=== PATIENT | female | born 1940 | race Caucasian/White ===

== ENCOUNTER 2017-07-09 14:08 | Inpatient (IN) | payer MEDICARE, SELFPAY ==
[2017-07-09] VITALS (10 sets, daily range): BP systolic 81–153; BP diastolic 55–97; PULSE 82–98; RESP 14–20; TEMP 35.3–36.5; O2SAT 96–100; BMI 28.3; BMI 28.4
--- NOTE | 2017-07-09 14:45 | RAD_ITS ---
STUDY: X-RAY CHEST REASON FOR EXAM: Female, 76 years old. Dyspnea on exertion TECHNIQUE: PA and lateral views of the chest. COMPARISON: Prior study of 02/26/2017 FINDINGS: There is a left-sided Port-A-Cath with catheter tip overlying the region of the junction of the left brachiocephalic vein and SVC. There is a 4.2 x 2.7 cm right upper lobe mass, appearing similar to the previous study. There is a small left-sided effusion. Normal size heart. Normal mediastinum and rodolfo. Normal visualized pulmonary arteries. There are calcified plaques of the thoracic aorta. Normal visualized thoracic spine. There are degenerative changes of the right shoulder joint. There is no demonstrated abnormality of the visualized soft tissue structures of the upper abdomen. RAD/Chest PA and Lateral IMPRESSION: 4.2 x 2.7 cm right upper lobe mass, appearing similar to the previous study. Limited inspiration. Calcified plaques of the thoracic aorta. Degenerative changes of the right shoulder joint. Electronically Signed: Luis Felipe Gonzalez MD at 16:16 EDT , Service support ,
[2017-07-09 15:04] LABS: Absolute Lymphocyte Count 1.27 X10^3/ul (0.83-4.51); Absolute Neutrophil Count 9.4 X10^3/uL (2.0-7.7); Basophil# 0.03 X10^3/uL; Basophil% 0.3 % (0-1); Eosinophil# 0.24 X10^3/uL; Eosinophils% 2.1 % (0-5); Hematocrit 35.9 % (37-47); Hemoglobin 11.3 g/dl (12.0-15.0); Lymphocyte # 1.27 X10^3/ul (4.0); Lymphocyte % 10.9 % (19-41); Mean Corp Hgb Conc 31.5 g/gl (32-36); Mean Corpuscular Hgb 27.7 pg (27.0-32.0); Mean Platelet Vol. 10.1 fl (6.2-12.0); Monocyte# 0.69 X10^3/uL; Monocyte% 5.9 % (0-10); Neutrophil # 9.42 X10^3/uL (2.7-7.7); Neutrophil % 80.7 % (47-70); POSITIVE COUNT NO; POSITIVE DIFFERENTIAL NO; POSITIVE MORPHOLOGY NO; Platelet Count 230 K/mm3 (150-450); RBC Distribution Width CV 14.9 % (11.6-14.6); RBC Distribution Width SD 47.5 fl (35.1-43.9); Red Blood Count 4.08 M/mm3 (4.2-5.4); White Blood Count 11.7 K/mm3 (4.4-11.0)
--- NOTE | 2017-07-09 15:19 | ED.DCSUM_ITS ---
- ER Visit Summary Date of Service: 07/09/17 Chief Complaint: Brought to the emergency by family because of decreased p.o. intake and decreased urine output History of Present Illness: The patient is a 76 F has multiple medical problems was brought to the emergency room by family because of decreased p.o. intake and decreased urine output. She has multiple medical problems. She does complain of dry mouth and thirst. She does report orthostatic symptoms and based on her recall of normal blood pressure her pressure was low. She does have chronic diarrhea. It is not uncommon for her to have up to 15 loose stools a day. She is status post size. Colectomy for colon cancer. She denies any blood or mucus in her stool. She does complain of being cold. She denies history of thyroid disease. She denies headache. Denies any visual, ocular auditory symptoms. I trouble speech or swallowing. She denies cough or shortness of breath. Family member states she is short of breath with walking. She denies orthopnea PND. She denies swelling of her legs. She denies history of PE and DVT; however, reviewing records reveals she has history of both. Nurse informed me that her recently . Physical Examination: Blood pressure is 102/58 and temperature is 95.7. Both of these are abnormal. Head is atraumatic, cephalic. Pupils equal reactive. Extra muscle intact. Mucosa is dry. Trachea is midline. There is no stridor. Heart is regular. Lungs are clear to auscultation with diminished bilaterally. Abdomen soft nontender. Lower extreme exam reveals no swelling, discoloration, leg vein distention, palpable coarseness on the description deep venous system. Patient is alert and oriented ?3. Motor is 5 over 5. Sensory is intact. DTRs are symmetric with no clonus or Babinski sign. Cranial 2 through 12 are intact. Cerebellar testing is normal. Test Results: White count is slightly above 11.7 thousand with 81 segs no bands. H&H 7.3 and 35.9. Electro panels marked for potassium of 5.6, CO2 of 18 with an anion gap of 7. Glucose is 207. BUN and creatinine are 59 2.98 respectively. Lactate is normal at 1.2. TSH is 1.48. View chest x-ray reveals a 4+ cm mass on the right that was noted on prior x-rays. Also effusions are noted. Emergency Department Course and Treatment: IV was established and she received 1 L of normal saline. No longer BMP was obtained to assess BUN/creatinine and electrolytes. CBC was obtained to evaluate for anemia. Since she is hypothermic complains of being cold/cold intolerance a TSH was obtained. Treatment Plan: Patient was informed at 1630 that she would be admitted. Her blood pressure is 81 systolic after 1 L. She received a second liter. Because of the hyperkalemia and EKG was ordered and the results will be documented on the written note. Disposition: Admit PCU Impression: 1. Hypotension 2. Acute kidney injury 3. Hyperkalemia 4. Right lung mass, chronic 5. Hyperglycemia and nondiabetic 6. History of coronary disease 7. History of congestive heart failure This note was generated with [employer] dictation software. It may contain incorrect words, spelling, and punctuation that were not noted in review of the chart prior to signing ED Disposition - Plan for ED Patient: Chief Complaint: Complaint Referrals: Marilu Veloz MD [STAFF PHYSICIAN] -
[2017-07-09] MEDS: 0.9% Normal Saline 1,000 ML 1000 ML IV (15:21)
[2017-07-09 15:29] LABS: Anion Gap 7 (5-15); BUN 59 mg/dL (7-18); BUN/Creat Ratio 20.6 RATIO (10-20); Calcium,Total 9.7 mg/dL (8.5-10.1); Chloride 109 mmol/L (98-107); Creatinine, Serum 2.87 mg/dL (0.55-1.02); EST Glomerular Filtration Rate 17 mL/min (>60); Est Glom Filt Rate - Afr Amer 20 mL/min (>60); Estimated Creatinine Clearance 12.98 ml/min; Glucose 209 mg/dL (74-106); Lactic Acid 1.2 mmol/L (0.4-2.0); Potassium 5.6 mmol/L (3.5-5.1); Sodium Level 134 mmol/L (136-145); Thyroid Stim Hormone (TSH) 1.48 uIU/mL (0.358-3.74)
--- NOTE | 2017-07-09 16:18 | EKG12_ITS ---
Test Reason : COMPLAINT Blood Pressure : / mmHG Vent. Rate : 086 BPM Atrial Rate : 086 BPM P-R Int : 172 ms QRS Dur : 084 ms QT Int : 368 ms P-R-T Axes : 042 -23 053 degrees QTc Int : 440 ms Normal sinus rhythm Normal ECG Confirmed by MARIO BURROUGHS, JOSIANE ([id number]), editor index SANDY SALMERON ([id number]) on 07/11/2017 1:02:08 PM Referred By: LUPE Confirmed By:JOSIANE MARTIN MD
--- NOTE | 2017-07-09 17:22 | PCM.HP.STD ---
Problem List (1) Generalized weakness Status: Acute (2) Confusion Status: Acute History of Present Illness Date of Admission: 07/09/17 Chief Complaint: Generalized weakness, intermittent confusion The patient is a 76 year old F was seen in the emergency room at [facility] after being brought in by her family due to intermittent mild confusion and generalized weakness. Patient lost her ex- a few days ago and the patient's family believes that she is depressed, patient admits to this examiner that at times she has memory issues. Family confirms this also. Patient denies any focal weakness, slurred speech, difficulty swallowing, headaches, or syncope. Workup in the emergency room included labs which were remarkable for an elevated BUN at 59, creatinine was elevated at 2.89, potassium was elevated at 5.6, patient's white blood cell count was 11.7. Patient had a chest x-ray which showed a right lower lobe mass that appears to be chronic, patient's family and the patient state that she is being seen for this abnormal area, in the past she had had a metastatic colon cancer foci in this area and it had been irradiated. Her oncologist does not believe that this is a recurrent area of cancer at this time. I had a talk with the family members who were present today, patient is on quite a few medications-some of which are antidepressants, it was confirmed that the patient has had severe depression in the past, family members did not seem to know she was taken Zyprexa, I indicated to them that I felt it would be a good idea to try to lower some of her medications such as her Neurontin and Zyprexa as these are sedating. Family is okay with this approach. Patient will be admitted for acute kidney injury to PCU, I will decrease her Neurontin, Zyprexa, and Ativan, she will receive fluids, repeat labs, and be seen by PT and OT. Further note, patient does go to adult daycare-patient's granddaughter states it is more for companionship. Patient's medications are given to the patient in unit dose packaging. I also talked to the family whether they feel that the patient needs to have a CT of her head or MRI of her head to rule out any metastatic cancer spread-family does not want it done at this time, they state that she has had scans in the past for the same reason and they have been negative, I think is more likely the patient's medications are causing some intermittent confusion in her. 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) s/p colon resection remote, lung metastases diagnosed 2014, s/p adjuvant chemotherapy, s/p stereotactic XRT [facility], follows [facility] S/P ORIF (open reduction internal fixation) fracture (Chronic) left ankle, 09/14/14, Dr Harvey, [facility] Presence of IVC filter (Chronic) H/O deep venous thrombosis (Chronic) now has an IVC filter Hyperlipidemia (Chronic) Polyneuropathy (Chronic) Pulmonary embolism (Chronic) Hypertension (Chronic) Chronic renal failure, stage 3 (moderate) (Chronic) Anxiety and depression (Chronic) uncontrolled Gallstones (Chronic) GERD (gastroesophageal reflux disease) (Chronic) Allergies promethazine HCl [From Phenergan] Allergy (Verified 07/09/17 14:36) seizures romanian rice Adverse Reaction (Severe, Uncoded 07/09/17 14:36) Unknown Home Medications: Ambulatory Orders Medication Instructions Recorded Atorvastatin Calcium [Lipitor] 40 mg PO QHS 07/09/15 Multivitamin [Daily Multiple 1 tab PO DAILY 07/09/15 Vitamin] Alendronate Sodium 70 mg PO BURT 09/20/16 buPROPion XL [Wellbutrin Xl] 150 mg PO DAILY 09/20/16 Aspirin E.C. [Ecotrin] 81 mg PO DAILY@0800 02/26/17 Carvedilol [Coreg (Beta Gilles)] 12.5 mg PO BID 02/26/17 Clopidogrel Bisulfate [Plavix] 75 mg PO DAILY 02/26/17 Oxycodone HCl/Acetaminophen 1 tablet PO TID PRN PRN 02/27/17 [Percocet 7.5-325 mg Tablet] gabapentin 300 mg capsule 600 mg PO TID 04/10/17 Insulin Aspart [Novolog Flexpen 6 units SC TIDCM 07/09/17 ([facility])] Insulin Glargine,Hum.rec.anlog 35 units SQ QHS 07/09/17 [Elias Strauss] Lisinopril [Zestril] 10 mg PO DAILY 07/09/17 Lorazepam [Ativan] 1 mg PO Q12H PRN PRN 07/09/17 Olanzapine [Zyprexa Zydis] 5 mg PO QHS 07/09/17 Potassium Chloride 10 meq PO BID 07/09/17 Venlafaxine XR [Effexor Xr] 150 mg PO DAILY 07/09/17 Surgical History: colectomy, hysterectomy, - - Left ankle ORIF, multiple cardiac stent placement Psychiatric History: Anxiety, Depression HOG RAISER History: No pertinent HOG RAISER history Lives: Alone Smoking Status: Never smoker Alcohol: None Drugs: None - *Family History Maternal History Items: Cancer - rectal Paternal History Items: Cancer - lung Review of Systems Constitutional: Reports: Weakness, Fatigue. Denies: Anorexia, Chills, Fever, Night Sweats, Malaise, Weight Change Eyes: Denies: Blurred vision, Cataracts, Conjunctivae Inflammation, Double vision, Drainage HEENT: Denies: Difficulty Swallowing, Dysphasia, Ear Pain, Eye Pain, Head Aches, Hearing Changes, Nasal bleeding, Nasal Congestion, Post Nasal Drip Cardiovascular: Denies: Chest Pain, Claudication, Chest Pressure, Chest Tightness, Edema, Heaviness, Light Headedness, Orthopnea, Palpitations, Paroxysmal Noc. Dyspnea, Syncope Respiratory: Denies: Cough, Hemoptysis, Pleuritic Pain, Shortness of Breath, Shortness of breath at rest, Shortness of breath upon exertion, Sputum production, Wheezing Gastrointestinal: Denies: Abdominal Pain, Constipation, Diarrhea, Hematemesis, Hematochezia, Nausea, Melena, Vomiting Genitourinary: Denies: Dysuria, Frequency, Hematuria, Hesitancy, Incontinence, Nocturia, Retention, Urgency Gynecological: Denies: Breast symptoms Musculoskeletal: Reports: Back Pain. Denies: Foot Pain, Hand Pain, Joint Pain, Joint stiffness, Joint swelling, Joint Tenderness, Leg Pain, Shoulder Pain Skin: Denies: Dryness, Jaundice, Pruritis, Rash Neurological: Denies: Blurred vision, Double vision, Slurred speech, Difficulty swallowing, Focal weakness, Headaches, Incoordination, Numbness, Tingling, Tremor, Seizures Psychiatric: Denies: Anxiety, Depression, Homicidal Ideations, Suicidal Ideations Endocrine: Reports: Hx of Irradiation. Denies: Change in Body Habitus, Heat/ Cold Intolerance, Polydipsia, Polyuria Hematologic/ Lymphatic: Denies: Adenopathy, Anemia, Easy Bruising, Easy Bleeding, Petechiae, Purpura VTE Information - Inpt Only VTE Present on Admission: No VTE Mechan Device Prophylaxis: None VTE Pharm Prophylaxis ordered?: Yes Patient Problems: Active and Suspected Problems (Last Updated 05/01/17 @ 09:35 by Los Jenkins) Generalized weakness (Acute) Confusion (Acute) - Physical Exam General: Alert, Oriented x3, Cooperative, No apparent distress, Well developed, Well nourished HEENT: Atraumatic, PERRLA, EOMI, Normocephalic Oral: Moist Mucosa Neck: Supple, No JVD, Negative Carotid Bruits, No Nuchal Rigidity, Trachea Midline, Thyroid Normal Size and Texture Lungs: Clear to auscultation, Normal air movement, No rhonchi, No wheeze, No rales Cardiovascular: Regular rate, Regular Rhythm, Normal S1, Normal S2, No murmurs, No Ectopic Activity, PMI Normal, No rub noted, No Gallop Abdomen: Bowel Sounds Present, Soft, Non Tender, Non-Distended, No hernias noted Extremities: No clubbing, No cyanosis, No edema, Capillary Refill Less than 3 Seconds Skin: No rashes, No breakdown Musculoskeletal: No Tenderness to Palpation of Joints or Extremities Neurological: Cranial nerves II-XII grossly intact, Neuro grossly intact, Muscle tone normal, Sensory exam intact to light touch and pain, Coordination normal Psych/Mental Status: Normal Affect, Appropriate, Alert and oriented to time, place, person, mood and affect Vital Signs Temp Pulse Resp BP Pulse Ox 95.6 F L 83 20 H 122/61 H 99 07/09/17 14:09 07/09/17 17:14 07/09/17 17:14 07/09/17 17:14 07/09/17 17:14 Oxygen Delivery Method Room Air Weight: 70.4 kg Body Mass Index (BMI) 28.3 Finger Stick Blood Glucose 260 Laboratory Tests Past 24 Hrs 07/09/17 07/09/17 07/09/17 14:56 14:56 14:56 WBC 11.7 H RBC 4.08 L Hgb 11.3 L Hct 35.9 L MCV 88.0 MCH 27.7 MCHC 31.5 L RDW 14.9 H RDW Differential 47.5 H Plt Count 230 MPV 10.1 Immature Gran % (Auto) 0.100 Neut % (Auto) 80.7 H Lymph % (Auto) 10.9 L [place] % (Auto) 5.9 Eos % (Auto) 2.1 Baso % (Auto) 0.3 Absolute Neuts (auto) 9.4 H Absolute Lymphs (auto) 1.27 Total Counted Not Reportable Sodium 134 L Potassium 5.6 H Chloride 109 H Carbon Dioxide 18.0 L Anion Gap 7 BUN 59 H Creatinine 2.87 H Estim Creat Clear Calc 12.98 Est GFR (MDRD) Af Amer 20 L Est GFR (MDRD) Non-Af 17 L BUN/Creatinine Ratio 20.6 H Glucose 209 H Lactic Acid 1.2 Calcium 9.7 TSH 1.48 Assessment/Plan Active and Suspected Problems (Last Updated 05/01/17 @ 09:35 by Los Jenkins) Generalized weakness (Acute) Confusion (Acute) #1 acute kidney injury-etiology unclear, it may be from lack of fluid intake and/or elevated blood sugar, patient will be admitted to PCU, she will be given IV fluids, labs will be rechecked #2 Generalized weakness-probably secondary to #1, I have decided to reduce the patient's sedating medication (Neurontin, Ativan, Zyprexa) to see if this helps with the patient's alertness, PT and OT will see the patient #3 depression-patient follows up with her PCP regarding her antidepressants #4 coronary artery disease-stable #5 hyperkalemia-probably secondary to potassium use, patient's potassium will be held #6 type 2 diabetes-patient will remain on her home medications and sliding scale insulin will be administered as needed #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 She is due to have a repeat CT of her chest done in approximately a week in [place]. #9 past history of colon carcinoma #10 mild memory impairment-possibly secondary to medications Code Visit Inpatient E&M: 10765 Init Hosp L3
--- NOTE | 2017-07-09 17:34 | HP.PCM_ITS ---
Problem List (1) Generalized weakness Status: Acute (2) Confusion Status: Acute History of Present Illness Date of Admission: 07/09/17 Chief Complaint: Generalized weakness, intermittent confusion The patient is a 76 year old F was seen in the emergency room at [facility] after being brought in by her family due to intermittent mild confusion and generalized weakness. Patient lost her ex- a few days ago and the patient's family believes that she is depressed, patient admits to this examiner that at times she has memory issues. Family confirms this also. Patient denies any focal weakness, slurred speech, difficulty swallowing, headaches, or syncope. Workup in the emergency room included labs which were remarkable for an elevated BUN at 59, creatinine was elevated at 2.89 , potassium was elevated at 5.6, patient's white blood cell count was 11.7. Patient had a chest x-ray which showed a right lower lobe mass that appears to be chronic, patient's family and the patient state that she is being seen for this abnormal area, in the past she had had a metastatic colon cancer foci in this area and it had been irradiated. Her oncologist does not believe that this is a recurrent area of cancer at this time. I had a talk with the family members who were present today, patient is on quite a few medications-some of which are antidepressants, it was confirmed that the patient has had severe depression in the past, family members did not seem to know she was taken Zyprexa, I indicated to them that I felt it would be a good idea to try to lower some of her medications such as her Neurontin and Zyprexa as these are sedating. Family is okay with this approach. Patient will be admitted for acute kidney injury to PCU, I will decrease her Neurontin, Zyprexa, and Ativan, she will receive fluids, repeat labs, and be seen by PT and OT. Further note, patient does go to adult daycare-patient's granddaughter states it is more for companionship. Patient's medications are given to the patient in unit dose packaging. I also talked to the family whether they feel that the patient needs to have a CT of her head or MRI of her head to rule out any metastatic cancer spread-family does not want it done at this time, they state that she has had scans in the past for the same reason and they have been negative, I think is more likely the patient's medications are causing some intermittent confusion in her. Past Medical History Past Medical History (Chronic Problems): Chronic Problems (Last Updated 05/01/17 @ 09:35 by Los Jenkins) Atherosclerotic heart disease of [place] coronary artery without angina pectoris (Chronic) Hypotension (Chronic) Colon carcinoma (Chronic) S/P partial colon resection CAD (coronary artery disease) (Chronic) ptci and stents Diabetes (Chronic) 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) s/p colon resection remote, lung metastases diagnosed 2014, s/p adjuvant chemotherapy, s/p stereotactic XRT [facility], follows [facility] S/P ORIF (open reduction internal fixation) fracture (Chronic) left ankle, 09/14/14, Dr Harvey, [facility] Presence of IVC filter (Chronic) H/O deep venous thrombosis (Chronic) now has an IVC filter Hyperlipidemia (Chronic) Polyneuropathy (Chronic) Pulmonary embolism (Chronic) Hypertension (Chronic) Chronic renal failure, stage 3 (moderate) (Chronic) Anxiety and depression (Chronic) uncontrolled Gallstones (Chronic) GERD (gastroesophageal reflux disease) (Chronic) Allergies promethazine HCl [From Phenergan] Allergy (Verified 07/09/17 14:36) seizures [place] Adverse Reaction (Severe, Uncoded 07/09/17 14:36) Unknown Home Medications: Ambulatory Orders Medication Instructions Recorded Atorvastatin Calcium [Lipitor] 40 mg PO QHS 07/09/15 Multivitamin [Daily Multiple 1 tab PO DAILY 07/09/15 Vitamin] Alendronate Sodium 70 mg PO BURT 09/20/16 buPROPion XL [Wellbutrin Xl] 150 mg PO DAILY 09/20/16 Aspirin E.C. [Ecotrin] 81 mg PO DAILY@0800 02/26/17 Carvedilol [Coreg (Beta Gilles)] 12.5 mg PO BID 02/26/17 Clopidogrel Bisulfate [Plavix] 75 mg PO DAILY 02/26/17 Oxycodone HCl/Acetaminophen 1 tablet PO TID PRN PRN 02/27/17 [Percocet 7.5-325 mg Tablet] gabapentin 300 mg capsule 600 mg PO TID 04/10/17 Insulin Aspart [Novolog Flexpen 6 units SC TIDCM 07/09/17 ([facility])] Insulin Glargine,Hum.rec.anlog 35 units SQ QHS 07/09/17 [Elias Strauss] Lisinopril [Zestril] 10 mg PO DAILY 07/09/17 Lorazepam [Ativan] 1 mg PO Q12H PRN PRN 07/09/17 Olanzapine [Zyprexa Zydis] 5 mg PO QHS 07/09/17 Potassium Chloride 10 meq PO BID 07/09/17 Venlafaxine XR [Effexor Xr] 150 mg PO DAILY 07/09/17 Surgical History: colectomy, hysterectomy, - - Left ankle ORIF, multiple cardiac stent placement Psychiatric History: Anxiety, Depression PLAN CHECKER History: No pertinent PLAN CHECKER history Lives: Alone Smoking Status: Never smoker Alcohol: None Drugs: None - *Family History Maternal History Items: Cancer - rectal Paternal History Items: Cancer - lung Review of Systems Constitutional: Reports: Weakness, Fatigue. Denies: Anorexia, Chills, Fever, Night Sweats, Malaise, Weight Change Eyes: Denies: Blurred vision, Cataracts, Conjunctivae Inflammation, Double vision, Drainage HEENT: Denies: Difficulty Swallowing, Dysphasia, Ear Pain, Eye Pain, Head Aches , Hearing Changes, Nasal bleeding, Nasal Congestion, Post Nasal Drip Cardiovascular: Denies: Chest Pain, Claudication, Chest Pressure, Chest Tightness, Edema, Heaviness, Light Headedness, Orthopnea, Palpitations, Paroxysmal Noc. Dyspnea, Syncope Respiratory: Denies: Cough, Hemoptysis, Pleuritic Pain, Shortness of Breath, Shortness of breath at rest, Shortness of breath upon exertion, Sputum production, Wheezing Gastrointestinal: Denies: Abdominal Pain, Constipation, Diarrhea, Hematemesis, Hematochezia, Nausea, Melena, Vomiting Genitourinary: Denies: Dysuria, Frequency, Hematuria, Hesitancy, Incontinence, Nocturia, Retention, Urgency Gynecological: Denies: Breast symptoms Musculoskeletal: Reports: Back Pain. Denies: Foot Pain, Hand Pain, Joint Pain, Joint stiffness, Joint swelling, Joint Tenderness, Leg Pain, Shoulder Pain Skin: Denies: Dryness, Jaundice, Pruritis, Rash Neurological: Denies: Blurred vision, Double vision, Slurred speech, Difficulty swallowing, Focal weakness, Headaches, Incoordination, Numbness, Tingling, Tremor, Seizures Psychiatric: Denies: Anxiety, Depression, Homicidal Ideations, Suicidal Ideations Endocrine: Reports: Hx of Irradiation. Denies: Change in Body Habitus, Heat/ Cold Intolerance, Polydipsia, Polyuria Hematologic/ Lymphatic: Denies: Adenopathy, Anemia, Easy Bruising, Easy Bleeding , Petechiae, Purpura VTE Information - Inpt Only VTE Present on Admission: No VTE Mechan Device Prophylaxis: None VTE Pharm Prophylaxis ordered?: Yes Patient Problems: Active and Suspected Problems (Last Updated 05/01/17 @ 09:35 by Los Jenkins) Generalized weakness (Acute) Confusion (Acute) - Physical Exam General: Alert, Oriented x3, Cooperative, No apparent distress, Well developed, Well nourished HEENT: Atraumatic, PERRLA, EOMI, Normocephalic Oral: Moist Mucosa Neck: Supple, No JVD, Negative Carotid Bruits, No Nuchal Rigidity, Trachea Midline, Thyroid Normal Size and Texture Lungs: Clear to auscultation, Normal air movement, No rhonchi, No wheeze, No rales Cardiovascular: Regular rate, Regular Rhythm, Normal S1, Normal S2, No murmurs, No Ectopic Activity, PMI Normal, No rub noted, No Gallop Abdomen: Bowel Sounds Present, Soft, Non Tender, Non-Distended, No hernias noted Extremities: No clubbing, No cyanosis, No edema, Capillary Refill Less than 3 Seconds Skin: No rashes, No breakdown Musculoskeletal: No Tenderness to Palpation of Joints or Extremities Neurological: Cranial nerves II-XII grossly intact, Neuro grossly intact, Muscle tone normal, Sensory exam intact to light touch and pain, Coordination normal Psych/Mental Status: Normal Affect, Appropriate, Alert and oriented to time, place, person, mood and affect Vital Signs Temp Pulse Resp BP Pulse Ox 95.6 F L 83 20 H 122/61 H 99 07/09/17 14:09 07/09/17 17:14 07/09/17 17:14 07/09/17 17:14 07/09/17 17:14 Oxygen Delivery Method Room Air Weight: 70.4 kg Body Mass Index (BMI) 28.3 Finger Stick Blood Glucose 260 Laboratory Tests Past 24 Hrs 07/09/17 07/09/17 07/09/17 14:56 14:56 14:56 WBC 11.7 H RBC 4.08 L Hgb 11.3 L Hct 35.9 L MCV 88.0 MCH 27.7 MCHC 31.5 L RDW 14.9 H RDW Differential 47.5 H Plt Count 230 MPV 10.1 Immature Gran % (Auto) 0.100 Neut % (Auto) 80.7 H Lymph % (Auto) 10.9 L [place] % (Auto) 5.9 Eos % (Auto) 2.1 Baso % (Auto) 0.3 Absolute Neuts (auto) 9.4 H Absolute Lymphs (auto) 1.27 Total Counted Not Reportable Sodium 134 L Potassium 5.6 H Chloride 109 H Carbon Dioxide 18.0 L Anion Gap 7 BUN 59 H Creatinine 2.87 H Estim Creat Clear Calc 12.98 Est GFR (MDRD) Af Amer 20 L Est GFR (MDRD) Non-Af 17 L BUN/Creatinine Ratio 20.6 H Glucose 209 H Lactic Acid 1.2 Calcium 9.7 TSH 1.48 Assessment/Plan Active and Suspected Problems (Last Updated 05/01/17 @ 09:35 by Los Jenkins) Generalized weakness (Acute) Confusion (Acute) #1 acute kidney injury-etiology unclear, it may be from lack of fluid intake and /or elevated blood sugar, patient will be admitted to PCU, she will be given IV fluids, labs will be rechecked #2 Generalized weakness-probably secondary to #1, I have decided to reduce the patient's sedating medication (Neurontin, Ativan, Zyprexa) to see if this helps with the patient's alertness, PT and OT will see the patient #3 depression-patient follows up with her PCP regarding her antidepressants #4 coronary artery disease-stable #5 hyperkalemia-probably secondary to potassium use, patient's potassium will be held #6 type 2 diabetes-patient will remain on her home medications and sliding scale insulin will be administered as needed #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 She is due to have a repeat CT of her chest done in approximately a week in [place]. #9 past history of colon carcinoma #10 mild memory impairment-possibly secondary to medications Code Visit Inpatient E&M: 16095 Init Hosp L3
[2017-07-09 18:41] LABS: Bedside Glucose 171 mg/dL (70-110)
[2017-07-09] MEDS: 0.9% Normal Saline 1,000 ML 150 ML IV (18:47)
[2017-07-09] MEDS: 0.9% NaCl Peripheral Flush Adult/Peds IV (18:47)
[2017-07-09] MEDS: Carvedilol 12.5 MG Tablet PO (21:34)
[2017-07-09] MEDS: Glucerna Shake 120 ML LIQUID PO (21:34)
[2017-07-09] MEDS: Heparin Injection (Vial) 5,000 UNIT/ML VIAL 5000 UNIT SC (21:36)
[2017-07-09] MEDS: Atorvastatin Calcium 40 MG Tablet PO (21:39)
[2017-07-09 21:55] LABS: Bedside Glucose 163 mg/dL (70-110)
[2017-07-09 21:58] LABS: Bacteria 0 SEEN /hpf (None Seen); Mucous, Urine 0 SEEN /hpf (<or=2+); Red Blood Cells-Urine 0 SEEN /hpf (0-5); Squamous Epithelial Cells - UA 0 SEEN /hpf (5-10)
[2017-07-09 22:07] LABS: Color, Urine Yellow (Yellow); Glucose, Dipstick Normal (Normal); Ketone-Dipstick Negative (Negative); Leukocyte Esterase-Dipstick 500 /ul (Negative); Nitrite-Dipstick Negative (Negative); Occult Blood-Urine 10 /ul (Negative); Protein-Dipstick 100 mg/dl (Negative); Specific Gravity, Urine 1.015 (1.002-1.030); Urine Bilirubin Dipstick Negative (Negative); Urine Clarity Cloudy (Clear); Urine Urobilinogen Normal (Normal)
[2017-07-09] MEDS: Sodium Polystyrene Sulfonate 15 GM/60 ML UDC PO (22:13)
[2017-07-09 22:25] LABS: White Blood Cells 25-50 SEEN /hpf (0-5); Yeast-Urine 3+ /hpf (None Seen)
[2017-07-10] VITALS (11 sets, daily range): BP systolic 127–151; BP diastolic 57–77; PULSE 83–109; RESP 16–18; TEMP 36.6–37.1; O2SAT 95–98
[2017-07-10] MEDS: Ceftriaxone 1 GM/50 ML BAG IV ×2 (00:19→10:06)
[2017-07-10] MEDS: 0.9% Normal Saline 1,000 ML 150 ML IV ×2 (00:20→08:16)
[2017-07-10] MEDS: Heparin Injection (Vial) 5,000 UNIT/ML VIAL 5000 UNIT SC ×3 (05:41→21:26)
[2017-07-10 06:00] LABS: Anion Gap 9 (5-15); BUN 52 mg/dL (7-18); BUN/Creat Ratio 24.5 RATIO (10-20); Calcium,Total 8.7 mg/dL (8.5-10.1); Chloride 115 mmol/L (98-107); Creatinine, Serum 2.12 mg/dL (0.55-1.02); EST Glomerular Filtration Rate 24 mL/min (>60); Est Glom Filt Rate - Afr Amer 29 mL/min (>60); Estimated Creatinine Clearance 17.58 ml/min; Glucose 190 mg/dL (74-106); Potassium 4.8 mmol/L (3.5-5.1); Sodium Level 139 mmol/L (136-145)
[2017-07-10 07:01] LABS: Bedside Glucose 196 mg/dL (70-110)
[2017-07-10] MEDS: Gabapentin 300 MG Capsule PO ×2 (08:16→17:05)
[2017-07-10] MEDS: Aspirin E.C. 81 MG Tablet PO (08:16)
[2017-07-10] MEDS: Carvedilol 12.5 MG Tablet PO ×2 (08:53→21:24)
[2017-07-10] MEDS: Venlafaxine XR 150 MG Capsule PO (08:53)
[2017-07-10] MEDS: Glucerna Shake 120 ML LIQUID PO ×2 (08:53→13:05)
[2017-07-10] MEDS: Lisinopril 10 MG Tablet PO (08:54)
[2017-07-10] MEDS: OLANZapine 2.5 MG Tablet PO (08:54)
[2017-07-10] MEDS: Clopidogrel Bisulfate 75 MG Tablet PO (08:54)
[2017-07-10] MEDS: buPROPion (XL) 150 MG TABLET.XL PO (08:54)
--- NOTE | 2017-07-10 10:06 | PN_ITS ---
<Malka Robledo - Last Filed: 07/10/17 10:08> Patient Problems: Active and Suspected Problems (Last Updated 05/01/17 @ 09:35 by Los Jenkins) Generalized weakness (Acute) Confusion (Acute) Subjective: Patient seen and examined. Continues to have generalized weakness. Complains of poor appetite and nausea, mostly in the mornings. She states she has had increased stress due to family and poor appetite/nausea has been ongoing for approximately 1 month. Complains of mild dyspnea with exertion. Denies other complaints. - Physical Exam General: Alert, Oriented x3, Cooperative, No apparent distress HEENT: Atraumatic, PERRLA, EOMI, Normocephalic Neck: Supple, No JVD, Negative Carotid Bruits Lungs: Clear to auscultation, Normal air movement Cardiovascular: Regular rate, Regular Rhythm, Normal S1, Normal S2, No murmurs Abdomen: Bowel Sounds Present, Soft, Non Tender, Non-Distended Extremities: No clubbing, No cyanosis, No edema, Capillary Refill Less than 3 Seconds Skin: No rashes, No breakdown Musculoskeletal: No Tenderness to Palpation of Joints or Extremities Neurological: Cranial nerves II-XII grossly intact, Neuro grossly intact Psych/Mental Status: Normal Affect, Appropriate Vital Signs Temp Pulse Resp BP Pulse Ox 98.3 F 98 16 127/57 H 95 07/10/17 03:30 07/10/17 07:29 07/10/17 03:30 07/10/17 03:30 07/10/17 03:30 Oxygen Delivery Method Room Air Weight: 70.6 kg Body Mass Index (BMI) 28.4 Intake and Output for Last 24 Hours 07/08/17 07/09/17 07/10/17 23:59 23:59 23:59 Intake Total 1250 / 1250 776 / 776 Balance 1250 / 1250 776 / 776 Laboratory Tests Past 24 Hrs 07/09/17 07/10/17 21:50 05:25 Sodium 139 Potassium 4.8 Chloride 115 H Carbon Dioxide 15.0 L Anion Gap 9 BUN 52 H Creatinine 2.12 H Estim Creat Clear Calc 17.58 Est GFR (MDRD) Af Amer 29 L Est GFR (MDRD) Non-Af 24 L BUN/Creatinine Ratio 24.5 H Glucose 190 H Calcium 8.7 Urine Color Yellow Urine Clarity Cloudy Urine pH 5.0 Ur Specific [place] 1.015 Urine Protein 100 H Urine Glucose (UA) Normal Urine Ketones Negative Urine Occult Blood 10 H Urine Nitrite Negative Urine Bilirubin Negative Urine Urobilinogen Normal Ur Leukocyte Esterase 500 H Urine RBC 0 SEEN Urine WBC 25-50 SEEN Ur Squamous Epith Cells 0 SEEN Urine Bacteria 0 SEEN Urine Mucus 0 SEEN Urine Yeast 3+ POC Glucose 07/10/17 07/09/17 07/09/17 06:52 21:24 18:30 POC Glucose 196 H 163 H 171 H Medical Necessity - Tobacco Use Smoking Status: Never smoker Assessment/Plan Active and Suspected Problems (Last Updated 05/01/17 @ 09:35 by Los Jenkins) Generalized weakness (Acute) Confusion (Acute) 1. Acute kidney injury on chronic kidney disease stage III-patient reports poor oral intake. Suspect secondary to dehydration. Creatinine improved with IV fluids. Continue IV fluids. Monitor BMP. Nephrology consulted. Hold lisinopril. 2. Generalized weakness-patient states this is been ongoing. PT/OT. Nutrition consult. 3. Hyperkalemia resolved. Suspect secondary to potassium supplementation and # 1. 4. Type 2 diabetes mellitus-hemoglobin A1c February 2017 7.6%. Accu-Cheks before meals at bedtime. Continue home insulin regimen. 5. CAD status post PTCA-continue aspirin, statin, Plavix, beta-selma. 6. Hypertension-stable. Home lisinopril regimen on hold due to #1. 7. History of metastatic colon cancer-chronic right lower lobe mass. Continue outpatient follow-up with oncology. Due to have repeat CT of chest in the next week in [place]. 8. GERD-not on home regimen. 9. Anxiety/depression-continue home regimen. 10. Hyperlipidemia-continue statin. 11. History of PE status post IVC filter DVT prophylaxis-heparin subcu. This patient was seen by YUMI Berumen under the supervision of Dr. Maldonado. <Janet Maldonado - Last Filed: 07/10/17 14:43> - Physical Exam Vital Signs Temp Pulse Resp BP Pulse Ox 98.4 F 85 16 143/77 H 98 07/10/17 09:30 07/10/17 11:36 07/10/17 09:30 07/10/17 09:30 07/10/17 09:30 Oxygen Delivery Method Room Air Weight: 70.6 kg Body Mass Index (BMI) 28.4 Intake and Output for Last 24 Hours 07/08/17 07/09/17 07/10/17 23:59 23:59 23:59 Intake Total 1250 / 1250 1650 / 1650 Balance 1250 / 1250 1650 / 1650 Laboratory Tests Past 24 Hrs 07/09/17 07/10/17 21:50 05:25 Sodium 139 Potassium 4.8 Chloride 115 H Carbon Dioxide 15.0 L Anion Gap 9 BUN 52 H Creatinine 2.12 H Estim Creat Clear Calc 17.58 Est GFR (MDRD) Af Amer 29 L Est GFR (MDRD) Non-Af 24 L BUN/Creatinine Ratio 24.5 H Glucose 190 H Calcium 8.7 Urine Color Yellow Urine Clarity Cloudy Urine pH 5.0 Ur Specific [place] 1.015 Urine Protein 100 H Urine Glucose (UA) Normal Urine Ketones Negative Urine Occult Blood 10 H Urine Nitrite Negative Urine Bilirubin Negative Urine Urobilinogen Normal Ur Leukocyte Esterase 500 H Urine RBC 0 SEEN Urine WBC 25-50 SEEN Ur Squamous Epith Cells 0 SEEN Urine Bacteria 0 SEEN Urine Mucus 0 SEEN Urine Yeast 3+ POC Glucose 07/10/17 07/10/17 07/09/17 11:11 06:52 21:24 POC Glucose 224 H 196 H 163 H 07/09/17 18:30 POC Glucose 171 H Assessment/Plan Patient was seen and examined independently of the nurse practitioner Malka Robledo. I agree with a above interval history, physical examination assessment and plan. Patient complains of nausea and chronic diarrhea. Has not had any diarrhea today. Denies any fever or chills. History of colon cancer Examination is significant for dry oral mucosa but otherwise unremarkable exam. Labs reviewed, medications reviewed. Will consult nephrology, continue with IV fluids, repeat labs in the morning Code Visit Inpatient E&M: 31788 Subs Hosp L2
[2017-07-10 11:31] LABS: Bedside Glucose 224 mg/dL (70-110)
--- NOTE | 2017-07-10 13:23 | PCM.CONS.R ---
Consultation - Renal 07/10/17 PCP/ Referring MD: Requesting physician: [] Primary care physician: Donald Cline Reason for Consultation:: ARIEL - History of Present Illness History of Present Illness: The patient is a 76 year old F admitted for confusion, generalized weakness. She presented with ARIEL with creatinine at 2.89 yesterday improved to 2.12 today with iv fluids. Baseline creatinine 0.89 on 02/28/17. Potassium level was elevated at 5.6 on admit improved to 4.8 today. She is on lisinopril at home and has a history of hypertension, CAD, diabetes on insulin therapy. She also has a history of colon cancer diagnosed in 2012 status post radiation therapy that has been ongoing managed by [facility] oncology. According to patient chart she has metastatic disease to the lungs patient is not aware of this. She complains of chronic diarrhea since her colon surgery. Denied any hematochezia or melena or bright red blood per rectum. She complained of a cough without fever chills. She noticed a drop in urinary output past 2 weeks. Her urine output is improving with IV hydration. Denied any dysuria or hematuria. Patient denies any focal weakness, slurred speech, difficulty swallowing, headaches, or syncope. She recently lost her ex- and has been depressed on antidepressants. Her appetite has been poor with nausea, dry heaves. She denied any recent weight loss. Denied any abdominal pain. Denied any chest pain, shortness of breath or edema. - Allergies Allergies: Allergies promethazine HCl [From Phenergan] Allergy (Verified 07/09/17 14:36) seizures [place] rice Adverse Reaction (Severe, Uncoded 07/09/17 14:36) Unknown - Current Medications Current Medications: Current Medications Acetaminophen (Tylenol) 650 mg PO Q6H PRN PRN PRN Reason: Mild Pain (1-3)/Temp > 100.7 F Aspirin (Ecotrin) 81 mg PO DAILY@0800 [facility] Last Admin: 07/10/17 08:16 Dose: 81 mg Atorvastatin Calcium (Lipitor) 40 mg PO QHS [facility] Last Admin: 07/09/17 21:39 Dose: 40 mg Bupropion HCl (Wellbutrin Xl) 150 mg PO DAILY [facility] Last Admin: 07/10/17 08:54 Dose: 150 mg Carvedilol (Coreg) 12.5 mg PO BID [facility] Last Admin: 07/10/17 08:53 Dose: 12.5 mg Clopidogrel Bisulfate (Plavix) 75 mg PO DAILY [facility] Last Admin: 07/10/17 08:54 Dose: 75 mg Dextrose (D50w Syringe) 0 gm IV X1 PRN; Protocol PRN Reason: Hypoglycemia Gabapentin (Neurontin) 300 mg PO BIDCM [facility] Last Admin: 07/10/17 08:16 Dose: 300 mg Glucagon () 1 mg IM .X1 PRN PRN Reason: Hypoglycemia Heparin Sodium (Porcine) (Heparin Na) 5,000 unit SC Q8 [facility] Last Admin: 07/10/17 13:05 Dose: 5,000 u Ceftriaxone Sodium (Rocephin) 1 gm in 50 mls @ 100 mls/hr IV Q24 [facility] Last Admin: 07/10/17 10:06 Dose: 100 mls/hr Sodium Chloride () 1,000 mls @ 100 mls/hr IV .Q10H [facility] Last Admin: 07/10/17 10:11 Dose: Not Given Insulin Aspart (Novolog Flexpen (Bkc)) 6 units SC TIDCM [facility] Last Admin: 07/10/17 11:13 Dose: 6 u Insulin Aspart (Novolog Flexpen (Bkc)) 0 units SC ACHS [facility] PRN Reason: Protocol Last Admin: 07/10/17 11:13 Dose: 4 u Insulin Detemir (Levemir (Bkc)) 35 units SC QHS [facility] Last Admin: 07/09/17 21:33 Dose: 35 unit Lorazepam (Ativan) 0.5 mg PO Q12H PRN PRN PRN Reason: ANXIETY Nutritional Formula (Lactose Free) (Glucerna Shake) 120 ml PO 4X/DAY [facility] Last Admin: 07/10/17 13:05 Dose: 120 ml Olanzapine (Zyprexa) 2.5 mg PO DAILY [facility] Last Admin: 07/10/17 08:54 Dose: 2.5 mg Oxycodone HCl (Oxyir) 5 - 10 mg PO Q4H PRN PRN PRN Reason: MOD-SEVERE PAIN (4-10/10) Sodium Chloride () 5 - 30 ml IV UD PRN PRN Reason: SALINE FLUSH Last Admin: 07/09/17 18:47 Dose: 5 ml Venlafaxine HCl (Effexor Xr) 150 mg PO DAILY [facility] Last Admin: 07/10/17 08:53 Dose: 150 mg - Past Medical History Past Medical History (Chronic Problems): Chronic Problems (Last Updated 05/01/17 @ 09:35 by Los Jenkins) Atherosclerotic heart disease of [place] coronary artery without angina pectoris (Chronic) Hypotension (Chronic) Colon carcinoma (Chronic) S/P partial colon resection CAD (coronary artery disease) (Chronic) ptci and stents Diabetes (Chronic) 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) s/p colon resection remote, lung metastases diagnosed 2014, s/p adjuvant chemotherapy, s/p stereotactic XRT [facility] oncology, follows [facility]ology S/P ORIF (open reduction internal fixation) fracture (Chronic) left ankle, 09/14/14, Dr Harvey, [facility] Presence of IVC filter (Chronic) H/O deep venous thrombosis (Chronic) now has an IVC filter Hyperlipidemia (Chronic) Polyneuropathy (Chronic) Pulmonary embolism (Chronic) Hypertension (Chronic) Chronic renal failure, stage 3 (moderate) (Chronic) Anxiety and depression (Chronic) uncontrolled Gallstones (Chronic) GERD (gastroesophageal reflux disease) (Chronic) - Past Surgical History Surgical History: colectomy, hysterectomy, - - Left ankle ORIF, multiple cardiac stent placement - Social History Marital Status: Smoking Status: Never smoker Alcohol: None Drugs: None - Family History Maternal Family History: Family History (Last Updated 05/01/17 @ 09:32 by Los Jenkins) Mother Colon cancer Diabetes Heart disease Father Cancer History Items: Cancer - rectal Paternal Family History: Family History (Last Updated 05/01/17 @ 09:32 by Los Jenkins) Mother Colon cancer Diabetes Heart disease Father Cancer History Items: Cancer - lung Review of Systems Constitutional: Reports: Anorexia, Weakness - Denied falls. Denies: Chills, Fever Eyes: Denies: Blurred vision HEENT: Reports: - - Dry mouth. Denies: Head Aches Cardiovascular: Denies: Chest Pain, Edema Respiratory: Reports: Cough. Denies: Pleuritic Pain, Shortness of Breath, Wheezing Gastrointestinal: Reports: Diarrhea - Status post colectomy, Nausea, - - Dry heaves. Denies: Abdominal Pain, Constipation, Hematemesis, Hematochezia Genitourinary: Reports: - - Decreased urinary output past 2 weeks. Denies: Dysuria Musculoskeletal: Denies: Leg Pain Skin: Denies: Rash Neurological: Reports: Balance problems, - - Generalized weakness Psychiatric: Reports: Anxiety, Depression Hematologic/ Lymphatic: Reports: Hx of blood clot. Denies: Anemia Patient Problems: Active and Suspected Problems (Last Updated 05/01/17 @ 09:35 by Los Jenkins) Generalized weakness (Acute) Confusion (Acute) - Physical Exam General: Alert, Oriented x3, Cooperative, No apparent distress HEENT: PERRLA, EOMI Oral: Dry Mucosa Neck: Supple, No JVD Lungs: Wheezes - Right base clear left base Cardiovascular: Regular rate Abdomen: Bowel Sounds Present, Soft, Non Tender, Non-Distended Extremities: No edema Skin: No rashes, - - Tattoo on chest and wrist Musculoskeletal: No Muscle Wasting Lymphatic: Cervical Adenopathy - None Neurological: Cranial nerves II-XII grossly intact, Muscle tone normal Psych/Mental Status: Appropriate, Depressed, Alert and oriented to time, place, person, mood and affect Vital Signs Temp Pulse Resp BP Pulse Ox 98.4 F 85 16 143/77 H 98 07/10/17 09:30 07/10/17 11:36 07/10/17 09:30 07/10/17 09:30 07/10/17 09:30 Oxygen Delivery Method Room Air Weight: 70.6 kg Body Mass Index (BMI) 28.4 Intake and Output for Last 24 Hours 07/08/17 07/09/17 07/10/17 23:59 23:59 23:59 Intake Total 1250 / 1250 1650 / 1650 Balance 1250 / 1250 1650 / 1650 Laboratory Tests Past 24 Hrs 07/09/17 07/10/17 21:50 05:25 Sodium 139 Potassium 4.8 Chloride 115 H Carbon Dioxide 15.0 L Anion Gap 9 BUN 52 H Creatinine 2.12 H Estim Creat Clear Calc 17.58 Est GFR (MDRD) Af Amer 29 L Est GFR (MDRD) Non-Af 24 L BUN/Creatinine Ratio 24.5 H Glucose 190 H Calcium 8.7 Urine Color Yellow Urine Clarity Cloudy Urine pH 5.0 Ur Specific [place] 1.015 Urine Protein 100 H Urine Glucose (UA) Normal Urine Ketones Negative Urine Occult Blood 10 H Urine Nitrite Negative Urine Bilirubin Negative Urine Urobilinogen Normal Ur Leukocyte Esterase 500 H Urine RBC 0 SEEN Urine WBC 25-50 SEEN Ur Squamous Epith Cells 0 SEEN Urine Bacteria 0 SEEN Urine Mucus 0 SEEN Urine Yeast 3+ POC Glucose 07/10/17 07/10/17 07/09/17 11:11 06:52 21:24 POC Glucose 224 H 196 H 163 H 07/09/17 18:30 POC Glucose 171 H Clinical Impression(s) from Imaging Studies Chest X-Ray 07/09/17 14:45 IMPRESSION: 4.2 x 2.7 cm right upper lobe mass, appearing similar to the previous study. Limited inspiration. Calcified plaques of the thoracic aorta. Degenerative changes of the right shoulder joint. Electronically Signed: Luis Felipe Gonzalez MD at 16:16 EDT , Service support , Assessment/Plan Active and Suspected Problems (Last Updated 05/01/17 @ 09:35 by Los Jenkins) Generalized weakness (Acute) Confusion (Acute) 1. Acute kidney injury suspect due to dehydration, prerenal azotemia and chronic diarrhea status post colectomy for cancer. Serum creatinine 2.8 on admit improved to 2.12 today. Baseline creatinine 0.89 in February 2017. Agree with IV hydration and discontinuation of her SUMEET inhibitor. Avoid nephrotoxins, NSAIDs. 2. Hyperkalemia likely due to renal failure and SUMEET inhibitor therapy. Currently off lisinopril. Potassium level improved from 5.6-4.8 today. 3. Colon cancer with metastasis to the lung on radiation therapy managed by oncology at [facility]. Patient with chronic diarrhea since 2011. 4. History of CAD, NSTEMI. Asymptomatic 5. DM type 2 primary care management 6. Hypertension stable blood pressures 7. History of pulmonary embolus status post IVC filter 8. Generalized weakness. No recent falls. 9 Metabolic acidosis NAG suspect due to GI loss. Monitor
--- NOTE | 2017-07-10 13:33 | CON.PCM_ITS ---
Consultation - Renal 07/10/17 PCP/ Referring MD: Requesting physician: [] Primary care physician: Donald Cline Reason for Consultation:: ARIEL - History of Present Illness History of Present Illness: The patient is a 76 year old F admitted for confusion, generalized weakness. She presented with ARIEL with creatinine at 2.89 yesterday improved to 2.12 today with iv fluids. Baseline creatinine 0.89 on 02/28/17. Potassium level was elevated at 5.6 on admit improved to 4.8 today. She is on lisinopril at home and has a history of hypertension, CAD, diabetes on insulin therapy. She also has a history of colon cancer diagnosed in 2012 status post radiation therapy that has been ongoing managed by [facility] oncology. According to patient chart she has metastatic disease to the lungs patient is not aware of this. She complains of chronic diarrhea since her colon surgery. Denied any hematochezia or melena or bright red blood per rectum. She complained of a cough without fever chills. She noticed a drop in urinary output past 2 weeks. Her urine output is improving with IV hydration. Denied any dysuria or hematuria. Patient denies any focal weakness, slurred speech, difficulty swallowing, headaches, or syncope. She recently lost her ex- and has been depressed on antidepressants. Her appetite has been poor with nausea, dry heaves. She denied any recent weight loss. Denied any abdominal pain. Denied any chest pain, shortness of breath or edema. - Allergies Allergies: Allergies promethazine HCl [From Phenergan] Allergy (Verified 07/09/17 14:36) seizures [place] rice Adverse Reaction (Severe, Uncoded 07/09/17 14:36) Unknown - Current Medications Current Medications: Current Medications Acetaminophen (Tylenol) 650 mg PO Q6H PRN PRN PRN Reason: Mild Pain (1-3)/Temp > 100.7 F Aspirin (Ecotrin) 81 mg PO DAILY@0800 [facility] Last Admin: 07/10/17 08:16 Dose: 81 mg Atorvastatin Calcium (Lipitor) 40 mg PO QHS [facility] Last Admin: 07/09/17 21:39 Dose: 40 mg Bupropion HCl (Wellbutrin Xl) 150 mg PO DAILY [facility] Last Admin: 07/10/17 08:54 Dose: 150 mg Carvedilol (Coreg) 12.5 mg PO BID [facility] Last Admin: 07/10/17 08:53 Dose: 12.5 mg Clopidogrel Bisulfate (Plavix) 75 mg PO DAILY [facility] Last Admin: 07/10/17 08:54 Dose: 75 mg Dextrose (D50w Syringe) 0 gm IV X1 PRN; Protocol PRN Reason: Hypoglycemia Gabapentin (Neurontin) 300 mg PO BIDCM [facility] Last Admin: 07/10/17 08:16 Dose: 300 mg Glucagon () 1 mg IM .X1 PRN PRN Reason: Hypoglycemia Heparin Sodium (Porcine) (Heparin Na) 5,000 unit SC Q8 [facility] Last Admin: 07/10/17 13:05 Dose: 5,000 u Ceftriaxone Sodium (Rocephin) 1 gm in 50 mls @ 100 mls/hr IV Q24 [facility] Last Admin: 07/10/17 10:06 Dose: 100 mls/hr Sodium Chloride () 1,000 mls @ 100 mls/hr IV .Q10H [facility] Last Admin: 07/10/17 10:11 Dose: Not Given Insulin Aspart (Novolog Flexpen (Bkc)) 6 units SC TIDCM [facility] Last Admin: 07/10/17 11:13 Dose: 6 u Insulin Aspart (Novolog Flexpen (Bkc)) 0 units SC ACHS [facility] PRN Reason: Protocol Last Admin: 07/10/17 11:13 Dose: 4 u Insulin Detemir (Levemir (Bkc)) 35 units SC QHS [facility] Last Admin: 07/09/17 21:33 Dose: 35 unit Lorazepam (Ativan) 0.5 mg PO Q12H PRN PRN PRN Reason: ANXIETY Nutritional Formula (Lactose Free) (Glucerna Shake) 120 ml PO 4X/DAY [facility] Last Admin: 07/10/17 13:05 Dose: 120 ml Olanzapine (Zyprexa) 2.5 mg PO DAILY [facility] Last Admin: 07/10/17 08:54 Dose: 2.5 mg Oxycodone HCl (Oxyir) 5 - 10 mg PO Q4H PRN PRN PRN Reason: MOD-SEVERE PAIN (4-10/10) Sodium Chloride () 5 - 30 ml IV UD PRN PRN Reason: SALINE FLUSH Last Admin: 07/09/17 18:47 Dose: 5 ml Venlafaxine HCl (Effexor Xr) 150 mg PO DAILY [facility] Last Admin: 07/10/17 08:53 Dose: 150 mg - Past Medical History Past Medical History (Chronic Problems): Chronic Problems (Last Updated 05/01/17 @ 09:35 by oLs Jenkins) Atherosclerotic heart disease of [place] coronary artery without angina pectoris (Chronic) Hypotension (Chronic) Colon carcinoma (Chronic) S/P partial colon resection CAD (coronary artery disease) (Chronic) ptci and stents Diabetes (Chronic) 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 Presence of IVC filter (Chronic) H/O deep venous thrombosis (Chronic) now has an IVC filter Hyperlipidemia (Chronic) Polyneuropathy (Chronic) Pulmonary embolism (Chronic) Hypertension (Chronic) Chronic renal failure, stage 3 (moderate) (Chronic) Anxiety and depression (Chronic) uncontrolled Gallstones (Chronic) GERD (gastroesophageal reflux disease) (Chronic) - Past Surgical History Surgical History: colectomy, hysterectomy, - - Left ankle ORIF, multiple cardiac stent placement - Social History Marital Status: Smoking Status: Never smoker Alcohol: None Drugs: None - Family History Maternal Family History: Family History (Last Updated 05/01/17 @ 09:32 by Los Jenkins) Mother Colon cancer Diabetes Heart disease Father Cancer History Items: Cancer - rectal Paternal Family History: Family History (Last Updated 05/01/17 @ 09:32 by Los Jenkins) Mother Colon cancer Diabetes Heart disease Father Cancer History Items: Cancer - lung Review of Systems Constitutional: Reports: Anorexia, Weakness - Denied falls. Denies: Chills, Fever Eyes: Denies: Blurred vision HEENT: Reports: - - Dry mouth. Denies: Head Aches Cardiovascular: Denies: Chest Pain, Edema Respiratory: Reports: Cough. Denies: Pleuritic Pain, Shortness of Breath, Wheezing Gastrointestinal: Reports: Diarrhea - Status post colectomy, Nausea, - - Dry heaves. Denies: Abdominal Pain, Constipation, Hematemesis, Hematochezia Genitourinary: Reports: - - Decreased urinary output past 2 weeks. Denies: Dysuria Musculoskeletal: Denies: Leg Pain Skin: Denies: Rash Neurological: Reports: Balance problems, - - Generalized weakness Psychiatric: Reports: Anxiety, Depression Hematologic/ Lymphatic: Reports: Hx of blood clot. Denies: Anemia Patient Problems: Active and Suspected Problems (Last Updated 05/01/17 @ 09:35 by Los Jenkins) Generalized weakness (Acute) Confusion (Acute) - Physical Exam General: Alert, Oriented x3, Cooperative, No apparent distress HEENT: PERRLA, EOMI Oral: Dry Mucosa Neck: Supple, No JVD Lungs: Wheezes - Right base clear left base Cardiovascular: Regular rate Abdomen: Bowel Sounds Present, Soft, Non Tender, Non-Distended Extremities: No edema Skin: No rashes, - - Tattoo on chest and wrist Musculoskeletal: No Muscle Wasting Lymphatic: Cervical Adenopathy - None Neurological: Cranial nerves II-XII grossly intact, Muscle tone normal Psych/Mental Status: Appropriate, Depressed, Alert and oriented to time, place, person, mood and affect Vital Signs Temp Pulse Resp BP Pulse Ox 98.4 F 85 16 143/77 H 98 07/10/17 09:30 07/10/17 11:36 07/10/17 09:30 07/10/17 09:30 07/10/17 09:30 Oxygen Delivery Method Room Air Weight: 70.6 kg Body Mass Index (BMI) 28.4 Intake and Output for Last 24 Hours 07/08/17 07/09/17 07/10/17 23:59 23:59 23:59 Intake Total 1250 / 1250 1650 / 1650 Balance 1250 / 1250 1650 / 1650 Laboratory Tests Past 24 Hrs 07/09/17 07/10/17 21:50 05:25 Sodium 139 Potassium 4.8 Chloride 115 H Carbon Dioxide 15.0 L Anion Gap 9 BUN 52 H Creatinine 2.12 H Estim Creat Clear Calc 17.58 Est GFR (MDRD) Af Amer 29 L Est GFR (MDRD) Non-Af 24 L BUN/Creatinine Ratio 24.5 H Glucose 190 H Calcium 8.7 Urine Color Yellow Urine Clarity Cloudy Urine pH 5.0 Ur Specific [place] 1.015 Urine Protein 100 H Urine Glucose (UA) Normal Urine Ketones Negative Urine Occult Blood 10 H Urine Nitrite Negative Urine Bilirubin Negative Urine Urobilinogen Normal Ur Leukocyte Esterase 500 H Urine RBC 0 SEEN Urine WBC 25-50 SEEN Ur Squamous Epith Cells 0 SEEN Urine Bacteria 0 SEEN Urine Mucus 0 SEEN Urine Yeast 3+ POC Glucose 07/10/17 07/10/17 07/09/17 11:11 06:52 21:24 POC Glucose 224 H 196 H 163 H 07/09/17 18:30 POC Glucose 171 H Clinical Impression(s) from Imaging Studies Chest X-Ray 07/09/17 14:45 IMPRESSION: 4.2 x 2.7 cm right upper lobe mass, appearing similar to the previous study. Limited inspiration. Calcified plaques of the thoracic aorta. Degenerative changes of the right shoulder joint. Electronically Signed: Luis Felipe Gonzalez MD at 16:16 EDT , Service support , Assessment/Plan Active and Suspected Problems (Last Updated 05/01/17 @ 09:35 by Los Jenkins) Generalized weakness (Acute) Confusion (Acute) 1. Acute kidney injury suspect due to dehydration, prerenal azotemia and chronic diarrhea status post colectomy for cancer. Serum creatinine 2.8 on admit improved to 2.12 today. Baseline creatinine 0.89 in February 2017. Agree with IV hydration and discontinuation of her SUMEET inhibitor. Avoid nephrotoxins, NSAIDs. 2. Hyperkalemia likely due to renal failure and SUMEET inhibitor therapy. Currently off lisinopril. Potassium level improved from 5.6-4.8 today. 3. Colon cancer with metastasis to the lung on radiation therapy managed by oncology at [facility]. Patient with chronic diarrhea since 2011. 4. History of CAD, NSTEMI. Asymptomatic 5. DM type 2 primary care management 6. Hypertension stable blood pressures 7. History of pulmonary embolus status post IVC filter 8. Generalized weakness. No recent falls. 9 Metabolic acidosis NAG suspect due to GI loss. Monitor
--- NOTE | 2017-07-10 14:27 | CASEMGMT ---
Social Work Met with pt in room and introduced self and role of SW. Pt lives at home alone in a one story home with no steps into the home. Pt is independent with ADLS. She does use a rollator and has a shower chair, raised toilet seat and grab bars in bathroom. Pt currently using passport services but does not remember name of passport worker. Pt has a medical alert through passport and aid MWF 3:30-5:30 from [facility]. Pt also attends [facility] M-F from 11-17. Pt eats breakfast and lunch at [facility] and is able to provide own dinner and refuses MOW. SW discussed home health services with pt and at this time she denies need for them or time to see them as she plans to return to [facility] upon discharge. Pt uses bus passes or taxi vouchers for errands as needed. Demo information confirmed. Pt PCP is Dr. Cline and she sees Dr. Warner, oncology at [facility] and Dr. Rajput, psychiatrist at [facility] every three months and she monitors pt psychotropic medications. Henrry at [place] is pharmacy. Pt son passes away in August 2016 and pt states I have been like this ever since. When SW clarified what pt meant by this statement, she states she is referring to her depression. Pt also stating that her on Friday. was living in [place] and pt unable to tell SW how long they have been apart but that since of son, pt and have been talking several times a week. Emotional support provided to pt and encouragement to verbalize feelings. SW inquired about family support and pt stating that she has two sons who are both and a daughter. Dgt lives locally but pt stating she is not supportive. SW inquired about living will and health care POA. Pt does not have these documents but states she would like to make a HCPOA. SW asked who she would name and pt states, not my daughter or my granddaughter. Pt has a friend she would like to name. SW encouraged her to call friend and confirm she would be willing to be HCPOA prior to completing paperwork. PT expresses understanding. Phone call placed to [facility] and Toyin [employer]ples is pt Passport Home Health Aide Caregiver. Voicemail left for Toyin that pt is currently in hospital. SW will continue to follow for advance directives and support as needed. Plan: Home with passport services and adult day care BAILEE Aguilar
--- NOTE | 2017-07-10 16:38 | CHAPLAIN ---
Type of Pastoral Visit _x__ Initial Visit ___ Follow-up Visit ___ On-call Visit ___ General Patient Visit ___ Spiritual Assessment ___ Family Conference ___ Bereavement ___ Rapid Response ___ Code Blue ___ Other (describe below) Pastoral Care Referral From _x__ Patient ___ Family ___ Nurse ___ Physician ___ Engineering Administrator ___ Zookeeper ___ Other (describe below) Sacrament/Intervention _x__ Active listening ___ Anointing ___ Alevism _x__ Bereavement ___ Communion ___ Ros exploration ___ _x__ Life review _x__ Prayer ___ Reconciliation ___ Sacrament of Sick _x__ Supportive presence ___ Wedding ___ Other (describe below) Pastoral Comments
[2017-07-10 16:51] LABS: Bedside Glucose 100 mg/dL (70-110)
[2017-07-10] MEDS: 0.9% Normal Saline 1,000 ML 100 ML IV (17:05)
[2017-07-10] MEDS: Atorvastatin Calcium 40 MG Tablet PO (21:24)
--- NOTE | 2017-07-10 21:44 | NURSING ---
Handoff received from Lg Wei RN. This RN will resume care of pt at this time.
[2017-07-10 22:26] LABS: Bedside Glucose 252 mg/dL (70-110)
[2017-07-11] VITALS (12 sets, daily range): BP systolic 124–185; BP diastolic 45–82; PULSE 82–102; RESP 16–19; TEMP 36.4–36.9; O2SAT 95–98
[2017-07-11] MEDS: 0.9% Normal Saline 1,000 ML 100 ML IV (02:49)
[2017-07-11] MEDS: 0.9% Normal Saline 1,000 ML 50 ML IV ×2 (03:20→21:18)
[2017-07-11] MEDS: Heparin Injection (Vial) 5,000 UNIT/ML VIAL 5000 UNIT SC ×3 (05:52→21:10)
[2017-07-11 06:13] LABS: Hematocrit 31.6 % (37-47); Hemoglobin 9.9 g/dl (12.0-15.0); Mean Corp Hgb Conc 31.3 g/gl (32-36); Mean Corpuscular Hgb 27.3 pg (27.0-32.0); Mean Corpuscular Volume 87.1 fL (81-99); Mean Platelet Vol. 9.9 fl (6.2-12.0); Platelet Count 182 K/mm3 (150-450); RBC Distribution Width CV 14.6 % (11.6-14.6); RBC Distribution Width SD 46.6 fl (35.1-43.9); Red Blood Count 3.63 M/mm3 (4.2-5.4); White Blood Count 5.8 K/mm3 (4.4-11.0)
[2017-07-11 06:14] LABS: Anion Gap 9 (5-15); BUN 39 mg/dL (7-18); BUN/Creat Ratio 26.2 RATIO (10-20); Calcium,Total 8.6 mg/dL (8.5-10.1); Chloride 120 mmol/L (98-107); Creatinine, Serum 1.49 mg/dL (0.55-1.02); EST Glomerular Filtration Rate 36 mL/min (>60); Est Glom Filt Rate - Afr Amer 44 mL/min (>60); Estimated Creatinine Clearance 25.01 ml/min; Glucose 65 mg/dL (74-106); Potassium 4.5 mmol/L (3.5-5.1); Sodium Level 143 mmol/L (136-145)
[2017-07-11 06:20] LABS: Scan Indicated on CBC? Y/N NO
[2017-07-11 07:10] LABS: Bedside Glucose 82 mg/dL (70-110)
[2017-07-11 07:10] LABS: Bedside Glucose 66 mg/dL (70-110)
[2017-07-11] MEDS: Carvedilol 12.5 MG Tablet PO ×2 (09:17→21:09)
[2017-07-11] MEDS: Venlafaxine XR 150 MG Capsule PO (09:17)
[2017-07-11] MEDS: Clopidogrel Bisulfate 75 MG Tablet PO (09:17)
[2017-07-11] MEDS: buPROPion (XL) 150 MG TABLET.XL PO (09:18)
[2017-07-11] MEDS: Gabapentin 300 MG Capsule PO ×2 (09:18→17:15)
[2017-07-11] MEDS: Aspirin E.C. 81 MG Tablet PO (09:18)
[2017-07-11] MEDS: OLANZapine 2.5 MG Tablet PO (09:18)
[2017-07-11] MEDS: Ceftriaxone 1 GM/50 ML BAG IV (09:22)
--- NOTE | 2017-07-11 10:06 | CASEMGMT ---
SW spoke with patient regarding advance directives. She has not spoken to her friend yet as she is on her way to [place]. SW told her SW can give her a copy of the documents and she agreed the staff at [facility] should be able to help her with completing these documents. Green sheet on chart. Plan: d/c home with resumption of Passport services. Maryana GIBSON MSW
[2017-07-11 11:51] LABS: Bedside Glucose 88 mg/dL (70-110)
--- NOTE | 2017-07-11 12:12 | PN.RENAL_ITS ---
Patient Problems: Active and Suspected Problems (Last Updated 05/01/17 @ 09:35 by Los Jenkins) Generalized weakness (Acute) Confusion (Acute) Subjective: oral intake poor due to depression. Hypoglycemic this morning with nausea. Renal fxn improving with iv fluids. Continues with chronic diarrhea s/p colectomy. Denies CP, SOB, edema. - Physical Exam General: Alert, Oriented x3, Cooperative, No apparent distress Oral: Dry Mucosa Neck: Supple Lungs: Clear to auscultation Cardiovascular: Regular rate Abdomen: Bowel Sounds Present, Soft, Non Tender, Non-Distended Extremities: No edema Psych/Mental Status: Depressed, Alert and oriented to time, place, person, mood and affect Vital Signs Temp Pulse Resp BP Pulse Ox 98.4 F 88 16 151/76 H 97 07/11/17 09:25 07/11/17 09:25 07/11/17 09:25 07/11/17 09:25 07/11/17 09:25 Oxygen Delivery Method Room Air Weight: 70.6 kg Body Mass Index (BMI) 28.4 Intake and Output for Last 24 Hours 07/09/17 07/10/17 07/11/17 23:59 23:59 23:59 Intake Total 1250 / 1250 3602 / 3602 380 / 380 Balance 1250 / 1250 3602 / 3602 380 / 380 Laboratory Tests Past 24 Hrs 07/11/17 07/11/17 05:30 05:30 WBC 5.8 RBC 3.63 L Hgb 9.9 L Hct 31.6 L MCV 87.1 MCH 27.3 MCHC 31.3 L RDW 14.6 RDW Differential 46.6 H Plt Count 182 MPV 9.9 Sodium 143 Potassium 4.5 Chloride 120 H Carbon Dioxide 14.0 L Anion Gap 9 BUN 39 H Creatinine 1.49 H Estim Creat Clear Calc 25.01 Est GFR (MDRD) Af Amer 44 L Est GFR (MDRD) Non-Af 36 L BUN/Creatinine Ratio 26.2 H Glucose 65 L Calcium 8.6 POC Glucose 07/11/17 07/11/17 07/11/17 11:39 07:05 06:47 POC Glucose 88 82 66 L 07/10/17 07/10/17 21:16 16:43 POC Glucose 252 H 100 Medical Necessity - Tobacco Use Smoking Status: Never smoker Assessment/Plan Active and Suspected Problems (Last Updated 05/01/17 @ 09:35 by Los Jenkins) Generalized weakness (Acute) Confusion (Acute) 1. Acute kidney injury due to dehydration, poor oral intake and chronic diarrhea status post colectomy for cancer. Serum creatinine 2.8 on admit improved to 1.49 today. Baseline creatinine 0.89 in February 2017. Agree with IV hydration and discontinuation of her SUMEET inhibitor and hold on discharge. Increased risk of dehydration due to depression, poor intake, chronic diarrhea. 2. Hyperkalemia likely due to renal failure and SUMEET inhibitor therapy resolved. Currently off lisinopril. 3. Colon cancer with metastasis to the lung on radiation therapy managed by oncology at [facility]. Patient with chronic diarrhea since 2011. 4. History of CAD, NSTEMI. Asymptomatic 5. DM type 2 primary care management 6. Hypertension stable blood pressures 7. History of pulmonary embolus status post IVC filter 8. Generalized weakness. No recent falls. 9 Metabolic acidosis NAG suspect due to GI loss. Add sodium bicarb DW primary service
--- NOTE | 2017-07-11 12:52 | PN_ITS ---
<Malka Robledo - Last Filed: 07/11/17 12:54> Patient Problems: Active and Suspected Problems (Last Updated 05/01/17 @ 09:35 by Los Jenkins) Generalized weakness (Acute) Confusion (Acute) Subjective: Patient seen and examined. States weakness has improved and she is feeling better. Continues to complain of nausea which she states has been ongoing for months. States she feels this is related to her nerves given she had a very recent in the family. Denies emesis. States she has chronic diarrhea. Denies other current complaints. - Physical Exam General: Alert, Oriented x3, Cooperative, No apparent distress HEENT: Atraumatic, PERRLA, EOMI, Normocephalic Neck: Supple, No JVD, Negative Carotid Bruits Lungs: Clear to auscultation, Normal air movement Cardiovascular: Regular rate, Regular Rhythm, Normal S1, Normal S2, No murmurs Abdomen: Bowel Sounds Present, Soft, Non Tender, Non-Distended Extremities: No clubbing, No cyanosis, No edema, Capillary Refill Less than 3 Seconds Skin: No rashes, No breakdown Musculoskeletal: No Tenderness to Palpation of Joints or Extremities Neurological: Cranial nerves II-XII grossly intact, Neuro grossly intact Psych/Mental Status: Normal Affect, Appropriate Vital Signs Temp Pulse Resp BP Pulse Ox 98.4 F 88 16 151/76 H 97 07/11/17 09:25 07/11/17 09:25 07/11/17 09:25 07/11/17 09:25 07/11/17 09:25 Oxygen Delivery Method Room Air Weight: 70.6 kg Body Mass Index (BMI) 28.4 Intake and Output for Last 24 Hours 07/09/17 07/10/17 07/11/17 23:59 23:59 23:59 Intake Total 1250 / 1250 3602 / 3602 380 / 380 Balance 1250 / 1250 3602 / 3602 380 / 380 Laboratory Tests Past 24 Hrs 07/11/17 07/11/17 05:30 05:30 WBC 5.8 RBC 3.63 L Hgb 9.9 L Hct 31.6 L MCV 87.1 MCH 27.3 MCHC 31.3 L RDW 14.6 RDW Differential 46.6 H Plt Count 182 MPV 9.9 Sodium 143 Potassium 4.5 Chloride 120 H Carbon Dioxide 14.0 L Anion Gap 9 BUN 39 H Creatinine 1.49 H Estim Creat Clear Calc 25.01 Est GFR (MDRD) Af Amer 44 L Est GFR (MDRD) Non-Af 36 L BUN/Creatinine Ratio 26.2 H Glucose 65 L Calcium 8.6 POC Glucose 07/11/17 07/11/17 07/11/17 11:39 07:05 06:47 POC Glucose 88 82 66 L 07/10/17 07/10/17 21:16 16:43 POC Glucose 252 H 100 Medical Necessity - Tobacco Use Smoking Status: Never smoker Assessment/Plan Active and Suspected Problems (Last Updated 05/01/17 @ 09:35 by Los Jenkins) Generalized weakness (Acute) Confusion (Acute) 1. Acute kidney injury on chronic kidney disease stage III-patient reports poor oral intake. Suspect secondary to dehydration. Creatinine improved with IV fluids. Continue IV fluids. Monitor BMP. Nephrology consulted. Hold lisinopril. Patient has chronic diarrhea due to status post colectomy for colon cancer. Adequate hydration may continue to be difficult. Patient will need further monitoring of BMP as outpatient. 2. Generalized weakness-patient states this is been ongoing. PT/OT. Nutrition consult. PT recommending further skilled therapy however patient is not agreeable. 3. Hyperkalemia-resolved. Suspect secondary to potassium supplementation and # 1. 4. Type 2 diabetes mellitus-hemoglobin A1c February 2017 7.6%. Accu-Cheks before meals at bedtime. Patient hypoglycemic this morning. Scheduled NovoLog with meals discontinued. Continue sliding scale and Levemir at at bedtime. 5. CAD status post PTCA-continue aspirin, statin, Plavix, beta-selma. 6. Hypertension-stable. Home lisinopril regimen on hold due to #1. 7. History of metastatic colon cancer-chronic right lower lobe mass. Continue outpatient follow-up with oncology. Due to have repeat CT of chest in the next week in [place]. 8. GERD-not on home regimen. 9. Anxiety/depression-continue home regimen. 10. Hyperlipidemia-continue statin. 11. History of PE status post IVC filter 12. Nausea-no emesis. Patient states this is been ongoing for months. Denies abdominal pain. Worsen morning and typically resolves throughout the day. Suspect this is secondary to hypoglycemia in the morning. Insulin regimen adjusted. IV antiemetics added. DVT prophylaxis-heparin subcu. This patient was seen by BRYSON BerumenC under the supervision of Dr. Maldonado. <Janet Maldonado - Last Filed: 07/11/17 16:17> - Physical Exam Vital Signs Temp Pulse Resp BP Pulse Ox 97.8 F 96 18 128/45 H 98 07/11/17 15:13 07/11/17 15:14 07/11/17 15:13 07/11/17 15:13 07/11/17 15:13 Oxygen Delivery Method Room Air Weight: 70.6 kg Body Mass Index (BMI) 28.4 Intake and Output for Last 24 Hours 07/09/17 07/10/17 07/11/17 23:59 23:59 23:59 Intake Total 1250 / 1250 3602 / 3602 678 / 678 Balance 1250 / 1250 3602 / 3602 678 / 678 Microbiology Past 72 Hours 07/09/17 21:50 Urine Culture - Final Urine, Clean Catch Mixed Gram Pos & Gram Neg Org Laboratory Tests Past 24 Hrs 07/11/17 07/11/17 05:30 05:30 WBC 5.8 RBC 3.63 L Hgb 9.9 L Hct 31.6 L MCV 87.1 MCH 27.3 MCHC 31.3 L RDW 14.6 RDW Differential 46.6 H Plt Count 182 MPV 9.9 Sodium 143 Potassium 4.5 Chloride 120 H Carbon Dioxide 14.0 L Anion Gap 9 BUN 39 H Creatinine 1.49 H Estim Creat Clear Calc 25.01 Est GFR (MDRD) Af Amer 44 L Est GFR (MDRD) Non-Af 36 L BUN/Creatinine Ratio 26.2 H Glucose 65 L Calcium 8.6 POC Glucose 07/11/17 07/11/17 07/11/17 11:39 07:05 06:47 POC Glucose 88 82 66 L 07/10/17 07/10/17 21:16 16:43 POC Glucose 252 H 100 Assessment/Plan Patient was seen and examined independently of the nurse practitioner Malka Robledo. I agree with a above interval history, physical examination assessment and plan. Patient feels much better. Denies any fever or chills or nausea or vomiting. Vitals are stable. Admits to more than 6 bowel movements yesterday, 2 bowel movements today. Her labs were reviewed and are much improved, will continue on IV fluids, will add lactobacillus, will continue to repeat blood work in a.m., patient will possibly be discharged when creatinine is close to normal to home. Code Visit Inpatient E&M: 45907 Subs Hosp L2
[2017-07-11 16:51] LABS: Bedside Glucose 155 mg/dL (70-110)
[2017-07-11] MEDS: 0.9% NaCl Peripheral Flush Adult/Peds IV (21:05)
[2017-07-11] MEDS: Ondansetron 4 MG/2 ML Vial IV (21:05)
[2017-07-11] MEDS: Atorvastatin Calcium 40 MG Tablet PO (21:18)
[2017-07-11] MEDS: Acetaminophen 325 MG Tablet 650 MG PO (22:49)
[2017-07-11 22:56] LABS: Bedside Glucose 145 mg/dL (70-110)
[2017-07-12 02:58] VITALS: PULSE 86
[2017-07-12 04:45] VITALS: BP 145/66; PULSE 82; RESP 18; TEMP 36.8; O2SAT 97
[2017-07-12] MEDS: Heparin Injection (Vial) 5,000 UNIT/ML VIAL 5000 UNIT SC (05:58)
[2017-07-12 06:14] LABS: Hematocrit 29.3 % (37-47); Hemoglobin 9.4 g/dl (12.0-15.0); Mean Corp Hgb Conc 32.1 g/gl (32-36); Mean Corpuscular Hgb 27.8 pg (27.0-32.0); Mean Corpuscular Volume 86.7 fL (81-99); Mean Platelet Vol. 10.5 fl (6.2-12.0); Platelet Count 175 K/mm3 (150-450); RBC Distribution Width CV 14.3 % (11.6-14.6); RBC Distribution Width SD 43.7 fl (35.1-43.9); Red Blood Count 3.38 M/mm3 (4.2-5.4); Scan Indicated on CBC? Y/N NO; White Blood Count 4.3 K/mm3 (4.4-11.0)
[2017-07-12 06:25] LABS: Anion Gap 8 (5-15); BUN 29 mg/dL (7-18); BUN/Creat Ratio 23.2 RATIO (10-20); Calcium,Total 8.5 mg/dL (8.5-10.1); Chloride 118 mmol/L (98-107); Creatinine, Serum 1.25 mg/dL (0.55-1.02); EST Glomerular Filtration Rate 44 mL/min (>60); Est Glom Filt Rate - Afr Amer 53 mL/min (>60); Estimated Creatinine Clearance 29.81 ml/min; Glucose 88 mg/dL (74-106); Potassium 4.2 mmol/L (3.5-5.1); Sodium Level 143 mmol/L (136-145)
[2017-07-12 07:01] LABS: Bedside Glucose 70 mg/dL (70-110)
[2017-07-12 07:27] VITALS: PULSE 82
[2017-07-12 09:23] VITALS: BP 163/89; PULSE 95; RESP 18; TEMP 36.7; O2SAT 95
[2017-07-12] MEDS: Ceftriaxone 1 GM/50 ML BAG IV (09:27)
[2017-07-12] MEDS: Gabapentin 300 MG Capsule PO (09:28)
[2017-07-12] MEDS: Aspirin E.C. 81 MG Tablet PO (09:28)
[2017-07-12] MEDS: Carvedilol 12.5 MG Tablet PO ×2 (09:28→10:22)
[2017-07-12] MEDS: Clopidogrel Bisulfate 75 MG Tablet PO (09:29)
[2017-07-12] MEDS: buPROPion (XL) 150 MG TABLET.XL PO (09:29)
[2017-07-12] MEDS: Sodium Bicarbonate 650 MG Tablet PO (09:29)
[2017-07-12] MEDS: OLANZapine 2.5 MG Tablet PO (09:30)
[2017-07-12] MEDS: Venlafaxine XR 150 MG Capsule PO (09:30)
--- NOTE | 2017-07-12 10:10 | DCINST_ITS ---
- Discharge Diagnoses Current Active Problems: Current Active and Chronic Problems (Last Updated 05/01/17 @ 09:35 by Los Jenkins) Generalized weakness (Acute) Confusion (Acute) You will use the following diet at home:: No restrictions Discharge Activity: Return to Normal Activity Call your doctor if you observe: Shortness of breath, Dizziness, Chest pain, Increased palpitations (irregular heartbeat) Additional Instructions: Your medications that are known to be sedating were adjusted due to weakness when you came in the hospital. Your zyprexa was reduced to 2.5mg at bedtime. Your gapapentin was reduced to 300mg twice daily. Recommend discontinuing as needed ativan due to its sedating effects. You were taken off of lisinopril due to your kidney function. Your carvedolol was increased for blood pressure control. You will need to monitor blood pressure closely at home. Allergies/Adverse Reactions: Allergies promethazine HCl [From Phenergan] Allergy (Verified 07/09/17 14:36) seizures faroese rice Adverse Reaction (Severe, Uncoded 07/09/17 14:36) Unknown Medications to take at Discharge Atorvastatin Calcium [Lipitor] 40 mg PO QHS 07/09/15 Multivitamin [Daily Multiple Vitamin] 1 tab PO DAILY 07/09/15 Alendronate Sodium 70 mg PO BURT 09/20/16 buPROPion XL [Wellbutrin Xl] 150 mg PO DAILY 09/20/16 Aspirin E.C. [Ecotrin] 81 mg PO DAILY@0800 02/26/17 Clopidogrel Bisulfate [Plavix] 75 mg PO DAILY 02/26/17 Oxycodone HCl/Acetaminophen [Percocet 7.5-325 mg Tablet] 1 tablet PO TID PRN PRN 02/27/17 Insulin Aspart [Novolog Flexpen] 6 units SC TIDCM 07/09/17 Insulin Glargine,Hum.rec.anlog [Toujeo Solostar] 35 units SQ QHS 07/09/17 Venlafaxine XR [Effexor Xr] 150 mg PO DAILY 07/09/17 Carvedilol [Coreg (Beta Gilles)] 25 mg PO BID #60 tab 07/12/17 Gabapentin [Neurontin] 300 mg PO BIDCM capsule 07/12/17 Olanzapine [Zyprexa] 2.5 mg PO QHS tablet 07/12/17 Sodium Bicarbonate 650 mg PO DAILY #30 tab 07/12/17 The following prescriptions were given: Sodium Bicarbonate 650 mg PO DAILY #30 tab Carvedilol [Coreg (Beta Gilles)] 25 mg PO BID #60 tab Primary Care Physician: Marilu Veloz MD [STAFF PHYSICIAN] - Please follow up with your Primary Care Physician in: 1 Week Please Follow Up With: Lynette Coreas DO When: 1-2 Weeks Proposed Discharge Date: 07/12/17
--- NOTE | 2017-07-12 10:13 | PCM.DC.SUM ---
Discharge Date and Diagnosis Date of Admission: 07/09/17 Date of Discharge: 07/12/17 - Primary Discharge Diagnosis Active and Suspected Problems (Last Updated 05/01/17 @ 09:35 by Los Jenkins) 1. Acute Kidney Injury 2. Generalized weakness 3. Hyperkalemia 4. Type 2 diabetes mellitus 5. CAD status post PTCA 6. Hypertension 7. History of metastatic colon cancer 8. GERD 9. Anxiety/depression 10. Hyperlipidemia 11. History of PE status post IVC filter - Secondary Discharge Diagnosis Chronic Problems (Last Updated 05/01/17 @ 09:35 by Los Jenkins) Atherosclerotic heart disease of [place] coronary artery without angina pectoris (Chronic) Hypotension (Chronic) Colon carcinoma (Chronic) S/P partial colon resection CAD (coronary artery disease) (Chronic) ptci and stents Diabetes (Chronic) 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) s/p colon resection remote, lung metastases diagnosed 2014, s/p adjuvant chemotherapy, s/p stereotactic XRT [facility] oncology, follows [facility] oncology S/P ORIF (open reduction internal fixation) fracture (Chronic) left ankle, 09/14/14, Dr Harvey, [facility] Presence of IVC filter (Chronic) H/O deep venous thrombosis (Chronic) now has an IVC filter Hyperlipidemia (Chronic) Polyneuropathy (Chronic) Pulmonary embolism (Chronic) Hypertension (Chronic) Chronic renal failure, stage 3 (moderate) (Chronic) Anxiety and depression (Chronic) uncontrolled Gallstones (Chronic) GERD (gastroesophageal reflux disease) (Chronic) Hospital Course and Treatment Imaging Results: Diagnostic Data Chest X-Ray 07/09/17 14:45 IMPRESSION: 4.2 x 2.7 cm right upper lobe mass, appearing similar to the previous study. Limited inspiration. Calcified plaques of the thoracic aorta. Degenerative changes of the right shoulder joint. Electronically Signed: Luis Felipe Gonzalez MD at 16:16 EDT , Service support , Dr. Coreas- Nephrology Operations: None Procedures: None Summary of Care Provided: Patient is a 76-year-old female admitted 07/09/17 due to generalized weakness and intermittent confusion. She has a past medical history of type 2 diabetes mellitus, CAD status post PTCA, hypertension, history of metastatic colon cancer, GERD, anxiety, depression, hyperlipidemia, history of pulmonary embolism status post IVC filter. 1. Acute kidney injury-Suspect secondary to dehydration. Patient reports poor oral intake due to nausea related to nerves and depression as result of recent loss in the family. Patient also has chronic diarrhea due to status post colectomy for colon cancer. Creatinine improved with IV fluids. Creat at discharge 1.25. Patient will repeat BMP in 1 week. Continue to hold lisinopril at discharge. Follow up with Dr. Coreas in 1-2 Weeks. 2. Generalized weakness/intermittent confusion- Resolved. Suspect secondary to #1 as well as sedating medications. Patient's home Zyprexa and gabapentin was decreased at discharge. Also recommend discontinuing as needed Ativan. Patient declined further physical therapy services. She did well ambulating with physical therapy. She has passport services which she will continue. 3. Hyperkalemia-resolved. Suspect secondary to potassium supplementation and #1. 4. Type 2 diabetes mellitus-hemoglobin A1c February 2017 7.6%. Continue home insulin regimen. 5. CAD status post PTCA-continue aspirin, statin, Plavix, beta-gilles. 6. Hypertension-lisinopril discontinued secondary to #1. Home carvedilol regimen increased to 25 mg twice daily. 7. History of metastatic colon cancer-chronic right lower lobe mass. Continue outpatient follow-up with oncology. Due to have repeat CT of chest in the next week in [place]. 8. GERD-not on home regimen. 9. Anxiety/depression-continue home regimen. 10. Hyperlipidemia-continue statin. 11. History of PE status post IVC filter General: Alert, Oriented x3, Cooperative, No apparent distress HEENT: Atraumatic, PERRLA, EOMI, Normocephalic Neck: Supple, No JVD, Negative Carotid Bruits Lungs: Clear to auscultation, Normal air movement Cardiovascular: Regular rate, Regular Rhythm, Normal S1, Normal S2, No murmurs Abdomen: Bowel Sounds Present, Soft, Non Tender, Non-Distended Extremities: No clubbing, No cyanosis, No edema, Capillary Refill Less than 3 Seconds Skin: No rashes, No breakdown Musculoskeletal: No Tenderness to Palpation of Joints or Extremities Neurological: Cranial nerves II-XII grossly intact, Neuro grossly intact Psych/Mental Status: Normal Affect, Appropriate Patient seen and examined prior to discharge. Physical assessment as noted above. Patient stable for discharge with further follow-up as noted above. This patient was seen by YUMI Berumen under the supervision of Dr. Treviño. Discharge Diet: No Restrictions, - - Encourage oral intake of fluids. Discharge Activity: Return to Normal Activity Call your doctor if you observe: Shortness of breath, Dizziness, Chest pain, Increased palpitations (irregular heartbeat) Home Medications: Medications to take at Discharge Atorvastatin Calcium [Lipitor] 40 mg PO QHS 07/09/15 Multivitamin [Daily Multiple Vitamin] 1 tab PO DAILY 07/09/15 Alendronate Sodium 70 mg PO BURT 09/20/16 buPROPion XL [Wellbutrin Xl] 150 mg PO DAILY 09/20/16 Aspirin E.C. [Ecotrin] 81 mg PO DAILY@0800 02/26/17 Clopidogrel Bisulfate [Plavix] 75 mg PO DAILY 02/26/17 Oxycodone HCl/Acetaminophen [Percocet 7.5-325 mg Tablet] 1 tablet PO TID PRN PRN 02/27/17 Insulin Aspart [Novolog Flexpen] 6 units SC TIDCM 07/09/17 Insulin Glargine,Hum.rec.anlog [Toujeo Solostar] 35 units SQ QHS 07/09/17 Venlafaxine XR [Effexor Xr] 150 mg PO DAILY 07/09/17 Carvedilol [Coreg (Beta Gilles)] 25 mg PO BID #60 tab 07/12/17 Gabapentin [Neurontin] 300 mg PO BIDCM capsule 07/12/17 Olanzapine [Zyprexa] 2.5 mg PO QHS tablet 07/12/17 Sodium Bicarbonate 650 mg PO DAILY #30 tab 07/12/17 Following Prescrptions Were Given to Patient: Sodium Bicarbonate 650 mg PO DAILY #30 tab Carvedilol [Coreg (Beta Gilles)] 25 mg PO BID #60 tab Primary Care Physician: Marilu Veloz MD [STAFF PHYSICIAN] - Please follow up with your Primary Care Physician in: 1 Week Please Follow Up With: Lynette Coreas DO When: 1-2 Weeks Additional Instructions: Your medications that are known to be sedating were adjusted due to weakness when you came in the hospital. Your zyprexa was reduced to 2.5mg at bedtime. Your gapapentin was reduced to 300mg twice daily. Recommend discontinuing as needed ativan due to its sedating effects. You were taken off of lisinopril due to your kidney function. Your carvedolol was increased for blood pressure control. You will need to monitor blood pressure closely at home. Disposition: Home Minutes spent on discharge:: 35 Patient Condition:: Stable Medical Necessity - Tobacco Use Smoking Status: Never smoker Meaningful Use Info Meaningful Use Diagnoses (Choose all that apply): None applicable
--- NOTE | 2017-07-12 10:21 | DS.PCM_ITS ---
Discharge Date and Diagnosis Date of Admission: 07/09/17 Date of Discharge: 07/12/17 - Primary Discharge Diagnosis Active and Suspected Problems (Last Updated 05/01/17 @ 09:35 by Los Jenkins) 1. Acute Kidney Injury 2. Generalized weakness 3. Hyperkalemia 4. Type 2 diabetes mellitus 5. CAD status post PTCA 6. Hypertension 7. History of metastatic colon cancer 8. GERD 9. Anxiety/depression 10. Hyperlipidemia 11. History of PE status post IVC filter - Secondary Discharge Diagnosis Chronic Problems (Last Updated 05/01/17 @ 09:35 by Los Jenkins) Atherosclerotic heart disease of [place] coronary artery without angina pectoris (Chronic) Hypotension (Chronic) Colon carcinoma (Chronic) S/P partial colon resection CAD (coronary artery disease) (Chronic) ptci and stents Diabetes (Chronic) 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) s/p colon resection remote, lung metastases diagnosed 2014, s/p adjuvant chemotherapy, s/p stereotactic XRT [facility], follows [facility] S/P ORIF (open reduction internal fixation) fracture (Chronic) left ankle, 09/14/14, Dr Harvey, [facility] Presence of IVC filter (Chronic) H/O deep venous thrombosis (Chronic) now has an IVC filter Hyperlipidemia (Chronic) Polyneuropathy (Chronic) Pulmonary embolism (Chronic) Hypertension (Chronic) Chronic renal failure, stage 3 (moderate) (Chronic) Anxiety and depression (Chronic) uncontrolled Gallstones (Chronic) GERD (gastroesophageal reflux disease) (Chronic) Hospital Course and Treatment Imaging Results: Diagnostic Data Chest X-Ray 07/09/17 14:45 IMPRESSION: 4.2 x 2.7 cm right upper lobe mass, appearing similar to the previous study. Limited inspiration. Calcified plaques of the thoracic aorta. Degenerative changes of the right shoulder joint. Electronically Signed: Luis Felipe Gonzalez MD at 16:16 EDT , Service support , Dr. Coreas- Nephrology Operations: None Procedures: None Summary of Care Provided: Patient is a 76-year-old female admitted 07/09/17 due to generalized weakness and intermittent confusion. She has a past medical history of type 2 diabetes mellitus, CAD status post PTCA, hypertension, history of metastatic colon cancer , GERD, anxiety, depression, hyperlipidemia, history of pulmonary embolism status post IVC filter. 1. Acute kidney injury-Suspect secondary to dehydration. Patient reports poor oral intake due to nausea related to nerves and depression as result of recent loss in the family. Patient also has chronic diarrhea due to status post colectomy for colon cancer. Creatinine improved with IV fluids. Creat at discharge 1.25. Patient will repeat BMP in 1 week. Continue to hold lisinopril at discharge. Follow up with Dr. Coreas in 1-2 Weeks. 2. Generalized weakness/intermittent confusion- Resolved. Suspect secondary to #1 as well as sedating medications. Patient's home Zyprexa and gabapentin was decreased at discharge. Also recommend discontinuing as needed Ativan. Patient declined further physical therapy services. She did well ambulating with physical therapy. She has passport services which she will continue. 3. Hyperkalemia-resolved. Suspect secondary to potassium supplementation and # 1. 4. Type 2 diabetes mellitus-hemoglobin A1c February 2017 7.6%. Continue home insulin regimen. 5. CAD status post PTCA-continue aspirin, statin, Plavix, beta-gilles. 6. Hypertension-lisinopril discontinued secondary to #1. Home carvedilol regimen increased to 25 mg twice daily. 7. History of metastatic colon cancer-chronic right lower lobe mass. Continue outpatient follow-up with oncology. Due to have repeat CT of chest in the next week in [place]. 8. GERD-not on home regimen. 9. Anxiety/depression-continue home regimen. 10. Hyperlipidemia-continue statin. 11. History of PE status post IVC filter General: Alert, Oriented x3, Cooperative, No apparent distress HEENT: Atraumatic, PERRLA, EOMI, Normocephalic Neck: Supple, No JVD, Negative Carotid Bruits Lungs: Clear to auscultation, Normal air movement Cardiovascular: Regular rate, Regular Rhythm, Normal S1, Normal S2, No murmurs Abdomen: Bowel Sounds Present, Soft, Non Tender, Non-Distended Extremities: No clubbing, No cyanosis, No edema, Capillary Refill Less than 3 Seconds Skin: No rashes, No breakdown Musculoskeletal: No Tenderness to Palpation of Joints or Extremities Neurological: Cranial nerves II-XII grossly intact, Neuro grossly intact Psych/Mental Status: Normal Affect, Appropriate Patient seen and examined prior to discharge. Physical assessment as noted above. Patient stable for discharge with further follow-up as noted above. This patient was seen by YUMI Berumen under the supervision of Dr. Treviño. Discharge Diet: No Restrictions, - - Encourage oral intake of fluids. Discharge Activity: Return to Normal Activity Call your doctor if you observe: Shortness of breath, Dizziness, Chest pain, Increased palpitations (irregular heartbeat) Home Medications: Medications to take at Discharge Atorvastatin Calcium [Lipitor] 40 mg PO QHS 07/09/15 Multivitamin [Daily Multiple Vitamin] 1 tab PO DAILY 07/09/15 Alendronate Sodium 70 mg PO BURT 09/20/16 buPROPion XL [Wellbutrin Xl] 150 mg PO DAILY 09/20/16 Aspirin E.C. [Ecotrin] 81 mg PO DAILY@0800 02/26/17 Clopidogrel Bisulfate [Plavix] 75 mg PO DAILY 02/26/17 Oxycodone HCl/Acetaminophen [Percocet 7.5-325 mg Tablet] 1 tablet PO TID PRN PRN 02/27/17 Insulin Aspart [Novolog Flexpen] 6 units SC TIDCM 07/09/17 Insulin Glargine,Hum.rec.anlog [Toujeo Solostar] 35 units SQ QHS 07/09/17 Venlafaxine XR [Effexor Xr] 150 mg PO DAILY 07/09/17 Carvedilol [Coreg (Beta Gilles)] 25 mg PO BID #60 tab 07/12/17 Gabapentin [Neurontin] 300 mg PO BIDCM capsule 07/12/17 Olanzapine [Zyprexa] 2.5 mg PO QHS tablet 07/12/17 Sodium Bicarbonate 650 mg PO DAILY #30 tab 07/12/17 Following Prescrptions Were Given to Patient: Sodium Bicarbonate 650 mg PO DAILY #30 tab Carvedilol [Coreg (Beta Gilles)] 25 mg PO BID #60 tab Primary Care Physician: Marilu Veloz MD [STAFF PHYSICIAN] - Please follow up with your Primary Care Physician in: 1 Week Please Follow Up With: Lynette Coreas DO When: 1-2 Weeks Additional Instructions: Your medications that are known to be sedating were adjusted due to weakness when you came in the hospital. Your zyprexa was reduced to 2.5mg at bedtime. Your gapapentin was reduced to 300mg twice daily. Recommend discontinuing as needed ativan due to its sedating effects. You were taken off of lisinopril due to your kidney function. Your carvedolol was increased for blood pressure control. You will need to monitor blood pressure closely at home. Disposition: Home Minutes spent on discharge:: 35 Patient Condition:: Stable Medical Necessity - Tobacco Use Smoking Status: Never smoker Meaningful Use Info Meaningful Use Diagnoses (Choose all that apply): None applicable
--- NOTE | 2017-07-12 10:24 | PCA ---
Discharge orders faxed over to [facility] at 1023.
[2017-07-12] MEDS: Ondansetron 4 MG/2 ML Vial IV (10:44)
[2017-07-12] MEDS: 0.9% NaCl Peripheral Flush Adult/Peds IV (10:46)
--- NOTE | 2017-07-12 10:51 | PCM.PN.REN ---
Subjective: resting comfortably, renal fxn improved. - Physical Exam Lungs: Clear to auscultation Cardiovascular: Regular rate Extremities: No edema Vital Signs Temp Pulse Resp BP Pulse Ox 98.1 F 95 18 163/89 H 95 07/12/17 09:23 07/12/17 09:23 07/12/17 09:23 07/12/17 09:23 07/12/17 09:23 Oxygen Delivery Method Room Air Weight: 70.6 kg Body Mass Index (BMI) 28.4 Intake and Output for Last 24 Hours 07/10/17 07/11/17 07/12/17 23:59 23:59 23:59 Intake Total 3602 / 3602 1175 / 1175 1031 / 1031 Balance 3602 / 3602 1175 / 1175 1031 / 1031 Microbiology Past 72 Hours 07/09/17 21:50 Urine Culture - Final Urine, Clean Catch Mixed Gram Pos & Gram Neg Org Laboratory Tests Past 24 Hrs 07/12/17 07/12/17 05:42 05:42 WBC 4.3 L RBC 3.38 L Hgb 9.4 L Hct 29.3 L MCV 86.7 MCH 27.8 MCHC 32.1 RDW 14.3 RDW Differential 43.7 Plt Count 175 MPV 10.5 Sodium 143 Potassium 4.2 Chloride 118 H Carbon Dioxide 17.0 L Anion Gap 8 BUN 29 H Creatinine 1.25 H Estim Creat Clear Calc 29.81 Est GFR (MDRD) Af Amer 53 L Est GFR (MDRD) Non-Af 44 L BUN/Creatinine Ratio 23.2 H Glucose 88 Calcium 8.5 POC Glucose 07/12/17 07/11/17 07/11/17 06:54 21:17 16:40 POC Glucose 70 145 H 155 H 07/11/17 11:39 POC Glucose 88 Medical Necessity - Tobacco Use Smoking Status: Never smoker Assessment/Plan 1. Acute kidney injury suspect due to dehydration, prerenal azotemia and chronic diarrhea status post colectomy for cancer. Serum creatinine 2.8 on admit improved to 1.2 today. Baseline creatinine 0.89 in February 2017. Continue to hold lisinopril until f/u in office. 2. Hyperkalemia likely due to renal failure and SUMEET inhibitor therapy. Currently off lisinopril. Potassium level improved 3. Colon cancer with metastasis to the lung on radiation therapy managed by oncology at [facility]. Patient with chronic diarrhea since 2011. 4. Metabolic acidosis, continue sodium bicarb daily 5. DM type 2 primary care management 6. Hypertension stable blood pressures
[2017-07-12 11:02] VITALS: PULSE 74
[2017-07-12 12:10] VITALS: BP 124/67; PULSE 67; RESP 18; TEMP 36.8; O2SAT 95
[2017-07-12 12:10] LABS: Bedside Glucose 52 mg/dL (70-110)
[2017-07-12 12:10] LABS: Bedside Glucose 114 mg/dL (70-110)
--- NOTE | 2017-07-14 16:00 | CASEMGMT ---
PILI TRIVEDI DC PHONE CALL. Attempted call to pt's listed #. No answer. Hill MARCELINO RN AC
--- NOTE | 2017-07-15 15:29 | CASEMGMT ---
RN CM Discharge F/U phone call Attempted, no answer, message left for pt to call this RN CM back. [place] PILI TRIVEDI
== END 2017-07-12 13:14 | disposition home or self-care (01) | DRG 683 ==
LOC: ED 15:23 → PCU 17:39
PROVIDERS: Nurse Practitioner Family; Admitting Provider Internal Medicine; Emergency Provider Emergency Medicine; Family Provider Family Medicine; PCP Family Medicine; Visit Provider Internal Medicine
DX: N17.9 Acute kidney failure, unspecified (principal); E87.2 Acidosis; I12.9 Hypertensive chronic kidney disease with stage 1 through stage 4 chronic kidney disease, or unspecified chronic kidney disease; E11.22 Type 2 diabetes mellitus with diabetic chronic kidney disease; N18.3 Chronic kidney disease, stage 3 (moderate); E87.5 Hyperkalemia; E86.0 Dehydration; I95.9 Hypotension, unspecified; I25.10 Atherosclerotic heart disease of native coronary artery without angina pectoris; E78.5 Hyperlipidemia, unspecified; G62.9 Polyneuropathy, unspecified; M47.816 Spondylosis without myelopathy or radiculopathy, lumbar region; R91.8 Other nonspecific abnormal finding of lung field; K21.9 Gastro-esophageal reflux disease without esophagitis; F32.9 Major depressive disorder, single episode, unspecified; Z79.02 Long term (current) use of antithrombotics/antiplatelets; Z79.82 Long term (current) use of aspirin; Z79.4 Long term (current) use of insulin; Z79.899 Other long term (current) drug therapy; Z86.718 Personal history of other venous thrombosis and embolism; Z86.711 Personal history of pulmonary embolism; Z95.5 Presence of coronary angioplasty implant and graft; Z85.038 Personal history of other malignant neoplasm of large intestine; Z92.3 Personal history of irradiation; Z90.49 Acquired absence of other specified parts of digestive tract; Z90.710 Acquired absence of both cervix and uterus
CPT/HCPCS: 36415; 71046; 80048; 81001; 82962; 83605; 84443; 85025; 85027; 87086; 87088; 93005; 97162; 97165; 97530; 97535; 97802; 99285; J7030; A4216; J2405

== ENCOUNTER 2017-07-22 17:23 | Observation (INO) | payer MEDICARE, SELFPAY ==
[2017-07-22] VITALS (12 sets, daily range): BP systolic 113–219; BP diastolic 63–116; PULSE 92–118; RESP 15–18; TEMP 36.4–36.8; O2SAT 15–98; BMI 28.0; BMI 27.1
--- NOTE | 2017-07-22 17:51 | ED.RN ---
pt unable to confirm home medications at this time
--- NOTE | 2017-07-22 17:59 | CT_ITS ---
STUDY: CT BRAIN WITHOUT CONTRAST REASON FOR EXAM: Female, 76 years old. Confusion and weakness RADIATION DOSAGE (If Supplied By Facility): CTDIvol = ( 44.99 ) mGy, DLP = ( 745.49 ) mGycm TECHNIQUE: Transaxial CT imaging of the brain was performed without administration of intravenous contrast material. Individualized dose optimization techniques were used for this CT. COMPARISON: 02/26/2017 FINDINGS: Normal soft tissue structures. Normal calvarium. There is mild cerebral atrophy with widening of the extra-axial spaces and ventricular dilatation. There are areas of decreased attenuation within the white matter tracts of the supratentorial brain, consistent with microvascular disease changes. Normal basal ganglia and thalami. Normal brainstem. There is mild cerebellar atrophy. There is no intracranial hemorrhage. There are no findings of an acute ischemic infarction. Normal visualized paranasal sinuses. CT/Brain/Head without Contrast IMPRESSION: Chronic involutional changes of the brain. Electronically Signed: Geoffrey Khalil DO at 18:45 EDT Tel , Service support ,
--- NOTE | 2017-07-22 18:00 | EKG12_ITS ---
Test Reason : ILLNESS Blood Pressure : / mmHG Vent. Rate : 117 BPM Atrial Rate : 117 BPM P-R Int : 152 ms QRS Dur : 076 ms QT Int : 326 ms P-R-T Axes : 037 -26 072 degrees QTc Int : 454 ms Sinus tachycardia with Premature atrial complexes Otherwise normal ECG Confirmed by MARIO BURROUGHS, JOSIANE ([id number]), make up editor SANDY SALMERON ([id number]) on 07/25/2017 1:57:15 PM Referred By: ANASTACIO Confirmed By:JOSIANE MARTIN MD
--- NOTE | 2017-07-22 18:00 | RAD_ITS ---
STUDY: X-RAY CHEST REASON FOR EXAM: Female, 76 years old. Generalized malaise TECHNIQUE: PA and lateral views of the chest. COMPARISON: 07/09/2017 FINDINGS: Stable large right upper lobe pulmonary mass. Stable left chest wall Mediport. No acute airspace disease. There is no demonstrated pleural abnormality. There is mild cardiac enlargement. Normal mediastinum and rodolfo. Normal visualized pulmonary arteries. Normal visualized aortic arch and descending thoracic aorta. There are diffuse degenerative changes of the visualized thoracic spine. There is degenerative osteoarthritis of the bilateral shoulders. There is no demonstrated abnormality of the visualized soft tissue structures of the upper abdomen. RAD/Chest PA and Lateral IMPRESSION: No acute cardiopulmonary disease. Stable right upper lobe mass. Electronically Signed: Geoffrey Khalil DO at 19:10 EDT Tel , Service support ,
[2017-07-22 18:12] LABS: Absolute Lymphocyte Count 1.24 X10^3/ul (0.83-4.51); Absolute Neutrophil Count 7.1 X10^3/uL (2.0-7.7); Basophil# 0.03 X10^3/uL; Basophil% 0.3 % (0-1); Eosinophils% 1.1 % (0-5); Hematocrit 39.9 % (37-47); Hemoglobin 13.2 g/dl (12.0-15.0); Lymphocyte # 1.24 X10^3/ul (4.0); Lymphocyte % 13.6 % (19-41); Mean Corp Hgb Conc 33.1 g/gl (32-36); Mean Corpuscular Volume 84.7 fL (81-99); Mean Platelet Vol. 9.7 fl (6.2-12.0); Monocyte# 0.64 X10^3/uL; Neutrophil # 7.09 X10^3/uL (2.7-7.7); Neutrophil % 77.9 % (47-70); Platelet Count 225 K/mm3 (150-450); RBC Distribution Width CV 13.9 % (11.6-14.6); RBC Distribution Width SD 43.1 fl (35.1-43.9); Red Blood Count 4.71 M/mm3 (4.2-5.4); White Blood Count 9.1 K/mm3 (4.4-11.0)
[2017-07-22 18:13] LABS: POSITIVE COUNT NO; POSITIVE DIFFERENTIAL NO; POSITIVE MORPHOLOGY NO
[2017-07-22 18:24] LABS: ALB/GLOB Ratio 0.6 RATIO (0.9-2.4); AST(SGOT) 27 U/L (15-37); Alanine Aminotransfer ALT/SGPT 22 U/L (13-56); Alkaline Phosphatase 260 U/L (45-117); Anion Gap 9 (5-15); BUN 18 mg/dL (7-18); BUN/Creat Ratio 14.5 RATIO (10-20); Chloride 100 mmol/L (98-107); Creatinine, Serum 1.24 mg/dL (0.55-1.02); EST Glomerular Filtration Rate 45 mL/min (>60); Est Glom Filt Rate - Afr Amer 54 mL/min (>60); Estimated Creatinine Clearance 30.05 ml/min; Globulin 4.8 g/dL (2.2-4.2); Glucose 172 mg/dL (74-106); Protein, Total 7.8 g/dL (6.4-8.2); Sodium Level 136 mmol/L (136-145)
[2017-07-22 18:41] LABS: Bedside Glucose 160 mg/dL (70-110)
[2017-07-22 19:24] LABS: Bacteria 0 SEEN /hpf (None Seen); Mucous, Urine 0 SEEN /hpf (<or=2+); Red Blood Cells-Urine 0 SEEN /hpf (0-5)
[2017-07-22 19:27] LABS: Color, Urine Yellow (Yellow); Glucose, Dipstick 50 mg/dl (Normal); Ketone-Dipstick 5 mg/dl (Negative); Leukocyte Esterase-Dipstick 100 /ul (Negative); Nitrite-Dipstick Negative (Negative); Occult Blood-Urine 50 /ul (Negative); Protein-Dipstick 500 mg/dl (Negative); Urine Bilirubin Dipstick Negative (Negative); Urine Clarity Sl. Cloudy (Clear); Urine Urobilinogen Normal (Normal)
--- NOTE | 2017-07-22 19:27 | ED.RN ---
PILI Allen states pt came with a zip lock bag of pills. pt stated she was concerned that she didn't want her grandson to have the pills. When this RN and PILI Allen got pt up to the bedside commode, pills were missing from the pt's bed. This RN and PILI Allen went back in room, asked the pt and the daughter of pt where the pills were to so that they were accounted for. Daughter of pt states she has the pills in her purse. pt is aware of the location of pills.
[2017-07-22 19:33] LABS: Renal Epithelial Cells 0-5 SEEN /hpf (0-5); Squamous Epithelial Cells - UA 0-5 SEEN /hpf (5-10); White Blood Cells 25-50 SEEN /hpf (0-5)
[2017-07-22 19:34] LABS: Yeast-Urine 2+ /hpf (None Seen)
--- NOTE | 2017-07-22 20:39 | PCM.HP.STD ---
Problem List (1) History of PTCA Status: Chronic Comment: 01/05/2017 SHEKHAR to mid RCA & POBA to ostial PDA @ [facility] (2) S/P coronary artery stent placement Status: Chronic Comment: 2006, 2009 & 2010 (3) Postural instability Status: Chronic (4) Colon carcinoma Status: Chronic Comment: S/P partial colon resection (5) CAD (coronary artery disease) Status: Chronic Qualifiers: Coronary Disease-Associated Artery/Lesion type: unspecified vessel or lesion type [place] vs. transplanted heart: unspecified whether [place] or transplanted heart Associated angina: angina presence unspecified Qualified Code(s): I25.10 - Atherosclerotic heart disease of [place] coronary artery without angina pectoris Comment: ptci and stents (6) Diabetes Status: Chronic Qualifiers: Diabetes mellitus type: type 2 Diabetes mellitus custodial insulin use: with custodial use Diabetes mellitus complication status: with unspecified complications Qualified Code(s): E11.8 - Type 2 diabetes mellitus with unspecified complications; Z79.4 - middle or intermediate school principal (current) use of insulin (7) 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 Comment: s/p colon resection remote, lung metastases diagnosed 2014, s/p adjuvant chemotherapy, s/p stereotactic XRT [facility], follows [facility] (8) Presence of IVC filter Status: Chronic (9) H/O deep venous thrombosis Status: Chronic Comment: now has an IVC filter (10) Hyperlipidemia Status: Chronic Qualifiers: Hyperlipidemia type: unspecified Qualified Code(s): E78.5 - Hyperlipidemia, unspecified (11) Polyneuropathy Status: Chronic (12) Pulmonary embolism Status: Chronic Qualifiers: Chronicity: unspecified Acute cor pulmonale presence: without acute cor pulmonale (13) Hypertension Status: Chronic Qualifiers: Hypertension type: essential hypertension Qualified Code(s): I10 - Essential (primary) hypertension (14) Chronic renal failure, stage 3 (moderate) Status: Chronic (15) Anxiety and depression Status: Chronic Comment: uncontrolled (16) GERD (gastroesophageal reflux disease) Status: Chronic Qualifiers: Esophagitis presence: esophagitis presence not specified Qualified Code(s): K21.9 - Gastro-esophageal reflux disease without esophagitis (17) Expressive aphasia Status: Acute (18) Hypertensive urgency Status: Acute History of Present Illness Date of Admission: 07/22/17 Chief Complaint: Weakness, Confusion, Aphasia, Uncontrolled BP The patient is a 76 y/o F w/ PMHx: CAD s/p TX and PCI most recently 01/05/17 SHEKHAR to mid RCA and POBA to ostial PDA, HTN, HLD, Diabetes mellitus type II w/ Polyneuropathy, Anxiety and Depression, History of DVT and PE s/p IVCF placement, CKD stage III (baseline Cr 1.2-1.4), GERD, Metastatic Colon CA s/p colon resection w/ lung metastatic disease w/ chronic RUL mass s/p adjuvant chemotherapy, s/p stereotactic XRT [facility] most recently admitted 07/09/17- with ARIEL, generalized weakness, confusion w/ decreased zyprexa and gabapentin who now re-presents to the [facility] ED on 07/22/17 with history of increased confusion, difficulty expressive herself noted per her daughter on day of ED presentation with last possible normal possible 48 hours prior thus > 72 hours prior. In the ED work-up included T 97.5, HR 118, BP initially 219/116-->127/84, RR 16, 97% on RA, CBC w/ WBC 9.1, Hgb 13.2, Plts 225 without shift, CMP w/ BUN/Cr 18/1.24, glucose 172, Alk phos 260, UA not marked appearing aside yeast 2+, CT brain w/ chronic changes, CXR w/ chronic changes, stable RUL mass. 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) s/p colon resection remote, lung metastases diagnosed 2014, s/p adjuvant chemotherapy, s/p stereotactic XRT [facility], follows [facility] S/P ORIF (open reduction internal fixation) fracture (Chronic) left ankle, 09/14/14, Dr Harvey, [facility] Presence of IVC filter (Chronic) H/O deep venous thrombosis (Chronic) now has an IVC filter Hyperlipidemia (Chronic) Polyneuropathy (Chronic) Pulmonary embolism (Chronic) Hypertension (Chronic) Chronic renal failure, stage 3 (moderate) (Chronic) Anxiety and depression (Chronic) uncontrolled Gallstones (Chronic) GERD (gastroesophageal reflux disease) (Chronic) Allergies promethazine HCl [From Phenergan] Allergy (Verified 07/22/17 17:28) seizures danish rice Adverse Reaction (Severe, Uncoded 07/22/17 17:28) Unknown Home Medications: Ambulatory Orders Medication Instructions Recorded Atorvastatin Calcium [Lipitor] 40 mg PO QHS 07/09/15 Multivitamin [Daily Multiple 1 tab PO DAILY 07/09/15 Vitamin] Alendronate Sodium 70 mg PO BURT 09/20/16 buPROPion XL [Wellbutrin Xl] 150 mg PO DAILY 09/20/16 Aspirin E.C. [Ecotrin] 81 mg PO DAILY@0800 02/26/17 Clopidogrel Bisulfate [Plavix] 75 mg PO DAILY 02/26/17 Oxycodone HCl/Acetaminophen 1 tablet PO TID PRN PRN 02/27/17 [Percocet 7.5-325 mg Tablet] Insulin Aspart [Novolog Flexpen] 6 units SC TIDCM 07/09/17 Insulin Glargine,Hum.rec.anlog 35 units SQ QHS 07/09/17 [Toujeo Solostar] Venlafaxine XR [Effexor Xr] 150 mg PO DAILY 07/09/17 Carvedilol [Coreg (Beta Gilles)] 25 mg PO BID #60 tab 07/12/17 Gabapentin [Neurontin] 300 mg PO BIDCM capsule 07/12/17 Olanzapine [Zyprexa] 2.5 mg PO QHS tablet 07/12/17 Sodium Bicarbonate 650 mg PO DAILY #30 tab 07/12/17 Surgical History: colectomy, hysterectomy, - - Left ankle ORIF, multiple cardiac stent placement Psychiatric History: Anxiety, Depression 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 Denies: Chills, Fever, Weight Change HEENT: Denies: Head Aches, Sinus Congestion, Sinus Drainage Cardiovascular: Denies: Chest Pain, Palpitations Respiratory: Denies: Cough, Shortness of breath at rest, Sputum production Gastrointestinal: Denies: Abdominal Pain, Nausea, Vomiting Genitourinary: Reports: Frequency. Denies: Dysuria Musculoskeletal: Reports: Back Pain. Denies: Joint Pain, Joint Tenderness Skin: Denies: Rash, Wounds Neurological: Reports: Confusion. Denies: Focal weakness, Numbness, Tingling Psychiatric: Reports: Anxiety, Depression. Denies: Homicidal Ideations, Suicidal Ideations Hematologic/ Lymphatic: Reports: Anemia. Denies: Easy Bruising, Easy Bleeding VTE Information - Inpt Only VTE Present on Admission: No VTE Mechan Device Prophylaxis: SCD's VTE Pharm Prophylaxis ordered?: Yes Patient Problems: Active and Suspected Problems (Last Updated 07/16/17 @ 10:14 by Sarah Sifuentes) Expressive aphasia (Acute) Hypertensive urgency (Acute) Acute confusion (Acute) Urinary tract infection (Acute) Subjective: Seated upright in the ED bed, NAD, fatigued appearing, flat affect. Objective: Physical Examination: General: awake, alert, oriented x 4/5 and cooperative, seated upright in the ED bed in no apparent distress. Skin: normal color, turgor, no icterus, cyanosis. HEENT: AT/NC, EOMI, PERRLA, moderately dry MM, no carotid bruits or JVD noted. Lungs: CTA bilaterally, moderate effort, moderate decrease BL bases, no rales, ronchi or wheezing. Heart: Regular rate and rhythm; no gallop, rub audible. Abdomen: soft, NTTP, ND, normal BS, no HSM. Extremities: no cyanosis, clubbing, or edema. Neurological: patient awake, alert, oriented x 4/5; cognitive function moderately, not baseline intact; pupils equally reactive to light and accomodation; cranial nerves II-XII grossly normal, moving all 4 extremities, no focal deficits, strength preserved, sensation intact, FTN and HTN intact, negative babinski, very mild aphasia. Psychiatric: affect appears flat, no acute evidence of depressive or anxiety feelings. - Physical Exam Vital Signs Temp Pulse Resp BP Pulse Ox 97.5 F L 102 H 17 127/84 H 15 07/22/17 17:24 07/22/17 20:26 07/22/17 19:39 07/22/17 20:26 07/22/17 20:26 Oxygen Delivery Method Room Air Weight: 153 lb 10.595 oz Body Mass Index (BMI) 28.0 Finger Stick Blood Glucose 160 Laboratory Tests Past 24 Hrs 07/22/17 07/22/17 07/22/17 17:40 17:40 19:20 WBC 9.1 RBC 4.71 Hgb 13.2 Hct 39.9 MCV 84.7 MCH 28.0 MCHC 33.1 RDW 13.9 RDW Differential 43.1 Plt Count 225 MPV 9.7 Immature Gran % (Auto) 0.100 Neut % (Auto) 77.9 H Lymph % (Auto) 13.6 L [place] % (Auto) 7.0 Eos % (Auto) 1.1 Baso % (Auto) 0.3 Absolute Neuts (auto) 7.1 Absolute Lymphs (auto) 1.24 Total Counted Not Reportable Sodium 136 Potassium 4.0 Chloride 100 Carbon Dioxide 27.0 Anion Gap 9 BUN 18 Creatinine 1.24 H Estim Creat Clear Calc 30.05 Est GFR (MDRD) Af Amer 54 L Est GFR (MDRD) Non-Af 45 L BUN/Creatinine Ratio 14.5 Glucose 172 H Calcium 10.0 Total Bilirubin 0.50 AST 27 ALT 22 Alkaline Phosphatase 260 H Total Protein 7.8 Albumin 3.0 L Globulin 4.8 H Albumin/Globulin Ratio 0.6 L Urine Color Yellow Urine Clarity Sl. Cloudy Urine pH 6.0 Ur Specific [place]da 1.020 Urine Protein 500 H Urine Glucose (UA) 50 H Urine Ketones 5 H Urine Occult Blood 50 H Urine Nitrite Negative Urine Bilirubin Negative Urine Urobilinogen Normal Ur Leukocyte Esterase 100 H Urine RBC 0 SEEN Urine WBC 25-50 SEEN Ur Squamous Epith Cells 0-5 SEEN Ur Renal Epithelial Cell 0-5 SEEN Urine Bacteria 0 SEEN Urine Mucus 0 SEEN Urine Yeast 2+ POC Glucose 07/22/17 18:33 POC Glucose 160 H Assessment/Plan Active and Suspected Problems (Last Updated 07/16/17 @ 10:14 by Sarah Sifuentes) Expressive aphasia (Acute) Hypertensive urgency (Acute) Acute confusion (Acute) Urinary tract infection (Acute) The patient is a 76 y/o F w/ PMHx: CAD s/p TX and PCI most recently 01/05/17 SHEKHAR to mid RCA and POBA to ostial PDA, HTN, HLD, Diabetes mellitus type II w/ Polyneuropathy, Anxiety and Depression, History of DVT and PE s/p IVCF placement, CKD stage III (baseline Cr 1.2-1.4), GERD, Metastatic Colon CA s/p colon resection w/ lung metastatic disease w/ chronic RUL mass s/p adjuvant chemotherapy, s/p stereotactic XRT [facility] most recently admitted 07/09/17- with ARIEL, generalized weakness, confusion w/ decreased zyprexa and gabapentin who now re-presents to the [facility] ED on 07/22/17 with history of increased confusion, difficulty expressive herself noted per her daughter on day of ED presentation with last possible normal possible 48 hours prior to this presentation (72 hours total). (1) Aphasia, Confusion concerning for TIA/CVA: In the ED work-up included T 97.5, HR 118, BP initially 219/116-->127/84, RR 16, 97% on RA, CBC w/ WBC 9.1, Hgb 13.2, Plts 225 without shift, CMP w/ BUN/Cr 18/1.24, glucose 172, Alk phos 260, UA not marked appearing aside yeast 2+, CT brain w/ chronic changes, CXR w/ chronic changes, stable RUL mass. Will admit to PCU, will obtain MRI Brain, MRA Head and Neck, ECHO most recently performed 01/11/17 ~ 6 months prior thus will now repeat, PT/OT/Speech/Nutrition evaluation per protocol. Will consult Neurology for evaluation. Will continue BP regimen as possibly 72 hours since onset, BP improved w/ in the ED w/ labetalol and mental status also improved, possibly missing her BP regimen, maintain on asa and plavix, statin w/ AM FLP, fall precautions. (2) Hypertension, Initially Uncontrolled, Possible Hypertensive Emergency given #1 presentation: Notably elevated in the ED, concerns for failure to take her regimen and recent hold on ACEI. Improved BP with administration labetalol and improved mental status following. Continue home regimen, PRN hydralazine given timeline of last known normal will defer permissive. (3) Anxiety and Depression: Recent of spouse, feel this is the likely culprit for recurrent presentation, most recent admission w/ ARIEL secondary to poor intake w/ confusion, improved w/ hydration, hold on ACEI w/ planned possible restart upon Dr. Coreas outpatient re-evaluation and decrease of her gabapentin and zyprexa. Will need psychology/psychiatry close follow-up given ongoing depression. (4) Diabetes mellitus type II w/ Polyneuropathy: Hold oral home regimen, continue home insulin regimen, ADA diet, accu checks w/ ISS. (5) CAD: s/p /TX/PCI. PCI most recently 01/05/17 SHEKHAR to mid RCA and POBA to ostial PDA. Will continue home regimen asa, statin, plavix, BB. (6) Chronic Kidney Disease Stage III: Admission BUN/Cr 18/1.24, baseline renal function 1.2-1.4, stable appearing, repeat BMP in AM. Follows w/ Dr. Coreas outpatient. (7) Hyperlipidemia: Continue home statin regimen. (8) History of DVT, PE: Status post IVC filter placement, prophylaxis as noted. (9) Metastatic Colon CA s/p colon resection w/ lung metastatic disease w/ chronic RUL mass s/p adjuvant chemotherapy, s/p stereotactic XRT [facility] (10) ? Acute UTI, Low Suspicion: UA not severe appearing, noted WBC however no urine bacteria, no marked symptoms, noted yeast but denies any discharge. Given rocephin IV in the ED x 1, will await UCx, defer further abx therapy, especially given c-diff history. (11) DVT Prophylaxis: SCDs, heparin. (12) CODE status: Discussed CODE status at length including difference between FULL code, DNR-CCA and DNR-CC status. Following discussions about the differences in these status, family and patient confirmed ongoing status DNR-CCA, no intubation status. Advanced Care Planning Face to Face Time: 17 minutes. Code Visit OBSV E&M: 11439 Initial observation care L3 Procedures: 12881 Advncd Care Plan 30 Min
--- NOTE | 2017-07-22 20:59 | HP.PCM_ITS ---
Problem List (1) History of PTCA Status: Chronic Comment: 01/05/2017 SHEKHAR to mid RCA & POBA to ostial PDA @ [facility] (2) S/P coronary artery stent placement Status: Chronic Comment: 2006, 2009 & 2010 (3) Postural instability Status: Chronic (4) Colon carcinoma Status: Chronic Comment: S/P partial colon resection (5) CAD (coronary artery disease) Status: Chronic Qualifiers: Coronary Disease-Associated Artery/Lesion type: unspecified vessel or lesion type [place] vs. transplanted heart: unspecified whether [place] or transplanted heart Associated angina: angina presence unspecified Qualified Code(s): I25.10 - Atherosclerotic heart disease of [place] coronary artery without angina pectoris Comment: ptci and stents (6) Diabetes Status: Chronic Qualifiers: Diabetes mellitus type: type 2 Diabetes mellitus care home insulin use: with care home use Diabetes mellitus complication status: with unspecified complications Qualified Code(s): E11.8 - Type 2 diabetes mellitus with unspecified complications; Z79.4 - long term care pharmacist (current) use of insulin (7) 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 Comment: s/p colon resection remote, lung metastases diagnosed 2014, s/p adjuvant chemotherapy, s/p stereotactic XRT [facility], follows [facility] (8) Presence of IVC filter Status: Chronic (9) H/O deep venous thrombosis Status: Chronic Comment: now has an IVC filter (10) Hyperlipidemia Status: Chronic Qualifiers: Hyperlipidemia type: unspecified Qualified Code(s): E78.5 - Hyperlipidemia , unspecified (11) Polyneuropathy Status: Chronic (12) Pulmonary embolism Status: Chronic Qualifiers: Chronicity: unspecified Acute cor pulmonale presence: without acute cor pulmonale (13) Hypertension Status: Chronic Qualifiers: Hypertension type: essential hypertension Qualified Code(s): I10 - Essential (primary) hypertension (14) Chronic renal failure, stage 3 (moderate) Status: Chronic (15) Anxiety and depression Status: Chronic Comment: uncontrolled (16) GERD (gastroesophageal reflux disease) Status: Chronic Qualifiers: Esophagitis presence: esophagitis presence not specified Qualified Code(s) : K21.9 - Gastro-esophageal reflux disease without esophagitis (17) Expressive aphasia Status: Acute (18) Hypertensive urgency Status: Acute History of Present Illness Date of Admission: 07/22/17 Chief Complaint: Weakness, Confusion, Aphasia, Uncontrolled BP The patient is a 76 y/o F w/ PMHx: CAD s/p NM and PCI most recently 01/05/17 SHEKHAR to mid RCA and POBA to ostial PDA, HTN, HLD, Diabetes mellitus type II w/ Polyneuropathy, Anxiety and Depression, History of DVT and PE s/p IVCF placement , CKD stage III (baseline Cr 1.2-1.4), GERD, Metastatic Colon CA s/p colon resection w/ lung metastatic disease w/ chronic RUL mass s/p adjuvant chemotherapy, s/p stereotactic XRT [facility] most recently admitted 07/09/17- with ARIEL, generalized weakness, confusion w/ decreased zyprexa and gabapentin who now re-presents to the [facility] ED on 07/22/17 with history of increased confusion, difficulty expressive herself noted per her daughter on day of ED presentation with last possible normal possible 48 hours prior thus > 72 hours prior. In the ED work-up included T 97.5, HR 118, BP initially 219/116- ->127/84, RR 16, 97% on RA, CBC w/ WBC 9.1, Hgb 13.2, Plts 225 without shift, CMP w/ BUN/Cr 18/1.24, glucose 172, Alk phos 260, UA not marked appearing aside yeast 2+, CT brain w/ chronic changes, CXR w/ chronic changes, stable RUL mass. 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) s/p colon resection remote, lung metastases diagnosed 2014, s/p adjuvant chemotherapy, s/p stereotactic XRT [facility], follows [facility] S/P ORIF (open reduction internal fixation) fracture (Chronic) left ankle, 09/14/14, Dr Harvey, [facility] Presence of IVC filter (Chronic) H/O deep venous thrombosis (Chronic) now has an IVC filter Hyperlipidemia (Chronic) Polyneuropathy (Chronic) Pulmonary embolism (Chronic) Hypertension (Chronic) Chronic renal failure, stage 3 (moderate) (Chronic) Anxiety and depression (Chronic) uncontrolled Gallstones (Chronic) GERD (gastroesophageal reflux disease) (Chronic) Allergies promethazine HCl [From Phenergan] Allergy (Verified 07/22/17 17:28) seizures [place] Adverse Reaction (Severe, Uncoded 07/22/17 17:28) Unknown Home Medications: Ambulatory Orders Medication Instructions Recorded Atorvastatin Calcium [Lipitor] 40 mg PO QHS 07/09/15 Multivitamin [Daily Multiple 1 tab PO DAILY 07/09/15 Vitamin] Alendronate Sodium 70 mg PO BURT 09/20/16 buPROPion XL [Wellbutrin Xl] 150 mg PO DAILY 09/20/16 Aspirin E.C. [Ecotrin] 81 mg PO DAILY@0800 02/26/17 Clopidogrel Bisulfate [Plavix] 75 mg PO DAILY 02/26/17 Oxycodone HCl/Acetaminophen 1 tablet PO TID PRN PRN 02/27/17 [Percocet 7.5-325 mg Tablet] Insulin Aspart [Novolog Flexpen] 6 units SC TIDCM 07/09/17 Insulin Glargine,Hum.rec.anlog 35 units SQ QHS 07/09/17 [Toujeo Solostar] Venlafaxine XR [Effexor Xr] 150 mg PO DAILY 07/09/17 Carvedilol [Coreg ([place])] 25 mg PO BID #60 tab 07/12/17 Gabapentin [Neurontin] 300 mg PO BIDCM capsule 07/12/17 Olanzapine [Zyprexa] 2.5 mg PO QHS tablet 07/12/17 Sodium Bicarbonate 650 mg PO DAILY #30 tab 07/12/17 Surgical History: colectomy, hysterectomy, - - Left ankle ORIF, multiple cardiac stent placement Psychiatric History: Anxiety, Depression IMMUNOLOGY TEACHER History: No pertinent IMMUNOLOGY TEACHER history Lives: Alone Smoking Status: Never smoker Alcohol: None Drugs: None - *Family History Maternal History Items: Cancer - rectal Paternal History Items: Cancer - lung Review of Systems Constitutional: Reports: Malaise, Weakness, Fatigue. Denies: Chills, Fever, Weight Change HEENT: Denies: Head Aches, Sinus Congestion, Sinus Drainage Cardiovascular: Denies: Chest Pain, Palpitations Respiratory: Denies: Cough, Shortness of breath at rest, Sputum production Gastrointestinal: Denies: Abdominal Pain, Nausea, Vomiting Genitourinary: Reports: Frequency. Denies: Dysuria Musculoskeletal: Reports: Back Pain. Denies: Joint Pain, Joint Tenderness Skin: Denies: Rash, Wounds Neurological: Reports: Confusion. Denies: Focal weakness, Numbness, Tingling Psychiatric: Reports: Anxiety, Depression. Denies: Homicidal Ideations, Suicidal Ideations Hematologic/ Lymphatic: Reports: Anemia. Denies: Easy Bruising, Easy Bleeding VTE Information - Inpt Only VTE Present on Admission: No VTE Mechan Device Prophylaxis: SCD's VTE Pharm Prophylaxis ordered?: Yes Patient Problems: Active and Suspected Problems (Last Updated 07/16/17 @ 10:14 by Sarah Sifuentes) Expressive aphasia (Acute) Hypertensive urgency (Acute) Acute confusion (Acute) Urinary tract infection (Acute) Subjective: Seated upright in the ED bed, NAD, fatigued appearing, flat affect. Objective: Physical Examination: General: awake, alert, oriented x 4/5 and cooperative, seated upright in the ED bed in no apparent distress. Skin: normal color, turgor, no icterus, cyanosis. HEENT: AT/NC, EOMI, PERRLA, moderately dry MM, no carotid bruits or JVD noted. Lungs: CTA bilaterally, moderate effort, moderate decrease BL bases, no rales, ronchi or wheezing. Heart: Regular rate and rhythm; no gallop, rub audible. Abdomen: soft, NTTP, ND, normal BS, no HSM. Extremities: no cyanosis, clubbing, or edema. Neurological: patient awake, alert, oriented x 4/5; cognitive function moderately, not baseline intact; pupils equally reactive to light and accomodation; cranial nerves II-XII grossly normal, moving all 4 extremities, no focal deficits, strength preserved, sensation intact, FTN and HTN intact, negative babinski, very mild aphasia. Psychiatric: affect appears flat, no acute evidence of depressive or anxiety feelings. - Physical Exam Vital Signs Temp Pulse Resp BP Pulse Ox 97.5 F L 102 H 17 127/84 H 15 07/22/17 17:24 07/22/17 20:26 07/22/17 19:39 07/22/17 20:26 07/22/17 20:26 Oxygen Delivery Method Room Air Weight: 153 lb 10.595 oz Body Mass Index (BMI) 28.0 Finger Stick Blood Glucose 160 Laboratory Tests Past 24 Hrs 07/22/17 07/22/17 07/22/17 17:40 17:40 19:20 WBC 9.1 RBC 4.71 Hgb 13.2 Hct 39.9 MCV 84.7 MCH 28.0 MCHC 33.1 RDW 13.9 RDW Differential 43.1 Plt Count 225 MPV 9.7 Immature Gran % (Auto) 0.100 Neut % (Auto) 77.9 H Lymph % (Auto) 13.6 L [place] % (Auto) 7.0 Eos % (Auto) 1.1 Baso % (Auto) 0.3 Absolute Neuts (auto) 7.1 Absolute Lymphs (auto) 1.24 Total Counted Not Reportable Sodium 136 Potassium 4.0 Chloride 100 Carbon Dioxide 27.0 Anion Gap 9 BUN 18 Creatinine 1.24 H Estim Creat Clear Calc 30.05 Est GFR (MDRD) Af Amer 54 L Est GFR (MDRD) Non-Af 45 L BUN/Creatinine Ratio 14.5 Glucose 172 H Calcium 10.0 Total Bilirubin 0.50 AST 27 ALT 22 Alkaline Phosphatase 260 H Total Protein 7.8 Albumin 3.0 L Globulin 4.8 H Albumin/Globulin Ratio 0.6 L Urine Color Yellow Urine Clarity Sl. Cloudy Urine pH 6.0 Ur Specific [place] 1.020 Urine Protein 500 H Urine Glucose (UA) 50 H Urine Ketones 5 H Urine Occult Blood 50 H Urine Nitrite Negative Urine Bilirubin Negative Urine Urobilinogen Normal Ur Leukocyte Esterase 100 H Urine RBC 0 SEEN Urine WBC 25-50 SEEN Ur Squamous Epith Cells 0-5 SEEN Ur Renal Epithelial Cell 0-5 SEEN Urine Bacteria 0 SEEN Urine Mucus 0 SEEN Urine Yeast 2+ POC Glucose 07/22/17 18:33 POC Glucose 160 H Assessment/Plan Active and Suspected Problems (Last Updated 07/16/17 @ 10:14 by Sarah Sifuentes) Expressive aphasia (Acute) Hypertensive urgency (Acute) Acute confusion (Acute) Urinary tract infection (Acute) The patient is a 76 y/o F w/ PMHx: CAD s/p NM and PCI most recently 01/05/17 SHEKHAR to mid RCA and POBA to ostial PDA, HTN, HLD, Diabetes mellitus type II w/ Polyneuropathy, Anxiety and Depression, History of DVT and PE s/p IVCF placement , CKD stage III (baseline Cr 1.2-1.4), GERD, Metastatic Colon CA s/p colon resection w/ lung metastatic disease w/ chronic RUL mass s/p adjuvant chemotherapy, s/p stereotactic XRT [facility] most recently admitted 07/09/17- with ARIEL, generalized weakness, confusion w/ decreased zyprexa and gabapentin who now re-presents to the [facility] ED on 07/22/17 with history of increased confusion, difficulty expressive herself noted per her daughter on day of ED presentation with last possible normal possible 48 hours prior to this presentation (72 hours total). (1) Aphasia, Confusion concerning for TIA/CVA: In the ED work-up included T 97.5 , HR 118, BP initially 219/116-->127/84, RR 16, 97% on RA, CBC w/ WBC 9.1, Hgb 13.2, Plts 225 without shift, CMP w/ BUN/Cr 18/1.24, glucose 172, Alk phos 260, UA not marked appearing aside yeast 2+, CT brain w/ chronic changes, CXR w/ chronic changes, stable RUL mass. Will admit to PCU, will obtain MRI Brain, MRA Head and Neck, ECHO most recently performed 01/11/17 ~ 6 months prior thus will now repeat, PT/OT/Speech/Nutrition evaluation per protocol. Will consult Neurology for evaluation. Will continue BP regimen as possibly 72 hours since onset, BP improved w/ in the ED w/ labetalol and mental status also improved, possibly missing her BP regimen, maintain on asa and plavix, statin w/ AM FLP, fall precautions. (2) Hypertension, Initially Uncontrolled, Possible Hypertensive Emergency given #1 presentation: Notably elevated in the ED, concerns for failure to take her regimen and recent hold on ACEI. Improved BP with administration labetalol and improved mental status following. Continue home regimen, PRN hydralazine given timeline of last known normal will defer permissive. (3) Anxiety and Depression: Recent of spouse, feel this is the likely culprit for recurrent presentation, most recent admission w/ ARIEL secondary to poor intake w/ confusion, improved w/ hydration, hold on ACEI w/ planned possible restart upon Dr. Coreas outpatient re-evaluation and decrease of her gabapentin and zyprexa. Will need psychology/psychiatry close follow-up given ongoing depression. (4) Diabetes mellitus type II w/ Polyneuropathy: Hold oral home regimen, continue home insulin regimen, ADA diet, accu checks w/ ISS. (5) CAD: s/p /NM/PCI. PCI most recently 01/05/17 SHEKHAR to mid RCA and POBA to ostial PDA. Will continue home regimen asa, statin, plavix, BB. (6) Chronic Kidney Disease Stage III: Admission BUN/Cr 18/1.24, baseline renal function 1.2-1.4, stable appearing, repeat BMP in AM. Follows w/ Dr. Coreas outpatient. (7) Hyperlipidemia: Continue home statin regimen. (8) History of DVT, PE: Status post IVC filter placement, prophylaxis as noted. (9) Metastatic Colon CA s/p colon resection w/ lung metastatic disease w/ chronic RUL mass s/p adjuvant chemotherapy, s/p stereotactic XRT [facility] (10) ? Acute UTI, Low Suspicion: UA not severe appearing, noted WBC however no urine bacteria, no marked symptoms, noted yeast but denies any discharge. Given rocephin IV in the ED x 1, will await UCx, defer further abx therapy, especially given c-diff history. (11) DVT Prophylaxis: SCDs, heparin. (12) CODE status: Discussed CODE status at length including difference between FULL code, DNR-CCA and DNR-CC status. Following discussions about the differences in these status, family and patient confirmed ongoing status DNR-CCA , no intubation status. Advanced Care Planning Face to Face Time: 17 minutes. Code Visit OBSV E&M: 05502 Initial observation care L3 Procedures: 43096 Advncd Care Plan 30 Min
--- NOTE | 2017-07-22 21:10 | ED.DCSUM_ITS ---
- ER Visit Summary Date of Service: 07/22/17 Chief Complaint: Hypertension and difficulty speaking History of Present Illness: The patient is a 76 F who presents with difficulty speaking that the daughter noticed today. Daughter states that the patient called her today and she was having trouble getting words out. Daughter states this is new today. Patient states she is under stress from a family member dying 2 weeks ago. Patient states she has been taking her hypertensive medication as prescribed. Patient denies any paresthesias or weakness. Patient does admit to a headache. Patient states she has been having some nausea and vomiting. Patient also admits to some blurred vision. Physical Examination: Vital signs showed blood pressure of 219/116 and a heart rate of 118. Patient is afebrile. Patient is in no acute distress. Pupils are equal, round, reactive to light bilateral. Extraocular muscles are intact. Conjunctiva is clear. Oral mucosa is pink and moist. Heart was regular rate and rhythm. Lungs are clear and equal bilaterally. Abdomen is soft and nontender. Bowel sounds are normal. Patient is alert and oriented ?3. Cranial nerves II through XII are intact. There is a mild expressive aphasia noted. Strength is 5/5 bilaterally upper and lower extremities. There are no sensory deficits noted. Test Results: CT scan of the brain was obtained and there was no acute process. Chest x-ray shows a stable right upper lobe mass but no acute process. CBC was within normal limits. Metabolic profile showed a slightly elevated creatinine of 1.2 for an elevated glucose of 172. Alk phos was slightly elevated to 60. Urinalysis does show evidence of urinary tract infection. EKG showed sinus tachycardia with a rate of 117. There is an occasional PAC noted. There are no acute ST or T-wave changes noted. Emergency Department Course and Treatment: Patient was given a dose of labetalol here. Patient's blood pressure improved to a normotensive range. Patient was talking somewhat better on reevaluation but the daughter stated she still seemed confused to her. Case was discussed with Dr. Sung. She will admit the patient to her service. Patient was given a dose of Cipro here. Daughter understood and was agreeable with the plan. All questions were answered. Disposition: Admit to the hospital Impression: Acute confusion, urinary tract infection This note was generated with Springration software. It may contain incorrect words, spelling, and punctuation that were not noted in review of the chart prior to signing ED Disposition - Plan for ED Patient: Disposition: Acute Care Hospital [facility] Chief Complaint: General Illness Diagnosis: Acute confusion, Urinary tract infection Referrals: Donald Cline MD [Primary Care Provider] -
[2017-07-22 22:38] LABS: Magnesium 1.4 mg/dL (1.6-2.6); Thyroid Stim Hormone (TSH) 2.15 uIU/mL (0.358-3.74)
[2017-07-22] MEDS: 0.9% Normal Saline 1,000 ML 100 ML IV (22:41)
[2017-07-22] MEDS: OLANZapine 2.5 MG Tablet PO (22:54)
[2017-07-22] MEDS: Carvedilol 25 MG Tablet PO (22:54)
[2017-07-22] MEDS: Atorvastatin Calcium 40 MG Tablet PO (22:54)
[2017-07-22] MEDS: Heparin Injection (Vial) 5,000 UNIT/ML VIAL 5000 UNIT SC (22:54)
[2017-07-22] MEDS: Ceftriaxone 1 GM/50 ML BAG IV (23:06)
[2017-07-22 23:15] LABS: Bedside Glucose 155 mg/dL (70-110)
--- NOTE | 2017-07-22 23:44 | NURSING ---
patient unable to confirm home medication list at this time. will pass along to dayshift RN to confirm med list with daughter or patient's pharmacy.
[2017-07-23] VITALS (15 sets, daily range): BP systolic 85–157; BP diastolic 51–78; PULSE 72–95; RESP 16–18; TEMP 36.4–37.1; O2SAT 93–95; BMI 27.1
[2017-07-23 05:42] LABS: Hemoglobin 11.4 g/dl (12.0-15.0); Mean Corp Hgb Conc 32.6 g/gl (32-36); Mean Corpuscular Hgb 28.2 pg (27.0-32.0); Mean Corpuscular Volume 86.6 fL (81-99); Platelet Count 216 K/mm3 (150-450); RBC Distribution Width CV 13.8 % (11.6-14.6); RBC Distribution Width SD 42.8 fl (35.1-43.9); Red Blood Count 4.04 M/mm3 (4.2-5.4); White Blood Count 10.6 K/mm3 (4.4-11.0)
[2017-07-23 05:46] LABS: Scan Indicated on CBC? Y/N NO
[2017-07-23 06:03] LABS: Anion Gap 10 (5-15); BUN 24 mg/dL (7-18); BUN/Creat Ratio 16.1 RATIO (10-20); Chloride 106 mmol/L (98-107); Cholesterol 146 mg/dL (200); Creatinine, Serum 1.49 mg/dL (0.55-1.02); EST Glomerular Filtration Rate 36 mL/min (>60); Est Glom Filt Rate - Afr Amer 44 mL/min (>60); Estimated Creatinine Clearance 25.01 ml/min; Glucose 55 mg/dL (74-106); High Density Lipoprotein 56 mg/dL; Potassium 3.4 mmol/L (3.5-5.1); Sodium Level 142 mmol/L (136-145); Triglycerides 115 mg/dL; Very Low Density Lipoprotein 23 mg/dL (5-40)
[2017-07-23] MEDS: Heparin Injection (Vial) 5,000 UNIT/ML VIAL 5000 UNIT SC ×3 (06:24→21:16)
[2017-07-23 07:16] LABS: Bedside Glucose 62 mg/dL (70-110)
[2017-07-23 07:16] LABS: Bedside Glucose 53 mg/dL (70-110)
--- NOTE | 2017-07-23 07:48 | MRI_ITS ---
STUDY: MRA NECK WITHOUT CONTRAST REASON FOR EXAM: Female, 76 years old. aphasia, confusion, hx colon ca w/ lung mets TECHNIQUE: Source images were obtained, MIPs were performed. The study was performed unenhanced. Ax 2DTOF FSPGR FL:E/MIP L-R COMPARISON: MRI of the brain same date, CT brain July 22, [address] brain February 26, 2017. The exam is hampered by motion. FINDINGS: RIGHT CAROTID ARTERIES: Normal right common carotid artery (CCA). Normal right common carotid bulb. Normal origin of the right internal carotid (ICA) artery without a hemodynamically significant stenosis. Normal visualized cervical portion of the right internal carotid artery. Normal origin of the right external carotid artery (ECA). LEFT CAROTID ARTERIES: Normal left common carotid artery (CCA). Normal left common carotid bulb. Normal origin of the left internal carotid (ICA) artery without a hemodynamically significant stenosis. Normal visualized cervical portion of the left internal carotid artery. Normal origin of the left external carotid artery (ECA). VERTEBRAL ARTERIES: Normal antegrade flow within the bilateral vertebral artery without a hemodynamically significant stenosis. MRI/MRA Neck without Contrast IMPRESSION: Normal bilateral cervical carotid and vertebral arteries. Note that this exam is hampered by motion and subtle abnormalities may be missed. The vessels do appear patent and grossly I do not see a focal area of significant stenosis. Since the patient is moving however, consider carotid ultrasound which could represent a complement to this exam and perhaps deal with some motion. Electronically Signed: Nena Sales MD at 13:24 EDT Tel , Service support ,
--- NOTE | 2017-07-23 07:48 | MRI_ITS ---
STUDY: MRI BRAIN WITHOUT CONTRAST REASON FOR EXAM: Female, 76 years old. Aphasia, confusion, history colon cancer with lung metastasis. TECHNIQUE: Standardized multiplanar fat and water weighted pulse sequences were obtained. Ax DWI Apparent Diffusion Coefficient (mm2/s) Exponential Apparent Diffusion Coefficient Ax T2 PROPELLER Ax T2 FLAIR Ax T1 FSE Ax T2* GRE Cor T2 FSE . Several sequences demonstrate motion artifact, specifically the coronal T2 fast spin echo images and the axial gradient images. COMPARISON: CT brain without contrast July 22, 2017, CT brain February 26, 2017 FINDINGS: There is mild cerebral atrophy with widening of the extra-axial spaces and ventricular dilatation. There are multiple white matter hyperintensities, distributed throughout the deep white matter tracts of the cerebral hemispheres, consistent with moderate chronic white matter ischemic changes. There are old lacunar infarcts seen in association with the centrum semiovale on the left and in the anterior aspect of the external capsule on the right. Normal T2* images of the brain without demonstrated susceptibility artifact. There is no demonstrated hemosiderin stain. There is a an old lacunar infarct without mass effect seen in association with the posterior putamen on the right Normal thalami. There is no extra-axial fluid accumulation. Normal flow voids within the major intracranial circulation suggesting patency by spin echo criteria. Normal sella turcica, pituitary gland, infundibular stalk, optic chiasm and hypothalamus. Normal tectal plate and pineal gland. Normal midbrain, naida and medulla. Normal cerebellum. Normal basal cisterns. There is minimal fluid in mastoid air spaces on the left. Normal bilateral internal auditory canals. No demonstrated orbital abnormality, within the constraints of a routine brain study. Normal visualized paranasal sinuses. Normal calvarium and skull base. Normal visualized soft tissue structures. Normal visualized upper cervical spine. MRI/Brain without Contrast IMPRESSION: Involutional changes of the brain, as described above. No evidence of a mass. No evidence of acute infarct. Electronically Signed: Nena Sales MD at 13:17 EDT Tel , Service support ,
--- NOTE | 2017-07-23 07:48 | MRI_ITS ---
STUDY: MRA OF THE HEAD WITHOUT CONTRAST REASON FOR EXAM: Female, 76 years old. aphasia, confusion, hx colon ca w/ lung mets TECHNIQUE: 3-D [id number] (TOF) imaging was performed with MIPs. The study was performed unenhanced. COMPARISON: None. FINDINGS: Normal bilateral petrous carotid arteries. Normal right cavernous carotid artery with a normal supraclinoid bifurcation. Normal left cavernous carotid artery with a normal supraclinoid bifurcation. Normal right A1 segments of the anterior cerebral artery. Normal left A1 segments of the anterior cerebral artery. There is non-visualization of the anterior communicating artery (ACOM). Normal bilateral A2 segments of the anterior cerebral arteries. Normal right M1 and M2 segments of the middle cerebral arteries, with a normal M1 bifurcation. Normal left M1 and M2 segments of the middle cerebral arteries, with a normal M1 bifurcation. I do note on the reformatted images that just at the bifurcation of the middle cerebral artery on the left it appears that there is a focal area of deficit but I cannot identify this deficit on the 3-D slab raw data. Therefore I do not suspect that this is truly an abnormality. There is non-visualization of the right posterior communicating artery (PCOM). There is non-visualization of the left posterior communicating artery (PCOM). Normal bilateral vertebral arteries. Normal basilar artery with a normal basilar bifurcation. The visualized bilateral superior cerebellar (SCA) arteries are normal. Normal bilateral P1, P2 and visualized P3 segments of the posterior cerebral arteries. There is no demonstrated aneurysm of the [place]. There is no major vessel occlusion or hemodynamically significant stenosis. There are chronic involutional changes of the brain, this is discussed in a separate MRI report of the brain. MRI/MRA Head ONLY without Contrast IMPRESSION: Normal MRA of the head. Anatomic variation. I do note on the reformatted images that just at the bifurcation of the middle cerebral artery on the left it appears that there is a focal area of deficit but I cannot identify this deficit on the 3-D slab raw data. Therefore I do not suspect that this is truly an abnormality. Electronically Signed: Nena Sales MD at 13:44 EDT Tel , Service support ,
[2017-07-23] MEDS: Venlafaxine XR 150 MG Capsule PO (10:45)
[2017-07-23] MEDS: buPROPion (XL) 150 MG TABLET.XL PO (10:45)
[2017-07-23] MEDS: Sodium Bicarbonate 650 MG Tablet PO (10:45)
[2017-07-23] MEDS: Aspirin E.C. 81 MG Tablet PO (10:45)
[2017-07-23] MEDS: Carvedilol 25 MG Tablet PO ×2 (10:46→21:16)
[2017-07-23] MEDS: Clopidogrel Bisulfate 75 MG Tablet PO (10:46)
[2017-07-23] MEDS: Gabapentin 300 MG Capsule PO ×2 (10:46→17:08)
[2017-07-23 11:46] LABS: Bedside Glucose 90 mg/dL (70-110)
[2017-07-23] MEDS: 0.9% Normal Saline 1,000 ML 75 ML IV (12:26)
[2017-07-23] MEDS: 0.9% NaCl Peripheral Flush Adult/Peds IV (12:28)
--- NOTE | 2017-07-23 13:06 | CASEMGMT ---
ENRIQUE called [facility] and notified Harish Easton on the coverage line know that patient is in the hospital observation status. ENRIQUE also spoke with Carlyle Staples, her top case assembler. ENRIQUE asked if there was anyway they could get a Template Fitter in her home for counseling. She said they do not have any Template Fitter's in the area that do counseling. She suggested SW give patient counseling information for the area. SW will talk with patient about this. Maryana GIBSON MSW
--- NOTE | 2017-07-23 13:12 | ECHOCS_ITS ---
Reason For Study: Emboli Procedure This was a 2D Doppler, Color Flow transthoracic echocardiogram. The study was technically difficult. Contrast injection was performed. Exam performed portable in patient room. Left Ventricle Normal size and thickness. The estimated ejection fraction is 65 %. Stage 1 diastolic dysfunction. No regional wall motion abnormalities noted. Right Ventricle Normal size and thickness. Normal systolic function. Atria Normal left atrium. Normal right atrium. Normal atrial septum. Bubble contrast study negative for right to left interatrial shunt. Mitral Valve Mild diffuse mitral valve thickening. Severe mitral annular calcification extending into the posterior leaflet. Trivial mitral valve insufficiency. Tricuspid Valve Normal tricuspid valve. Unable to estimate RV systolic pressure/pulmonary artery pressure due to technically difficult study. Aortic Valve Trisinus/trileaflet aortic valve. Mild diffuse aortic valve thickening. Mild restriction of the aortic valve. Pulmonic Valve The pulmonic valve is not well visualized. Great Vessels Normal aortic root. Normal arch. Normal inferior vena cava. Inferior vena cava collapse with sniff. Pericardium/Pleural No pericardial effusion. Medication Diluted definity 2ml given slow IV push to enhance endocardial definition. Performed a rapid injection of agitated mix of 9 cc saline and 1cc air to assess for atrial septal defect. MMode/2D Measurements & Calculations LVIDd: 3.9 cm IVSd: 0.98 cm LVOT diam: 2.0 cm LVIDs: 2.7 cm LVPWd: 1.4 cm LVOT area: 3.0 cm2 RVDd: 3.0 cm FS: 31.1 % Ao root diam: 3.6 cm LAV(MOD-sp4): 45.3 ml Aortic Valve Planimetry: 1.4 cm2 LA A4 area: 17.0 cm2 RA A4 area: 13.0 cm2 Time Measurements MV dec time: 0.45 sec Doppler Measurements & Calculations MV E max jaime: 68.5 cm/sec Lat Peak E' Jaime: 6.3 cm/sec Med Peak E' Jaime: 3.7 cm/sec MV A max jaime: 129.4 cm/sec E/E' lat: 10.8 E/E' med: 18.3 MV E/A: 0.53 MV V2 max: 162.8 cm/sec MV P1/2t max jaime: 93.4 cm/sec Ao V2 max: 171.4 cm/sec MV max P.6 mmHg MV P1/2t: 137.7 msec Ao max P.8 mmHg MV V2 mean: 74.8 cm/sec MV dec slope: 198.7 cm/sec2 Ao V2 mean: 107.6 cm/sec MV mean P.6 mmHg MVA(P1/2t): 1.6 cm2 Ao mean P.7 mmHg MV V2 VTI: 42.8 cm Ao V2 VTI: 27.7 cm MVA(VTI): 1.5 cm2 ABDI(I,D): 2.4 cm2 ABDI(V,D): 1.6 cm2 LV V1 max: 94.0 cm/sec SV(LVOT): 66.1 ml PA V2 max: 78.0 cm/sec LV V1 max P.5 mmHg LV V1 mean P.1 mmHg LV V1 mean: 68.1 cm/sec LV V1 VTI: 22.0 cm Interpretation Summary The estimated ejection fraction is 65 %. Stage 1 diastolic dysfunction. Unable to estimate RV systolic pressure/pulmonary artery pressure due to technically difficult study. Bubble contrast study negative for right to left interatrial shunt. Compared to echo report dated 01/06/2017, no appreciable changes noted. The study was technically difficult. Contrast injection was performed. Ordering Physician: Samuel Deleon Referring Physician: Donald Cline Performed By: Dwain Rizvi RCS
--- NOTE | 2017-07-23 13:53 | PCM.PROGNOTE ---
<Samuel Deleon - Last Filed: 07/23/17 13:53> Patient Problems: Active and Suspected Problems (Last Updated 07/16/17 @ 10:14 by Sarah Sifuentes) Expressive aphasia (Acute) Hypertensive urgency (Acute) Acute confusion (Acute) Urinary tract infection (Acute) TIA (transient ischemic attack) (Acute) Subjective: Pt admitted with confusion and inability to speak or formulate words or sentences. She continued to have both of these here until they resolved spontaneously overnight. She denies hx of TIA or stroke. She is on asa and plavix for prior CAD. She denies dizziness/LH/double vision/blurry vision/focal weakness/ numbness/tingling/MCHUGH. She denies slurred speech or facial droop. - Physical Exam General: Alert, Oriented x3, Cooperative HEENT: Atraumatic, PERRLA, EOMI, Normocephalic Neck: Supple, No JVD, Negative Carotid Bruits Lungs: Clear to auscultation, Normal air movement Cardiovascular: Regular rate, No murmurs Abdomen: Bowel Sounds Present, Soft, Non Tender Extremities: No edema, Capillary Refill Less than 3 Seconds Skin: No rashes, No breakdown Musculoskeletal: No Tenderness to Palpation of Joints or Extremities Neurological: Cranial nerves II-XII grossly intact Psych/Mental Status: Normal Affect, Appropriate, Alert and oriented to time, place, person, mood and affect Vital Signs Temp Pulse Resp BP Pulse Ox 98.3 F 92 18 157/78 H 95 07/23/17 10:41 07/23/17 10:58 07/23/17 10:41 07/23/17 10:41 07/23/17 10:41 Oxygen Delivery Method Room Air Weight: 67.2 kg Body Mass Index (BMI) 27.1 Intake and Output for Last 24 Hours 07/21/17 07/22/17 07/23/17 23:59 23:59 23:59 Intake Total 258 / 258 2120 Output Total 0 / 0 100 / 100 Balance 258 / 258 2020 Laboratory Tests Past 24 Hrs 07/23/17 07/23/17 05:20 05:20 WBC 10.6 RBC 4.04 L Hgb 11.4 L Hct 35.0 L MCV 86.6 MCH 28.2 MCHC 32.6 RDW 13.8 RDW Differential 42.8 Plt Count 216 MPV 10.0 Sodium 142 Potassium 3.4 L Chloride 106 Carbon Dioxide 26.0 Anion Gap 10 BUN 24 H Creatinine 1.49 H Estim Creat Clear Calc 25.01 Est GFR (MDRD) Af Amer 44 L Est GFR (MDRD) Non-Af 36 L BUN/Creatinine Ratio 16.1 Glucose 55 L Calcium 9.0 Triglycerides 115 Cholesterol 146 LDL Cholesterol 67 VLDL Cholesterol 23 HDL Cholesterol 56 POC Glucose 07/23/17 07/23/17 07/23/17 11:38 07:09 06:52 POC Glucose 90 62 L 53 L 07/22/17 22:50 POC Glucose 155 H Medical Necessity - Tobacco Use Smoking Status: Never smoker Assessment/Plan Active and Suspected Problems (Last Updated 07/16/17 @ 10:14 by Sarah Sifuentes) Expressive aphasia (Acute) Hypertensive urgency (Acute) Acute confusion (Acute) Urinary tract infection (Acute) TIA (transient ischemic attack) (Acute) 1. TIA - continue statin/asa/plavix. Symptoms seem to have resolved at this point. Neuro following. Echo, MRI/MRA pending. TSH normal. LDL 67. UA neg. She has had fluctuant BP and Glucose while here, and reportedly was not eating yesterday. These may have contributed to her presenting symptoms. It is unclear to what extent. She will have a 30 day event monitor placed after discharge and follow up with Neuro as an outpatient. -PT/OT/ST -MRI/A no evidence of acute stroke. -CT brain with chronic changes 2. CAD - continue home meds. Maintain on tele. No CP. Hx PTCA. 3. Colon CA s/p colectomy with known mets to the lungs - respiratory status stable. 4. DMt2 - fluctuant - maintain current therapy and adjust as needed 5. ARIEL with CKDIII - start gentle IV fluids and monitor. Replace K. 6. HTN - adjust home meds. Improved from presentation HTN. 7. Hx DVT/PE - s/p IVC filter not on OAC. 8. HLD - statin LDL at goal DVT ppx: heparin DC planning: PTOT. Follow renal panel. Await Echo. This patient was seen by Samuel Deleon PA-C under the supervision of Doctor Myron. <Yo Sanches - Last Filed: 07/23/17 14:34> Subjective: Seen and examined. Patient had transient inability to think of words or sensory aphasia. Is resolved now. Patient also feels sad and depressed as her recently - Physical Exam Lungs: Clear to auscultation, Normal air movement Cardiovascular: Regular rate, Normal S1, Normal S2, No murmurs Abdomen: Non Tender, Non-Distended Extremities: No edema Musculoskeletal: Arthritic Changes Neurological: Cranial nerves II-XII grossly intact, Neuro grossly intact Vital Signs Temp Pulse Resp BP Pulse Ox 98.3 F 92 18 157/78 H 95 07/23/17 10:41 07/23/17 10:58 07/23/17 10:41 07/23/17 10:41 07/23/17 10:41 Oxygen Delivery Method Room Air Weight: 148 lb 2.41 oz Body Mass Index (BMI) 27.1 Intake and Output for Last 24 Hours 07/21/17 07/22/17 07/23/17 23:59 23:59 23:59 Intake Total 258 / 258 2120 Output Total 0 / 0 100 / 100 Balance 258 / 258 2020 Laboratory Tests Past 24 Hrs 07/23/17 07/23/17 05:20 05:20 WBC 10.6 RBC 4.04 L Hgb 11.4 L Hct 35.0 L MCV 86.6 MCH 28.2 MCHC 32.6 RDW 13.8 RDW Differential 42.8 Plt Count 216 MPV 10.0 Sodium 142 Potassium 3.4 L Chloride 106 Carbon Dioxide 26.0 Anion Gap 10 BUN 24 H Creatinine 1.49 H Estim Creat Clear Calc 25.01 Est GFR (MDRD) Af Amer 44 L Est GFR (MDRD) Non-Af 36 L BUN/Creatinine Ratio 16.1 Glucose 55 L Calcium 9.0 Triglycerides 115 Cholesterol 146 LDL Cholesterol 67 VLDL Cholesterol 23 HDL Cholesterol 56 POC Glucose 07/23/17 07/23/17 07/23/17 11:38 07:09 06:52 POC Glucose 90 62 L 53 L 07/22/17 22:50 POC Glucose 155 H Assessment/Plan This patient was seen in conjunction with Samuel SÁNCHEZ. I have independently interviewed and examined the patient and reviewed pertinent history, examination findings, laboratory and plan of management. I have reviewed the note and agree with the documented findings with the few additional points. In brief, patient is admitted for TIA. Seen by neurologist. MRI and MRA shows no evidence of acute stroke or significant stenosis/occlusion of major vessel. 2D echo is ordered. I have discussed my assessment with Samuel SÁNCHEZ and orders have been reviewed. Clinical Impression(s) from Imaging Studies Brain CT 07/22/17 17:59 IMPRESSION: Chronic involutional changes of the brain. Chest X-Ray 07/22/17 18:00 IMPRESSION: No acute cardiopulmonary disease. Stable right upper lobe mass. Brain MRI 07/23/17 07:48 IMPRESSION: Involutional changes of the brain, as described above. No evidence of a mass. No evidence of acute infarct. Head MRA 07/23/17 07:48 IMPRESSION: Normal MRA of the head. Anatomic variation. I do note on the reformatted images that just at the bifurcation of the middle cerebral artery on the left it appears that there is a focal area of deficit but I cannot identify this deficit on the 3-D slab raw data. Therefore I do not suspect that this is truly an abnormality. Neck MRA 07/23/17 07:48 IMPRESSION: Normal bilateral cervical carotid and vertebral arteries. Note that this exam is hampered by motion and subtle abnormalities may be missed. The vessels do appear patent and grossly I do not see a focal area of significant stenosis. Since the patient is moving however, consider carotid ultrasound which could represent a complement to this exam and perhaps deal with some motion. Code Visit Inpatient E&M: 75393 Subs Hosp L2
--- NOTE | 2017-07-23 14:00 | PCM.CONS.GEN ---
Problem List (1) Expressive aphasia Status: Acute (2) TIA (transient ischemic attack) Status: Acute Qualifiers: Transient cerebral ischemia type: unspecified Qualified Code(s): G45.9 - Transient cerebral ischemic attack, unspecified Reason for Consult Date of Consultation: 07/23/17 Reason for Consultation: TIA History of Present Illness: The patient is a 76 year old CF with PMH HTN, HLD, DM, DM neuropathy, Stage 4 Colon CA with lung mets, s/p chemo/radiation, CAD s/p stents 01/05/17, CKD, H/O DVT and PE, s/p IVC filter, anxiety, depression admitted with speech disturbances. Per patient and her daughter yesterday (07/22/17) around 3 PM patient had difficulty in getting her words out, daughter noticed it on the phone while speaking with her, lasted for about 4-5 hours before improving, patient denies any facial droop, focal motor weakness, sensory loss. She lives alone, uses walker to ambulate, denies any frequent falls, does not drive, does not need any assistance for her ADLs, is on ASA and Plavix post cardiac stent in December 2016. MRI brain done on admission did not show any acute stroke, MRA head/neck did not show any hemodynamically significant stenosis or occlusion, per radiology report a focal area of deficit was noted at the Left MCA bifurcation but there was no stenosis identified on 3D reformatting. Patient was noted to have some episodes of confusion since admission, found to have ARIEL and UTI on admission. Initial BP in the ED was 219/116 mmHg. At present patient denies any MCHUGH, visual disturbances, speech disturbances, motor weakness, dizziness or sensory loss. [] Past Medical History Past Medical History (Chronic Problems): Chronic Problems (Last Updated 07/16/17 @ 10:14 by Sarah Sifuentes) Atherosclerotic heart disease of habematolel coronary artery without angina pectoris (Chronic) History of PTCA (Chronic) 01/05/2017 SHEKHAR to mid RCA & POBA to ostial PDA @ [facility] S/P coronary artery stent placement (Chronic) 2006, 2009 & 2010 Hypotension (Chronic) Postural instability (Chronic) Colon carcinoma (Chronic) S/P partial colon resection CAD (coronary artery disease) (Chronic) ptci and stents Diabetes (Chronic) 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) s/p colon resection remote, lung metastases diagnosed 2014, s/p adjuvant chemotherapy, s/p stereotactic XRT [facility], follows [facility] S/P ORIF (open reduction internal fixation) fracture (Chronic) left ankle, 09/14/14, Dr Harvey, [facility] Presence of IVC filter (Chronic) H/O deep venous thrombosis (Chronic) now has an IVC filter Hyperlipidemia (Chronic) Polyneuropathy (Chronic) Pulmonary embolism (Chronic) Hypertension (Chronic) Chronic renal failure, stage 3 (moderate) (Chronic) Anxiety and depression (Chronic) uncontrolled Gallstones (Chronic) GERD (gastroesophageal reflux disease) (Chronic) Allergies promethazine HCl [From Phenergan] Allergy (Verified 07/22/17 17:28) seizures tajik rice Adverse Reaction (Severe, Uncoded 07/22/17 17:28) Unknown Home Medications: Ambulatory Orders Medication Instructions Recorded Atorvastatin Calcium [Lipitor] 40 mg PO QHS 07/09/15 Multivitamin [Daily Multiple 1 tab PO DAILY 07/09/15 Vitamin] Alendronate Sodium 70 mg PO BURT 09/20/16 buPROPion XL [Wellbutrin Xl] 150 mg PO DAILY 09/20/16 Aspirin E.C. [Ecotrin] 81 mg PO DAILY@0800 02/26/17 Clopidogrel Bisulfate [Plavix] 75 mg PO DAILY 02/26/17 Oxycodone HCl/Acetaminophen 1 tablet PO TID PRN PRN 02/27/17 [Percocet 7.5-325 mg Tablet] Insulin Aspart [Novolog Flexpen] 6 units SC TIDCM 07/09/17 Insulin Glargine,Hum.rec.anlog 35 units SQ QHS 07/09/17 [lEias Strauss] Venlafaxine XR [Effexor Xr] 150 mg PO DAILY 07/09/17 Carvedilol [Coreg (Beta Gilles)] 25 mg PO BID #60 tab 07/12/17 Gabapentin [Neurontin] 300 mg PO BIDCM capsule 07/12/17 Olanzapine [Zyprexa] 2.5 mg PO QHS tablet 07/12/17 Sodium Bicarbonate 650 mg PO DAILY #30 tab 07/12/17 Surgical History: colectomy, hysterectomy, - - Left ankle ORIF, multiple cardiac stent placement Psychiatric History: Anxiety, Depression 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 MANAGEMENT NURSE history Lives: Alone Smoking Status: Never smoker Alcohol: None Drugs: None - *Family History Maternal History Items: Cancer - rectal, - - Stroke in mother Paternal History Items: Cancer - lung Review of Systems Constitutional: Reports: - - complete ROS negative except as documented in HPI Patient Problems: Active and Suspected Problems (Last Updated 07/16/17 @ 10:14 by Sarah Sifuentes) Expressive aphasia (Acute) Hypertensive urgency (Acute) Acute confusion (Acute) Urinary tract infection (Acute) TIA (transient ischemic attack) (Acute) - Physical Exam General: Alert, Oriented x3, Cooperative HEENT: Atraumatic, PERRLA, EOMI, Normocephalic Neck: Supple, No JVD, Negative Carotid Bruits Lungs: Clear to auscultation, Normal air movement Cardiovascular: Regular rate, No murmurs Abdomen: Bowel Sounds Present, Soft, Non Tender Extremities: No edema, Capillary Refill Less than 3 Seconds Skin: No rashes, No breakdown Musculoskeletal: No Tenderness to Palpation of Joints or Extremities Neurological: Cranial nerves II-XII grossly intact, Neuro grossly intact, Motor Exam 5/5 strength throughout, Muscle tone normal, Sensory exam intact to light touch and pain, Coordination normal, - - NIHSS 0 at present Psych/Mental Status: Normal Affect, Appropriate Vital Signs Temp Pulse Resp BP Pulse Ox 98.3 F 92 18 157/78 H 95 07/23/17 10:41 07/23/17 10:58 07/23/17 10:41 07/23/17 10:41 07/23/17 10:41 Oxygen Delivery Method Room Air Weight: 67.2 kg Body Mass Index (BMI) 27.1 Intake and Output for Last 24 Hours 07/21/17 07/22/17 07/23/17 23:59 23:59 23:59 Intake Total 258 / 258 2120 Output Total 0 / 0 100 / 100 Balance 258 / 258 2020 Laboratory Tests Past 24 Hrs 07/23/17 07/23/17 05:20 05:20 WBC 10.6 RBC 4.04 L Hgb 11.4 L Hct 35.0 L MCV 86.6 MCH 28.2 MCHC 32.6 RDW 13.8 RDW Differential 42.8 Plt Count 216 MPV 10.0 Sodium 142 Potassium 3.4 L Chloride 106 Carbon Dioxide 26.0 Anion Gap 10 BUN 24 H Creatinine 1.49 H Estim Creat Clear Calc 25.01 Est GFR (MDRD) Af Amer 44 L Est GFR (MDRD) Non-Af 36 L BUN/Creatinine Ratio 16.1 Glucose 55 L Calcium 9.0 Triglycerides 115 Cholesterol 146 LDL Cholesterol 67 VLDL Cholesterol 23 HDL Cholesterol 56 POC Glucose 07/23/17 07/23/17 07/23/17 11:38 07:09 06:52 POC Glucose 90 62 L 53 L 07/22/17 22:50 POC Glucose 155 H Assessment/Plan Active and Suspected Problems (Last Updated 07/16/17 @ 10:14 by Sarah Sifuentes) Expressive aphasia (Acute) Hypertensive urgency (Acute) Acute confusion (Acute) Urinary tract infection (Acute) TIA (transient ischemic attack) (Acute) The patient is a 76 year old CF with PMH HTN, HLD, DM, DM neuropathy, Stage 4 Colon CA with lung mets, s/p chemo/radiation, CAD s/p stents 01/05/17, CKD, H/O DVT and PE, s/p IVC filter, anxiety, depression admitted with speech disturbances. Per patient and her daughter yesterday (07/22/17) around 3 PM patient had difficulty in getting her words out, daughter noticed it on the phone while speaking with her, lasted for about 4-5 hours before improving, patient denies any facial droop, focal motor weakness, sensory loss. She lives alone, uses walker to ambulate, denies any frequent falls, does not drive, does not need any assistance for her ADLs, is on ASA and Plavix post cardiac stent in December 2016. MRI brain done on admission did not show any acute stroke, MRA head/neck did not show any hemodynamically significant stenosis or occlusion, per radiology report a focal area of deficit was noted at the Left MCA bifurcation but there was no stenosis identified on 3D reformatting. Patient was noted to have some episodes of confusion since admission, found to have ARIEL and UTI on admission. Initial BP in the ED was 219/116 mmHg. Impression Possible TIA HTNsive urgency Metabolic encephalopathy Plan -On ASA/Plavix post cardiac stents in December 2016 -On Lipitor 40 mg PO q hs -MRI brain and MRA head/neck reviewed -Recommend TTE, LDL and Hba1c -Recommend 30 day event recorder -Permissive HTN for atleast 24 hrs -exterminator helper termite goal BP < 130/80 mmHg and Hba1c < 7% -Further medical management per primary team -GI/DVT prophylaxis -PT/OT and ST -Fall precautions -Follow up with Neurology as outpatient in 2-3 weeks -Please call with questions if any -Thank you for allowing us to participate in patient's care and management I spent 60 minutes taking history, doing physical examination, reviewing medical records, coordinating care and counseling the patient. Code Visit Inpatient E&M: [id number] Init Hosp L3
--- NOTE | 2017-07-23 14:11 | CON.PCM_ITS ---
Problem List (1) Expressive aphasia Status: Acute (2) TIA (transient ischemic attack) Status: Acute Qualifiers: Transient cerebral ischemia type: unspecified Qualified Code(s): G45.9 - Transient cerebral ischemic attack, unspecified Reason for Consult Date of Consultation: 07/23/17 Reason for Consultation: TIA History of Present Illness: The patient is a 76 year old CF with PMH HTN, HLD, DM, DM neuropathy, Stage 4 Colon CA with lung mets, s/p chemo/radiation, CAD s/p stents 01/05/17, CKD, H/O DVT and PE, s/p IVC filter, anxiety, depression admitted with speech disturbances. Per patient and her daughter yesterday (07/22/17) around 3 PM patient had difficulty in getting her words out, daughter noticed it on the phone while speaking with her, lasted for about 4-5 hours before improving, patient denies any facial droop, focal motor weakness, sensory loss. She lives alone, uses walker to ambulate, denies any frequent falls, does not drive, does not need any assistance for her ADLs, is on ASA and Plavix post cardiac stent in December 2016. MRI brain done on admission did not show any acute stroke, MRA head/neck did not show any hemodynamically significant stenosis or occlusion, per radiology report a focal area of deficit was noted at the Left MCA bifurcation but there was no stenosis identified on 3D reformatting. Patient was noted to have some episodes of confusion since admission, found to have ARIEL and UTI on admission. Initial BP in the ED was 219/116 mmHg. At present patient denies any MCHUGH, visual disturbances, speech disturbances, motor weakness, dizziness or sensory loss. [] Past Medical History Past Medical History (Chronic Problems): Chronic Problems (Last Updated 07/16/17 @ 10:14 by Sarah Sifuentes) Atherosclerotic heart disease of [place] coronary artery without angina pectoris (Chronic) History of PTCA (Chronic) 01/05/2017 SHEKHAR to mid RCA & POBA to ostial PDA @ [facility] S/P coronary artery stent placement (Chronic) 2006, 2009 & 2010 Hypotension (Chronic) Postural instability (Chronic) Colon carcinoma (Chronic) S/P partial colon resection CAD (coronary artery disease) (Chronic) ptci and stents Diabetes (Chronic) 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) s/p colon resection remote, lung metastases diagnosed 2014, s/p adjuvant chemotherapy, s/p stereotactic XRT [facility], follows [facility] S/P ORIF (open reduction internal fixation) fracture (Chronic) left ankle, 09/14/14, Dr Harvey, [facility] Presence of IVC filter (Chronic) H/O deep venous thrombosis (Chronic) now has an IVC filter Hyperlipidemia (Chronic) Polyneuropathy (Chronic) Pulmonary embolism (Chronic) Hypertension (Chronic) Chronic renal failure, stage 3 (moderate) (Chronic) Anxiety and depression (Chronic) uncontrolled Gallstones (Chronic) GERD (gastroesophageal reflux disease) (Chronic) Allergies promethazine HCl [From Phenergan] Allergy (Verified 07/22/17 17:28) seizures faroese rice Adverse Reaction (Severe, Uncoded 07/22/17 17:28) Unknown Home Medications: Ambulatory Orders Medication Instructions Recorded Atorvastatin Calcium [Lipitor] 40 mg PO QHS 07/09/15 Multivitamin [Daily Multiple 1 tab PO DAILY 07/09/15 Vitamin] Alendronate Sodium 70 mg PO BURT 09/20/16 buPROPion XL [Wellbutrin Xl] 150 mg PO DAILY 09/20/16 Aspirin E.C. [Ecotrin] 81 mg PO DAILY@0800 02/26/17 Clopidogrel Bisulfate [Plavix] 75 mg PO DAILY 02/26/17 Oxycodone HCl/Acetaminophen 1 tablet PO TID PRN PRN 02/27/17 [Percocet 7.5-325 mg Tablet] Insulin Aspart [Novolog Flexpen] 6 units SC TIDCM 07/09/17 Insulin Glargine,Hum.rec.anlog 35 units SQ QHS 07/09/17 [Elias Strauss] Venlafaxine XR [Effexor Xr] 150 mg PO DAILY 07/09/17 Carvedilol [Coreg (Beta Gilles)] 25 mg PO BID #60 tab 07/12/17 Gabapentin [Neurontin] 300 mg PO BIDCM capsule 07/12/17 Olanzapine [Zyprexa] 2.5 mg PO QHS tablet 07/12/17 Sodium Bicarbonate 650 mg PO DAILY #30 tab 07/12/17 Surgical History: colectomy, hysterectomy, - - Left ankle ORIF, multiple cardiac stent placement Psychiatric History: Anxiety, Depression 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 GLOBAL CEO history Lives: Alone Smoking Status: Never smoker Alcohol: None Drugs: None - *Family History Maternal History Items: Cancer - rectal, - - Stroke in mother Paternal History Items: Cancer - lung Review of Systems Constitutional: Reports: - - complete ROS negative except as documented in HPI Patient Problems: Active and Suspected Problems (Last Updated 07/16/17 @ 10:14 by Sarah Sifuentes) Expressive aphasia (Acute) Hypertensive urgency (Acute) Acute confusion (Acute) Urinary tract infection (Acute) TIA (transient ischemic attack) (Acute) - Physical Exam General: Alert, Oriented x3, Cooperative HEENT: Atraumatic, PERRLA, EOMI, Normocephalic Neck: Supple, No JVD, Negative Carotid Bruits Lungs: Clear to auscultation, Normal air movement Cardiovascular: Regular rate, No murmurs Abdomen: Bowel Sounds Present, Soft, Non Tender Extremities: No edema, Capillary Refill Less than 3 Seconds Skin: No rashes, No breakdown Musculoskeletal: No Tenderness to Palpation of Joints or Extremities Neurological: Cranial nerves II-XII grossly intact, Neuro grossly intact, Motor Exam 5/5 strength throughout, Muscle tone normal, Sensory exam intact to light touch and pain, Coordination normal, - - NIHSS 0 at present Psych/Mental Status: Normal Affect, Appropriate Vital Signs Temp Pulse Resp BP Pulse Ox 98.3 F 92 18 157/78 H 95 07/23/17 10:41 07/23/17 10:58 07/23/17 10:41 07/23/17 10:41 07/23/17 10:41 Oxygen Delivery Method Room Air Weight: 67.2 kg Body Mass Index (BMI) 27.1 Intake and Output for Last 24 Hours 07/21/17 07/22/17 07/23/17 23:59 23:59 23:59 Intake Total 258 / 258 2120 Output Total 0 / 0 100 / 100 Balance 258 / 258 2020 Laboratory Tests Past 24 Hrs 07/23/17 07/23/17 05:20 05:20 WBC 10.6 RBC 4.04 L Hgb 11.4 L Hct 35.0 L MCV 86.6 MCH 28.2 MCHC 32.6 RDW 13.8 RDW Differential 42.8 Plt Count 216 MPV 10.0 Sodium 142 Potassium 3.4 L Chloride 106 Carbon Dioxide 26.0 Anion Gap 10 BUN 24 H Creatinine 1.49 H Estim Creat Clear Calc 25.01 Est GFR (MDRD) Af Amer 44 L Est GFR (MDRD) Non-Af 36 L BUN/Creatinine Ratio 16.1 Glucose 55 L Calcium 9.0 Triglycerides 115 Cholesterol 146 LDL Cholesterol 67 VLDL Cholesterol 23 HDL Cholesterol 56 POC Glucose 07/23/17 07/23/17 07/23/17 11:38 07:09 06:52 POC Glucose 90 62 L 53 L 07/22/17 22:50 POC Glucose 155 H Assessment/Plan Active and Suspected Problems (Last Updated 07/16/17 @ 10:14 by Sarah Sifuentes) Expressive aphasia (Acute) Hypertensive urgency (Acute) Acute confusion (Acute) Urinary tract infection (Acute) TIA (transient ischemic attack) (Acute) The patient is a 76 year old CF with PMH HTN, HLD, DM, DM neuropathy, Stage 4 Colon CA with lung mets, s/p chemo/radiation, CAD s/p stents 01/05/17, CKD, H/O DVT and PE, s/p IVC filter, anxiety, depression admitted with speech disturbances. Per patient and her daughter yesterday (07/22/17) around 3 PM patient had difficulty in getting her words out, daughter noticed it on the phone while speaking with her, lasted for about 4-5 hours before improving, patient denies any facial droop, focal motor weakness, sensory loss. She lives alone, uses walker to ambulate, denies any frequent falls, does not drive, does not need any assistance for her ADLs, is on ASA and Plavix post cardiac stent in December 2016. MRI brain done on admission did not show any acute stroke, MRA head/neck did not show any hemodynamically significant stenosis or occlusion, per radiology report a focal area of deficit was noted at the Left MCA bifurcation but there was no stenosis identified on 3D reformatting. Patient was noted to have some episodes of confusion since admission, found to have ARIEL and UTI on admission. Initial BP in the ED was 219/116 mmHg. Impression Possible TIA HTNsive urgency Metabolic encephalopathy Plan -On ASA/Plavix post cardiac stents in December 2016 -On Lipitor 40 mg PO q hs -MRI brain and MRA head/neck reviewed -Recommend TTE, LDL and Hba1c -Recommend 30 day event recorder -Permissive HTN for atleast 24 hrs -termite control technician goal BP < 130/80 mmHg and Hba1c < 7% -Further medical management per primary team -GI/DVT prophylaxis -PT/OT and ST -Fall precautions -Follow up with Neurology as outpatient in 2-3 weeks -Please call with questions if any -Thank you for allowing us to participate in patient's care and management I spent 60 minutes taking history, doing physical examination, reviewing medical records, coordinating care and counseling the patient. Code Visit Inpatient E&M: [id number] Init Hosp L3
[2017-07-23] MEDS: Glucerna Shake 120 ML LIQUID PO ×2 (14:32→17:08)
--- NOTE | 2017-07-23 15:15 | CASEMGMT ---
SW spoke w/pt in room in regard to the recent loss of her ex-, RN present and offered support to pt also. Pt explained he just in June, is struggling with the loss. They were , but they still spoke often. She saw her ex- recently, took some of their grandchildren and great grandchildren to see him. She states he spent 7 weeks in the hospital recently. Patient also spoke about losing her son last year, and another son 19 years ago. SW offered pt support, asked pt about bereavement counseling, pt is interested in this, she states she did this after losing her first son. SW gave pt a list of places she can go for counseling, explained that [facility] does bereavement counseling. SW also explained that Behavioral Health with the hospital may be an option. RN in room also told pt about a bereavement group at a [facility]. SW gave pt all of this information, pt states she can use [employer] for transportation. Pt states she has a psychiatrist already up in [place]. SW also spoke w/pt about POA, pt does want to complete POA forms. Pt put her friend Mame Soriano as POA([phone]), and grandson Wyatt Linder as the alternate([phone]). Pt chose not to complete the living will at this time. SW gave pt original and two copies, and a copy was placed on the chart. No further needs regarding mental health, pt has a psychiatrist, and has information to follow up with bereavement counseling. CORNELL Astorga, CHIEF FUNDRAISING OFFICER
[2017-07-23 15:40] LABS: Hemoglobin A1c 8.8 % (4.2-6.3)
[2017-07-23 17:11] LABS: Bedside Glucose 133 mg/dL (70-110)
[2017-07-23] MEDS: Atorvastatin Calcium 40 MG Tablet PO (21:16)
[2017-07-23] MEDS: OLANZapine 2.5 MG Tablet PO (21:16)
[2017-07-23 22:06] LABS: Bedside Glucose 148 mg/dL (70-110)
[2017-07-24] VITALS (11 sets, daily range): BP systolic 97–149; BP diastolic 44–71; PULSE 66–83; RESP 16–18; TEMP 36.7–36.9; O2SAT 93–95; BMI 27.1
[2017-07-24] MEDS: 0.9% Normal Saline 1,000 ML 75 ML IV ×2 (03:10→16:37)
[2017-07-24] MEDS: Heparin Injection (Vial) 5,000 UNIT/ML VIAL 5000 UNIT SC ×3 (05:34→21:32)
[2017-07-24 06:45] LABS: Anion Gap 7 (5-15); BUN 31 mg/dL (7-18); BUN/Creat Ratio 19.1 RATIO (10-20); Calcium,Total 8.4 mg/dL (8.5-10.1); Chloride 109 mmol/L (98-107); Creatinine, Serum 1.62 mg/dL (0.55-1.02); EST Glomerular Filtration Rate 33 mL/min (>60); Est Glom Filt Rate - Afr Amer 40 mL/min (>60); Glucose 71 mg/dL (74-106); Potassium 4.2 mmol/L (3.5-5.1); Sodium Level 140 mmol/L (136-145)
[2017-07-24] MEDS: Gabapentin 300 MG Capsule PO ×2 (07:33→16:41)
[2017-07-24] MEDS: Aspirin E.C. 81 MG Tablet PO (07:33)
[2017-07-24 07:36] LABS: Bedside Glucose 94 mg/dL (70-110)
--- NOTE | 2017-07-24 09:46 | CASEMGMT ---
ENRIQUE spoke w/ENRIQUE Loera from home health and [facility]. She states pt is active w/[facility], she can follow up w/pt at home regarding support and grief counseling. Evaristo also states pt had said to the INTEGRITY ANALYST Hayder from [facility] she wanted to go to TCU at discharge. ENRIQUE called the SW on the floor to let her know this information. CORNELL Astorga, LOSS PREVENTION INVESTIGATOR
[2017-07-24] MEDS: Clopidogrel Bisulfate 75 MG Tablet PO (10:01)
[2017-07-24] MEDS: Sodium Bicarbonate 650 MG Tablet PO (10:01)
[2017-07-24] MEDS: Venlafaxine XR 150 MG Capsule PO (10:02)
[2017-07-24] MEDS: buPROPion (XL) 150 MG TABLET.XL PO (10:02)
[2017-07-24] MEDS: Carvedilol 25 MG Tablet PO ×2 (10:02→21:32)
[2017-07-24] MEDS: Glucerna Shake 120 ML LIQUID PO ×4 (10:03→21:32)
--- NOTE | 2017-07-24 10:25 | CASEMGMT ---
ENRIQUE spoke with patient as SW was told she spoke with KOSHER SEALER with [facility] and told him she wanted TCU. SW asked patient about d/c plan. She said that she was not sure. She said Hayder from [facility] called her this am and suggested TCU. ENRIQUE told her we can also set her up with home health and therapy can see her at home. She said she goes to adult daycare M-F and gets home around 330. ENRIQUE told her they could still possibly come out to her home. She said she would think about it. ENRIQUE told her SW will need to know as insurance will have to approve it. Maryana GIBSON MSW
[2017-07-24 11:21] LABS: Bedside Glucose 150 mg/dL (70-110)
--- NOTE | 2017-07-24 13:10 | US_ITS ---
STUDY: RENAL ULTRASOUND - COMPLETE REASON FOR EXAM: Female, 76 years old. acute renal failure TECHNIQUE: Ultrasound evaluation of the kidneys was performed with real-time and static talbert-scale imaging. COMPARISON: CT abdomen and pelvis September 20, 2016 FINDINGS: RIGHT KIDNEY: Normal location of the right kidney, which is normal in size. The kidney appears mildly lobulated. The right kidney measures 10.2 x 5 x 5.2 cm. There is a normal cortex of the right kidney. The renal cortex measures 1.2 cm. There appears a cyst associated with the right kidney measuring approximately 1.8 cm seen in the inferior pole There are no right renal calculi. There is no right hydronephrosis. DISTAL RIGHT URETER: There is non-visualization of the distal right ureter. LEFT KIDNEY: Normal location of the left kidney, which is normal in size. The left kidney measures 9.9 x 4.9 x 5.2 cm. There is a normal cortex of the left kidney. The kidney is mildly lobulated. The renal cortex measures 1.2 cm. There is a cyst seen measuring approximately 1.8 cm in association with the upper pole. There are no left renal calculi. There is no left hydronephrosis. DISTAL LEFT URETER: There is non-visualization of the distal left ureter. AORTA: There is no elongation or tortuosity of the abdominal aorta. BLADDER: The bladder was contracted, otherwise unremarkable.. US/Kidney and Bladder IMPRESSION: No evidence of renal obstruction. Normal renal size. Simple appearing bilateral renal cysts. Electronically Signed: Nena Sales MD at 15:27 EDT Tel , Service support ,
--- NOTE | 2017-07-24 13:12 | PCM.CONS.R ---
Problem List (1) ARIEL (acute kidney injury) Status: Acute Consultation - Renal 07/24/17 PCP/ Referring MD: Requesting physician: Dr Sanches Primary care physician: Donald Cline Reason for Consultation:: ARIEL - History of Present Illness History of Present Illness: The patient is a 76 year old F admitted to hospital 2 days ago with suspected TIA. Renal consulted for ARIEL. Creatinine was around 1.2 at the time of admission, now has increased to 1.7 no urinary complaints before admission or now No NSAIDs No CT contrast. she did receive MRI BP is borderline low yesterday, ok today no breathing issues known history of colon ca with suspected mets to lung. on chemo and radiation. last treatment more than a year ago sees oncology at [facility] main campus - Allergies Allergies: Allergies promethazine HCl [From Phenergan] Allergy (Verified 07/22/17 17:28) seizures mongolian rice Adverse Reaction (Severe, Uncoded 07/22/17 17:28) Unknown - Current Medications Current Medications: Current Medications Acetaminophen (Tylenol) 650 mg PO Q6H PRN PRN PRN Reason: Non-cardiac pain (mod-severe) Al Hydroxide/Mg Hydroxide (Mylanta Ii) 30 ml PO Q6H PRN PRN PRN Reason: Gastric burning Aspirin (Ecotrin) 81 mg PO DAILY@0800 [facility] Last Admin: 07/24/17 07:33 Dose: 81 mg Atorvastatin Calcium (Lipitor) 40 mg PO QHS [facility] Last Admin: 07/23/17 21:16 Dose: 40 mg Bupropion HCl (Wellbutrin Xl) 150 mg PO DAILY [facility] Last Admin: 07/24/17 10:02 Dose: 150 mg Carvedilol (Coreg) 25 mg PO BID [facility] Last Admin: 07/24/17 10:02 Dose: 25 mg Clopidogrel Bisulfate (Plavix) 75 mg PO DAILY [facility] Last Admin: 07/24/17 10:01 Dose: 75 mg Dextrose (D50w Syringe) 0 gm IV X1 PRN; Protocol PRN Reason: Hypoglycemia Gab[facility]in) [facility] Last Admin: 07/24/17 07:33 Dose: 300 mg Glucagon () 1 mg IM .X1 PRN PRN Reason: Hypoglycemia Heparin Sodium (Porcine) (Heparin Na) 5,000 unit SC Q8 [facility] Last Admin: 07/24/17 05:34 Dose: 5,000 unit Hydralazine HCl (Apresoline Iv) 10 mg IV Q4H PRN PRN PRN Reason: SBP > 160 Ceftriaxone Sodium (Rocephin) 1 gm in 50 mls @ 100 mls/hr IV Q24 [facility] Sodium Chloride () 1,000 mls @ 75 mls/hr IV .[id number] [facility] Insulin Aspart (Novolog Flexpen (Bkc)) 0 units SC ACHS LOWELL PRN Reason: Protocol Last Admin: 07/24/17 11:18 Dose: Not Given Insulin Detemir (Levemir (Bkc)) 20 units SC QHS [facility] Magnesium Hydroxide (Milk Of Magnesia) 30 ml PO DAILY PRN PRN Reason: Constipation Nitroglycerin (Nitrostat) 0.4 mg SUBLINGUAL Q5M PRN PRN Reason: Angina pain Nutritional Formula (Lactose Free) (Glucerna Shake) 120 ml PO 4X/DAY [facility] Last Admin: 07/24/17 10:03 Dose: 120 ml Olanzapine (Zyprexa) 2.5 mg PO QHS [facility] Last Admin: 07/23/17 21:16 Dose: 2.5 mg Ondansetron HCl (Zofran) 4 mg IV Q8H PRN PRN PRN Reason: NAUSEA Oxycodone HCl (Oxyir) 7.5 mg PO TID PRN PRN PRN Reason: PAIN Sodium Bicarbonate (Sodium Bicarbonate) 650 mg PO DAILY [facility] Last Admin: 07/24/17 10:01 Dose: 650 mg Sodium Chloride () 5 - 30 ml IV UD PRN PRN Reason: SALINE FLUSH Last Admin: 07/23/17 12:28 Dose: 10 ml Venlafaxine HCl (Effexor Xr) 150 mg PO DAILY [facility] Last Admin: 07/24/17 10:02 Dose: 150 mg - Past Medical History Past Medical History (Chronic Problems): Chronic Problems (Last Updated 07/16/17 @ 10:14 by Sarah Sifuentes) Atherosclerotic heart disease of [place] coronary artery without angina pectoris (Chronic) History of PTCA (Chronic) 01/05/2017 SHEKHAR to mid RCA & POBA to ostial PDA @ [facility] S/P coronary artery stent placement (Chronic) 2006, 2009 & 2010 Hypotension (Chronic) Postural instability (Chronic) Colon carcinoma (Chronic) S/P partial colon resection CAD (coronary artery disease) (Chronic) ptci and stents Diabetes (Chronic) 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) s/p colon resection remote, lung metastases diagnosed 2014, s/p adjuvant chemotherapy, s/p stereotactic XRT [facility], follows [facility] S/P ORIF (open reduction internal fixation) fracture (Chronic) left ankle, 09/14/14, Dr Harvey, [facility] Presence of IVC filter (Chronic) H/O deep venous thrombosis (Chronic) now has an IVC filter Hyperlipidemia (Chronic) Polyneuropathy (Chronic) Pulmonary embolism (Chronic) Hypertension (Chronic) Chronic renal failure, stage 3 (moderate) (Chronic) Anxiety and depression (Chronic) uncontrolled Gallstones (Chronic) GERD (gastroesophageal reflux disease) (Chronic) - Past Surgical History Surgical History: colectomy, hysterectomy, - - Left ankle ORIF, multiple cardiac stent placement - Social History Smoking Status: Never smoker Alcohol: None Drugs: None - Family History Maternal Family History: Family History (Last Updated 05/01/17 @ 09:32 by Los Jenkins) Mother Colon cancer Diabetes Heart disease Father Cancer History Items: Cancer - rectal, - - Stroke in mother Paternal Family History: Family History (Last Updated 05/01/17 @ 09:32 by Los Jenkins) Mother Colon cancer Diabetes Heart disease Father Cancer History Items: Cancer - lung Review of Systems Constitutional: Denies: Chills, Fever, Weight Change HEENT: Denies: Head Aches, Sinus Congestion, Sinus Drainage Cardiovascular: Denies: Chest Pain, Palpitations Respiratory: Denies: Cough, Shortness of breath at rest, Sputum production Gastrointestinal: Denies: Abdominal Pain, Nausea, Vomiting Genitourinary: Denies: Dysuria Musculoskeletal: Denies: Joint Pain, Joint Tenderness Skin: Denies: Rash, Wounds Neurological: Denies: Numbness, Tingling, Focal weakness Psychiatric: Denies: Anxiety, Depression, Homicidal Ideations, Suicidal Ideations Hematologic/ Lymphatic: Denies: Easy Bruising, Easy Bleeding Patient Problems: Active and Suspected Problems (Last Updated 07/16/17 @ 10:14 by Sarah Sifuentes) Expressive aphasia (Acute) Hypertensive urgency (Acute) Acute confusion (Acute) Urinary tract infection (Acute) TIA (transient ischemic attack) (Acute) ARIEL (acute kidney injury) (Acute) - Physical Exam General: Alert, Oriented x3, Cooperative HEENT: Atraumatic, PERRLA, EOMI, Normocephalic Neck: Supple, No JVD, Negative Carotid Bruits Lungs: Clear to auscultation, Normal air movement Cardiovascular: Regular rate, No murmurs Abdomen: Bowel Sounds Present, Soft, Non Tender Extremities: No edema, Capillary Refill Less than 3 Seconds Skin: No rashes, No breakdown Musculoskeletal: No Tenderness to Palpation of Joints or Extremities Neurological: Cranial nerves II-XII grossly intact Psych/Mental Status: Normal Affect, Appropriate Vital Signs Temp Pulse Resp BP Pulse Ox 98.2 F 71 16 122/46 H 94 07/24/17 09:58 07/24/17 11:24 07/24/17 09:58 07/24/17 09:58 07/24/17 09:58 Oxygen Delivery Method Room Air Weight: 67.2 kg Body Mass Index (BMI) 27.1 Intake and Output for Last 24 Hours 07/22/17 07/23/17 07/24/17 23:59 23:59 23:59 Intake Total 258 / 258 2977 / 2977 1541 / 1541 Output Total 0 / 0 100 / 100 Balance 258 / 258 2877 / 2877 1541 / 1541 Laboratory Tests Past 24 Hrs 07/23/17 07/24/17 07/24/17 05:20 05:40 05:40 Sodium 140 Potassium 4.2 Chloride 109 H Carbon Dioxide 24.0 Anion Gap 7 BUN 31 H Creatinine 1.62 H Estim Creat Clear Calc 23.00 Est GFR (MDRD) Af Amer 40 L Est GFR (MDRD) Non-Af 33 L BUN/Creatinine Ratio 19.1 Glucose 71 L Hemoglobin A1c 8.8 H 9.0 H Calcium 8.4 L POC Glucose 07/24/17 07/24/17 07/23/17 11:11 07:28 21:12 POC Glucose 150 H 94 148 H 07/23/17 16:56 POC Glucose 133 H Assessment/Plan Active and Suspected Problems (Last Updated 07/16/17 @ 10:14 by Sarah Sifuentes) Expressive aphasia (Acute) Hypertensive urgency (Acute) Acute confusion (Acute) Urinary tract infection (Acute) TIA (transient ischemic attack) (Acute) ARIEL (acute kidney injury) (Acute) ARIEL CKD stage 3 Baseline creatinine is around 1.2. Recently sustained an ARIEL but back to baseline within 3 days Etiology of current ARIEL ? UA is fairly active. has significant proteinuria (was present on previous exams). could be related to diabetes HbA1c is poorly controlled UA also has hematuria without any reyes Elevated serum globulin and protein gap will check renal USG, urine PCR and SPEP continue current meds for now will try fluids for today. lungs appear ok on exam will follow thank you
[2017-07-24] MEDS: Ceftriaxone 1 GM/50 ML BAG IV (13:16)
--- NOTE | 2017-07-24 13:20 | CON.PCM_ITS ---
Problem List (1) ARIEL (acute kidney injury) Status: Acute Consultation - Renal 07/24/17 PCP/ Referring MD: Requesting physician: Dr Sanches Primary care physician: Donald Cline Reason for Consultation:: ARIEL - History of Present Illness History of Present Illness: The patient is a 76 year old F admitted to hospital 2 days ago with suspected TIA. Renal consulted for ARIEL. Creatinine was around 1.2 at the time of admission, now has increased to 1.7 no urinary complaints before admission or now No NSAIDs No CT contrast. she did receive MRI BP is borderline low yesterday, ok today no breathing issues known history of colon ca with suspected mets to lung. on chemo and radiation. last treatment more than a year ago sees oncology at [facility] main campus - Allergies Allergies: Allergies promethazine HCl [From Phenergan] Allergy (Verified 07/22/17 17:28) seizures turkish rice Adverse Reaction (Severe, Uncoded 07/22/17 17:28) Unknown - Current Medications Current Medications: Current Medications Acetaminophen (Tylenol) 650 mg PO Q6H PRN PRN PRN Reason: Non-cardiac pain (mod-severe) Al Hydroxide/Mg Hydroxide (Mylanta Ii) 30 ml PO Q6H PRN PRN PRN Reason: Gastric burning Aspirin (Ecotrin) 81 mg PO DAILY@0800 [facility] Last Admin: 07/24/17 07:33 Dose: 81 mg Atorvastatin Calcium (Lipitor) 40 mg PO QHS [facility] Last Admin: 07/23/17 21:16 Dose: 40 mg Bupropion HCl (Wellbutrin Xl) 150 mg PO DAILY [facility] Last Admin: 07/24/17 10:02 Dose: 150 mg Carvedilol (Coreg) 25 mg PO BID [facility] Last Admin: 07/24/17 10:02 Dose: 25 mg Clopidogrel Bisulfate (Plavix) 75 mg PO DAILY [facility] Last Admin: 07/24/17 10:01 Dose: 75 mg Dextrose (D50w Syringe) 0 gm IV X1 PRN; Protocol PRN Reason: Hypoglycemia Gabapentin (Neurontin) 300 mg [facility] Last Admin: 07/24/17 07:33 Dose: 300 mg Glucagon () 1 mg IM .X1 PRN PRN Reason: Hypoglycemia Heparin Sodium (Porcine) (Heparin Na) 5,000 unit SC Q8 [facility] Last Admin: 07/24/17 05:34 Dose: 5,000 unit Hydralazine HCl (Apresoline Iv) 10 mg IV Q4H PRN PRN PRN Reason: SBP > 160 Ceftriaxone Sodium (Rocephin) 1 gm in 50 mls @ 100 mls/hr IV Q24 [facility] Sodium Chloride () 1,000 mls @ 75 mls/hr IV .[id number] [facility] Insulin Aspart (Novolog Flexpen (Bkc)) 0 units SC ACHS [facility] PRN Reason: Protocol Last Admin: 07/24/17 11:18 Dose: Not Given Insulin Detemir (Levemir (Bkc)) 20 units SC QHS [facility] Magnesium Hydroxide (Milk Of Magnesia) 30 ml PO DAILY PRN PRN Reason: Constipation Nitroglycerin (Nitrostat) 0.4 mg SUBLINGUAL Q5M PRN PRN Reason: Angina pain Nutritional Formula (Lactose Free) (Glucerna Shake) 120 ml PO 4X/DAY [facility] Last Admin: 07/24/17 10:03 Dose: 120 ml Olanzapine (Zyprexa) 2.5 mg PO QHS [facility] Last Admin: 07/23/17 21:16 Dose: 2.5 mg Ondansetron HCl (Zofran) 4 mg IV Q8H PRN PRN PRN Reason: NAUSEA Oxycodone HCl (Oxyir) 7.5 mg PO TID PRN PRN PRN Reason: PAIN Sodium Bicarbonate (Sodium Bicarbonate) 650 mg PO DAILY [facility] Last Admin: 07/24/17 10:01 Dose: 650 mg Sodium Chloride () 5 - 30 ml IV UD PRN PRN Reason: SALINE FLUSH Last Admin: 07/23/17 12:28 Dose: 10 ml Venlafaxine HCl (Effexor Xr) 150 mg PO DAILY [facility] Last Admin: 07/24/17 10:02 Dose: 150 mg - Past Medical History Past Medical History (Chronic Problems): Chronic Problems (Last Updated 07/16/17 @ 10:14 by Sarah Sifuentes) Atherosclerotic heart disease of [place] coronary artery without angina pectoris (Chronic) History of PTCA (Chronic) 01/05/2017 SHEKHAR to mid RCA & POBA to ostial PDA @ [facility] S/P coronary artery stent placement (Chronic) 2006, 2009 & 2010 Hypotension (Chronic) Postural instability (Chronic) Colon carcinoma (Chronic) S/P partial colon resection CAD (coronary artery disease) (Chronic) ptci and stents Diabetes (Chronic) 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) s/p colon resection remote, lung metastases diagnosed 2014, s/p adjuvant chemotherapy, s/p stereotactic XRT [facility], follows [facility] S/P ORIF (open reduction internal fixation) fracture (Chronic) left ankle, 09/14/14, Dr Harvey, [facility] Presence of IVC filter (Chronic) H/O deep venous thrombosis (Chronic) now has an IVC filter Hyperlipidemia (Chronic) Polyneuropathy (Chronic) Pulmonary embolism (Chronic) Hypertension (Chronic) Chronic renal failure, stage 3 (moderate) (Chronic) Anxiety and depression (Chronic) uncontrolled Gallstones (Chronic) GERD (gastroesophageal reflux disease) (Chronic) - Past Surgical History Surgical History: colectomy, hysterectomy, - - Left ankle ORIF, multiple cardiac stent placement - Social History Smoking Status: Never smoker Alcohol: None Drugs: None - Family History Maternal Family History: Family History (Last Updated 05/01/17 @ 09:32 by Los Jenkins) Mother Colon cancer Diabetes Heart disease Father Cancer History Items: Cancer - rectal, - - Stroke in mother Paternal Family History: Family History (Last Updated 05/01/17 @ 09:32 by Los Jenkins) Mother Colon cancer Diabetes Heart disease Father Cancer History Items: Cancer - lung Review of Systems Constitutional: Denies: Chills, Fever, Weight Change HEENT: Denies: Head Aches, Sinus Congestion, Sinus Drainage Cardiovascular: Denies: Chest Pain, Palpitations Respiratory: Denies: Cough, Shortness of breath at rest, Sputum production Gastrointestinal: Denies: Abdominal Pain, Nausea, Vomiting Genitourinary: Denies: Dysuria Musculoskeletal: Denies: Joint Pain, Joint Tenderness Skin: Denies: Rash, Wounds Neurological: Denies: Numbness, Tingling, Focal weakness Psychiatric: Denies: Anxiety, Depression, Homicidal Ideations, Suicidal Ideations Hematologic/ Lymphatic: Denies: Easy Bruising, Easy Bleeding Patient Problems: Active and Suspected Problems (Last Updated 07/16/17 @ 10:14 by Sarah Sifuentes) Expressive aphasia (Acute) Hypertensive urgency (Acute) Acute confusion (Acute) Urinary tract infection (Acute) TIA (transient ischemic attack) (Acute) ARIEL (acute kidney injury) (Acute) - Physical Exam General: Alert, Oriented x3, Cooperative HEENT: Atraumatic, PERRLA, EOMI, Normocephalic Neck: Supple, No JVD, Negative Carotid Bruits Lungs: Clear to auscultation, Normal air movement Cardiovascular: Regular rate, No murmurs Abdomen: Bowel Sounds Present, Soft, Non Tender Extremities: No edema, Capillary Refill Less than 3 Seconds Skin: No rashes, No breakdown Musculoskeletal: No Tenderness to Palpation of Joints or Extremities Neurological: Cranial nerves II-XII grossly intact Psych/Mental Status: Normal Affect, Appropriate Vital Signs Temp Pulse Resp BP Pulse Ox 98.2 F 71 16 122/46 H 94 07/24/17 09:58 07/24/17 11:24 07/24/17 09:58 07/24/17 09:58 07/24/17 09:58 Oxygen Delivery Method Room Air Weight: 67.2 kg Body Mass Index (BMI) 27.1 Intake and Output for Last 24 Hours 07/22/17 07/23/17 07/24/17 23:59 23:59 23:59 Intake Total 258 / 258 2977 / 2977 1541 / 1541 Output Total 0 / 0 100 / 100 Balance 258 / 258 2877 / 2877 1541 / 1541 Laboratory Tests Past 24 Hrs 07/23/17 07/24/17 07/24/17 05:20 05:40 05:40 Sodium 140 Potassium 4.2 Chloride 109 H Carbon Dioxide 24.0 Anion Gap 7 BUN 31 H Creatinine 1.62 H Estim Creat Clear Calc 23.00 Est GFR (MDRD) Af Amer 40 L Est GFR (MDRD) Non-Af 33 L BUN/Creatinine Ratio 19.1 Glucose 71 L Hemoglobin A1c 8.8 H 9.0 H Calcium 8.4 L POC Glucose 07/24/17 07/24/17 07/23/17 11:11 07:28 21:12 POC Glucose 150 H 94 148 H 07/23/17 16:56 POC Glucose 133 H Assessment/Plan Active and Suspected Problems (Last Updated 07/16/17 @ 10:14 by Sarah Sifuentes) Expressive aphasia (Acute) Hypertensive urgency (Acute) Acute confusion (Acute) Urinary tract infection (Acute) TIA (transient ischemic attack) (Acute) ARIEL (acute kidney injury) (Acute) ARIEL CKD stage 3 Baseline creatinine is around 1.2. Recently sustained an ARIEL but back to baseline within 3 days Etiology of current ARIEL ? UA is fairly active. has significant proteinuria (was present on previous exams) . could be related to diabetes HbA1c is poorly controlled UA also has hematuria without any reyes Elevated serum globulin and protein gap will check renal USG, urine PCR and SPEP continue current meds for now will try fluids for today. lungs appear ok on exam will follow thank you
--- NOTE | 2017-07-24 14:03 | CASEMGMT ---
Addendum entered by Maryana Coffey 07/24/17 14:50: ENRIQUE notified RN and patient of plan. Maryana MORALES Original Note: Patient told physician she wants to go to TCU. ENRIQUE called Rina in TCU and she will have a bed for patient. She will start her pre-cert. Plan: [facility] TCU pending insurance approval. Maryana MORALES
[2017-07-24 15:41] LABS: Bedside Glucose 59 mg/dL (70-110)
[2017-07-24 15:41] LABS: Bedside Glucose 69 mg/dL (70-110)
--- NOTE | 2017-07-24 16:45 | PCM.PN.HOSP ---
Patient Problems: Active and Suspected Problems (Last Updated 07/16/17 @ 10:14 by Sarah Sifuentes) Expressive aphasia (Acute) Hypertensive urgency (Acute) Acute confusion (Acute) Urinary tract infection (Acute) TIA (transient ischemic attack) (Acute) ARIEL (acute kidney injury) (Acute) Subjective: Patient denies any lower urinary tract symptoms or burning but said some irritation during micturition. No history of kidney stone, stricture or mass. Has diabetes mellitus type 2. Has history of colon cancer with metastasis to lung on chemoradiation, last treatment about a year. No obvious change in the urine output. TIA. Currently, no neurological deficit Vitals/I&O's: Vital Signs Temp Pulse Resp BP Pulse Ox 98.1 F 80 16 124/55 H 95 07/24/17 16:30 07/24/17 16:30 07/24/17 16:30 07/24/17 16:30 07/24/17 16:30 Oxygen Delivery Method Room Air Weight: 148 lb 2.41 oz Body Mass Index (BMI) 27.1 Intake and Output for Last 24 Hours 07/22/17 07/23/17 07/24/17 23:59 23:59 23:59 Intake Total 258 / 258 2977 / 2977 1541 / 1541 Output Total 0 / 0 100 / 100 Balance 258 / 258 2877 / 2877 1541 / 1541 General: Alert, Oriented x3, Cooperative HEENT: Atraumatic, PERRLA, EOMI, Normocephalic Neck: Supple, No JVD, Negative Carotid Bruits Lungs: Clear to auscultation, Normal air movement, No rhonchi, No wheeze, No rales Cardiovascular: Regular rate, Regular Rhythm, Normal S1, Normal S2, No murmurs Abdomen: Bowel Sounds Present, Soft, Non Tender, Non-Distended Extremities: Capillary Refill Less than 3 Seconds, Edema Skin: No rashes, No breakdown Musculoskeletal: No Tenderness to Palpation of Joints or Extremities, Arthritic Changes Neurological: Cranial nerves II-XII grossly intact, Neuro grossly intact Psych/Mental Status: Normal Affect, Appropriate Laboratory Results 07/23/17 16:56: POC Glucose 133 H 07/23/17 21:12: POC Glucose 148 H 07/24/17 05:40: Sodium 140, Potassium 4.2, Chloride 109 H, Carbon Dioxide 24.0, Anion Gap 7, BUN 31 H, Creatinine 1.62 H, Estim Creat Clear Calc 23.00, Est GFR (MDRD) Af Amer 40 L, Est GFR (MDRD) Non-Af 33 L, BUN/Creatinine Ratio 19.1, Glucose 71 L, Calcium 8.4 L 07/24/17 05:40: Hemoglobin A1c 9.0 H 07/24/17 06:48: POC Glucose 69 L 07/24/17 07:01: POC Glucose 59 L 07/24/17 07:28: POC Glucose 94 07/24/17 11:11: POC Glucose 150 H Current Medications Acetaminophen (Tylenol) 650 mg PO Q6H PRN PRN PRN Reason: Non-cardiac pain (mod-severe) Al Hydroxide/Mg Hydroxide (Mylanta Ii) 30 ml PO Q6H PRN PRN PRN Reason: Gastric burning Aspirin (Ecotrin) 81 mg PO DAILY@0800 [facility] Last Admin: 07/24/17 07:33 Dose: 81 mg Atorvastatin Calcium (Lipitor) 40 mg PO QHS [facility] Last Admin: 07/23/17 21:16 Dose: 40 mg Bupropion HCl (Wellbutrin Xl) 150 mg PO DAILY [facility] Last Admin: 07/24/17 10:02 Dose: 150 mg Carvedilol (Coreg) 25 mg PO BID [facility] Last Admin: 07/24/17 10:02 Dose: 25 mg Clopidogrel Bisulfate (Plavix) 75 mg PO DAILY [facility] Last Admin: 07/24/17 10:01 Dose: 75 mg Dextrose (D50w Syringe) 0 gm IV X1 PRN; Protocol PRN Reason: Hypoglycemia [facility]) [facility] Last Admin: 07/24/17 16:41 Dose: 300 mg Glucagon () 1 mg IM .X1 PRN PRN Reason: Hypoglycemia Heparin Sodium (Porcine) (Heparin Na) 5,000 unit SC Q8 [facility] Last Admin: 07/24/17 14:18 Dose: 5,000 unit Hydralazine HCl (Apresoline Iv) 10 mg IV Q4H PRN PRN PRN Reason: SBP > 160 Sodium Chloride () 1,000 mls @ 75 mls/hr IV .[id number] [facility] Last Admin: 07/24/17 16:37 Dose: 75 mls/hr Insulin Aspart (Novolog Flexpen (Bkc)) 0 units SC ACHS [facility] PRN Reason: Protocol Last Admin: 07/24/17 16:41 Dose: 1 u Insulin Detemir (Levemir (Bkc)) 20 units SC QHS [facility] Magnesium Hydroxide (Milk Of Magnesia) 30 ml PO DAILY PRN PRN Reason: Constipation Nitroglycerin (Nitrostat) 0.4 mg SUBLINGUAL Q5M PRN PRN Reason: Angina pain Nutritional Formula (Lactose Free) (Glucerna Shake) 120 ml PO 4X/DAY [facility] Last Admin: 07/24/17 14:17 Dose: 120 ml Olanzapine (Zyprexa) 2.5 mg PO QHS [facility] Last Admin: 07/23/17 21:16 Dose: 2.5 mg Ondansetron HCl (Zofran) 4 mg IV Q8H PRN PRN PRN Reason: NAUSEA Oxycodone HCl (Oxyir) 7.5 mg PO TID PRN PRN PRN Reason: PAIN Sodium Bicarbonate (Sodium Bicarbonate) 650 mg PO DAILY [facility] Last Admin: 07/24/17 10:01 Dose: 650 mg Sodium Chloride () 5 - 30 ml IV UD PRN PRN Reason: SALINE FLUSH Last Admin: 07/23/17 12:28 Dose: 10 ml Venlafaxine HCl (Effexor Xr) 150 mg PO DAILY [facility] Last Admin: 07/24/17 10:02 Dose: 150 mg Medical Necessity - Tobacco Use Smoking Status: Never smoker Assessment/Plan Active and Suspected Problems (Last Updated 07/16/17 @ 10:14 by Sarah Sifuentes) Expressive aphasia (Acute) Hypertensive urgency (Acute) Acute confusion (Acute) Urinary tract infection (Acute) TIA (transient ischemic attack) (Acute) ARIEL (acute kidney injury) (Acute) This is a 76-year-old female story of CAD s/p GA and PCI most recently 01/05/17 SHEKHAR to mid RCA and POBA to ostial PDA, HTN, HLD, Diabetes mellitus type II w/ Polyneuropathy, Anxiety and Depression, History of DVT and PE s/p IVCF placement, CKD stage III (baseline Cr 1.2-1.4), GERD, Metastatic Colon CA s/p colon resection w/ lung metastatic disease w/ chronic RUL mass s/p adjuvant chemotherapy, s/p stereotactic XRT [facility] Was admitted with increased confusion, difficulty in expressive speech and clinical assessment consistent with TIA. Seen by neurologist. 1. TIA - continue statin/asa/plavix. Symptoms seem to have resolved at this point. MRI and MRA shows no evidence of acute stroke or significant stenosis/occlusion of major vessel..2D echo shows normal LV size and thickness, EF 65% with a stage I diastolic dysfunction. No regional wall motion abnormality. Normal right and left atria. Bubble contrast today negative. Normal tricuspid valve severe mitral annular calcification with trivial MR. TSH normal. LDL 67. UA neg. She will have a 30 day event monitor placed after discharge and follow up with Neuro as an outpatient. -PT/OT/ST -CT brain with chronic changes. Discharge plan: Need SNF. 2. CAD - continue home meds. Maintain on tele. No CP. Hx PTCA. 3. Colon CA s/p colectomy with known mets to the lungs - respiratory status stable. 4. DMt2 - fluctuant - maintain current therapy and adjust as needed 5. ARIEL with CKDIII secondary to diabetic nephropathy: Continue gentle IV fluids and monitor. Patient has worsening of creatinine from admitting 1.24-1.62. No obvious kidney related symptoms or decrease in urine output. Nephrology consulted. Etiology of acute kidney injury unclear. UA is benign. Significant proteinuria mostly from diabetic nephropathy. Customer Care Consultant ordered serum globulin, protein gap renal ultrasound, urine PCR and SPEP. 6. HTN - adjust home meds. Improved from presentation HTN. 7. Hx DVT/PE - s/p IVC filter not on OAC. 8. HLD - statin LDL at goal DVT ppx: heparinThis patient was seen in conjunction with Samuel SÁNCHEZ. I have independently interviewed and examined the patient and reviewed pertinent history, examination findings, laboratory and plan of management. I have reviewed the note and agree with the documented findings with the few additional points. In brief, patient is admitted for TIA. 2D echo is ordered. I have discussed my assessment with Samuel SÁNCHEZ and orders have been reviewed. Laboratory Results 07/23/17 16:56: POC Glucose 133 H 07/23/17 21:12: POC Glucose 148 H 07/24/17 05:40: Sodium 140, Potassium 4.2, Chloride 109 H, Carbon Dioxide 24.0, Anion Gap 7, BUN 31 H, Creatinine 1.62 H, Estim Creat Clear Calc 23.00, Est GFR (MDRD) Af Amer 40 L, Est GFR (MDRD) Non-Af 33 L, BUN/Creatinine Ratio 19.1, Glucose 71 L, Calcium 8.4 L 07/24/17 05:40: Hemoglobin A1c 9.0 H 07/24/17 06:48: POC Glucose 69 L 07/24/17 07:01: POC Glucose 59 L 07/24/17 07:28: POC Glucose 94 07/24/17 11:11: POC Glucose 150 H Clinical Impression(s) from Imaging Studies Brain CT 07/22/17 17:59 IMPRESSION: Chronic involutional changes of the brain. Chest X-Ray 07/22/17 18:00 IMPRESSION: No acute cardiopulmonary disease. Stable right upper lobe mass. Brain MRI 07/23/17 07:48 IMPRESSION: Involutional changes of the brain, as described above. No evidence of a mass. No evidence of acute infarct. Head MRA 07/23/17 07:48 IMPRESSION: Normal MRA of the head. Anatomic variation. I do note on the reformatted images that just at the bifurcation of the middle cerebral artery on the left it appears that there is a focal area of deficit but I cannot identify this deficit on the 3-D slab raw data. Therefore I do not suspect that this is truly an abnormality. Neck MRA 07/23/17 07:48 IMPRESSION: Normal bilateral cervical carotid and vertebral arteries. Note that this exam is hampered by motion and subtle abnormalities may be missed. The vessels do appear patent and grossly I do not see a focal area of significant stenosis. Since the patient is moving however, consider carotid ultrasound which could represent a complement to this exam and perhaps deal with some motion. Code Visit Inpatient E&M: 82318 Subs Hosp L3
--- NOTE | 2017-07-24 16:54 | PN_ITS ---
Patient Problems: Active and Suspected Problems (Last Updated 07/16/17 @ 10:14 by Sarah Sifuentes) Expressive aphasia (Acute) Hypertensive urgency (Acute) Acute confusion (Acute) Urinary tract infection (Acute) TIA (transient ischemic attack) (Acute) ARIEL (acute kidney injury) (Acute) Subjective: Patient denies any lower urinary tract symptoms or burning but said some irritation during micturition. No history of kidney stone, stricture or mass. Has diabetes mellitus type 2. Has history of colon cancer with metastasis to lung on chemoradiation, last treatment about a year. No obvious change in the urine output. TIA. Currently, no neurological deficit Vitals/I&O's: Vital Signs Temp Pulse Resp BP Pulse Ox 98.1 F 80 16 124/55 H 95 07/24/17 16:30 07/24/17 16:30 07/24/17 16:30 07/24/17 16:30 07/24/17 16:30 Oxygen Delivery Method Room Air Weight: 148 lb 2.41 oz Body Mass Index (BMI) 27.1 Intake and Output for Last 24 Hours 07/22/17 07/23/17 07/24/17 23:59 23:59 23:59 Intake Total 258 / 258 2977 / 2977 1541 / 1541 Output Total 0 / 0 100 / 100 Balance 258 / 258 2877 / 2877 1541 / 1541 General: Alert, Oriented x3, Cooperative HEENT: Atraumatic, PERRLA, EOMI, Normocephalic Neck: Supple, No JVD, Negative Carotid Bruits Lungs: Clear to auscultation, Normal air movement, No rhonchi, No wheeze, No rales Cardiovascular: Regular rate, Regular Rhythm, Normal S1, Normal S2, No murmurs Abdomen: Bowel Sounds Present, Soft, Non Tender, Non-Distended Extremities: Capillary Refill Less than 3 Seconds, Edema Skin: No rashes, No breakdown Musculoskeletal: No Tenderness to Palpation of Joints or Extremities, Arthritic Changes Neurological: Cranial nerves II-XII grossly intact, Neuro grossly intact Psych/Mental Status: Normal Affect, Appropriate Laboratory Results 07/23/17 16:56: POC Glucose 133 H 07/23/17 21:12: POC Glucose 148 H 07/24/17 05:40: Sodium 140, Potassium 4.2, Chloride 109 H, Carbon Dioxide 24.0, Anion Gap 7, BUN 31 H, Creatinine 1.62 H, Estim Creat Clear Calc 23.00, Est GFR (MDRD) Af Amer 40 L, Est GFR (MDRD) Non-Af 33 L, BUN/Creatinine Ratio 19.1, Glucose 71 L, Calcium 8.4 L 07/24/17 05:40: Hemoglobin A1c 9.0 H 07/24/17 06:48: POC Glucose 69 L 07/24/17 07:01: POC Glucose 59 L 07/24/17 07:28: POC Glucose 94 07/24/17 11:11: POC Glucose 150 H Current Medications Acetaminophen (Tylenol) 650 mg PO Q6H PRN PRN PRN Reason: Non-cardiac pain (mod-severe) Al Hydroxide/Mg Hydroxide (Mylanta Ii) 30 ml PO Q6H PRN PRN PRN Reason: Gastric burning Aspirin (Ecotrin) 81 mg PO DAILY@0800 [facility] Last Admin: 07/24/17 07:33 Dose: 81 mg Atorvastatin Calcium (Lipitor) 40 mg PO QHS [facility] Last Admin: 07/23/17 21:16 Dose: 40 mg Bupropion HCl (Wellbutrin Xl) 150 mg PO DAILY [facility] Last Admin: 07/24/17 10:02 Dose: 150 mg Carvedilol (Coreg) 25 mg PO BID [facility] Last Admin: 07/24/17 10:02 Dose: 25 mg Clopidogrel Bisulfate (Plavix) 75 mg PO DAILY [facility] Last Admin: 07/24/17 10:01 Dose: 75 mg Dextrose (D50w Syringe) 0 gm IV X1 PRN; Protocol PRN Reason: Hypoglycemia Gabap[facility] ([facility]urontin) [address] [facility] Last Admin: 07/24/17 16:41 Dose: 300 mg Glucagon () 1 mg IM .X1 PRN PRN Reason: Hypoglycemia Heparin Sodium (Porcine) (Heparin Na) 5,000 unit SC Q8 [facility] Last Admin: 07/24/17 14:18 Dose: 5,000 unit Hydralazine HCl (Apresoline Iv) 10 mg IV Q4H PRN PRN PRN Reason: SBP > 160 Sodium Chloride () 1,000 mls @ 75 mls/hr IV .[id number] [facility] Last Admin: 07/24/17 16:37 Dose: 75 mls/hr Insulin Aspart (Novolog Flexpen (Bkc)) 0 units SC ACHS [facility] PRN Reason: Protocol Last Admin: 07/24/17 16:41 Dose: 1 u Insulin Detemir (Levemir (Bkc)) 20 units SC QHS [facility] Magnesium Hydroxide (Milk Of Magnesia) 30 ml PO DAILY PRN PRN Reason: Constipation Nitroglycerin (Nitrostat) 0.4 mg SUBLINGUAL Q5M PRN PRN Reason: Angina pain Nutritional Formula (Lactose Free) (Glucerna Shake) 120 ml PO 4X/DAY [facility] Last Admin: 07/24/17 14:17 Dose: 120 ml Olanzapine (Zyprexa) 2.5 mg PO QHS [facility] Last Admin: 07/23/17 21:16 Dose: 2.5 mg Ondansetron HCl (Zofran) 4 mg IV Q8H PRN PRN PRN Reason: NAUSEA Oxycodone HCl (Oxyir) 7.5 mg PO TID PRN PRN PRN Reason: PAIN Sodium Bicarbonate (Sodium Bicarbonate) 650 mg PO DAILY [facility] Last Admin: 07/24/17 10:01 Dose: 650 mg Sodium Chloride () 5 - 30 ml IV UD PRN PRN Reason: SALINE FLUSH Last Admin: 07/23/17 12:28 Dose: 10 ml Venlafaxine HCl (Effexor Xr) 150 mg PO DAILY [facility] Last Admin: 07/24/17 10:02 Dose: 150 mg Medical Necessity - Tobacco Use Smoking Status: Never smoker Assessment/Plan Active and Suspected Problems (Last Updated 07/16/17 @ 10:14 by Sarah Sifuentes) Expressive aphasia (Acute) Hypertensive urgency (Acute) Acute confusion (Acute) Urinary tract infection (Acute) TIA (transient ischemic attack) (Acute) ARIEL (acute kidney injury) (Acute) This is a 76-year-old female story of CAD s/p FL and PCI most recently 01/05/17 SHEKHAR to mid RCA and POBA to ostial PDA, HTN, HLD, Diabetes mellitus type II w/ Polyneuropathy, Anxiety and Depression, History of DVT and PE s/p IVCF placement, CKD stage III (baseline Cr 1.2-1.4), GERD, Metastatic Colon CA s/p colon resection w/ lung metastatic disease w/ chronic RUL mass s/p adjuvant chemotherapy, s/p stereotactic XRT [facility] Was admitted with increased confusion, difficulty in expressive speech and clinical assessment consistent with TIA. Seen by neurologist. 1. TIA - continue statin/asa/plavix. Symptoms seem to have resolved at this point. MRI and MRA shows no evidence of acute stroke or significant stenosis/ occlusion of major vessel..2D echo shows normal LV size and thickness, EF 65% with a stage I diastolic dysfunction. No regional wall motion abnormality. Normal right and left atria. Bubble contrast today negative. Normal tricuspid valve severe mitral annular calcification with trivial MR. TSH normal. LDL 67. UA neg. She will have a 30 day event monitor placed after discharge and follow up with Neuro as an outpatient. -PT/OT/ST -CT brain with chronic changes. Discharge plan: Need SNF. 2. CAD - continue home meds. Maintain on tele. No CP. Hx PTCA. 3. Colon CA s/p colectomy with known mets to the lungs - respiratory status stable. 4. DMt2 - fluctuant - maintain current therapy and adjust as needed 5. ARIEL with CKDIII secondary to diabetic nephropathy: Continue gentle IV fluids and monitor. Patient has worsening of creatinine from admitting 1.24-1.62. No obvious kidney related symptoms or decrease in urine output. Nephrology consulted. Etiology of acute kidney injury unclear. UA is benign. Significant proteinuria mostly from diabetic nephropathy. Short Order Cook ordered serum globulin, protein gap renal ultrasound, urine PCR and SPEP. 6. HTN - adjust home meds. Improved from presentation HTN. 7. Hx DVT/PE - s/p IVC filter not on OAC. 8. HLD - statin LDL at goal DVT ppx: heparinThis patient was seen in conjunction with Samuel SÁNCHEZ. I have independently interviewed and examined the patient and reviewed pertinent history, examination findings, laboratory and plan of management. I have reviewed the note and agree with the documented findings with the few additional points. In brief, patient is admitted for TIA. 2D echo is ordered. I have discussed my assessment with Samuel SÁNCHEZ and orders have been reviewed. Laboratory Results 07/23/17 16:56: POC Glucose 133 H 07/23/17 21:12: POC Glucose 148 H 07/24/17 05:40: Sodium 140, Potassium 4.2, Chloride 109 H, Carbon Dioxide 24.0, Anion Gap 7, BUN 31 H, Creatinine 1.62 H, Estim Creat Clear Calc 23.00, Est GFR (MDRD) Af Amer 40 L, Est GFR (MDRD) Non-Af 33 L, BUN/Creatinine Ratio 19.1, Glucose 71 L, Calcium 8.4 L 07/24/17 05:40: Hemoglobin A1c 9.0 H 07/24/17 06:48: POC Glucose 69 L 07/24/17 07:01: POC Glucose 59 L 07/24/17 07:28: POC Glucose 94 07/24/17 11:11: POC Glucose 150 H Clinical Impression(s) from Imaging Studies Brain CT 07/22/17 17:59 IMPRESSION: Chronic involutional changes of the brain. Chest X-Ray 07/22/17 18:00 IMPRESSION: No acute cardiopulmonary disease. Stable right upper lobe mass. Brain MRI 07/23/17 07:48 IMPRESSION: Involutional changes of the brain, as described above. No evidence of a mass. No evidence of acute infarct. Head MRA 07/23/17 07:48 IMPRESSION: Normal MRA of the head. Anatomic variation. I do note on the reformatted images that just at the bifurcation of the middle cerebral artery on the left it appears that there is a focal area of deficit but I cannot identify this deficit on the 3-D slab raw data. Therefore I do not suspect that this is truly an abnormality. Neck MRA 07/23/17 07:48 IMPRESSION: Normal bilateral cervical carotid and vertebral arteries. Note that this exam is hampered by motion and subtle abnormalities may be missed. The vessels do appear patent and grossly I do not see a focal area of significant stenosis. Since the patient is moving however, consider carotid ultrasound which could represent a complement to this exam and perhaps deal with some motion. Code Visit Inpatient E&M: 05893 Subs Hosp L3
[2017-07-24 17:06] LABS: Bedside Glucose 166 mg/dL (70-110)
[2017-07-24 18:08] LABS: Protein, Urine (Random) 65.7 mg/dL (<11.9); Protein:Creat Ratio 687 mg/g CRE (0-200)
[2017-07-24 18:11] LABS: Urine Chloride 31 mmol/L (Not Establ.); Urine Sodium 33 mmol/L (Not Establ.)
[2017-07-24] MEDS: OLANZapine 2.5 MG Tablet PO (21:32)
[2017-07-24] MEDS: Atorvastatin Calcium 40 MG Tablet PO (21:32)
[2017-07-25] VITALS (13 sets, daily range): BP systolic 148–178; BP diastolic 73–92; PULSE 72–96; RESP 16–24; TEMP 36.7–37; O2SAT 91–96; BMI 27.1
[2017-07-25 00:10] LABS: Bedside Glucose 223 mg/dL (70-110)
[2017-07-25] MEDS: 0.9% Normal Saline 1,000 ML 75 ML IV ×2 (05:57→19:40)
[2017-07-25] MEDS: Heparin Injection (Vial) 5,000 UNIT/ML VIAL 5000 UNIT SC ×3 (05:58→21:52)
[2017-07-25 06:56] LABS: Bedside Glucose 136 mg/dL (70-110)
--- NOTE | 2017-07-25 09:23 | CASEMGMT ---
ENRIQUE spoke with Carlyle from [facility] letting her know the plan is TCU pending insurance approval. She asked ENRIQUE to let her know when patient goes. Plan: TCU pending insurance approval. Maryana MORALES
[2017-07-25 09:29] LABS: Anion Gap 7 (5-15); BUN 30 mg/dL (7-18); BUN/Creat Ratio 21.7 RATIO (10-20); Calcium,Total 8.4 mg/dL (8.5-10.1); Chloride 111 mmol/L (98-107); Creatinine, Serum 1.38 mg/dL (0.55-1.02); EST Glomerular Filtration Rate 39 mL/min (>60); Est Glom Filt Rate - Afr Amer 48 mL/min (>60); Glucose 107 mg/dL (74-106); Potassium 4.4 mmol/L (3.5-5.1); Sodium Level 140 mmol/L (136-145)
[2017-07-25] MEDS: Gabapentin 300 MG Capsule PO ×2 (09:30→17:05)
[2017-07-25] MEDS: Aspirin E.C. 81 MG Tablet PO (09:30)
--- NOTE | 2017-07-25 10:10 | PCM.EXTCARCO ---
- Diet 07/22/17 21:04 Diet: Cardiac: Calorie-Controlled Food consistency:: Regular Liquid Consistency:: Regular/Thin Type of Dietary Supplement:: Glucerna Shake How many daily calories?: 1800 calorie - Routine Orders/Code Status Enema Type: Fleetz Enema Frequency: Daily PRN Suppository Type: Dulcolax 10mg Suppository Frequency: Daily PRN Routine Lab Work: BMP, - - In 3 days then Q week. [facility] - Suggestions for Active Care Change Position every (hours): 2 Times a day to sit in chair: 3 - Therapies Weight Bearing: Full weight bearing Physical Therapy: Eval and Treat Occupational Therapy: Eval and Treat - Allergies/Procedures Done in Hospital Allergies/Adverse Reactions: Allergies promethazine HCl [From Phenergan] Allergy (Verified 07/22/17 17:28) seizures sao tomean rice Adverse Reaction (Severe, Uncoded 07/22/17 17:28) Unknown Procedures: 2-D Echocardiogram - Type of Care/Length of Stay Estimated LOS: Convalescent Care Less Than 30 days Type of Care Needed: Skilled Rehab Potential: Fair Prognosis: Fair - Additional Orders/Day of Discharge H&P will serve as current which was dated: 07/22/17 Day of Discharge: 07/25/17 - Dietary and Speech Recommendations Speech Linguistic Eval Summary: Pt is a 76 YOF admitted to [facility] on 07/22/2017 d/t weakness, confusion, uncontrolled BP and transient aphasia; NIHSS: 4; workup for TIA. Past medical history is significant for metastic colon cancer to lung s/p colon resection remote, lung metastases diagnosed 2014, s/p adjuvant chemotherapy, s/p stereotactic XRT [facility], follows [facility], polyneuropathy, gastroesophageal reflux disease, atherosclerotic heart disease of [place] coronary artery without angina pectoris, coronary artery disease s/p PTCI and coronary artery stent placement, hyperlipidemia, hypertension, hypotension, pulmonary embolism, type II diabetes, postural instability. Pt. reports poor appetite prior to admission, w/ recent loss of Ex- (very close, would speak to several times a day); reports recent placement on Wellbutrin w/ improving disposition. 07/22/2017 CXR revealed no acute cardiopulmonary disease; stable right upper lobe mass. 07/22/[address] revealed chronic involutional changes of the brain. 07/23/2017 Involutional changes of the brain, as described above. No evidence of a mass. No evidence of acute infarct. Informal measures were used to evaluate cognitive-linguistic function this date. Daughter was present for evaluation. Patient lives alone. Goes to adult daycare at the [facility]. Does not drive. Manages own medications w/ a.m./p.m. pill organizer. Manages own finances. Patient and daughter report a history of some memory deficits at baseline. Pt was fully oriented. Demonstrated sufficient auditory comprehension. Answered yes/no questions and executed multistep commands w/out difficulty. Verbal expression is clear/intelligible. No instances of anomia, dysarthria or apraxia appreciated in conversational speech. Mild deficits in word finding noted w/ generative naming tasks, with patient naming 7 items w/in the first 15 seconds, before repeating several items already named in the remaining 45 seconds of the task. Convergent naming WNL. Problem solving WNL. Able to recall 8/18 details from a short story immediately after hearing it and answered 5/6 recall/comprehension questions accurately. Education provided re: strategies to improve recall. MRI was negative for CVA. Pt was positive for UTI w/ altered kidney function. Suspect expressive aphasia and cognitive impairments noted that precipitated presentation to the ED were a result of UTI superimposed upon baseline mild cognitive deficits. Daughter and patient both feel that her cognition has returned to her baseline. No further skilled speech-language intervention is warranted at this time. Please re-consult if condition changes and reevaluation is warranted. - Follow Up Care Primary Care Physician: Donald Cline MD [Primary Care Provider] - Please follow up with your Primary Care Physician in: 1 Week Please Follow Up With: Lynette Coreas DO When: 1 Week Please Follow Up With: Phil Johns MD When: 2-3 Weeks
--- NOTE | 2017-07-25 10:15 | TREXTCA.CO_ITS ---
- Diet 07/22/17 21:04 Diet: Cardiac: Calorie-Controlled Food consistency:: Regular Liquid Consistency:: Regular/Thin Type of Dietary Supplement:: Glucerna Shake How many daily calories?: 1800 calorie - Routine Orders/Code Status Enema Type: Fleetz Enema Frequency: Daily PRN Suppository Type: Dulcolax 10mg Suppository Frequency: Daily PRN Routine Lab Work: BMP, - - In 3 days then Q week. [facility] - Suggestions for Active Care Change Position every (hours): 2 Times a day to sit in chair: 3 - Therapies Weight Bearing: Full weight bearing Physical Therapy: Eval and Treat Occupational Therapy: Eval and Treat - Allergies/Procedures Done in Hospital Allergies/Adverse Reactions: Allergies promethazine HCl [From Phenergan] Allergy (Verified 07/22/17 17:28) seizures brazil[place] rice Adverse Reaction (Severe, Uncoded 07/22/17 17:28) Unknown Procedures: 2-D Echocardiogram - Type of Care/Length of Stay Estimated LOS: Convalescent Care Less Than 30 days Type of Care Needed: Skilled Rehab Potential: Fair Prognosis: Fair - Additional Orders/Day of Discharge H&P will serve as current which was dated: 07/22/17 Day of Discharge: 07/25/17 - Dietary and Speech Recommendations Speech Linguistic Eval Summary: Pt is a 76 YOF admitted to [facility] on 07/22/2017 d/ t weakness, confusion, uncontrolled BP and transient aphasia; NIHSS: 4; workup for TIA. Past medical history is significant for metastic colon cancer to lung s /p colon resection remote, lung metastases diagnosed 2014, s/p adjuvant chemotherapy, s/p stereotactic XRT [facility], follows [facility], polyneuropathy, gastroesophageal reflux disease, atherosclerotic heart disease of [place] coronary artery without angina pectoris, coronary artery disease s/p PTCI and coronary artery stent placement, hyperlipidemia, hypertension, hypotension, pulmonary embolism, type II diabetes, postural instability. Pt. reports poor appetite prior to admission, w/ recent loss of Ex- (very close, would speak to several times a day); reports recent placement on Wellbutrin w/ improving disposition. 07/22/2017 CXR revealed no acute cardiopulmonary disease; stable right upper lobe mass. 07/22/[address] revealed chronic involutional changes of the brain. 07/23/2017 Involutional changes of the brain, as described above. No evidence of a mass. No evidence of acute infarct. Informal measures were used to evaluate cognitive-linguistic function this date. Daughter was present for evaluation. Patient lives alone. Goes to adult daycare at the [facility]. Does not drive. Manages own medications w/ a.m./p.m. pill organizer. Manages own finances. Patient and daughter report a history of some memory deficits at baseline. Pt was fully oriented. Demonstrated sufficient auditory comprehension. Answered yes/no questions and executed multistep commands w/out difficulty. Verbal expression is clear/intelligible. No instances of anomia, dysarthria or apraxia appreciated in conversational speech. Mild deficits in word finding noted w/ generative naming tasks, with patient naming 7 items w/in the first 15 seconds, before repeating several items already named in the remaining 45 seconds of the task. Convergent naming WNL. Problem solving WNL. Able to recall 8/18 details from a short story immediately after hearing it and answered 5/6 recall/ comprehension questions accurately. Education provided re: strategies to improve recall. MRI was negative for CVA. Pt was positive for UTI w/ altered kidney function. Suspect expressive aphasia and cognitive impairments noted that precipitated presentation to the ED were a result of UTI superimposed upon baseline mild cognitive deficits. Daughter and patient both feel that her cognition has returned to her baseline. No further skilled speech-language intervention is warranted at this time. Please re-consult if condition changes and reevaluation is warranted. - Follow Up Care Primary Care Physician: Donald Clien MD [Primary Care Provider] - Please follow up with your Primary Care Physician in: 1 Week Please Follow Up With: Lynette Coreas DO When: 1 Week Please Follow Up With: Phil Johns MD When: 2-3 Weeks
--- NOTE | 2017-07-25 10:16 | PCM.DC.SUM ---
<Malka Robledo - Last Filed: 07/25/17 10:41> Discharge Date and Diagnosis Date of Admission: 07/22/17 Date of Discharge: 07/25/17 - Primary Discharge Diagnosis Active and Suspected Problems (Last Updated 07/16/17 @ 10:14 by Sarah Sifuentes) 1. TIA 2. Acute kidney injury on chronic kidney disease stage III 3. 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 Presence of IVC filter (Chronic) H/O deep venous thrombosis (Chronic) now has an IVC filter Hyperlipidemia (Chronic) Polyneuropathy (Chronic) Pulmonary embolism (Chronic) Hypertension (Chronic) Chronic renal failure, stage 3 (moderate) (Chronic) Anxiety and depression (Chronic) uncontrolled Gallstones (Chronic) GERD (gastroesophageal reflux disease) (Chronic) Hospital Course and Treatment Imaging Results: Diagnostic Data Brain CT 07/22/17 17:59 IMPRESSION: Chronic involutional changes of the brain. Electronically Signed: Geoffrey Khalil DO at 18:45 EDT Tel , Service support , Chest X-Ray 07/22/17 18:00 IMPRESSION: No acute cardiopulmonary disease. Stable right upper lobe mass. Electronically Signed: Geoffrey Khalil DO at 19:10 EDT Tel , Service support , Brain MRI 07/23/17 07:48 IMPRESSION: Involutional changes of the brain, as described above. No evidence of a mass. No evidence of acute infarct. Electronically Signed: Nena Sales MD at 13:17 EDT Tel , Service support , Head MRA 07/23/17 07:48 IMPRESSION: Normal MRA of the head. Anatomic variation. I do note on the reformatted images that just at the bifurcation of the middle cerebral artery on the left it appears that there is a focal area of deficit but I cannot identify this deficit on the 3-D slab raw data. Therefore I do not suspect that this is truly an abnormality. Electronically Signed: Nena Sales MD at 13:44 EDT Tel , Service support , Neck MRA 07/23/17 07:48 IMPRESSION: Normal bilateral cervical carotid and vertebral arteries. Note that this exam is hampered by motion and subtle abnormalities may be missed. The vessels do appear patent and grossly I do not see a focal area of significant stenosis. Since the patient is moving however, consider carotid ultrasound which could represent a complement to this exam and perhaps deal with some motion. Electronically Signed: Nena Sales MD at 13:24 EDT Tel , Service support , Renal Ultrasound 07/24/17 13:10 IMPRESSION: No evidence of renal obstruction. Normal renal size. Simple appearing bilateral renal cysts. Electronically Signed: Nena Sales MD at 15:27 EDT Tel , Service support , Dr. Johns- Neurology Dr. Grimes- Nephrology Operations: None Procedures: 2-D Echocardiogram Summary of Care Provided: Patient is a 76-year-old female admitted 07/22/17 due to weakness, confusion, aphasia, elevated blood pressure. She has a past medical history of type 2 diabetes mellitus, CAD status post PTCA, hypertension, history of metastatic colon cancer, GERD, anxiety, depression, hyperlipidemia, history of pulmonary embolism status post IVC filter, chronic kidney disease stage III. 1. TIA-symptoms have resolved. MRI of brain negative for acute infarct. MRA of neck without significant stenosis. Echocardiogram showed an EF of 65%, stage I diastolic dysfunction, no appreciable changes noted compared to previous study 01/06/2017. Neurology consulted. Patient will be discharged on 30 day event monitor. Follow-up with neurology in 2 weeks. TCU at discharge. Patient with recent admission due to intermittent confusion and generalized weakness. Home Zyprexa, gabapentin regimen reduced at that time and home as needed Ativan regimen discontinued. Continue previous changes. 2. Acute kidney injury on chronic kidney disease stage III-suspect secondary to dehydration, poor oral intake. Nephrology consulted. Renal ultrasound showed no evidence of renal obstruction. Normal renal size. Simple appearing bilateral renal cysts. Creatinine improved with IV fluids. Repeat BMP in 3 days followed by weekly while in transitional care unit. Follow-up with nephrology in 1-2 weeks. 3. Type 2 diabetes mellitus-hemoglobin A1c 9%. Continue home insulin regimen. Add NovoLog medium dosing sliding scale insulin. 4. CAD status post PTCA-continue aspirin, statin, Plavix, beta-gilles. 5. Hypertension-Continue home carvedilol regimen 25 mg twice daily. Will need further monitoring as outpatient with adjustment/additional agent as necessary. 6. History of metastatic colon cancer-chronic right lower lobe mass. Continue outpatient follow-up with oncology. Recent repeat CT of chest in [place]. 7. GERD-not on home regimen. 8. Anxiety/depression-continue home regimen. 9. Hyperlipidemia-continue statin. 10. History of PE status post IVC filter General: Alert, Oriented x3, Cooperative, No apparent distress HEENT: Atraumatic, PERRLA, EOMI, Normocephalic Neck: Supple, No JVD, Negative Carotid Bruits Lungs: Clear to auscultation, Normal air movement Cardiovascular: Regular rate, Regular Rhythm, Normal S1, Normal S2, No murmurs Abdomen: Bowel Sounds Present, Soft, Non Tender, Non-Distended Extremities: No clubbing, No cyanosis, No edema, Capillary Refill Less than 3 Seconds Skin: No rashes, No breakdown Musculoskeletal: No Tenderness to Palpation of Joints or Extremities Neurological: Cranial nerves II-XII grossly intact, Neuro grossly intact Psych/Mental Status: Normal Affect, Appropriate Patient seen and examined prior to discharge. Physical assessment as noted above. Patient is stable for discharge to transitional care unit. This patient was seen by YUMI Berumen under the supervision of Dr. Sanches. Home Medications: Medications to take at Discharge Atorvastatin Calcium [Lipitor] 40 mg PO QHS 07/09/15 Multivitamin [Daily Multiple Vitamin] 1 tab PO DAILY 07/09/15 Alendronate Sodium 70 mg PO BURT 09/20/16 buPROPion XL [Wellbutrin Xl] 150 mg PO DAILY 09/20/16 Aspirin E.C. [Ecotrin] 81 mg PO DAILY@0800 02/26/17 Clopidogrel Bisulfate [Plavix] 75 mg PO DAILY 02/26/17 Oxycodone HCl/Acetaminophen [Percocet 7.5-325 mg Tablet] 1 tablet PO TID PRN PRN 02/27/17 Insulin Aspart [Novolog Flexpen] 6 units SC TIDCM 07/09/17 Insulin Glargine,Hum.rec.anlog [Toujeo Solostar] 38 units SQ QHS 07/09/17 Venlafaxine XR [Effexor Xr] 150 mg PO DAILY 07/09/17 Sodium Bicarbonate 650 mg PO DAILY 07/23/17 Carvedilol [Coreg (Beta Gilles)] 25 mg PO BID tablet 07/25/17 Gabapentin [Neurontin] 300 mg PO BIDCM capsule 07/25/17 Insulin Aspart [Novolog Flexpen] See Protocol SC ACHS flexpen 07/25/17 Olanzapine [Zyprexa] 2.5 mg PO QHS tablet 07/25/17 Other Amb Orders: 30-Day Event Recorder [[facility]] Time Frame: 1 Day, Location: None Selected Primary Care Physician: Donald Cline MD [Primary Care Provider] - Please follow up with your Primary Care Physician in: 1 Week Please Follow Up With: Lynette Coreas DO - Or Dr. 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 Presence of IVC filter (Chronic) H/O deep venous thrombosis (Chronic) now has an IVC filter Hyperlipidemia (Chronic) Polyneuropathy (Chronic) Pulmonary embolism (Chronic) Hypertension (Chronic) Chronic renal failure, stage 3 (moderate) (Chronic) Anxiety and depression (Chronic) uncontrolled Gallstones (Chronic) GERD (gastroesophageal reflux disease) (Chronic) Hospital Course and Treatment Summary of Care Provided: This patient was seen in conjunction with ENERGY SALES CONSULTANT, Malka. I have independently interviewed and examined the patient and reviewed pertinent history, examination findings, laboratory and plan of management. I have reviewed the note and agree with the documented findings with the few additional points. In brief, patient is admitted for increased confusion, difficulty in expressive speech and assessment was consistent with TIA. 2D echo shows normal LV size and thickness, EF 65% with a stage I diastolic dysfunction. No regional wall motion abnormality. Normal right and left atria. Bubble contrast today negative. Normal tricuspid valve severe mitral annular calcification with trivial MR. TSH normal. LDL 67. UA neg. She need 30 day event monitor placed after discharge and follow up with Neuro as an outpatient. During hospital stay, she developed acute kidney injury on CKD stage III with worsening of creatinine admitting 1.24-1.62. Foundry Technician was consulted. Patient had mild proteinuria in the urine. No obvious cause for acute kidney injury as UA is benign with proteinuria.Foundry Technician ordered serum globulin, protein gap renal ultrasound, urine PCR and SPEP. Renal ultrasound did not show acute abnormality without hydronephrosis and benign cyst. Her creatinine improved today to 1.38. Follow-up instructions completed. Discharge medication reconciliation done. Total time spent, exact 35 minutes on discharge meds reconciliation, examination, review of imaging and blood test and discussion with the patient on follow-up instructions. I have discussed my assessment with ENERGY SALES CONSULTANT, Malka and orders have been reviewed. [] Clinical Impression(s) from Imaging Studies Brain CT 07/22/17 17:59 IMPRESSION: Chronic involutional changes of the brain. Brain MRI 07/23/17 07:48 IMPRESSION: Involutional changes of the brain, as described above. No evidence of a mass. No evidence of acute infarct. Electronically Signed: Nena Sales MD at 13:17 EDT Tel , Service support , Head MRA 07/23/17 07:48 IMPRESSION: Normal MRA of the head. Anatomic variation. I do note on the reformatted images that just at the bifurcation of the middle cerebral artery on the left it appears that there is a focal area of deficit but I cannot identify this deficit on the 3-D slab raw data. Therefore I do not suspect that this is truly an abnormality. Neck MRA 07/23/17 07:48 IMPRESSION: Normal bilateral cervical carotid and vertebral arteries. Note that this exam is hampered by motion and subtle abnormalities may be missed. The vessels do appear patent and grossly I do not see a focal area of significant stenosis. Since the patient is moving however, consider carotid ultrasound which could represent a complement to this exam and Renal Ultrasound 07/24/17 13:10 IMPRESSION: No evidence of renal obstruction. Normal renal size. Simple appearing bilateral renal cysts. Code Visit Inpatient E&M: 56535 Disch Hosp
--- NOTE | 2017-07-25 10:40 | DS.PCM_ITS ---
<Malka Robledo - Last Filed: 07/25/17 10:41> Discharge Date and Diagnosis Date of Admission: 07/22/17 Date of Discharge: 07/25/17 - Primary Discharge Diagnosis Active and Suspected Problems (Last Updated 07/16/17 @ 10:14 by Sarah Sifuentes) 1. TIA 2. Acute kidney injury on chronic kidney disease stage III 3. 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) s/p colon resection remote, lung metastases diagnosed 2014, s/p adjuvant chemotherapy, s/p stereotactic XRT [facility]ology, follows [facility] S/P ORIF (open reduction internal fixation) fracture (Chronic) left ankle, 09/14/14, Dr Harvey, [facility] Presence of IVC filter (Chronic) H/O deep venous thrombosis (Chronic) now has an IVC filter Hyperlipidemia (Chronic) Polyneuropathy (Chronic) Pulmonary embolism (Chronic) Hypertension (Chronic) Chronic renal failure, stage 3 (moderate) (Chronic) Anxiety and depression (Chronic) uncontrolled Gallstones (Chronic) GERD (gastroesophageal reflux disease) (Chronic) Hospital Course and Treatment Imaging Results: Diagnostic Data Brain CT 07/22/17 17:59 IMPRESSION: Chronic involutional changes of the brain. Electronically Signed: Geoffrey Khalil DO at 18:45 EDT Tel , Service support , Chest X-Ray 07/22/17 18:00 IMPRESSION: No acute cardiopulmonary disease. Stable right upper lobe mass. Electronically Signed: Geoffrey Khalil DO at 19:10 EDT Tel , Service support , Brain MRI 07/23/17 07:48 IMPRESSION: Involutional changes of the brain, as described above. No evidence of a mass. No evidence of acute infarct. Electronically Signed: Nena Sales MD at 13:17 EDT Tel , Service support , Head MRA 07/23/17 07:48 IMPRESSION: Normal MRA of the head. Anatomic variation. I do note on the reformatted images that just at the bifurcation of the middle cerebral artery on the left it appears that there is a focal area of deficit but I cannot identify this deficit on the 3-D slab raw data. Therefore I do not suspect that this is truly an abnormality. Electronically Signed: Nena Sales MD at 13:44 EDT Tel , Service support , Neck MRA 07/23/17 07:48 IMPRESSION: Normal bilateral cervical carotid and vertebral arteries. Note that this exam is hampered by motion and subtle abnormalities may be missed. The vessels do appear patent and grossly I do not see a focal area of significant stenosis. Since the patient is moving however, consider carotid ultrasound which could represent a complement to this exam and perhaps deal with some motion. Electronically Signed: Nena Sales MD at 13:24 EDT Tel , Service support , Renal Ultrasound 07/24/17 13:10 IMPRESSION: No evidence of renal obstruction. Normal renal size. Simple appearing bilateral renal cysts. Electronically Signed: Nena Sales MD at 15:27 EDT Tel , Service support , Dr. Johns- Neurology Dr. Grimes- Nephrology Operations: None Procedures: 2-D Echocardiogram Summary of Care Provided: Patient is a 76-year-old female admitted 07/22/17 due to weakness, confusion, aphasia, elevated blood pressure. She has a past medical history of type 2 diabetes mellitus, CAD status post PTCA, hypertension, history of metastatic colon cancer, GERD, anxiety, depression, hyperlipidemia, history of pulmonary embolism status post IVC filter, chronic kidney disease stage III. 1. TIA-symptoms have resolved. MRI of brain negative for acute infarct. MRA of neck without significant stenosis. Echocardiogram showed an EF of 65%, stage I diastolic dysfunction, no appreciable changes noted compared to previous study 01/06/2017. Neurology consulted. Patient will be discharged on 30 day event monitor. Follow-up with neurology in 2 weeks. TCU at discharge. Patient with recent admission due to intermittent confusion and generalized weakness. Home Zyprexa, gabapentin regimen reduced at that time and home as needed Ativan regimen discontinued. Continue previous changes. 2. Acute kidney injury on chronic kidney disease stage III-suspect secondary to dehydration, poor oral intake. Nephrology consulted. Renal ultrasound showed no evidence of renal obstruction. Normal renal size. Simple appearing bilateral renal cysts. Creatinine improved with IV fluids. Repeat BMP in 3 days followed by weekly while in transitional care unit. Follow-up with nephrology in 1-2 weeks. 3. Type 2 diabetes mellitus-hemoglobin A1c 9%. Continue home insulin regimen. Add NovoLog medium dosing sliding scale insulin. 4. CAD status post PTCA-continue aspirin, statin, Plavix, beta-gilles. 5. Hypertension-Continue home carvedilol regimen 25 mg twice daily. Will need further monitoring as outpatient with adjustment/additional agent as necessary. 6. History of metastatic colon cancer-chronic right lower lobe mass. Continue outpatient follow-up with oncology. Recent repeat CT of chest in [place]. 7. GERD-not on home regimen. 8. Anxiety/depression-continue home regimen. 9. Hyperlipidemia-continue statin. 10. History of PE status post IVC filter General: Alert, Oriented x3, Cooperative, No apparent distress HEENT: Atraumatic, PERRLA, EOMI, Normocephalic Neck: Supple, No JVD, Negative Carotid Bruits Lungs: Clear to auscultation, Normal air movement Cardiovascular: Regular rate, Regular Rhythm, Normal S1, Normal S2, No murmurs Abdomen: Bowel Sounds Present, Soft, Non Tender, Non-Distended Extremities: No clubbing, No cyanosis, No edema, Capillary Refill Less than 3 Seconds Skin: No rashes, No breakdown Musculoskeletal: No Tenderness to Palpation of Joints or Extremities Neurological: Cranial nerves II-XII grossly intact, Neuro grossly intact Psych/Mental Status: Normal Affect, Appropriate Patient seen and examined prior to discharge. Physical assessment as noted above. Patient is stable for discharge to transitional care unit. This patient was seen by YUMI Berumen under the supervision of Dr. Sanches. Home Medications: Medications to take at Discharge Atorvastatin Calcium [Lipitor] 40 mg PO QHS 07/09/15 Multivitamin [Daily Multiple Vitamin] 1 tab PO DAILY 07/09/15 Alendronate Sodium 70 mg PO BURT 09/20/16 buPROPion XL [Wellbutrin Xl] 150 mg PO DAILY 09/20/16 Aspirin E.C. [Ecotrin] 81 mg PO DAILY@0800 02/26/17 Clopidogrel Bisulfate [Plavix] 75 mg PO DAILY 02/26/17 Oxycodone HCl/Acetaminophen [Percocet 7.5-325 mg Tablet] 1 tablet PO TID PRN PRN 02/27/17 Insulin Aspart [Novolog Flexpen] 6 units SC TIDCM 07/09/17 Insulin Glargine,Hum.rec.anlog [Toujeo Solostar] 38 units SQ QHS 07/09/17 Venlafaxine XR [Effexor Xr] 150 mg PO DAILY 07/09/17 Sodium Bicarbonate 650 mg PO DAILY 07/23/17 Carvedilol [Coreg (Beta Gilles)] 25 mg PO BID tablet 07/25/17 Gabapentin [Neurontin] 300 mg PO BIDCM capsule 07/25/17 Insulin Aspart [Novolog Flexpen] See Protocol SC ACHS flexpen 07/25/17 Olanzapine [Zyprexa] 2.5 mg PO QHS tablet 07/25/17 Other Amb Orders: 30-Day Event Recorder [[facility]] Time Frame: 1 Day, Location: None Selected Primary Care Physician: Donald Cline MD [Primary Care Provider] - Please follow up with your Primary Care Physician in: 1 Week Please Follow Up With: Lynette Coreas DO - Or Dr. Grimes When: 1 Week Please Follow Up With: Phil Johns MD When: 2-3 Weeks Disposition: [facility] facility Minutes spent on discharge:: 35 Patient Condition:: Stable Medical Necessity - Tobacco Use Smoking Status: Never smoker Meaningful Use Info Meaningful Use Diagnoses (Choose all that apply): None applicable <Yo Sanches - Last Filed: 07/25/17 14:34> Discharge Date and Diagnosis - Secondary Discharge Diagnosis Chronic Problems (Last Updated 07/16/17 @ 10:14 by Sarah Sifuentes) Atherosclerotic heart disease of [place] coronary artery without angina pectoris (Chronic) History of PTCA (Chronic) 01/05/2017 SHEKHAR to mid RCA & POBA to ostial PDA @ [facility] S/P coronary artery stent placement (Chronic) 2006, 2009 & 2010 Hypotension (Chronic) Postural instability (Chronic) Colon carcinoma (Chronic) S/P partial colon resection CAD (coronary artery disease) (Chronic) ptci and stents Diabetes (Chronic) 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) s/p colon resection remote, lung metastases diagnosed 2014, s/p adjuvant chemotherapy, s/p stereotactic XRT [facility], follows [facility] S/P ORIF (open reduction internal fixation) fracture (Chronic) left ankle, 09/14/14, Dr Harvey, [facility] Presence of IVC filter (Chronic) H/O deep venous thrombosis (Chronic) now has an IVC filter Hyperlipidemia (Chronic) Polyneuropathy (Chronic) Pulmonary embolism (Chronic) Hypertension (Chronic) Chronic renal failure, stage 3 (moderate) (Chronic) Anxiety and depression (Chronic) uncontrolled Gallstones (Chronic) GERD (gastroesophageal reflux disease) (Chronic) Hospital Course and Treatment Summary of Care Provided: This patient was seen in conjunction with TOY STUFFER, Malka. I have independently interviewed and examined the patient and reviewed pertinent history, examination findings, laboratory and plan of management. I have reviewed the note and agree with the documented findings with the few additional points. In brief, patient is admitted for increased confusion, difficulty in expressive speech and assessment was consistent with TIA. 2D echo shows normal LV size and thickness, EF 65% with a stage I diastolic dysfunction. No regional wall motion abnormality. Normal right and left atria. Bubble contrast today negative. Normal tricuspid valve severe mitral annular calcification with trivial MR. TSH normal. LDL 67. UA neg. She need 30 day event monitor placed after discharge and follow up with Neuro as an outpatient. During hospital stay, she developed acute kidney injury on CKD stage III with worsening of creatinine admitting 1.24-1.62. Filler Mixer was consulted. Patient had mild proteinuria in the urine. No obvious cause for acute kidney injury as UA is benign with proteinuria.Filler Mixer ordered serum globulin, protein gap renal ultrasound, urine PCR and SPEP. Renal ultrasound did not show acute abnormality without hydronephrosis and benign cyst. Her creatinine improved today to 1.38. Follow-up instructions completed. Discharge medication reconciliation done. Total time spent, exact 35 minutes on discharge meds reconciliation, examination , review of imaging and blood test and discussion with the patient on follow-up instructions. I have discussed my assessment with TOY STUFFER, Malka and orders have been reviewed. [] Clinical Impression(s) from Imaging Studies Brain CT 07/22/17 17:59 IMPRESSION: Chronic involutional changes of the brain. Brain MRI 07/23/17 07:48 IMPRESSION: Involutional changes of the brain, as described above. No evidence of a mass. No evidence of acute infarct. Electronically Signed: Nena Sales MD at 13:17 EDT Tel , Service support , Head MRA 07/23/17 07:48 IMPRESSION: Normal MRA of the head. Anatomic variation. I do note on the reformatted images that just at the bifurcation of the middle cerebral artery on the left it appears that there is a focal area of deficit but I cannot identify this deficit on the 3-D slab raw data. Therefore I do not suspect that this is truly an abnormality. Neck MRA 07/23/17 07:48 IMPRESSION: Normal bilateral cervical carotid and vertebral arteries. Note that this exam is hampered by motion and subtle abnormalities may be missed. The vessels do appear patent and grossly I do not see a focal area of significant stenosis. Since the patient is moving however, consider carotid ultrasound which could represent a complement to this exam and Renal Ultrasound 07/24/17 13:10 IMPRESSION: No evidence of renal obstruction. Normal renal size. Simple appearing bilateral renal cysts. Code Visit Inpatient E&M: 81646 Disch Hosp
[2017-07-25] MEDS: Carvedilol 25 MG Tablet PO ×2 (10:55→21:51)
[2017-07-25] MEDS: buPROPion (XL) 150 MG TABLET.XL PO (10:55)
[2017-07-25] MEDS: Sodium Bicarbonate 650 MG Tablet PO (10:55)
[2017-07-25] MEDS: Venlafaxine XR 150 MG Capsule PO (10:55)
[2017-07-25] MEDS: Clopidogrel Bisulfate 75 MG Tablet PO (10:55)
[2017-07-25] MEDS: Glucerna Shake 120 ML LIQUID PO ×2 (10:57→21:51)
[2017-07-25 11:50] LABS: Bedside Glucose 224 mg/dL (70-110)
--- NOTE | 2017-07-25 11:50 | CASEMGMT ---
This RN CM to room to explain and complete ALVAREZ form with pt at this time. Pt voices understanding of ALVAREZ at this time and pt signed ALVAREZ at this time. Original ALVAREZ to chart and copy to pt at this time. Pt voices no further questions/concerns/needs at this time. [place] PILI TRIVEDI
--- NOTE | 2017-07-25 12:29 | CHAPLAIN ---
Type of Pastoral Visit _x__ Initial Visit ___ Follow-up Visit ___ On-call Visit ___ General Patient Visit ___ Spiritual Assessment ___ Family Conference ___ Bereavement ___ Rapid Response ___ Code Blue ___ Other (describe below) Pastoral Care Referral From _x__ Patient ___ Family ___ Nurse ___ Physician ___ Retread Supervisor ___ Frame Aligner ___ Other (describe below) Sacrament/Intervention _x__ Active listening ___ Anointing ___ Oriental Orthodox ___ Bereavement ___ Communion ___ Ros exploration ___ ___ Life review ___ Prayer ___ Reconciliation ___ Sacrament of Sick ___ Supportive presence ___ Wedding ___ Other (describe below) Pastoral Comments patient was on phone; pt remembers gi tech from previous admissions; pt says she will be staying in TCU and would welcome future visits
[2017-07-25] MEDS: LORazepam 0.5 MG Tablet PO (13:22)
--- NOTE | 2017-07-25 15:12 | PCM.PROGNOTE ---
<Malka Robledo - Last Filed: 07/25/17 15:16> Subjective: Patient seen and examined. No acute events overnight. Denies current complaints. Pre-cert pending to TCU. - Physical Exam General: Alert, Oriented x3, Cooperative, No apparent distress HEENT: Atraumatic, PERRLA, EOMI, Normocephalic Neck: Supple, No JVD, Negative Carotid Bruits Lungs: Clear to auscultation, Normal air movement Cardiovascular: Regular rate, Regular Rhythm, Normal S1, Normal S2, No murmurs Abdomen: Bowel Sounds Present, Soft, Non Tender, Non-Distended Extremities: No clubbing, No cyanosis, No edema, Capillary Refill Less than 3 Seconds Skin: No rashes, No breakdown Musculoskeletal: No Tenderness to Palpation of Joints or Extremities Neurological: Cranial nerves II-XII grossly intact, Neuro grossly intact Psych/Mental Status: Normal Affect, Appropriate Vital Signs Temp Pulse Resp BP Pulse Ox 98.6 F 74 18 152/75 H 96 07/25/17 10:00 07/25/17 11:00 07/25/17 10:00 07/25/17 10:00 07/25/17 10:00 Oxygen Delivery Method Room Air Weight: 67.2 kg Body Mass Index (BMI) 27.1 Intake and Output for Last 24 Hours 07/23/17 07/24/17 07/25/17 23:59 23:59 23:59 Intake Total 2977 / 2977 2604 / 2604 1233 / 1233 Output Total 100 / 100 475 / 475 Balance 2877 / 2877 2129 / 2129 1233 / 1233 Laboratory Tests Past 24 Hrs 07/24/17 07/24/17 07/24/17 16:55 16:55 16:55 Sodium Potassium Chloride Carbon Dioxide Anion Gap BUN Creatinine Estim Creat Clear Calc Est GFR (MDRD) Af Amer Est GFR (MDRD) Non-Af BUN/Creatinine Ratio Glucose Calcium Total Protein (PEP) U Random Total Protein 65.7 H Ur Random Sodium 33 Urine Creatinine 96.40 95.60 Protein/Creatinin Ratio 687 H Urine Potassium 49.0 Urine Chloride 31 IgG IgA IgM Albumin (MARITZA) Albumin/Globulin (MARITZA) Zlubd-3-Pbvpvgtns MARITZA Lceee-0-Mgxmepyuq MARITZA Beta-Globulins (MARITZA) Gamma Globulins (MARITZA) MARITZA M-Elliot 07/25/17 07/25/17 05:18 05:18 Sodium 140 Potassium 4.4 Chloride 111 H Carbon Dioxide 22.0 Anion Gap 7 BUN 30 H Creatinine 1.38 H Estim Creat Clear Calc 27.00 Est GFR (MDRD) Af Amer 48 L Est GFR (MDRD) Non-Af 39 L BUN/Creatinine Ratio 21.7 H Glucose 107 H Calcium 8.4 L Total Protein (PEP) Pending U Random Total Protein Ur Random Sodium Urine Creatinine Protein/Creatinin Ratio Urine Potassium Urine Chloride IgG Pending IgA Pending IgM Pending Albumin (MARITZA) Pending Albumin/Globulin (MARITZA) Pending Hqdee-4-Borqiyjhs MARITZA Pending Rvqvv-3-Fnhqbcloz MARITZA Pending Beta-Globulins (MARITZA) Pending Gamma Globulins (MARITZA) Pending MARITZA M-Elliot Pending POC Glucose 07/25/17 07/25/17 07/24/17 11:26 06:46 21:34 POC Glucose 224 H 136 H 223 H 07/24/17 07/24/17 07/24/17 16:40 07:01 06:48 POC Glucose 166 H 59 L 69 L Medical Necessity - Tobacco Use Smoking Status: Never smoker Assessment/Plan Patient is a 76-year-old female admitted 07/22/17 due to weakness, confusion, aphasia, elevated blood pressure. She has a past medical history of type 2 diabetes mellitus, CAD status post PTCA, hypertension, history of metastatic colon cancer, GERD, anxiety, depression, hyperlipidemia, history of pulmonary embolism status post IVC filter, chronic kidney disease stage III. 1. TIA-symptoms have resolved. MRI of brain negative for acute infarct. MRA of neck without significant stenosis. Echocardiogram showed an EF of 65%, stage I diastolic dysfunction, no appreciable changes noted compared to previous study 01/06/2017. Neurology consulted. Patient will be discharged on 30 day event monitor. Follow-up with neurology in 2 weeks. TCU at discharge. Patient with recent admission due to intermittent confusion and generalized weakness. Home Zyprexa, gabapentin regimen reduced at that time and home as needed Ativan regimen discontinued. Continue previous changes. 2. Acute kidney injury on chronic kidney disease stage III-suspect secondary to dehydration, poor oral intake. Nephrology consulted. Renal ultrasound showed no evidence of renal obstruction. Normal renal size. Simple appearing bilateral renal cysts. Creatinine improved with IV fluids. Repeat BMP in 3 days followed by weekly while in transitional care unit. Follow-up with nephrology in 1-2 weeks. Serum globulin, protein gap,urine PCR and SPEP pending. 3. Type 2 diabetes mellitus-hemoglobin A1c 9%. Continue home insulin regimen. Add NovoLog medium dosing sliding scale insulin. 4. CAD status post PTCA-continue aspirin, statin, Plavix, beta-selma. 5. Hypertension-Continue home carvedilol regimen 25 mg twice daily. Will need further monitoring as outpatient with adjustment/additional agent as necessary. 6. History of metastatic colon cancer-chronic right lower lobe mass. Continue outpatient follow-up with oncology. Recent repeat CT of chest in [place]. 7. GERD-not on home regimen. 8. Anxiety/depression-continue home regimen. 9. Hyperlipidemia-continue statin. 10. History of PE status post IVC filter DVT prophylaxis-heparin subcu This patient was seen by YUMI Berumen under the supervision of Dr. Sanches. <Yo Sanches - Last Filed: 07/25/17 16:38> Subjective: Seen and examined. - Physical Exam Vital Signs Temp Pulse Resp BP Pulse Ox 98.6 F 84 18 152/75 H 96 07/25/17 10:00 07/25/17 16:04 07/25/17 10:00 07/25/17 10:00 07/25/17 10:00 Oxygen Delivery Method Room Air Weight: 148 lb 2.41 oz Body Mass Index (BMI) 27.1 Intake and Output for Last 24 Hours 07/23/17 07/24/17 07/25/17 23:59 23:59 23:59 Intake Total 2977 / 2977 2604 / 2604 1713 / 1713 Output Total 100 / 100 475 / 475 Balance 2877 / 2877 2129 / 2129 1713 / 1713 Laboratory Tests Past 24 Hrs 07/24/17 07/24/17 07/24/17 16:55 16:55 16:55 Sodium Potassium Chloride Carbon Dioxide Anion Gap BUN Creatinine Estim Creat Clear Calc Est GFR (MDRD) Af Amer Est GFR (MDRD) Non-Af BUN/Creatinine Ratio Glucose Calcium Total Protein (PEP) U Random Total Protein 65.7 H Ur Random Sodium 33 Urine Creatinine 96.40 95.60 Protein/Creatinin Ratio 687 H Urine Potassium 49.0 Urine Chloride 31 IgG IgA IgM Albumin (MARITZA) Albumin/Globulin (MARITZA) Yiqxf-9-Cerbsferj MARITZA Pnnqr-3-Zlqtcjygg MARITZA Beta-Globulins (MARITZA) Gamma Globulins (MARITZA) MARITZA M-Elliot 07/25/17 07/25/17 05:18 05:18 Sodium 140 Potassium 4.4 Chloride 111 H Carbon Dioxide 22.0 Anion Gap 7 BUN 30 H Creatinine 1.38 H Estim Creat Clear Calc 27.00 Est GFR (MDRD) Af Amer 48 L Est GFR (MDRD) Non-Af 39 L BUN/Creatinine Ratio 21.7 H Glucose 107 H Calcium 8.4 L Total Protein (PEP) Pending U Random Total Protein Ur Random Sodium Urine Creatinine Protein/Creatinin Ratio Urine Potassium Urine Chloride IgG Pending IgA Pending IgM Pending Albumin (MARITZA) Pending Albumin/Globulin (MARITZA) Pending Wagae-1-Yulrxfndp MARITZA Pending Ynehv-4-Yoxnvdlwv MARITZA Pending Beta-Globulins (MARITZA) Pending Gamma Globulins (MARITZA) Pending MARITZA M-Elliot Pending POC Glucose 07/25/17 07/25/17 07/24/17 11:26 06:46 21:34 POC Glucose 224 H 136 H 223 H 07/24/17 16:40 POC Glucose 166 H Assessment/Plan Patient is pending precertification for transfer to TCU. Code Visit Inpatient E&M: 07900 Subs Hosp L2
--- NOTE | 2017-07-25 15:16 | PN_ITS ---
<Malka Robledo - Last Filed: 07/25/17 15:16> Subjective: Patient seen and examined. No acute events overnight. Denies current complaints. Pre-cert pending to TCU. - Physical Exam General: Alert, Oriented x3, Cooperative, No apparent distress HEENT: Atraumatic, PERRLA, EOMI, Normocephalic Neck: Supple, No JVD, Negative Carotid Bruits Lungs: Clear to auscultation, Normal air movement Cardiovascular: Regular rate, Regular Rhythm, Normal S1, Normal S2, No murmurs Abdomen: Bowel Sounds Present, Soft, Non Tender, Non-Distended Extremities: No clubbing, No cyanosis, No edema, Capillary Refill Less than 3 Seconds Skin: No rashes, No breakdown Musculoskeletal: No Tenderness to Palpation of Joints or Extremities Neurological: Cranial nerves II-XII grossly intact, Neuro grossly intact Psych/Mental Status: Normal Affect, Appropriate Vital Signs Temp Pulse Resp BP Pulse Ox 98.6 F 74 18 152/75 H 96 07/25/17 10:00 07/25/17 11:00 07/25/17 10:00 07/25/17 10:00 07/25/17 10:00 Oxygen Delivery Method Room Air Weight: 67.2 kg Body Mass Index (BMI) 27.1 Intake and Output for Last 24 Hours 07/23/17 07/24/17 07/25/17 23:59 23:59 23:59 Intake Total 2977 / 2977 2604 / 2604 1233 / 1233 Output Total 100 / 100 475 / 475 Balance 2877 / 2877 2129 / 2129 1233 / 1233 Laboratory Tests Past 24 Hrs 07/24/17 07/24/17 07/24/17 16:55 16:55 16:55 Sodium Potassium Chloride Carbon Dioxide Anion Gap BUN Creatinine Estim Creat Clear Calc Est GFR (MDRD) Af Amer Est GFR (MDRD) Non-Af BUN/Creatinine Ratio Glucose Calcium Total Protein (PEP) U Random Total Protein 65.7 H Ur Random Sodium 33 Urine Creatinine 96.40 95.60 Protein/Creatinin Ratio 687 H Urine Potassium 49.0 Urine Chloride 31 IgG IgA IgM Albumin (MARITZA) Albumin/Globulin (MARITZA) Tcliv-7-Aysomrmnl MARITZA Lifit-3-Aoufkksgu MARITZA Beta-Globulins (MARITZA) Gamma Globulins (MARITZA) MARITZA M-Elliot 07/25/17 07/25/17 05:18 05:18 Sodium 140 Potassium 4.4 Chloride 111 H Carbon Dioxide 22.0 Anion Gap 7 BUN 30 H Creatinine 1.38 H Estim Creat Clear Calc 27.00 Est GFR (MDRD) Af Amer 48 L Est GFR (MDRD) Non-Af 39 L BUN/Creatinine Ratio 21.7 H Glucose 107 H Calcium 8.4 L Total Protein (PEP) Pending U Random Total Protein Ur Random Sodium Urine Creatinine Protein/Creatinin Ratio Urine Potassium Urine Chloride IgG Pending IgA Pending IgM Pending Albumin (MARITZA) Pending Albumin/Globulin (MARITZA) Pending Jdfcu-7-Wcekblpxy MARITZA Pending Xrxyv-6-Kukkrirbw MARITZA Pending Beta-Globulins (MARITZA) Pending Gamma Globulins (MARITZA) Pending MARITZA M-Elliot Pending POC Glucose 07/25/17 07/25/17 07/24/17 11:26 06:46 21:34 POC Glucose 224 H 136 H 223 H 07/24/17 07/24/17 07/24/17 16:40 07:01 06:48 POC Glucose 166 H 59 L 69 L Medical Necessity - Tobacco Use Smoking Status: Never smoker Assessment/Plan Patient is a 76-year-old female admitted 07/22/17 due to weakness, confusion, aphasia, elevated blood pressure. She has a past medical history of type 2 diabetes mellitus, CAD status post PTCA, hypertension, history of metastatic colon cancer, GERD, anxiety, depression, hyperlipidemia, history of pulmonary embolism status post IVC filter, chronic kidney disease stage III. 1. TIA-symptoms have resolved. MRI of brain negative for acute infarct. MRA of neck without significant stenosis. Echocardiogram showed an EF of 65%, stage I diastolic dysfunction, no appreciable changes noted compared to previous study 01/06/2017. Neurology consulted. Patient will be discharged on 30 day event monitor. Follow-up with neurology in 2 weeks. TCU at discharge. Patient with recent admission due to intermittent confusion and generalized weakness. Home Zyprexa, gabapentin regimen reduced at that time and home as needed Ativan regimen discontinued. Continue previous changes. 2. Acute kidney injury on chronic kidney disease stage III-suspect secondary to dehydration, poor oral intake. Nephrology consulted. Renal ultrasound showed no evidence of renal obstruction. Normal renal size. Simple appearing bilateral renal cysts. Creatinine improved with IV fluids. Repeat BMP in 3 days followed by weekly while in transitional care unit. Follow-up with nephrology in 1-2 weeks. Serum globulin, protein gap,urine PCR and SPEP pending. 3. Type 2 diabetes mellitus-hemoglobin A1c 9%. Continue home insulin regimen. Add NovoLog medium dosing sliding scale insulin. 4. CAD status post PTCA-continue aspirin, statin, Plavix, beta-selma. 5. Hypertension-Continue home carvedilol regimen 25 mg twice daily. Will need further monitoring as outpatient with adjustment/additional agent as necessary. 6. History of metastatic colon cancer-chronic right lower lobe mass. Continue outpatient follow-up with oncology. Recent repeat CT of chest in [place]. 7. GERD-not on home regimen. 8. Anxiety/depression-continue home regimen. 9. Hyperlipidemia-continue statin. 10. History of PE status post IVC filter DVT prophylaxis-heparin subcu This patient was seen by YUMI Berumen under the supervision of Dr. Sanches. <Yo Sanches - Last Filed: 07/25/17 16:38> Subjective: Seen and examined. - Physical Exam Vital Signs Temp Pulse Resp BP Pulse Ox 98.6 F 84 18 152/75 H 96 07/25/17 10:00 07/25/17 16:04 07/25/17 10:00 07/25/17 10:00 07/25/17 10:00 Oxygen Delivery Method Room Air Weight: 148 lb 2.41 oz Body Mass Index (BMI) 27.1 Intake and Output for Last 24 Hours 07/23/17 07/24/17 07/25/17 23:59 23:59 23:59 Intake Total 2977 / 2977 2604 / 2604 1713 / 1713 Output Total 100 / 100 475 / 475 Balance 2877 / 2877 2129 / 2129 1713 / 1713 Laboratory Tests Past 24 Hrs 07/24/17 07/24/17 07/24/17 16:55 16:55 16:55 Sodium Potassium Chloride Carbon Dioxide Anion Gap BUN Creatinine Estim Creat Clear Calc Est GFR (MDRD) Af Amer Est GFR (MDRD) Non-Af BUN/Creatinine Ratio Glucose Calcium Total Protein (PEP) U Random Total Protein 65.7 H Ur Random Sodium 33 Urine Creatinine 96.40 95.60 Protein/Creatinin Ratio 687 H Urine Potassium 49.0 Urine Chloride 31 IgG IgA IgM Albumin (MARITZA) Albumin/Globulin (MARITZA) Htaai-1-Xdtmylbvz MARITZA Cponj-4-Mcfdglekj MARITZA Beta-Globulins (MARITZA) Gamma Globulins (MARITZA) MARITZA M-Elliot 07/25/17 07/25/17 05:18 05:18 Sodium 140 Potassium 4.4 Chloride 111 H Carbon Dioxide 22.0 Anion Gap 7 BUN 30 H Creatinine 1.38 H Estim Creat Clear Calc 27.00 Est GFR (MDRD) Af Amer 48 L Est GFR (MDRD) Non-Af 39 L BUN/Creatinine Ratio 21.7 H Glucose 107 H Calcium 8.4 L Total Protein (PEP) Pending U Random Total Protein Ur Random Sodium Urine Creatinine Protein/Creatinin Ratio Urine Potassium Urine Chloride IgG Pending IgA Pending IgM Pending Albumin (MARITZA) Pending Albumin/Globulin (MARITZA) Pending Ihfdl-8-Elelyzult MARITZA Pending Szrlc-8-Jbypkftyu MARITZA Pending Beta-Globulins (MARITZA) Pending Gamma Globulins (MARITZA) Pending MARITZA M-Elliot Pending POC Glucose 07/25/17 07/25/17 07/24/17 11:26 06:46 21:34 POC Glucose 224 H 136 H 223 H 07/24/17 16:40 POC Glucose 166 H Assessment/Plan Patient is pending precertification for transfer to TCU. Code Visit Inpatient E&M: 58289 Subs Hosp L2
--- NOTE | 2017-07-25 15:24 | CASEMGMT ---
Addendum entered by Maryana Coffey 07/25/17 15:27: ENRIQUE did let patient know we are still waiting on insurance. Maryana MORALES Original Note: ENRIQUE did call Christine and they have not heard from insurance yet. ENRIQUE will let patient know we are still waiting on insurance. Christine will call PCU if she gets approval. Plan: [facility] pending insurance approval. Maryana MORALES
--- NOTE | 2017-07-25 15:49 | PCM.PN.REN ---
Subjective: no new events - Physical Exam General: Alert, Oriented x3, Cooperative HEENT: Atraumatic, PERRLA, EOMI, Normocephalic Neck: Supple, No JVD, Negative Carotid Bruits Lungs: Clear to auscultation, Normal air movement Cardiovascular: Regular rate, No murmurs Abdomen: Bowel Sounds Present, Soft, Non Tender Extremities: No edema, Capillary Refill Less than 3 Seconds Skin: No rashes, No breakdown Musculoskeletal: No Tenderness to Palpation of Joints or Extremities Neurological: Cranial nerves II-XII grossly intact Psych/Mental Status: Normal Affect, Appropriate Vital Signs Temp Pulse Resp BP Pulse Ox 98.6 F 74 18 152/75 H 96 07/25/17 10:00 07/25/17 11:00 07/25/17 10:00 07/25/17 10:00 07/25/17 10:00 Oxygen Delivery Method Room Air Weight: 67.2 kg Body Mass Index (BMI) 27.1 Intake and Output for Last 24 Hours 07/23/17 07/24/17 07/25/17 23:59 23:59 23:59 Intake Total 2977 / 2977 2604 / 2604 1233 / 1233 Output Total 100 / 100 475 / 475 Balance 2877 / 2877 2129 / 2129 1233 / 1233 Laboratory Tests Past 24 Hrs 07/24/17 07/24/17 07/24/17 16:55 16:55 16:55 Sodium Potassium Chloride Carbon Dioxide Anion Gap BUN Creatinine Estim Creat Clear Calc Est GFR (MDRD) Af Amer Est GFR (MDRD) Non-Af BUN/Creatinine Ratio Glucose Calcium Total Protein (PEP) U Random Total Protein 65.7 H Ur Random Sodium 33 Urine Creatinine 96.40 95.60 Protein/Creatinin Ratio 687 H Urine Potassium 49.0 Urine Chloride 31 IgG IgA IgM Albumin (MARITZA) Albumin/Globulin (MARITZA) Pnicg-4-Xrgzqensl MARITZA Ignix-9-Ijyyxxdzu MARITZA Beta-Globulins (MARITZA) Gamma Globulins (MARITZA) MARITZA M-Elliot 07/25/17 07/25/17 05:18 05:18 Sodium 140 Potassium 4.4 Chloride 111 H Carbon Dioxide 22.0 Anion Gap 7 BUN 30 H Creatinine 1.38 H Estim Creat Clear Calc 27.00 Est GFR (MDRD) Af Amer 48 L Est GFR (MDRD) Non-Af 39 L BUN/Creatinine Ratio 21.7 H Glucose 107 H Calcium 8.4 L Total Protein (PEP) Pending U Random Total Protein Ur Random Sodium Urine Creatinine Protein/Creatinin Ratio Urine Potassium Urine Chloride IgG Pending IgA Pending IgM Pending Albumin (MARITZA) Pending Albumin/Globulin (MARITZA) Pending Alusf-9-Qulbesgkq MARITZA Pending Andjv-6-Dmsgxsbug MARITZA Pending Beta-Globulins (MARITZA) Pending Gamma Globulins (MARITZA) Pending MARITZA M-Elliot Pending POC Glucose 07/25/17 07/25/17 07/24/17 11:26 06:46 21:34 POC Glucose 224 H 136 H 223 H 07/24/17 16:40 POC Glucose 166 H Medical Necessity - Tobacco Use Smoking Status: Never smoker Assessment/Plan ARIEL CKD stage 3 Baseline creatinine is around 1.2. Recently sustained an ARIEL but back to baseline within 3 days Etiology of current ARIEL is likely prerenal ARIEL UA is fairly active. proteinuria is not significant amount, likely related to diabetes HbA1c is poorly controlled UA also has hematuria without any reyes Elevated serum globulin and protein gap will check SPEP continue current meds for now ok to dc fluids ok to dc to rehab will follow thank you
--- NOTE | 2017-07-25 15:55 | PN.RENAL_ITS ---
Subjective: no new events - Physical Exam General: Alert, Oriented x3, Cooperative HEENT: Atraumatic, PERRLA, EOMI, Normocephalic Neck: Supple, No JVD, Negative Carotid Bruits Lungs: Clear to auscultation, Normal air movement Cardiovascular: Regular rate, No murmurs Abdomen: Bowel Sounds Present, Soft, Non Tender Extremities: No edema, Capillary Refill Less than 3 Seconds Skin: No rashes, No breakdown Musculoskeletal: No Tenderness to Palpation of Joints or Extremities Neurological: Cranial nerves II-XII grossly intact Psych/Mental Status: Normal Affect, Appropriate Vital Signs Temp Pulse Resp BP Pulse Ox 98.6 F 74 18 152/75 H 96 07/25/17 10:00 07/25/17 11:00 07/25/17 10:00 07/25/17 10:00 07/25/17 10:00 Oxygen Delivery Method Room Air Weight: 67.2 kg Body Mass Index (BMI) 27.1 Intake and Output for Last 24 Hours 07/23/17 07/24/17 07/25/17 23:59 23:59 23:59 Intake Total 2977 / 2977 2604 / 2604 1233 / 1233 Output Total 100 / 100 475 / 475 Balance 2877 / 2877 2129 / 2129 1233 / 1233 Laboratory Tests Past 24 Hrs 07/24/17 07/24/17 07/24/17 16:55 16:55 16:55 Sodium Potassium Chloride Carbon Dioxide Anion Gap BUN Creatinine Estim Creat Clear Calc Est GFR (MDRD) Af Amer Est GFR (MDRD) Non-Af BUN/Creatinine Ratio Glucose Calcium Total Protein (PEP) U Random Total Protein 65.7 H Ur Random Sodium 33 Urine Creatinine 96.40 95.60 Protein/Creatinin Ratio 687 H Urine Potassium 49.0 Urine Chloride 31 IgG IgA IgM Albumin (MARITZA) Albumin/Globulin (MARITZA) Fnvum-4-Hoknkfhkr MARITZA Dekuq-0-Brggknuwz MARITZA Beta-Globulins (MARITZA) Gamma Globulins (MARITZA) MARITZA M-Elliot 07/25/17 07/25/17 05:18 05:18 Sodium 140 Potassium 4.4 Chloride 111 H Carbon Dioxide 22.0 Anion Gap 7 BUN 30 H Creatinine 1.38 H Estim Creat Clear Calc 27.00 Est GFR (MDRD) Af Amer 48 L Est GFR (MDRD) Non-Af 39 L BUN/Creatinine Ratio 21.7 H Glucose 107 H Calcium 8.4 L Total Protein (PEP) Pending U Random Total Protein Ur Random Sodium Urine Creatinine Protein/Creatinin Ratio Urine Potassium Urine Chloride IgG Pending IgA Pending IgM Pending Albumin (MARITZA) Pending Albumin/Globulin (MARTIZA) Pending Alwia-8-Fhtmcmjwm MARITZA Pending Nzbgr-6-Qjqwzbdpr MARITZA Pending Beta-Globulins (MARITZA) Pending Gamma Globulins (MARITZA) Pending MARITZA M-Elliot Pending POC Glucose 07/25/17 07/25/17 07/24/17 11:26 06:46 21:34 POC Glucose 224 H 136 H 223 H 07/24/17 16:40 POC Glucose 166 H Medical Necessity - Tobacco Use Smoking Status: Never smoker Assessment/Plan ARIEL CKD stage 3 Baseline creatinine is around 1.2. Recently sustained an ARIEL but back to baseline within 3 days Etiology of current ARIEL is likely prerenal ARIEL UA is fairly active. proteinuria is not significant amount, likely related to diabetes HbA1c is poorly controlled UA also has hematuria without any reyes Elevated serum globulin and protein gap will check SPEP continue current meds for now ok to dc fluids ok to dc to rehab will follow thank you
[2017-07-25 16:55] LABS: Bedside Glucose 259 mg/dL (70-110)
--- NOTE | 2017-07-25 19:56 | NURSING ---
Pt reports chronic N/T to her feet.
[2017-07-25] MEDS: Atorvastatin Calcium 40 MG Tablet PO (21:53)
[2017-07-25] MEDS: OLANZapine 2.5 MG Tablet PO (21:54)
[2017-07-25 23:26] LABS: Bedside Glucose 209 mg/dL (70-110)
[2017-07-26] VITALS (14 sets, daily range): BP systolic 156–184; BP diastolic 71–95; PULSE 69–101; RESP 16–22; TEMP 36.7–36.9; O2SAT 94–97; BMI 27.1
[2017-07-26] MEDS: LORazepam 0.5 MG Tablet PO ×2 (00:44→21:20)
[2017-07-26] MEDS: Heparin Injection (Vial) 5,000 UNIT/ML VIAL 5000 UNIT SC ×3 (05:52→21:29)
[2017-07-26] MEDS: 0.9% NaCl Peripheral Flush Adult/Peds IV ×2 (06:46→21:33)
[2017-07-26 07:06] LABS: Bedside Glucose 154 mg/dL (70-110)
[2017-07-26] MEDS: Carvedilol 25 MG Tablet PO ×2 (08:26→21:29)
[2017-07-26] MEDS: Venlafaxine XR 150 MG Capsule PO (08:26)
[2017-07-26] MEDS: Clopidogrel Bisulfate 75 MG Tablet PO (08:26)
[2017-07-26] MEDS: Sodium Bicarbonate 650 MG Tablet PO (08:26)
[2017-07-26] MEDS: buPROPion (XL) 150 MG TABLET.XL PO (08:26)
[2017-07-26] MEDS: Aspirin E.C. 81 MG Tablet PO (08:27)
[2017-07-26] MEDS: Gabapentin 300 MG Capsule PO ×2 (08:27→17:01)
[2017-07-26] MEDS: Glucerna Shake 120 ML LIQUID PO ×3 (08:30→21:24)
--- NOTE | 2017-07-26 09:52 | PCM.PN.REN ---
Subjective: No SOB creatinine 1.38 Labs for today pending - Physical Exam Neck: Supple, No JVD, Negative Carotid Bruits Lungs: Clear to auscultation Cardiovascular: Regular rate, No murmurs Abdomen: Bowel Sounds Present, Soft, Non Tender Extremities: No edema, Capillary Refill Less than 3 Seconds Vital Signs Temp Pulse Resp BP Pulse Ox 98.1 F 84 16 161/95 H 97 07/26/17 08:15 07/26/17 08:15 07/26/17 08:15 07/26/17 08:15 07/26/17 08:15 Oxygen Delivery Method Room Air Weight: 67.2 kg Body Mass Index (BMI) 27.1 Intake and Output for Last 24 Hours 07/24/17 07/25/17 07/26/17 23:59 23:59 23:59 Intake Total 2604 / 2604 5295 / 5295 748 / 748 Output Total 475 / 475 Balance 2129 / 2129 5295 / 5295 748 / 748 POC Glucose 07/26/17 07/25/17 07/25/17 06:42 21:46 16:46 POC Glucose 154 H 209 H 259 H 07/25/17 11:26 POC Glucose 224 H Medical Necessity - Tobacco Use Smoking Status: Never smoker Assessment/Plan Non oliguric ARIEL on CKD stage 3-Baseline creatinine is around 1.2. Recently sustained an ARIEL creatinine around 1.38.UA is fairly active. 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
--- NOTE | 2017-07-26 12:04 | PCM.PROGNOTE ---
<Malka Robledo - Last Filed: 07/26/17 12:12> Subjective: Patient seen and examined. Continues to feel well. Denies current complaints. Waiting pre-CERT to transitional care unit. - Physical Exam General: Alert, Oriented x3, Cooperative HEENT: Atraumatic, PERRLA, EOMI, Normocephalic Neck: Supple, No JVD, Negative Carotid Bruits Lungs: Clear to auscultation, Normal air movement Cardiovascular: Regular rate, Regular Rhythm, Normal S1, Normal S2, No murmurs Abdomen: Bowel Sounds Present, Soft, Non Tender Extremities: No clubbing, No cyanosis, No edema, Capillary Refill Less than 3 Seconds Skin: No rashes, No breakdown Musculoskeletal: No Tenderness to Palpation of Joints or Extremities Neurological: Cranial nerves II-XII grossly intact, Neuro grossly intact Psych/Mental Status: Normal Affect, Appropriate Vital Signs Temp Pulse Resp BP Pulse Ox 98.1 F 71 16 161/95 H 97 07/26/17 08:15 07/26/17 11:13 07/26/17 08:15 07/26/17 08:15 07/26/17 08:15 Oxygen Delivery Method Room Air Weight: 67.2 kg Body Mass Index (BMI) 27.1 Intake and Output for Last 24 Hours 07/24/17 07/25/17 07/26/17 23:59 23:59 23:59 Intake Total 2604 / 2604 5295 / 5295 748 / 748 Output Total 475 / 475 Balance 2129 / 2129 5295 / 5295 748 / 748 Microbiology Past 72 Hours 07/24/17 16:55 Urine Culture - Final Urine, Clean Catch Mixed Gram Positive Organisms POC Glucose 07/26/17 07/25/17 07/25/17 06:42 21:46 16:46 POC Glucose 154 H 209 H 259 H Medical Necessity - Tobacco Use Smoking Status: Never smoker Assessment/Plan Patient is a 76-year-old female admitted 07/22/17 due to weakness, confusion, aphasia, elevated blood pressure. She has a past medical history of type 2 diabetes mellitus, CAD status post PTCA, hypertension, history of metastatic colon cancer, GERD, anxiety, depression, hyperlipidemia, history of pulmonary embolism status post IVC filter, chronic kidney disease stage III. 1. TIA-symptoms have resolved. MRI of brain negative for acute infarct. MRA of neck without significant stenosis. Echocardiogram showed an EF of 65%, stage I diastolic dysfunction, no appreciable changes noted compared to previous study 01/06/2017. Neurology consulted. Patient will be discharged on 30 day event monitor. Follow-up with neurology in 2 weeks. TCU at discharge. Patient with recent admission due to intermittent confusion and generalized weakness. Home Zyprexa, gabapentin regimen reduced at that time and home as needed Ativan regimen discontinued. Continue previous changes. 2. Acute kidney injury on chronic kidney disease stage III-suspect secondary to dehydration, poor oral intake. Nephrology consulted. Renal ultrasound showed no evidence of renal obstruction. Normal renal size. Simple appearing bilateral renal cysts. Creatinine improved with IV fluids. IV fluids now discontinued. Repeat BMP in 3 days followed by weekly while in transitional care unit. Follow-up with nephrology in 1-2 weeks. Serum globulin, protein gap,urine PCR and SPEP pending. 3. Type 2 diabetes mellitus-hemoglobin A1c 9%. Continue home insulin regimen. NovoLog medium dosing sliding scale insulin added. 4. CAD status post PTCA-continue aspirin, statin, Plavix, beta-selma. 5. Hypertension-Continue home carvedilol regimen 25 mg twice daily. Amlodipine 5 mg daily added. Continue to monitor. 6. History of metastatic colon cancer-chronic right lower lobe mass. Continue outpatient follow-up with oncology. Recent repeat CT of chest in [place]. 7. GERD-not on home regimen. 8. Anxiety/depression-continue home regimen. 9. Hyperlipidemia-continue statin. 10. History of PE status post IVC filter DVT prophylaxis-heparin subcu Discharge planning: Awaiting pre-CERT to TCU. This patient was seen by YUMI Berumen under the supervision of Dr. Sanches. <Yo Sanches - Last Filed: 07/26/17 14:23> - Physical Exam Lungs: Clear to auscultation, Normal air movement Cardiovascular: Regular rate, Regular Rhythm, Normal S1, Normal S2 Abdomen: Bowel Sounds Present, Soft, Non Tender Vital Signs Temp Pulse Resp BP Pulse Ox 98.1 F 71 16 161/95 H 97 07/26/17 08:15 07/26/17 11:13 07/26/17 08:15 07/26/17 08:15 07/26/17 08:15 Oxygen Delivery Method Room Air Weight: 148 lb 2.41 oz Body Mass Index (BMI) 27.1 Intake and Output for Last 24 Hours 07/24/17 07/25/17 07/26/17 23:59 23:59 23:59 Intake Total 2604 / 2604 5295 / 5295 1948 / 1948 Output Total 475 / 475 200 / 200 Balance 2129 / 2129 5295 / 5295 1748 / 1748 Microbiology Past 72 Hours 07/24/17 16:55 Urine Culture - Final Urine, Clean Catch Mixed Gram Positive Organisms POC Glucose 07/26/17 07/26/17 07/25/17 11:54 06:42 21:46 POC Glucose 243 H 154 H 209 H 07/25/17 16:46 POC Glucose 259 H Assessment/Plan This patient was seen in conjunction with [employer], Malka. I have independently interviewed and examined the patient and reviewed pertinent history, examination findings, laboratory and plan of management. I have reviewed the note and agree with the documented findings with the few additional points. In brief, patient is admitted for increased confusion, difficulty in expressive speech and assessment was consistent with TIA. 2D echo shows normal LV size and thickness, EF 65% with a stage I diastolic dysfunction. No regional wall motion abnormality. Normal right and left atria. Bubble contrast today negative. Normal tricuspid valve severe mitral annular calcification with trivial MR. TSH normal. LDL 67. UA neg. She need 30 day event monitor placed after discharge and follow up with Neuro as an outpatient. During hospital stay, she developed acute kidney injury on CKD stage III with worsening of creatinine admitting 1.24-1.62. Director Biostatistics was consulted. Patient had mild proteinuria in the urine. No obvious cause for acute kidney injury as UA is benign with proteinuria.Director Biostatistics ordered serum globulin, protein gap renal ultrasound, urine PCR and SPEP. Renal ultrasound did not show acute abnormality without hydronephrosis and benign cyst. Her creatinine improved improved to 1.38. Pending transfer to TCU Code Visit Inpatient E&M: 67458 Subs Hosp L2
--- NOTE | 2017-07-26 12:12 | PN_ITS ---
<Malka Robledo - Last Filed: 07/26/17 12:12> Subjective: Patient seen and examined. Continues to feel well. Denies current complaints. Waiting pre-CERT to transitional care unit. - Physical Exam General: Alert, Oriented x3, Cooperative HEENT: Atraumatic, PERRLA, EOMI, Normocephalic Neck: Supple, No JVD, Negative Carotid Bruits Lungs: Clear to auscultation, Normal air movement Cardiovascular: Regular rate, Regular Rhythm, Normal S1, Normal S2, No murmurs Abdomen: Bowel Sounds Present, Soft, Non Tender Extremities: No clubbing, No cyanosis, No edema, Capillary Refill Less than 3 Seconds Skin: No rashes, No breakdown Musculoskeletal: No Tenderness to Palpation of Joints or Extremities Neurological: Cranial nerves II-XII grossly intact, Neuro grossly intact Psych/Mental Status: Normal Affect, Appropriate Vital Signs Temp Pulse Resp BP Pulse Ox 98.1 F 71 16 161/95 H 97 07/26/17 08:15 07/26/17 11:13 07/26/17 08:15 07/26/17 08:15 07/26/17 08:15 Oxygen Delivery Method Room Air Weight: 67.2 kg Body Mass Index (BMI) 27.1 Intake and Output for Last 24 Hours 07/24/17 07/25/17 07/26/17 23:59 23:59 23:59 Intake Total 2604 / 2604 5295 / 5295 748 / 748 Output Total 475 / 475 Balance 2129 / 2129 5295 / 5295 748 / 748 Microbiology Past 72 Hours 07/24/17 16:55 Urine Culture - Final Urine, Clean Catch Mixed Gram Positive Organisms POC Glucose 07/26/17 07/25/17 07/25/17 06:42 21:46 16:46 POC Glucose 154 H 209 H 259 H Medical Necessity - Tobacco Use Smoking Status: Never smoker Assessment/Plan Patient is a 76-year-old female admitted 07/22/17 due to weakness, confusion, aphasia, elevated blood pressure. She has a past medical history of type 2 diabetes mellitus, CAD status post PTCA, hypertension, history of metastatic colon cancer, GERD, anxiety, depression, hyperlipidemia, history of pulmonary embolism status post IVC filter, chronic kidney disease stage III. 1. TIA-symptoms have resolved. MRI of brain negative for acute infarct. MRA of neck without significant stenosis. Echocardiogram showed an EF of 65%, stage I diastolic dysfunction, no appreciable changes noted compared to previous study 01/06/2017. Neurology consulted. Patient will be discharged on 30 day event monitor. Follow-up with neurology in 2 weeks. TCU at discharge. Patient with recent admission due to intermittent confusion and generalized weakness. Home Zyprexa, gabapentin regimen reduced at that time and home as needed Ativan regimen discontinued. Continue previous changes. 2. Acute kidney injury on chronic kidney disease stage III-suspect secondary to dehydration, poor oral intake. Nephrology consulted. Renal ultrasound showed no evidence of renal obstruction. Normal renal size. Simple appearing bilateral renal cysts. Creatinine improved with IV fluids. IV fluids now discontinued. Repeat BMP in 3 days followed by weekly while in transitional care unit. Follow-up with nephrology in 1-2 weeks. Serum globulin, protein gap, urine PCR and SPEP pending. 3. Type 2 diabetes mellitus-hemoglobin A1c 9%. Continue home insulin regimen. NovoLog medium dosing sliding scale insulin added. 4. CAD status post PTCA-continue aspirin, statin, Plavix, beta-selma. 5. Hypertension-Continue home carvedilol regimen 25 mg twice daily. Amlodipine 5 mg daily added. Continue to monitor. 6. History of metastatic colon cancer-chronic right lower lobe mass. Continue outpatient follow-up with oncology. Recent repeat CT of chest in [place]. 7. GERD-not on home regimen. 8. Anxiety/depression-continue home regimen. 9. Hyperlipidemia-continue statin. 10. History of PE status post IVC filter DVT prophylaxis-heparin subcu Discharge planning: Awaiting pre-CERT to TCU. This patient was seen by YUMI Berumen under the supervision of Dr. Sanches. <Yo Sanches - Last Filed: 07/26/17 14:23> - Physical Exam Lungs: Clear to auscultation, Normal air movement Cardiovascular: Regular rate, Regular Rhythm, Normal S1, Normal S2 Abdomen: Bowel Sounds Present, Soft, Non Tender Vital Signs Temp Pulse Resp BP Pulse Ox 98.1 F 71 16 161/95 H 97 07/26/17 08:15 07/26/17 11:13 07/26/17 08:15 07/26/17 08:15 07/26/17 08:15 Oxygen Delivery Method Room Air Weight: 148 lb 2.41 oz Body Mass Index (BMI) 27.1 Intake and Output for Last 24 Hours 07/24/17 07/25/17 07/26/17 23:59 23:59 23:59 Intake Total 2604 / 2604 5295 / 5295 1948 / 1948 Output Total 475 / 475 200 / 200 Balance 2129 / 2129 5295 / 5295 1748 / 1748 Microbiology Past 72 Hours 07/24/17 16:55 Urine Culture - Final Urine, Clean Catch Mixed Gram Positive Organisms POC Glucose 07/26/17 07/26/17 07/25/17 11:54 06:42 21:46 POC Glucose 243 H 154 H 209 H 07/25/17 16:46 POC Glucose 259 H Assessment/Plan This patient was seen in conjunction with GLASS BULB MACHINE ADJUSTER, Malka. I have independently interviewed and examined the patient and reviewed pertinent history, examination findings, laboratory and plan of management. I have reviewed the note and agree with the documented findings with the few additional points. In brief, patient is admitted for increased confusion, difficulty in expressive speech and assessment was consistent with TIA. 2D echo shows normal LV size and thickness, EF 65% with a stage I diastolic dysfunction. No regional wall motion abnormality. Normal right and left atria. Bubble contrast today negative. Normal tricuspid valve severe mitral annular calcification with trivial MR. TSH normal. LDL 67. UA neg. She need 30 day event monitor placed after discharge and follow up with Neuro as an outpatient. During hospital stay, she developed acute kidney injury on CKD stage III with worsening of creatinine admitting 1.24-1.62. Buckle Wire Inserter was consulted. Patient had mild proteinuria in the urine. No obvious cause for acute kidney injury as UA is benign with proteinuria.Buckle Wire Inserter ordered serum globulin, protein gap renal ultrasound, urine PCR and SPEP. Renal ultrasound did not show acute abnormality without hydronephrosis and benign cyst. Her creatinine improved improved to 1.38. Pending transfer to TCU Code Visit Inpatient E&M: 92123 Subs Hosp L2
[2017-07-26 12:26] LABS: Bedside Glucose 243 mg/dL (70-110)
[2017-07-26] MEDS: amLODIPine 5 MG Tablet PO (14:32)
[2017-07-26 17:05] LABS: Bedside Glucose 312 mg/dL (70-110)
[2017-07-26] MEDS: hydrALAZINE 20 MG/ML Vial 10 MG IV (21:19)
[2017-07-26] MEDS: Atorvastatin Calcium 40 MG Tablet PO (21:24)
[2017-07-26] MEDS: OLANZapine 2.5 MG Tablet PO (21:24)
[2017-07-26 22:16] LABS: Bedside Glucose 295 mg/dL (70-110)
[2017-07-26 22:16] LABS: Bedside Glucose 311 mg/dL (70-110)
[2017-07-27] VITALS (13 sets, daily range): BP systolic 123–159; BP diastolic 56–81; PULSE 71–95; RESP 14–18; TEMP 36.7–37.1; O2SAT 95–98
[2017-07-27] MEDS: Heparin Injection (Vial) 5,000 UNIT/ML VIAL 5000 UNIT SC ×3 (05:09→21:40)
[2017-07-27 06:41] LABS: Anion Gap 7 (5-15); BUN 22 mg/dL (7-18); BUN/Creat Ratio 18.8 RATIO (10-20); Calcium,Total 9.3 mg/dL (8.5-10.1); Chloride 106 mmol/L (98-107); Creatinine, Serum 1.17 mg/dL (0.55-1.02); EST Glomerular Filtration Rate 48 mL/min (>60); Est Glom Filt Rate - Afr Amer 58 mL/min (>60); Estimated Creatinine Clearance 31.85 ml/min; Glucose 245 mg/dL (74-106); Potassium 4.9 mmol/L (3.5-5.1); Sodium Level 137 mmol/L (136-145)
[2017-07-27 07:11] LABS: Bedside Glucose 220 mg/dL (70-110)
[2017-07-27] MEDS: Gabapentin 300 MG Capsule PO ×2 (08:02→16:22)
[2017-07-27] MEDS: Clopidogrel Bisulfate 75 MG Tablet PO (08:02)
[2017-07-27] MEDS: Venlafaxine XR 150 MG Capsule PO (08:02)
[2017-07-27] MEDS: buPROPion (XL) 150 MG TABLET.XL PO (08:02)
[2017-07-27] MEDS: Carvedilol 25 MG Tablet PO ×2 (08:02→21:41)
[2017-07-27] MEDS: amLODIPine 5 MG Tablet PO (08:02)
[2017-07-27] MEDS: Aspirin E.C. 81 MG Tablet PO (08:03)
[2017-07-27] MEDS: Sodium Bicarbonate 650 MG Tablet PO (08:03)
--- NOTE | 2017-07-27 09:51 | PN_ITS ---
<Malka Robledo - Last Filed: 07/27/17 09:52> Subjective: Patient seen and examined. No acute events overnight. Patient denies current complaints. Resting in chair visiting with staff in no acute distress. Awaiting pre-CERT to TCU. - Physical Exam General: Alert, Oriented x3, Cooperative, No apparent distress HEENT: Atraumatic, PERRLA, EOMI, Normocephalic Neck: Supple, No JVD, Negative Carotid Bruits Lungs: Clear to auscultation, Normal air movement Cardiovascular: Regular rate, Regular Rhythm, Normal S1, Normal S2, No murmurs Abdomen: Bowel Sounds Present, Soft, Non Tender, Non-Distended Extremities: No clubbing, No cyanosis, No edema, Capillary Refill Less than 3 Seconds Skin: No rashes, No breakdown Musculoskeletal: No Tenderness to Palpation of Joints or Extremities Neurological: Cranial nerves II-XII grossly intact, Neuro grossly intact Psych/Mental Status: Normal Affect, Appropriate Vital Signs Temp Pulse Resp BP Pulse Ox 98.6 F 91 14 142/60 H 97 07/27/17 07:52 07/27/17 07:52 07/27/17 07:52 07/27/17 07:52 07/27/17 07:52 Oxygen Delivery Method Room Air Weight: 67.2 kg Body Mass Index (BMI) 27.1 Intake and Output for Last 24 Hours 07/25/17 07/26/17 07/27/17 23:59 23:59 23:59 Intake Total 5295 / 5295 2753 / 2753 Output Total 200 / 200 Balance 5295 / 5295 2553 / 2553 Microbiology Past 72 Hours 07/24/17 16:55 Urine Culture - Final Urine, Clean Catch Mixed Gram Positive Organisms Laboratory Tests Past 24 Hrs 07/27/17 05:55 Sodium 137 Potassium 4.9 Chloride 106 Carbon Dioxide 24.0 Anion Gap 7 BUN 22 H Creatinine 1.17 H Estim Creat Clear Calc 31.85 Est GFR (MDRD) Af Amer 58 L Est GFR (MDRD) Non-Af 48 L BUN/Creatinine Ratio 18.8 Glucose 245 H Calcium 9.3 POC Glucose 07/27/17 07/26/17 07/26/17 07:03 21:17 20:19 POC Glucose 220 H 311 H 295 H 07/26/17 07/26/17 16:59 11:54 POC Glucose 312 H 243 H Medical Necessity - Tobacco Use Smoking Status: Never smoker Assessment/Plan Patient is a 76-year-old female admitted 07/22/17 due to weakness, confusion, aphasia, elevated blood pressure. She has a past medical history of type 2 diabetes mellitus, CAD status post PTCA, hypertension, history of metastatic colon cancer, GERD, anxiety, depression, hyperlipidemia, history of pulmonary embolism status post IVC filter, chronic kidney disease stage III. 1. TIA-symptoms have resolved. MRI of brain negative for acute infarct. MRA of neck without significant stenosis. Echocardiogram showed an EF of 65%, stage I diastolic dysfunction, no appreciable changes noted compared to previous study 01/06/2017. Neurology consulted. Patient will be discharged on 30 day event monitor. Follow-up with neurology in 2 weeks. TCU at discharge. Patient with recent admission due to intermittent confusion and generalized weakness. Home Zyprexa, gabapentin regimen reduced at that time and home as needed Ativan regimen discontinued. Continue previous changes. 2. Acute kidney injury on chronic kidney disease stage III-suspect secondary to dehydration, poor oral intake. Resolved. Nephrology consulted. Renal ultrasound showed no evidence of renal obstruction. Normal renal size. Simple appearing bilateral renal cysts. Creatinine improved with IV fluids. IV fluids now discontinued. Repeat BMP in 3 days followed by weekly while in transitional care unit. Follow-up with nephrology in 1-2 weeks. Serum globulin , protein gap,urine PCR and SPEP pending. 3. Type 2 diabetes mellitus-hemoglobin A1c 9%. Continue home insulin regimen. NovoLog medium dosing sliding scale insulin added. 4. CAD status post PTCA-continue aspirin, statin, Plavix, beta-selma. 5. Hypertension-Continue home carvedilol regimen 25 mg twice daily. Amlodipine 5 mg daily added. Continue to monitor. 6. History of metastatic colon cancer-chronic right lower lobe mass. Continue outpatient follow-up with oncology. Recent repeat CT of chest in [place]. 7. GERD-not on home regimen. 8. Anxiety/depression-continue home regimen. 9. Hyperlipidemia-continue statin. 10. History of PE status post IVC filter DVT prophylaxis-heparin subcu Discharge planning: Awaiting pre-CERT to TCU. This patient was seen by YUMI Berumen under the supervision of Dr. Sanches. <Yo Sanches - Last Filed: 07/27/17 16:40> Subjective: Seen and examined. No acute issues. - Physical Exam Lungs: Clear to auscultation, Normal air movement Cardiovascular: Regular rate, Regular Rhythm, Normal S1, Normal S2 Vital Signs Temp Pulse Resp BP Pulse Ox 98.1 F 73 18 133/58 H 96 07/27/17 11:29 07/27/17 11:29 07/27/17 11:29 07/27/17 11:29 07/27/17 11:29 Oxygen Delivery Method Room Air Weight: 148 lb 2.41 oz Body Mass Index (BMI) 27.1 Intake and Output for Last 24 Hours 07/25/17 07/26/17 07/27/17 23:59 23:59 23:59 Intake Total 5295 / 5295 2753 / 2753 180 / 180 Output Total 200 / 200 200 / 200 Balance 5295 / 5295 2553 / 2553 -20 / -20 Microbiology Past 72 Hours 07/24/17 16:55 Urine Culture - Final Urine, Clean Catch Mixed Gram Positive Organisms Laboratory Tests Past 24 Hrs 07/27/17 05:55 Sodium 137 Potassium 4.9 Chloride 106 Carbon Dioxide 24.0 Anion Gap 7 BUN 22 H Creatinine 1.17 H Estim Creat Clear Calc 31.85 Est GFR (MDRD) Af Amer 58 L Est GFR (MDRD) Non-Af 48 L BUN/Creatinine Ratio 18.8 Glucose 245 H Calcium 9.3 POC Glucose 07/27/17 07/27/17 07/26/17 11:23 07:03 21:17 POC Glucose 294 H 220 H 311 H 07/26/17 07/26/17 20:19 16:59 POC Glucose 295 H 312 H Assessment/Plan This patient was seen in conjunction with GRAIN UNLOADER MACHINE, Malka. I have independently interviewed and examined the patient and reviewed pertinent history, examination findings, laboratory and plan of management. I have reviewed the note and agree with the documented findings with the few additional points. In brief, patient is admitted for increased confusion, difficulty in expressive speech and assessment was consistent with TIA. 2D echo shows normal LV size and thickness, EF 65% with a stage I diastolic dysfunction. No regional wall motion abnormality. Normal right and left atria. Bubble contrast today negative. Normal tricuspid valve severe mitral annular calcification with trivial MR. TSH normal. LDL 67. UA neg. She need 30 day event monitor placed after discharge and follow up with Neuro as an outpatient. During hospital stay, she developed acute kidney injury on CKD stage III with worsening of creatinine admitting 1.24-1.62. Lead Burner Supervisor was consulted. Patient had mild proteinuria in the urine. No obvious cause for acute kidney injury as UA is benign with proteinuria.Lead Burner Supervisor ordered serum globulin, protein gap renal ultrasound, urine PCR and SPEP. Renal ultrasound did not show acute abnormality without hydronephrosis and benign cyst. Her creatinine improved improved to 1.38 and today 1.17. Pending transfer to TCU. Microbiology Past 72 Hours 07/24/17 16:55 Urine, Clean Catch Urine Culture - Final Mixed Gram Positive Organisms Laboratory Results 07/26/17 16:59: POC Glucose 312 H 07/26/17 20:19: POC Glucose 295 H 07/26/17 21:17: POC Glucose 311 H 07/27/17 05:55: Sodium 137, Potassium 4.9, Chloride 106, Carbon Dioxide 24.0, Anion Gap 7, BUN 22 H, Creatinine 1.17 H, Estim Creat Clear Calc 31.85, Est GFR (MDRD) Af Amer 58 L, Est GFR (MDRD) Non-Af 48 L, BUN/Creatinine Ratio 18.8, Glucose 245 H, Calcium 9.3 07/27/17 07:03: POC Glucose 220 H 07/27/17 11:23: POC Glucose 294 H Code Visit Inpatient E&M: 53511 Subs Hosp L2
--- NOTE | 2017-07-27 11:19 | PCM.PN.REN ---
Subjective: Doing well;solute controlled - Physical Exam General: Alert HEENT: Atraumatic Neck: Supple, No JVD, Negative Carotid Bruits Lungs: Clear to auscultation, Normal air movement Cardiovascular: Regular rate, No murmurs Abdomen: Bowel Sounds Present, Soft, Non Tender Vital Signs Temp Pulse Resp BP Pulse Ox 98.6 F 71 14 142/60 H 97 07/27/17 07:52 07/27/17 11:01 07/27/17 07:52 07/27/17 07:52 07/27/17 07:52 Oxygen Delivery Method Room Air Weight: 67.2 kg Body Mass Index (BMI) 27.1 Intake and Output for Last 24 Hours 07/25/17 07/26/17 07/27/17 23:59 23:59 23:59 Intake Total 5295 / 5295 2753 / 2753 Output Total 200 / 200 Balance 5295 / 5295 2553 / 2553 Microbiology Past 72 Hours 07/24/17 16:55 Urine Culture - Final Urine, Clean Catch Mixed Gram Positive Organisms Laboratory Tests Past 24 Hrs 07/27/17 05:55 Sodium 137 Potassium 4.9 Chloride 106 Carbon Dioxide 24.0 Anion Gap 7 BUN 22 H Creatinine 1.17 H Estim Creat Clear Calc 31.85 Est GFR (MDRD) Af Amer 58 L Est GFR (MDRD) Non-Af 48 L BUN/Creatinine Ratio 18.8 Glucose 245 H Calcium 9.3 POC Glucose 07/27/17 07/26/17 07/26/17 07:03 21:17 20:19 POC Glucose 220 H 311 H 295 H 07/26/17 07/26/17 16:59 11:54 POC Glucose 312 H 243 H Medical Necessity - Tobacco Use Smoking Status: Never smoker Assessment/Plan Non oliguric ARIEL on CKD stage 3-Baseline creatinine is around 1.2. Recently sustained an ARIEL creatinine around 1.3.UA is fairly active. 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
[2017-07-27 11:35] LABS: Bedside Glucose 294 mg/dL (70-110)
[2017-07-27 16:56] LABS: Bedside Glucose 251 mg/dL (70-110)
[2017-07-27] MEDS: Acetaminophen 325 MG Tablet 650 MG PO (20:15)
[2017-07-27] MEDS: LORazepam 0.5 MG Tablet PO (21:41)
[2017-07-27] MEDS: OLANZapine 2.5 MG Tablet PO (21:41)
[2017-07-27] MEDS: Atorvastatin Calcium 40 MG Tablet PO (21:41)
[2017-07-27 21:50] LABS: Bedside Glucose 282 mg/dL (70-110)
[2017-07-28] VITALS (7 sets, daily range): BP systolic 116–146; BP diastolic 70–90; PULSE 69–100; RESP 16; TEMP 36.2–36.8; O2SAT 93–98
[2017-07-28] MEDS: Heparin Injection (Vial) 5,000 UNIT/ML VIAL 5000 UNIT SC (05:27)
[2017-07-28 06:25] LABS: Anion Gap 8 (5-15); BUN 24 mg/dL (7-18); BUN/Creat Ratio 19.5 RATIO (10-20); Calcium,Total 9.3 mg/dL (8.5-10.1); Chloride 105 mmol/L (98-107); Creatinine, Serum 1.23 mg/dL (0.55-1.02); EST Glomerular Filtration Rate 45 mL/min (>60); Est Glom Filt Rate - Afr Amer 54 mL/min (>60); Estimated Creatinine Clearance 30.29 ml/min; Glucose 255 mg/dL (74-106); Potassium 4.8 mmol/L (3.5-5.1); Sodium Level 137 mmol/L (136-145)
[2017-07-28 07:06] LABS: Bedside Glucose 236 mg/dL (70-110)
[2017-07-28] MEDS: Aspirin E.C. 81 MG Tablet PO (10:17)
[2017-07-28] MEDS: Gabapentin 300 MG Capsule PO (10:17)
[2017-07-28] MEDS: Carvedilol 25 MG Tablet PO (10:17)
[2017-07-28] MEDS: amLODIPine 5 MG Tablet PO (10:18)
[2017-07-28] MEDS: Venlafaxine XR 150 MG Capsule PO (10:18)
[2017-07-28] MEDS: Sodium Bicarbonate 650 MG Tablet PO (10:18)
[2017-07-28] MEDS: Clopidogrel Bisulfate 75 MG Tablet PO (10:18)
[2017-07-28] MEDS: buPROPion (XL) 150 MG TABLET.XL PO (10:18)
--- NOTE | 2017-07-28 10:36 | PCM.DC.SUM ---
Discharge Date and Diagnosis Date of Admission: 07/22/17 Date of Discharge: 07/28/17 - Primary Discharge Diagnosis 1. TIA 2. Acute kidney injury on chronic kidney disease stage III 3. Hypertensive urgency 4. Type 2 diabetes mellitus 5. CAD 6. Hypertension 7. History of metastatic colon cancer 8. GERD 9. Anxiety/depression 10. Hyperlipidemia 12. History of PE status post IVC filter - Secondary Discharge Diagnosis Chronic Problems (Last Updated 07/16/17 @ 10:14 by Sarah Sifuentes) Atherosclerotic heart disease of [place] coronary artery without angina pectoris (Chronic) History of PTCA (Chronic) 01/05/2017 SHEKHAR to mid RCA & POBA to ostial PDA @ [facility] S/P coronary artery stent placement (Chronic) 2006, 2009 & 2010 Hypotension (Chronic) Postural instability (Chronic) Colon carcinoma (Chronic) S/P partial colon resection CAD (coronary artery disease) (Chronic) ptci and stents Diabetes (Chronic) 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) s/p colon resection remote, lung metastases diagnosed 2014, s/p adjuvant chemotherapy, s/p stereotactic XRT [facility] oncology, follows [facility]ology S/P ORIF (open reduction internal fixation) fracture (Chronic) left ankle, 09/14/14, Dr Harvey, [facility] Presence of IVC filter (Chronic) H/O deep venous thrombosis (Chronic) now has an IVC filter Hyperlipidemia (Chronic) Polyneuropathy (Chronic) Pulmonary embolism (Chronic) Hypertension (Chronic) Chronic renal failure, stage 3 (moderate) (Chronic) Anxiety and depression (Chronic) uncontrolled Gallstones (Chronic) GERD (gastroesophageal reflux disease) (Chronic) Hospital Course and Treatment Imaging Results: Diagnostic Data Brain CT 07/22/17 17:59 IMPRESSION: Chronic involutional changes of the brain. Electronically Signed: Geoffrey Khalil DO at 18:45 EDT Tel , Service support , Chest X-Ray 07/22/17 18:00 IMPRESSION: No acute cardiopulmonary disease. Stable right upper lobe mass. Electronically Signed: Geoffrey Khalil DO at 19:10 EDT Tel , Service support , Brain MRI 07/23/17 07:48 IMPRESSION: Involutional changes of the brain, as described above. No evidence of a mass. No evidence of acute infarct. Electronically Signed: Nena Sales MD at 13:17 EDT Tel , Service support , Head MRA 07/23/17 07:48 IMPRESSION: Normal MRA of the head. Anatomic variation. I do note on the reformatted images that just at the bifurcation of the middle cerebral artery on the left it appears that there is a focal area of deficit but I cannot identify this deficit on the 3-D slab raw data. Therefore I do not suspect that this is truly an abnormality. Electronically Signed: Nena Sales MD at 13:44 EDT Tel , Service support , Neck MRA 07/23/17 07:48 IMPRESSION: Normal bilateral cervical carotid and vertebral arteries. Note that this exam is hampered by motion and subtle abnormalities may be missed. The vessels do appear patent and grossly I do not see a focal area of significant stenosis. Since the patient is moving however, consider carotid ultrasound which could represent a complement to this exam and perhaps deal with some motion. Electronically Signed: Nena Sales MD at 13:24 EDT Tel , Service support , Renal Ultrasound 07/24/17 13:10 IMPRESSION: No evidence of renal obstruction. Normal renal size. Simple appearing bilateral renal cysts. Electronically Signed: Nena Sales MD at 15:27 EDT Tel , Service support , Dr. Johns- Neurology Dr. Grimes- Nephrology Operations: None Procedures: 2-D Echocardiogram Summary of Care Provided: Patient is a 76-year-old female admitted 07/22/17 due to weakness, confusion, aphasia, elevated blood pressure. She has a past medical history of type 2 diabetes mellitus, CAD status post PTCA, hypertension, history of metastatic colon cancer, GERD, anxiety, depression, hyperlipidemia, history of pulmonary embolism status post IVC filter, chronic kidney disease stage III. 1. TIA-symptoms have resolved. MRI of brain negative for acute infarct. MRA of neck without significant stenosis. Echocardiogram showed an EF of 65%, stage I diastolic dysfunction, no appreciable changes noted compared to previous study 01/06/2017. Neurology consulted. Patient will be discharged on 30 day event monitor. Follow-up with neurology in 2 weeks. TCU at discharge. Patient with recent admission due to intermittent confusion and generalized weakness. Home Zyprexa, gabapentin regimen reduced at that time and home as needed Ativan regimen discontinued. Continue previous changes. 2. Acute kidney injury on chronic kidney disease stage III-Resolved. Suspect secondary to dehydration, poor oral intake. Nephrology consulted. Renal ultrasound showed no evidence of renal obstruction. Normal renal size. Simple appearing bilateral renal cysts. Creatinine improved with IV fluids. Repeat BMP in 3 days followed by weekly while in transitional care unit. Follow-up with nephrology in 1-2 weeks. 3. Type 2 diabetes mellitus-hemoglobin A1c 9%. Continue home insulin regimen. Add NovoLog medium dosing sliding scale insulin. 4. CAD status post PTCA-continue aspirin, statin, Plavix, beta-gilles. 5. Hypertension-Continue home carvedilol regimen 25 mg twice daily. Amlodipine 5 mg daily added to home regimen. 6. History of metastatic colon cancer-chronic right lower lobe mass. Continue outpatient follow-up with oncology. Recent repeat CT of chest in [place]. 7. GERD-not on home regimen. 8. Anxiety/depression-continue home regimen. 9. Hyperlipidemia-continue statin. 10. History of PE status post IVC filter General: Alert, Oriented x3, Cooperative, No apparent distress HEENT: Atraumatic, PERRLA, EOMI, Normocephalic Neck: Supple, No JVD, Negative Carotid Bruits Lungs: Clear to auscultation, Normal air movement Cardiovascular: Regular rate, Regular Rhythm, Normal S1, Normal S2, No murmurs Abdomen: Bowel Sounds Present, Soft, Non Tender, Non-Distended Extremities: No clubbing, No cyanosis, No edema, Capillary Refill Less than 3 Seconds Skin: No rashes, No breakdown Musculoskeletal: No Tenderness to Palpation of Joints or Extremities Neurological: Cranial nerves II-XII grossly intact, Neuro grossly intact Psych/Mental Status: Normal Affect, Appropriate Patient seen and examined prior to discharge. Physical assessment as noted above. Patient is stable for discharge to transitional care unit. This patient was seen by YUMI Berumen under the supervision of Dr. Treviño. Home Medications: Medications to take at Discharge Atorvastatin Calcium [Lipitor] 40 mg PO QHS 07/09/15 Multivitamin [Daily Multiple Vitamin] 1 tab PO DAILY 07/09/15 Alendronate Sodium 70 mg PO BURT 09/20/16 buPROPion XL [Wellbutrin Xl] 150 mg PO DAILY 09/20/16 Aspirin E.C. [Ecotrin] 81 mg PO DAILY@0800 02/26/17 Clopidogrel Bisulfate [Plavix] 75 mg PO DAILY 02/26/17 Oxycodone HCl/Acetaminophen [Percocet 7.5-325 mg Tablet] 1 tablet PO TID PRN PRN 02/27/17 Insulin Aspart [Novolog Flexpen] 6 units SC TIDCM 07/09/17 Insulin Glargine,Hum.rec.anlog [Toujeo Solostar] 38 units SQ QHS 07/09/17 Venlafaxine XR [Effexor Xr] 150 mg PO DAILY 07/09/17 Sodium Bicarbonate 650 mg PO DAILY 07/23/17 Carvedilol [Coreg (Beta Gilles)] 25 mg PO BID tab 07/25/17 Gabapentin [Neurontin] 300 mg PO BIDCM cap 07/25/17 Insulin Aspart [Novolog Flexpen] See Protocol SC ACHS flexpen 07/25/17 Olanzapine [Zyprexa] 2.5 mg PO QHS tab 07/25/17 Lorazepam [Ativan] 1 mg PO BID PRN PRN 07/26/17 Other Amb Orders: 30-Day Event Recorder [[facility]] Time Frame: 1 Day, Location: None Selected Primary Care Physician: Donald Cline MD [Primary Care Provider] - Please follow up with your Primary Care Physician in: 1 Week Please Follow Up With: Lynette Coreas DO - Or Dr. Grimes When: 1 Week Please Follow Up With: Phil Johns MD When: 2-3 Weeks Disposition: Jail facility Minutes spent on discharge:: 35 Patient Condition:: Stable Medical Necessity - Tobacco Use Smoking Status: Never smoker Meaningful Use Info Meaningful Use Diagnoses (Choose all that apply): None applicable
--- NOTE | 2017-07-28 10:43 | CASEMGMT ---
Patient was approved for [facility]. ENRIQUE notified physician, patient, and RN. ENRIQUE will also notify [facility]. Plan: [facility] under skilled level of care. Maryana MORALES
--- NOTE | 2017-07-28 10:45 | DS.PCM_ITS ---
Discharge Date and Diagnosis Date of Admission: 07/22/17 Date of Discharge: 07/28/17 - Primary Discharge Diagnosis 1. TIA 2. Acute kidney injury on chronic kidney disease stage III 3. Hypertensive urgency 4. Type 2 diabetes mellitus 5. CAD 6. Hypertension 7. History of metastatic colon cancer 8. GERD 9. Anxiety/depression 10. Hyperlipidemia 12. History of PE status post IVC filter - Secondary Discharge Diagnosis Chronic Problems (Last Updated 07/16/17 @ 10:14 by Sarah Sifuentes) Atherosclerotic heart disease of [place] coronary artery without angina pectoris (Chronic) History of PTCA (Chronic) 01/05/2017 SHEKHAR to mid RCA & POBA to ostial PDA @ [facility] S/P coronary artery stent placement (Chronic) 2006, 2009 & 2010 Hypotension (Chronic) Postural instability (Chronic) Colon carcinoma (Chronic) S/P partial colon resection CAD (coronary artery disease) (Chronic) ptci and stents Diabetes (Chronic) 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) s/p colon resection remote, lung metastases diagnosed 2014, s/p adjuvant chemotherapy, s/p stereotactic XRT [facility], follows [facility] S/P ORIF (open reduction internal fixation) fracture (Chronic) left ankle, 09/14/14, Dr Harvey, [facility] Presence of IVC filter (Chronic) H/O deep venous thrombosis (Chronic) now has an IVC filter Hyperlipidemia (Chronic) Polyneuropathy (Chronic) Pulmonary embolism (Chronic) Hypertension (Chronic) Chronic renal failure, stage 3 (moderate) (Chronic) Anxiety and depression (Chronic) uncontrolled Gallstones (Chronic) GERD (gastroesophageal reflux disease) (Chronic) Hospital Course and Treatment Imaging Results: Diagnostic Data Brain CT 07/22/17 17:59 IMPRESSION: Chronic involutional changes of the brain. Electronically Signed: Geoffrey Khalil DO at 18:45 EDT Tel , Service support , Chest X-Ray 07/22/17 18:00 IMPRESSION: No acute cardiopulmonary disease. Stable right upper lobe mass. Electronically Signed: Geoffrey Khalil DO at 19:10 EDT Tel , Service support , Brain MRI 07/23/17 07:48 IMPRESSION: Involutional changes of the brain, as described above. No evidence of a mass. No evidence of acute infarct. Electronically Signed: Nena Sales MD at 13:17 EDT Tel , Service support , Head MRA 07/23/17 07:48 IMPRESSION: Normal MRA of the head. Anatomic variation. I do note on the reformatted images that just at the bifurcation of the middle cerebral artery on the left it appears that there is a focal area of deficit but I cannot identify this deficit on the 3-D slab raw data. Therefore I do not suspect that this is truly an abnormality. Electronically Signed: Nena Sales MD at 13:44 EDT Tel , Service support , Neck MRA 07/23/17 07:48 IMPRESSION: Normal bilateral cervical carotid and vertebral arteries. Note that this exam is hampered by motion and subtle abnormalities may be missed. The vessels do appear patent and grossly I do not see a focal area of significant stenosis. Since the patient is moving however, consider carotid ultrasound which could represent a complement to this exam and perhaps deal with some motion. Electronically Signed: Nena Sales MD at 13:24 EDT Tel , Service support , Renal Ultrasound 07/24/17 13:10 IMPRESSION: No evidence of renal obstruction. Normal renal size. Simple appearing bilateral renal cysts. Electronically Signed: Nena Sales MD at 15:27 EDT Tel , Service support , Dr. Johns- Neurology Dr. Grimes- Nephrology Operations: None Procedures: 2-D Echocardiogram Summary of Care Provided: Patient is a 76-year-old female admitted 07/22/17 due to weakness, confusion, aphasia, elevated blood pressure. She has a past medical history of type 2 diabetes mellitus, CAD status post PTCA, hypertension, history of metastatic colon cancer, GERD, anxiety, depression, hyperlipidemia, history of pulmonary embolism status post IVC filter, chronic kidney disease stage III. 1. TIA-symptoms have resolved. MRI of brain negative for acute infarct. MRA of neck without significant stenosis. Echocardiogram showed an EF of 65%, stage I diastolic dysfunction, no appreciable changes noted compared to previous study 01/06/2017. Neurology consulted. Patient will be discharged on 30 day event monitor. Follow-up with neurology in 2 weeks. TCU at discharge. Patient with recent admission due to intermittent confusion and generalized weakness. Home Zyprexa, gabapentin regimen reduced at that time and home as needed Ativan regimen discontinued. Continue previous changes. 2. Acute kidney injury on chronic kidney disease stage III-Resolved. Suspect secondary to dehydration, poor oral intake. Nephrology consulted. Renal ultrasound showed no evidence of renal obstruction. Normal renal size. Simple appearing bilateral renal cysts. Creatinine improved with IV fluids. Repeat BMP in 3 days followed by weekly while in transitional care unit. Follow-up with nephrology in 1-2 weeks. 3. Type 2 diabetes mellitus-hemoglobin A1c 9%. Continue home insulin regimen. Add NovoLog medium dosing sliding scale insulin. 4. CAD status post PTCA-continue aspirin, statin, Plavix, beta-gilles. 5. Hypertension-Continue home carvedilol regimen 25 mg twice daily. Amlodipine 5 mg daily added to home regimen. 6. History of metastatic colon cancer-chronic right lower lobe mass. Continue outpatient follow-up with oncology. Recent repeat CT of chest in [place]. 7. GERD-not on home regimen. 8. Anxiety/depression-continue home regimen. 9. Hyperlipidemia-continue statin. 10. History of PE status post IVC filter General: Alert, Oriented x3, Cooperative, No apparent distress HEENT: Atraumatic, PERRLA, EOMI, Normocephalic Neck: Supple, No JVD, Negative Carotid Bruits Lungs: Clear to auscultation, Normal air movement Cardiovascular: Regular rate, Regular Rhythm, Normal S1, Normal S2, No murmurs Abdomen: Bowel Sounds Present, Soft, Non Tender, Non-Distended Extremities: No clubbing, No cyanosis, No edema, Capillary Refill Less than 3 Seconds Skin: No rashes, No breakdown Musculoskeletal: No Tenderness to Palpation of Joints or Extremities Neurological: Cranial nerves II-XII grossly intact, Neuro grossly intact Psych/Mental Status: Normal Affect, Appropriate Patient seen and examined prior to discharge. Physical assessment as noted above. Patient is stable for discharge to transitional care unit. This patient was seen by YUMI Berumen under the supervision of Dr. Treviño. Home Medications: Medications to take at Discharge Atorvastatin Calcium [Lipitor] 40 mg PO QHS 07/09/15 Multivitamin [Daily Multiple Vitamin] 1 tab PO DAILY 07/09/15 Alendronate Sodium 70 mg PO BURT 09/20/16 buPROPion XL [Wellbutrin Xl] 150 mg PO DAILY 09/20/16 Aspirin E.C. [Ecotrin] 81 mg PO DAILY@0800 02/26/17 Clopidogrel Bisulfate [Plavix] 75 mg PO DAILY 02/26/17 Oxycodone HCl/Acetaminophen [Percocet 7.5-325 mg Tablet] 1 tablet PO TID PRN PRN 02/27/17 Insulin Aspart [Novolog Flexpen] 6 units SC TIDCM 07/09/17 Insulin Glargine,Hum.rec.anlog [Toujeo Solostar] 38 units SQ QHS 07/09/17 Venlafaxine XR [Effexor Xr] 150 mg PO DAILY 07/09/17 Sodium Bicarbonate 650 mg PO DAILY 07/23/17 Carvedilol [Coreg (Beta Gilles)] 25 mg PO BID tab 07/25/17 Gabapentin [Neurontin] 300 mg PO BIDCM cap 07/25/17 Insulin Aspart [Novolog Flexpen] See Protocol SC ACHS flexpen 07/25/17 Olanzapine [Zyprexa] 2.5 mg PO QHS tab 07/25/17 Lorazepam [Ativan] 1 mg PO BID PRN PRN 07/26/17 Other Amb Orders: 30-Day Event Recorder [[facility]] Time Frame: 1 Day, Location: None Selected Primary Care Physician: Donald Cline MD [Primary Care Provider] - Please follow up with your Primary Care Physician in: 1 Week Please Follow Up With: Lynette Coreas DO - Or Dr. Grimes When: 1 Week Please Follow Up With: Phil Johns MD When: 2-3 Weeks Disposition: Residential facility Minutes spent on discharge:: 35 Patient Condition:: Stable Medical Necessity - Tobacco Use Smoking Status: Never smoker Meaningful Use Info Meaningful Use Diagnoses (Choose all that apply): None applicable
--- NOTE | 2017-07-28 11:28 | NURSING ---
Report called to Malka in TCU
--- NOTE | 2017-07-28 11:32 | PCM.PN.REN ---
Subjective: No complaints today No nausea No vomiting No SOB. No chest pain - Physical Exam General: Alert, Oriented x3 HEENT: Atraumatic Oral: Moist Mucosa Neck: Supple, No JVD Lungs: Clear to auscultation, Normal air movement Cardiovascular: Regular rate, Regular Rhythm, Normal S1, Normal S2, No murmurs Abdomen: Bowel Sounds Present, Soft, Non Tender, Non-Distended Extremities: No clubbing, No cyanosis, No edema Skin: No rashes Musculoskeletal: No Tenderness to Palpation of Joints or Extremities Lymphatic: No Cervical, Supraclavicular, or Inguinal Adenopathy Neurological: Cranial nerves II-XII grossly intact, Neuro grossly intact Psych/Mental Status: Normal Affect Vital Signs Temp Pulse Resp BP Pulse Ox 97.2 F L 86 16 116/90 H 98 07/28/17 10:05 07/28/17 11:08 07/28/17 10:05 07/28/17 10:05 07/28/17 10:05 Oxygen Delivery Method Room Air Weight: 67.2 kg Body Mass Index (BMI) 27.1 Intake and Output for Last 24 Hours 07/26/17 07/27/17 07/28/17 23:59 23:59 23:59 Intake Total 2753 / 2753 420 / 420 Output Total 200 / 200 200 / 200 Balance 2553 / 2553 220 / 220 Microbiology Past 72 Hours 07/24/17 16:55 Urine Culture - Final Urine, Clean Catch Mixed Gram Positive Organisms Laboratory Tests Past 24 Hrs 07/28/17 05:35 Sodium 137 Potassium 4.8 Chloride 105 Carbon Dioxide 24.0 Anion Gap 8 BUN 24 H Creatinine 1.23 H Estim Creat Clear Calc 30.29 Est GFR (MDRD) Af Amer 54 L Est GFR (MDRD) Non-Af 45 L BUN/Creatinine Ratio 19.5 Glucose 255 H Calcium 9.3 POC Glucose 07/28/17 07/27/17 07/27/17 06:49 21:39 16:19 POC Glucose 236 H 282 H 251 H 07/27/17 11:23 POC Glucose 294 H Medical Necessity - Tobacco Use Smoking Status: Never smoker Assessment/Plan Non oliguric ARIEL on CKD stage 3-Baseline creatinine is around 1.2. Recently sustained an ARIEL creatinine peaked at 1.6 likely hemodynamic perturbation . Now Cr is back to baseline UA showed 500 protein 50 blood. No RBC. UPCR 680 mg/g. proteinuria is not significant amount, likely related to diabetes: Elevated serum globulin and protein gap-SPEP -Pending continue current meds for now BP is well controlled. Volume status is controlled Okay to discharge patient from nephrology stand point Adamaris Patel MD [phone]
[2017-07-28 11:51] LABS: Bedside Glucose 310 mg/dL (70-110)
[2017-07-28 16:09] LABS: Albumin 2.6 g/dL (2.9-4.4); Alpha-1-Globulins 0.2 g/dL (0.0-0.4); Alpha-2-Globulins 0.8 g/dL (0.4-1.0); Gamma Globulin 0.6 g/dL (0.4-1.8); Immunoglobulin A 148 mg/dL (64-422); Immunoglobulin G 753 mg/dL (700-1600); Immunoglobulin M 62 mg/dL (26-217); PROEL- TOTAL PROTEIN 5.1 g/dL (6.0-8.5)
== END 2017-07-28 12:01 | disposition skilled nursing facility (03) ==
LOC: ED 21:10 → PCU 21:26
PROVIDERS: Internal Medicine; Internal Medicine Nephrology; Nurse Practitioner Family; Physician Assistant; Psychiatry & Neurology Neurology; Admitting Provider Family Medicine; Emergency Provider Emergency Medicine; Family Provider Family Medicine; PCP Family Medicine; Visit Provider Internal Medicine
DX: G45.9 Transient cerebral ischemic attack, unspecified (principal); E11.22 Type 2 diabetes mellitus with diabetic chronic kidney disease; I12.9 Hypertensive chronic kidney disease with stage 1 through stage 4 chronic kidney disease, or unspecified chronic kidney disease; N18.3 Chronic kidney disease, stage 3 (moderate); N17.9 Acute kidney failure, unspecified; I25.10 Atherosclerotic heart disease of native coronary artery without angina pectoris; I16.0 Hypertensive urgency; K21.9 Gastro-esophageal reflux disease without esophagitis; E78.5 Hyperlipidemia, unspecified; F41.9 Anxiety disorder, unspecified; F32.9 Major depressive disorder, single episode, unspecified; C78.00 Secondary malignant neoplasm of unspecified lung; E11.42 Type 2 diabetes mellitus with diabetic polyneuropathy; H53.8 Other visual disturbances; N39.0 Urinary tract infection, site not specified; Z85.038 Personal history of other malignant neoplasm of large intestine; Z86.711 Personal history of pulmonary embolism; Z86.718 Personal history of other venous thrombosis and embolism; Z79.899 Other long term (current) drug therapy; Z79.02 Long term (current) use of antithrombotics/antiplatelets; Z79.82 Long term (current) use of aspirin; Z79.4 Long term (current) use of insulin; Z66 Do not resuscitate; Z90.49 Acquired absence of other specified parts of digestive tract; R47.01 Aphasia; G93.41 Metabolic encephalopathy
CPT/HCPCS: 36415; 70450; 70544; 70547; 70551; 71046; 76770; 80048; 80053; 80061; 81001; 82436; 82570; 82784; 82962; 83036; 83735; 84133; 84156; 84165; 84300; 84443; 85025; 85027; 86334; 87086; 87088; 92523; 93005; 93306; 96361; 96365; 96366; 96372; 96375; 97110; 97116; 97162; 97165; 97530; 97535; 99218; 99285; J7030; J7040; Q9957; A4216; C8929; G0378; G9168; G9169; G9170

== ENCOUNTER 2017-07-28 13:20 | Inpatient (IN) | payer MEDICARE, SELFPAY ==
--- NOTE | 2017-07-28 13:42 | NURSING ---
Pt arrived via wheelchair from [facility] at 13:20
[2017-07-28 13:43] VITALS: BP 106/64; PULSE 88; RESP 20; TEMP 36.3; O2SAT 93; BMI 30.7
[2017-07-28 15:11] VITALS: BP 129/60; PULSE 81; RESP 18; TEMP 36.4; O2SAT 99
--- NOTE | 2017-07-28 15:11 | NURSING ---
Code status discussed with pt, wishes to be a DNRCC-A, purple wrist band applied and order signed by pt.
[2017-07-28 17:01] LABS: Bedside Glucose 314 mg/dL (70-110)
[2017-07-28] MEDS: Gabapentin 300 MG Capsule PO (17:22)
[2017-07-28] MEDS: Carvedilol 25 MG Tablet PO (17:22)
[2017-07-28] MEDS: Acetaminophen 500 MG Tablet 1000 MG PO (17:51)
--- NOTE | 2017-07-28 20:18 | PCM.HP.STD ---
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 Comment: s/p colon resection remote, lung metastases diagnosed 2014, s/p adjuvant chemotherapy, s/p stereotactic XRT [facility], follows [facility] (11) H/O deep venous thrombosis Status: Chronic Comment: now has an IVC filter (12) Hyperlipidemia Status: Chronic Qualifiers: (13) Polyneuropathy Status: Chronic (14) Pulmonary embolism Status: Chronic (15) Hypertension Status: Chronic Qualifiers: (16) GERD (gastroesophageal reflux disease) Status: Chronic Qualifiers: History of Present Illness Date of Admission: 07/28/17 Chief Complaint: Here for rehabilitation, strengthening, prior to discharge home alone. The patient is a 76 year old Female with below past medical history presented to [facility] Emergency Department 07/22/2017 with Hypertension, difficulty speaking. 07/22/2017 CT brain chronic involutional changes of brain. 07/22/2017 Chest X-ray stable right upper lobe mass. 07/22/2017 EKG sinus tachycardia, premature atrial contractions. Difficulty speaking x 1 day. Stress from of spouse 2 weeks prior. Positive nausea, vomiting, blurred vision. Cr 1.2, Glucose 172, Alk phos 60, UA negative. Blood pressure 219/116, Labetalol given. Cipro given. Patient confused. 07/22/2017 Admit to Hospital. MRI/MRA of brain. Hydralazine PRN elevated blood pressure. Spouse recently. Treat acute kidney injury, UTI. 07/23/2017 MRI brain stroke. MRA head/neck normal. 07/23/2017 Echo EF 65% Stage 1 diastolic dysfunction. 07/23/2017 Dr. Johns recommends TTE, 30 day event monitor. 07/24/2017 Renal ultrasound bilateral renal cysts. Diagnosed as TIA. 30 day event recorder. Zyprexa, Gabapentin reduced, Ativan PRN. ARIEL improved with IV fluids. Amlodipine 5MG added for improved blood pressure control. Recommend discontinuation of Lorazepam. 07/28/2017 Admit to TCU for rehabilitation, strengthening, prior to discharge home alone. Past Medical History Past Medical History (Chronic Problems): Chronic Problems (Last Updated 07/16/17 @ 10:14 by Sarah Sifuentes) Depression (Chronic) Anxiety (Chronic) Atherosclerotic heart disease of [place] coronary artery without angina pectoris (Chronic) History of PTCA (Chronic) 01/05/2017 SHEKHAR to mid RCA & POBA to ostial PDA @ [facility] S/P coronary artery stent placement (Chronic) 2006, 2009 & 2010 Hypotension (Chronic) Postural instability (Chronic) Colon carcinoma (Chronic) S/P partial colon resection CAD (coronary artery disease) (Chronic) ptci and stents Diabetes (Chronic) 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) s/p colon resection remote, lung metastases diagnosed 2014, s/p adjuvant chemotherapy, s/p stereotactic XRT [facility], follows [facility] S/P ORIF (open reduction internal fixation) fracture (Chronic) left ankle, 09/14/14, Dr Harvey, [facility] Presence of IVC filter (Chronic) H/O deep venous thrombosis (Chronic) now has an IVC filter Hyperlipidemia (Chronic) Polyneuropathy (Chronic) Pulmonary embolism (Chronic) Hypertension (Chronic) Chronic renal failure, stage 3 (moderate) (Chronic) Anxiety and depression (Chronic) uncontrolled Gallstones (Chronic) GERD (gastroesophageal reflux disease) (Chronic) Allergies promethazine HCl [From Phenergan] Allergy (Verified 07/22/17 17:28) seizures japanese rice Adverse Reaction (Severe, Uncoded 07/22/17 17:28) Unknown Home Medications: Ambulatory Orders Medication Instructions Recorded Atorvastatin Calcium [Lipitor] 40 mg PO QHS 07/09/15 Multivitamin [Daily Multiple 1 tab PO DAILY 07/09/15 Vitamin] Alendronate Sodium 70 mg PO BURT 09/20/16 buPROPion XL [Wellbutrin Xl] 150 mg PO DAILY 09/20/16 Aspirin E.C. [Ecotrin] 81 mg PO DAILY@0800 02/26/17 Clopidogrel Bisulfate [Plavix] 75 mg PO DAILY 02/26/17 Oxycodone HCl/Acetaminophen 1 tablet PO TID PRN PRN 02/27/17 [Percocet 7.5-325 mg Tablet] Insulin Aspart [Novolog Flexpen] 6 units SC TIDCM 07/09/17 Insulin Glargine,Hum.rec.anlog 38 units SQ QHS 07/09/17 [Elias Strauss] Venlafaxine XR [Effexor Xr] 150 mg PO DAILY 07/09/17 Sodium Bicarbonate 650 mg PO DAILY 07/23/17 Lorazepam [Ativan] 1 mg PO BID PRN PRN 07/26/17 Amlodipine [Norvasc] 5 mg PO DAILY 07/28/17 Carvedilol [Coreg (Beta Gilles)] 25 mg PO BID 07/28/17 Gabapentin [Neurontin] 300 mg PO BIDCM 07/28/17 Insulin Aspart [Novolog Flexpen] See Protocol SC ACHS 07/28/17 Olanzapine [Zyprexa] 2.5 mg PO QHS 07/28/17 Surgical History: colectomy, hysterectomy, - - Left ankle ORIF, multiple cardiac stent placement Psychiatric History: Anxiety, Depression [employer] History: No pertinent [employer] history Lives: Alone Smoking Status: Never smoker Tobacco Use: Non-smoker Alcohol: None Drugs: None - *Family History Maternal History Items: Cancer - rectal, - - Stroke in mother Paternal History Items: Cancer - lung Review of Systems Constitutional: Reports: Weakness. Denies: Chills, Fever, Weight Change HEENT: Denies: Head Aches, Sinus Congestion, Sinus Drainage Cardiovascular: Denies: Chest Pain, Palpitations Respiratory: Denies: Cough, Shortness of breath at rest, Sputum production Gastrointestinal: Denies: Abdominal Pain, Nausea, Vomiting Genitourinary: Denies: Dysuria Musculoskeletal: Denies: Joint Pain, Joint Tenderness Skin: Denies: Rash, Wounds Neurological: Denies: Numbness, Tingling, Focal weakness Psychiatric: Denies: Anxiety, Depression, Homicidal Ideations, Suicidal Ideations Hematologic/ Lymphatic: Denies: Easy Bruising, Easy Bleeding VTE Information - Inpt Only VTE Present on Admission: No VTE Mechan Device Prophylaxis: Knee High MARCOS Hose VTE Pharm Prophylaxis ordered?: Yes - Physical Exam General: Alert, Oriented x3, Cooperative HEENT: Atraumatic, PERRLA, EOMI, Normocephalic Neck: Supple, No JVD, Negative Carotid Bruits Lungs: Clear to auscultation, Normal air movement Cardiovascular: Regular rate, No murmurs Abdomen: Bowel Sounds Present, Soft, Non Tender Extremities: No edema, Capillary Refill Less than 3 Seconds Skin: No rashes, No breakdown Musculoskeletal: No Tenderness to Palpation of Joints or Extremities Neurological: Cranial nerves II-XII grossly intact Psych/Mental Status: Normal Affect, Appropriate Vital Signs Temp Pulse Resp BP Pulse Ox 97.6 F L 81 18 129/60 H 99 07/28/17 15:11 07/28/17 15:11 07/28/17 15:11 07/28/17 15:11 07/28/17 15:11 Oxygen Delivery Method Room Air Weight: 73.65 kg Body Mass Index (BMI) 30.7 Finger Stick Blood Glucose 160 Intake and Output for Last 24 Hours 07/26/17 07/27/17 07/28/17 23:59 23:59 23:59 Intake Total 180 / 180 Balance 180 / 180 POC Glucose 07/28/17 16:50 POC Glucose 314 H Assessment/Plan 76 year old female with below past medical history hospitalized for TIA, complicated by acute kidney injury, hypertensive urgency, urinary tract infection, encephalopathy, admitted to TCU with debility, here for rehabilitation, strengthening, prior to discharge home alone. Debility - PT/OT. Pain - Tylenol 1000MG Q8H PRN mild pain, Oxycodone 7.5MG TID PRN severe pain. Bowel - Miralax 17GM daily, Senna/colace 2 tablets BID, Dulcolax 10MG NC daily PRN. Pneumonia vaccination - Administer Prevnar 13 and/or Pneumovax 23 as necessary. DVT prophylaxis - Lovenox 40MG SC daily. Osteoporosis - Fosamax 70MG per week. Hypertension - Coreg 25MG BID, Amlodipine 5MG daily. Coronary Artery Disease - Coreg 25MG BID, Aspirin 81MG daily, Plavix 75MG daily. TIA - Plavix 75MG daily, Aspirin 81MG daily, 30 day event recorder. Hyperlipidemia - Atorvastatin 40MG QHS Depression - Bupropion XL 150MG daily, Venlafaxine XR 150Mg daily. Neuropathic pain - Gabapentin 300MG BID. Diabetes Mellitus II - Levemir 38 units QHS, Novolog 6 units TID. Anxiety - Ativan 1MG BID PRN. Nutrition - MVI daily. Acidosis - Sodium Bicarb 650MG daily.
--- NOTE | 2017-07-28 20:27 | HP.PCM_ITS ---
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 Comment: s/p colon resection remote, lung metastases diagnosed 2014, s/p adjuvant chemotherapy, s/p stereotactic XRT [facility], follows [facility] (11) H/O deep venous thrombosis Status: Chronic Comment: now has an IVC filter (12) Hyperlipidemia Status: Chronic Qualifiers: (13) Polyneuropathy Status: Chronic (14) Pulmonary embolism Status: Chronic (15) Hypertension Status: Chronic Qualifiers: (16) GERD (gastroesophageal reflux disease) Status: Chronic Qualifiers: History of Present Illness Date of Admission: 07/28/17 Chief Complaint: Here for rehabilitation, strengthening, prior to discharge home alone. The patient is a 76 year old Female with below past medical history presented to [facility] Emergency Department 07/22/2017 with Hypertension, difficulty speaking. 07/22/2017 CT brain chronic involutional changes of brain. 07/22/2017 Chest X-ray stable right upper lobe mass. 07/22/2017 EKG sinus tachycardia, premature atrial contractions. Difficulty speaking x 1 day. Stress from of spouse 2 weeks prior. Positive nausea, vomiting, blurred vision. Cr 1.2, Glucose 172, Alk phos 60, UA negative. Blood pressure 219/116, Labetalol given. Cipro given. Patient confused. 07/22/2017 Admit to Hospital. MRI/MRA of brain. Hydralazine PRN elevated blood pressure. Spouse recently. Treat acute kidney injury, UTI. 07/23/2017 MRI brain stroke. MRA head/neck normal. 07/23/2017 Echo EF 65% Stage 1 diastolic dysfunction. 07/23/2017 Dr. Johns recommends TTE, 30 day event monitor. 07/24/2017 Renal ultrasound bilateral renal cysts. Diagnosed as TIA. 30 day event recorder. Zyprexa, Gabapentin reduced, Ativan PRN. ARIEL improved with IV fluids. Amlodipine 5MG added for improved blood pressure control. Recommend discontinuation of Lorazepam. 07/28/2017 Admit to TCU for rehabilitation, strengthening, prior to discharge home alone. Past Medical History Past Medical History (Chronic Problems): Chronic Problems (Last Updated 07/16/17 @ 10:14 by Sarah Sifuentes) Depression (Chronic) Anxiety (Chronic) Atherosclerotic heart disease of [place] coronary artery without angina pectoris (Chronic) History of PTCA (Chronic) 01/05/2017 SHEKHAR to mid RCA & POBA to ostial PDA @ [facility] S/P coronary artery stent placement (Chronic) 2006, 2009 & 2010 Hypotension (Chronic) Postural instability (Chronic) Colon carcinoma (Chronic) S/P partial colon resection CAD (coronary artery disease) (Chronic) ptci and stents Diabetes (Chronic) 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) s/p colon resection remote, lung metastases diagnosed 2014, s/p adjuvant chemotherapy, s/p stereotactic XRT [facility], follows [facility] S/P ORIF (open reduction internal fixation) fracture (Chronic) left ankle, 09/14/14, Dr Harvey, [facility] Presence of IVC filter (Chronic) H/O deep venous thrombosis (Chronic) now has an IVC filter Hyperlipidemia (Chronic) Polyneuropathy (Chronic) Pulmonary embolism (Chronic) Hypertension (Chronic) Chronic renal failure, stage 3 (moderate) (Chronic) Anxiety and depression (Chronic) uncontrolled Gallstones (Chronic) GERD (gastroesophageal reflux disease) (Chronic) Allergies promethazine HCl [From Phenergan] Allergy (Verified 07/22/17 17:28) seizures sinhala rice Adverse Reaction (Severe, Uncoded 07/22/17 17:28) Unknown Home Medications: Ambulatory Orders Medication Instructions Recorded Atorvastatin Calcium [Lipitor] 40 mg PO QHS 07/09/15 Multivitamin [Daily Multiple 1 tab PO DAILY 07/09/15 Vitamin] Alendronate Sodium 70 mg PO BURT 09/20/16 buPROPion XL [Wellbutrin Xl] 150 mg PO DAILY 09/20/16 Aspirin E.C. [Ecotrin] 81 mg PO DAILY@0800 02/26/17 Clopidogrel Bisulfate [Plavix] 75 mg PO DAILY 02/26/17 Oxycodone HCl/Acetaminophen 1 tablet PO TID PRN PRN 02/27/17 [Percocet 7.5-325 mg Tablet] Insulin Aspart [Novolog Flexpen] 6 units SC TIDCM 07/09/17 Insulin Glargine,Hum.rec.anlog 38 units SQ QHS 07/09/17 [Elias Strauss] Venlafaxine XR [Effexor Xr] 150 mg PO DAILY 07/09/17 Sodium Bicarbonate 650 mg PO DAILY 07/23/17 Lorazepam [Ativan] 1 mg PO BID PRN PRN 07/26/17 Amlodipine [Norvasc] 5 mg PO DAILY 07/28/17 Carvedilol [Coreg (Beta Gilles)] 25 mg PO BID 07/28/17 Gabapentin [Neurontin] 300 mg PO BIDCM 07/28/17 Insulin Aspart [Novolog Flexpen] See Protocol SC ACHS 07/28/17 Olanzapine [Zyprexa] 2.5 mg PO QHS 07/28/17 Surgical History: colectomy, hysterectomy, - - Left ankle ORIF, multiple cardiac stent placement Psychiatric History: Anxiety, Depression 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 Denies: Chills, Fever, Weight Change HEENT: Denies: Head Aches, Sinus Congestion, Sinus Drainage Cardiovascular: Denies: Chest Pain, Palpitations Respiratory: Denies: Cough, Shortness of breath at rest, Sputum production Gastrointestinal: Denies: Abdominal Pain, Nausea, Vomiting Genitourinary: Denies: Dysuria Musculoskeletal: Denies: Joint Pain, Joint Tenderness Skin: Denies: Rash, Wounds Neurological: Denies: Numbness, Tingling, Focal weakness Psychiatric: Denies: Anxiety, Depression, Homicidal Ideations, Suicidal Ideations Hematologic/ Lymphatic: Denies: Easy Bruising, Easy Bleeding VTE Information - Inpt Only VTE Present on Admission: No VTE Mechan Device Prophylaxis: Knee High MARCOS Hose VTE Pharm Prophylaxis ordered?: Yes - Physical Exam General: Alert, Oriented x3, Cooperative HEENT: Atraumatic, PERRLA, EOMI, Normocephalic Neck: Supple, No JVD, Negative Carotid Bruits Lungs: Clear to auscultation, Normal air movement Cardiovascular: Regular rate, No murmurs Abdomen: Bowel Sounds Present, Soft, Non Tender Extremities: No edema, Capillary Refill Less than 3 Seconds Skin: No rashes, No breakdown Musculoskeletal: No Tenderness to Palpation of Joints or Extremities Neurological: Cranial nerves II-XII grossly intact Psych/Mental Status: Normal Affect, Appropriate Vital Signs Temp Pulse Resp BP Pulse Ox 97.6 F L 81 18 129/60 H 99 07/28/17 15:11 07/28/17 15:11 07/28/17 15:11 07/28/17 15:11 07/28/17 15:11 Oxygen Delivery Method Room Air Weight: 73.65 kg Body Mass Index (BMI) 30.7 Finger Stick Blood Glucose 160 Intake and Output for Last 24 Hours 07/26/17 07/27/17 07/28/17 23:59 23:59 23:59 Intake Total 180 / 180 Balance 180 / 180 POC Glucose 07/28/17 16:50 POC Glucose 314 H Assessment/Plan 76 year old female with below past medical history hospitalized for TIA, complicated by acute kidney injury, hypertensive urgency, urinary tract infection, encephalopathy, admitted to TCU with debility, here for rehabilitation, strengthening, prior to discharge home alone. * Debility - PT/OT. * Pain - Tylenol 1000MG Q8H PRN mild pain, Oxycodone 7.5MG TID PRN severe pain. * Bowel - Miralax 17GM daily, Senna/colace 2 tablets BID, Dulcolax 10MG TX daily PRN. * Pneumonia vaccination - Administer Prevnar 13 and/or Pneumovax 23 as necessary. * DVT prophylaxis - Lovenox 40MG SC daily. * Osteoporosis - Fosamax 70MG per week. * Hypertension - Coreg 25MG BID, Amlodipine 5MG daily. * Coronary Artery Disease - Coreg 25MG BID, Aspirin 81MG daily, Plavix 75MG daily. * TIA - Plavix 75MG daily, Aspirin 81MG daily, 30 day event recorder. * Hyperlipidemia - Atorvastatin 40MG QHS * Depression - Bupropion XL 150MG daily, Venlafaxine XR 150Mg daily. * Neuropathic pain - Gabapentin 300MG BID. * Diabetes Mellitus II - Levemir 38 units QHS, Novolog 6 units TID. * Anxiety - Ativan 1MG BID PRN. * Nutrition - MVI daily. * Acidosis - Sodium Bicarb 650MG daily.
[2017-07-28] MEDS: Atorvastatin Calcium 40 MG Tablet PO (21:14)
[2017-07-28 21:21] LABS: Bedside Glucose 256 mg/dL (70-110)
[2017-07-29] MEDS: Clopidogrel Bisulfate 75 MG Tablet PO (05:40)
[2017-07-29] MEDS: amLODIPine 5 MG Tablet PO (05:40)
[2017-07-29] MEDS: Venlafaxine XR 150 MG Capsule PO (05:40)
[2017-07-29] MEDS: buPROPion (XL) 150 MG TABLET.XL PO (05:40)
[2017-07-29] MEDS: Sodium Bicarbonate 650 MG Tablet PO (05:40)
[2017-07-29] MEDS: Carvedilol 25 MG Tablet PO ×2 (05:40→17:25)
[2017-07-29] MEDS: Enoxaparin 40 MG/0.4 ML Syringe SC (05:40)
--- NOTE | 2017-07-29 05:52 | NURSING ---
Pt refusing stool softeners this AM d/t having chronic loose stools from surgery. Stool softeners made PRN per pt request.
[2017-07-29 07:01] LABS: Bedside Glucose 258 mg/dL (70-110)
[2017-07-29] MEDS: Multivitamins,Therapeutic Tablet 1 TABLET PO (08:47)
[2017-07-29] MEDS: Gabapentin 300 MG Capsule PO ×2 (08:47→17:26)
[2017-07-29] MEDS: Aspirin E.C. 81 MG Tablet PO (08:47)
[2017-07-29 11:36] LABS: Bedside Glucose 316 mg/dL (70-110)
[2017-07-29] MEDS: Tuberculin,Purif.prot.deriv. 50 TU/ML Vial 5 ML ID (11:44)
--- NOTE | 2017-07-29 15:04 | PCM.PN.RX ---
<Osman Rucker D - Last Filed: 07/29/17 15:04> Progress Note - Pharmacy Subjective: TCU Admission Objective: Allergies promethazine HCl [From Phenergan] Allergy (Verified 07/22/17 17:28) seizures [place] rice Adverse Reaction (Severe, Uncoded 07/22/17 17:28) Unknown Home Medications Medication Instructions Recorded Atorvastatin Calcium [Lipitor] 40 mg PO QHS 07/09/15 Multivitamin [Daily Multiple 1 tab PO DAILY 07/09/15 Vitamin] Alendronate Sodium 70 mg PO BURT 09/20/16 buPROPion XL [Wellbutrin Xl] 150 mg PO DAILY 09/20/16 Aspirin E.C. [Ecotrin] 81 mg PO DAILY@0800 02/26/17 Clopidogrel Bisulfate [Plavix] 75 mg PO DAILY 02/26/17 Oxycodone HCl/Acetaminophen 1 tablet PO TID PRN PRN 02/27/17 [Percocet 7.5-325 mg Tablet] Insulin Aspart [Novolog Flexpen] 6 units SC TIDCM 07/09/17 Insulin Glargine,Hum.rec.anlog 38 units SQ QHS 07/09/17 [Toujeo Solostar] Venlafaxine XR [Effexor Xr] 150 mg PO DAILY 07/09/17 Sodium Bicarbonate 650 mg PO DAILY 07/23/17 Lorazepam [Ativan] 1 mg PO BID PRN PRN 07/26/17 Amlodipine [Norvasc] 5 mg PO DAILY 07/28/17 Carvedilol [Coreg (Beta Gilles)] 25 mg PO BID 07/28/17 Gabapentin [Neurontin] 300 mg PO BIDCM 07/28/17 Insulin Aspart [Novolog Flexpen] See Protocol SC ACHS 07/28/17 Olanzapine [Zyprexa] 2.5 mg PO QHS 07/28/17 Current Medications Generic Name Dose Route Start Last Admin Trade Name Freq PRN Reason Stop Dose Admin Acetaminophen 1,000 mg 07/28/17 17:25 07/28/17 17:51 Tylenol PO 1,000 mg Q8H PRN PRN Administration PAIN Alendronate Sodium 70 mg 08/03/17 07:00 Fosamax PO Burt@0700 [facility] Amlodipine Besylate 5 mg 07/29/17 06:00 07/29/17 05:40 Norvasc PO 5 mg DAILY [facility] Administration Aspirin 81 mg 07/29/17 08:00 07/29/17 08:47 Ecotrin PO 81 mg DAILY@0800 [facility] Administration Atorvastatin Calcium 40 mg 07/28/17 22:00 07/28/17 21:14 Lipitor PO 40 mg QHS [facility] Administration Bisacodyl 10 mg 07/28/17 13:57 Dulcolax RECTAL DAILY PRN CONSTIPATION Bupropion HCl 150 mg 07/29/17 06:00 07/29/17 05:40 Wellbutrin Xl PO 150 mg DAILY [facility] Administration Carvedilol 25 mg 07/28/17 18:00 07/29/17 05:40 Coreg PO 25 mg BID [facility] Administration Clopidogrel Bisulfate 75 mg 07/29/17 06:00 07/29/17 05:40 Plavix PO 75 mg DAILY [facility] Administration Enoxaparin Sodium 40 mg 07/29/17 06:00 07/29/17 05:40 Lovenox SC 40 mg DAILY@0600 [facility] Administration Gabapentin 300 mg 07/28/17 17:00 07/29/17 08:47 [facility] Administration Insulin Aspart 12 units 07/29/17 07:41 07/29/17 11:45 Novolog Flexpen ([facility]) SC 12 u TIDCM [facility] Administration Insulin Detemir 18 units 07/29/17 18:00 Levemir ([facility]) SC BID [facility] Lorazepam 1 mg 07/28/17 13:50 Ativan PO BID PRN PRN ANXIETY Multivitamins 1 tablet 07/29/17 08:00 07/29/17 08:47 Multivitamin PO 1 tablet DAILY@0800 [facility] Administration Oxycodone HCl 7.5 mg 07/28/17 14:34 Oxyir PO TID PRN PAIN Polyethylene Glycol 17 gm 07/29/17 05:54 Miralax PO DAILY PRN Constipation Senna/Docusate Sodium 2 tablet 07/29/17 05:54 Senokot-S, Adela-Colace PO BID PRN PRN Constipation Sodium Bicarbonate 650 mg 07/29/17 06:00 07/29/17 05:40 Sodium Bicarbonate PO 650 mg DAILY [facility] Administration Tuberculin PPD 5 tu 08/05/17 10:00 Tubersol, Aplisol, Ppd ID 08/05/17 10:01 X1 ONE Venlafaxine HCl 150 mg 07/29/17 06:00 07/29/17 05:40 Effexor Xr PO 150 mg DAILY [facility] Administration Problem List (Last Updated 07/16/17 @ 10:14 by Sarah Sifuentes) Depression (Chronic) Anxiety (Chronic) Vital Signs Temp Pulse Resp BP Pulse Ox 97.6 F L 81 18 129/60 H 99 07/28/17 15:11 07/28/17 15:11 07/28/17 15:11 07/28/17 15:11 07/28/17 15:11 Oxygen Delivery Method Room Air Weight: 72.291 kg Body Mass Index (BMI) 30.7 Finger Stick Blood Glucose 160 Assessment/Plan: 1) Pain APAP and oxycodone both ordered for pain, gabapentin. Please clarify instructions on one vs the other. Thank you. 2) CAD/HTN/TIA ASA, atorvastatin, carvedilol, clopidogrel, amlodipine. Avg BP/HR within goal ranges, K wnl, BUN/SCr stable at baseline. Conitnue to monitor lipids, hepatic enzymes, electrolytes, BP/HR, renal function, electrolytes, for chest pain, s/s stroke/TIA. 3) DM2 Insulin detemir twice daily, aspart with meals. Avg BGT 200-300s. Continue to titrate insulin doses, monitor for s/s hyper/hypoglycemia. 4) Acidosis Sodium bicarbonate daily. Continue to monitor electrolytes. 5) Osteoporosis Alendronate weekly. Continue to monitor clinically. 6) DVT PPx Enoxaparin daily. Continue to monitor s/s bleeding/clot. 7) Nutrition Multivitamin daily. Continue to monitor clinically. Psychotropic Medications: 8) Depression Bupropion, venlafaxine, lorazepam for anxiety. Continue to monitor prn medication use, s/s depression. Unnecessary Medications: Bowel Regimen: 9) Senna/s, PEG, prn bisacodyl. Continue to monitor prn medication use, for constipation/diarrhea. Date of Note:: 07/29/17 - Provider Comments Provider responsibility: Provider responsible to enter orders to implement recommendations <Jose Kahn Chi - Last Filed: 07/29/17 17:45> Progress Note - Pharmacy Subjective: [] Objective: Allergies promethazine HCl [From Phenergan] Allergy (Verified 07/22/17 17:28) seizures [place] rice Adverse Reaction (Severe, Uncoded 07/22/17 17:28) Unknown Home Medications Medication Instructions Recorded Atorvastatin Calcium [Lipitor] 40 mg PO QHS 07/09/15 Multivitamin [Daily Multiple 1 tab PO DAILY 07/09/15 Vitamin] Alendronate Sodium 70 mg PO BURT 09/20/16 buPROPion XL [Wellbutrin Xl] 150 mg PO DAILY 09/20/16 Aspirin E.C. [Ecotrin] 81 mg PO DAILY@0800 02/26/17 Clopidogrel Bisulfate [Plavix] 75 mg PO DAILY 02/26/17 Oxycodone HCl/Acetaminophen 1 tablet PO TID PRN PRN 02/27/17 [Percocet 7.5-325 mg Tablet] Insulin Aspart [Novolog Flexpen] 6 units SC TIDCM 07/09/17 Insulin Glargine,Hum.rec.anlog 38 units SQ QHS 07/09/17 [Toudanisha Solostar] Venlafaxine XR [Effexor Xr] 150 mg PO DAILY 07/09/17 Sodium Bicarbonate 650 mg PO DAILY 07/23/17 Lorazepam [Ativan] 1 mg PO BID PRN PRN 07/26/17 Amlodipine [Norvasc] 5 mg PO DAILY 07/28/17 Carvedilol [Coreg (Beta Gilles)] 25 mg PO BID 07/28/17 Gabapentin [Neurontin] 300 mg PO BIDCM 07/28/17 Insulin Aspart [Novolog Flexpen] See Protocol SC ACHS 07/28/17 Olanzapine [Zyprexa] 2.5 mg PO QHS 07/28/17 Current Medications Generic Name Dose Route Start Last Admin Trade Name Freq PRN Reason Stop Dose Admin Acetaminophen 1,000 mg 07/28/17 17:25 07/29/17 17:26 Tylenol PO 1,000 mg Q8H PRN PRN Administration PAIN Alendronate Sodium 70 mg 08/03/17 07:00 Fosamax PO Burt@0700 [facility] Amlodipine Besylate 5 mg 07/29/17 06:00 07/29/17 05:40 Norvasc PO 5 mg DAILY [facility] Administration Aspirin 81 mg 07/29/17 08:00 07/29/17 08:47 Ecotrin PO 81 mg DAILY@0800 [facility] Administration Atorvastatin Calcium 40 mg 07/28/17 22:00 07/28/17 21:14 Lipitor PO 40 mg QHS [facility] Administration Bisacodyl 10 mg 07/28/17 13:57 Dulcolax RECTAL DAILY PRN CONSTIPATION Bupropion HCl 150 mg 07/29/17 06:00 07/29/17 05:40 Wellbutrin Xl PO 150 mg DAILY [facility] Administration Carvedilol 25 mg 07/28/17 18:00 07/29/17 17:25 Coreg PO 25 mg BID [facility] Administration Clopidogrel Bisulfate 75 mg 07/29/17 06:00 07/29/17 05:40 Plavix PO 75 mg DAILY [facility] Administration Enoxaparin Sodium 40 mg 07/29/17 06:00 07/29/17 05:40 Lovenox SC 40 mg DAILY@0600 [facility] Administration Gabapentin 300 mg 07/28/17 17:00 07/29/17 17:26 [facility] Administration Insulin Aspart 12 units 07/29/17 07:41 07/29/17 17:26 Novolog Flexpen ([facility]) SC 12 u TIDCM [facility] Administration Insulin Detemir 18 units 07/29/17 18:00 07/29/17 17:26 Levemir ([facility]) SC 18 u BID [facility] Administration Lorazepam 1 mg 07/28/17 13:50 Ativan PO BID PRN PRN ANXIETY Multivitamins 1 tablet 07/29/17 08:00 07/29/17 08:47 Multivitamin PO 1 tablet DAILY@0800 [facility] Administration Oxycodone HCl 7.5 mg 07/28/17 14:34 Oxyir PO TID PRN PAIN Polyethylene Glycol 17 gm 07/29/17 05:54 Miralax PO DAILY PRN Constipation Senna/Docusate Sodium 2 tablet 07/29/17 05:54 Senokot-S, Adela-Colace PO BID PRN PRN Constipation Sodium Bicarbonate 650 mg 07/29/17 06:00 07/29/17 05:40 Sodium Bicarbonate PO 650 mg DAILY [facility] Administration Tuberculin PPD 5 tu 08/05/17 10:00 Tubersol, Aplisol, Ppd ID 08/05/17 10:01 X1 ONE Venlafaxine HCl 150 mg 07/29/17 06:00 07/29/17 05:40 Effexor Xr PO 150 mg DAILY [facility] Administration Problem List (Last Updated 07/16/17 @ 10:14 by Sarah Sifuentes) Depression (Chronic) Anxiety (Chronic) Vital Signs Temp Pulse Resp BP Pulse Ox 98.2 F 89 18 152/70 H 97 07/29/17 15:37 07/29/17 15:37 07/29/17 15:37 07/29/17 15:37 07/29/17 15:37 Oxygen Delivery Method Room Air Weight: 72.291 kg Body Mass Index (BMI) 30.7 Finger Stick Blood Glucose 160 Assessment/Plan: Psychotropic Medications: Unnecessary Medications: Bowel Regimen: - Provider Comments Provider responsibility: Provider responsible to enter orders to implement recommendations Provider Comments to Recommendations by Pharmacy: Agree
--- NOTE | 2017-07-29 15:12 | PHA.CONS_ITS ---
<Osman Rucker D - Last Filed: 07/29/17 15:04> Progress Note - Pharmacy Subjective: TCU Admission Objective: Allergies promethazine HCl [From Phenergan] Allergy (Verified 07/22/17 17:28) seizures syrian rice Adverse Reaction (Severe, Uncoded 07/22/17 17:28) Unknown Home Medications Medication Instructions Recorded Atorvastatin Calcium [Lipitor] 40 mg PO QHS 07/09/15 Multivitamin [Daily Multiple 1 tab PO DAILY 07/09/15 Vitamin] Alendronate Sodium 70 mg PO BURT 09/20/16 buPROPion XL [Wellbutrin Xl] 150 mg PO DAILY 09/20/16 Aspirin E.C. [Ecotrin] 81 mg PO DAILY@0800 02/26/17 Clopidogrel Bisulfate [Plavix] 75 mg PO DAILY 02/26/17 Oxycodone HCl/Acetaminophen 1 tablet PO TID PRN PRN 02/27/17 [Percocet 7.5-325 mg Tablet] Insulin Aspart [Novolog Flexpen] 6 units SC TIDCM 07/09/17 Insulin Glargine,Hum.rec.anlog 38 units SQ QHS 07/09/17 [Toujeo Solostar] Venlafaxine XR [Effexor Xr] 150 mg PO DAILY 07/09/17 Sodium Bicarbonate 650 mg PO DAILY 07/23/17 Lorazepam [Ativan] 1 mg PO BID PRN PRN 07/26/17 Amlodipine [Norvasc] 5 mg PO DAILY 07/28/17 Carvedilol [Coreg (Beta Gilles)] 25 mg PO BID 07/28/17 Gabapentin [Neurontin] 300 mg PO BIDCM 07/28/17 Insulin Aspart [Novolog Flexpen] See Protocol SC ACHS 07/28/17 Olanzapine [Zyprexa] 2.5 mg PO QHS 07/28/17 Current Medications Generic Name Dose Route Start Last Admin Trade Name Freq PRN Reason Stop Dose Admin Acetaminophen 1,000 mg 07/28/17 17:25 07/28/17 17:51 Tylenol PO 1,000 mg Q8H PRN PRN Administration PAIN Alendronate Sodium 70 mg 08/03/17 07:00 Fosamax PO Burt@0700 [facility] Amlodipine Besylate 5 mg 07/29/17 06:00 07/29/17 05:40 Norvasc PO 5 mg DAILY [facility] Administration Aspirin 81 mg 07/29/17 08:00 07/29/17 08:47 Ecotrin PO 81 mg DAILY@0800 [facility] Administration Atorvastatin Calcium 40 mg 07/28/17 22:00 07/28/17 21:14 Lipitor PO 40 mg QHS [facility] Administration Bisacodyl 10 mg 07/28/17 13:57 Dulcolax RECTAL DAILY PRN CONSTIPATION Bupropion HCl 150 mg 07/29/17 06:00 07/29/17 05:40 Wellbutrin Xl PO 150 mg DAILY [facility] Administration Carvedilol 25 mg 07/28/17 18:00 07/29/17 05:40 Coreg PO 25 mg BID [facility] Administration Clopidogrel Bisulfate 75 mg 07/29/17 06:00 07/29/17 05:40 Plavix PO 75 mg DAILY [facility] Administration Enoxaparin Sodium 40 mg 07/29/17 06:00 07/29/17 05:40 Lovenox SC 40 mg DAILY@0600 [facility] Administration Gabapentin 300 mg 07/28/17 17:00 07/29/17 08:47 [facility] Administration Insulin Aspart 12 units 07/29/17 07:41 07/29/17 11:45 Novolog Flexpen ([facility]) SC 12 u TIDCM [facility] Administration Insulin Detemir 18 units 07/29/17 18:00 Levemir ([facility]) SC BID [facility] Lorazepam 1 mg 07/28/17 13:50 Ativan PO BID PRN PRN ANXIETY Multivitamins 1 tablet 07/29/17 08:00 07/29/17 08:47 Multivitamin PO 1 tablet DAILY@0800 [facility] Administration Oxycodone HCl 7.5 mg 07/28/17 14:34 Oxyir PO TID PRN PAIN Polyethylene Glycol 17 gm 07/29/17 05:54 Miralax PO DAILY PRN Constipation Senna/Docusate Sodium 2 tablet 07/29/17 05:54 Senokot-S, Adela-Colace PO BID PRN PRN Constipation Sodium Bicarbonate 650 mg 07/29/17 06:00 07/29/17 05:40 Sodium Bicarbonate PO 650 mg DAILY [facility] Administration Tuberculin PPD 5 tu 08/05/17 10:00 Tubersol, Aplisol, Ppd ID 08/05/17 10:01 X1 ONE Venlafaxine HCl 150 mg 07/29/17 06:00 07/29/17 05:40 Effexor Xr PO 150 mg DAILY [facility] Administration Problem List (Last Updated 07/16/17 @ 10:14 by Sarah Sifuentes) Depression (Chronic) Anxiety (Chronic) Vital Signs Temp Pulse Resp BP Pulse Ox 97.6 F L 81 18 129/60 H 99 07/28/17 15:11 07/28/17 15:11 07/28/17 15:11 07/28/17 15:11 07/28/17 15:11 Oxygen Delivery Method Room Air Weight: 72.291 kg Body Mass Index (BMI) 30.7 Finger Stick Blood Glucose 160 Assessment/Plan: 1) Pain APAP and oxycodone both ordered for pain, gabapentin. Please clarify instructions on one vs the other. Thank you. 2) CAD/HTN/TIA ASA, atorvastatin, carvedilol, clopidogrel, amlodipine. Avg BP/HR within goal ranges, K wnl, BUN/SCr stable at baseline. Conitnue to monitor lipids, hepatic enzymes, electrolytes, BP/HR, renal function, electrolytes, for chest pain, s/s stroke/TIA. 3) DM2 Insulin detemir twice daily, aspart with meals. Avg BGT 200-300s. Continue to titrate insulin doses, monitor for s/s hyper/hypoglycemia. 4) Acidosis Sodium bicarbonate daily. Continue to monitor electrolytes. 5) Osteoporosis Alendronate weekly. Continue to monitor clinically. 6) DVT PPx Enoxaparin daily. Continue to monitor s/s bleeding/clot. 7) Nutrition Multivitamin daily. Continue to monitor clinically. Psychotropic Medications: 8) Depression Bupropion, venlafaxine, lorazepam for anxiety. Continue to monitor prn medication use, s/s depression. Unnecessary Medications: Bowel Regimen: 9) Senna/s, PEG, prn bisacodyl. Continue to monitor prn medication use, for constipation/diarrhea. Date of Note:: 07/29/17 - Provider Comments Provider responsibility: Provider responsible to enter orders to implement recommendations <Jose Kahn Chi - Last Filed: 07/29/17 17:45> Progress Note - Pharmacy Subjective: [] Objective: Allergies promethazine HCl [From Phenergan] Allergy (Verified 07/22/17 17:28) seizures syrian rice Adverse Reaction (Severe, Uncoded 07/22/17 17:28) Unknown Home Medications Medication Instructions Recorded Atorvastatin Calcium [Lipitor] 40 mg PO QHS 07/09/15 Multivitamin [Daily Multiple 1 tab PO DAILY 07/09/15 Vitamin] Alendronate Sodium 70 mg PO BURT 09/20/16 buPROPion XL [Wellbutrin Xl] 150 mg PO DAILY 09/20/16 Aspirin E.C. [Ecotrin] 81 mg PO DAILY@0800 02/26/17 Clopidogrel Bisulfate [Plavix] 75 mg PO DAILY 02/26/17 Oxycodone HCl/Acetaminophen 1 tablet PO TID PRN PRN 02/27/17 [Percocet 7.5-325 mg Tablet] Insulin Aspart [Novolog Flexpen] 6 units SC TIDCM 07/09/17 Insulin Glargine,Hum.rec.anlog 38 units SQ QHS 07/09/17 [Toudanisha Solostar] Venlafaxine XR [Effexor Xr] 150 mg PO DAILY 07/09/17 Sodium Bicarbonate 650 mg PO DAILY 07/23/17 Lorazepam [Ativan] 1 mg PO BID PRN PRN 07/26/17 Amlodipine [Norvasc] 5 mg PO DAILY 07/28/17 Carvedilol [Coreg (Beta Gilles)] 25 mg PO BID 07/28/17 Gabapentin [Neurontin] 300 mg PO BIDCM 07/28/17 Insulin Aspart [Novolog Flexpen] See Protocol SC ACHS 07/28/17 Olanzapine [Zyprexa] 2.5 mg PO QHS 07/28/17 Current Medications Generic Name Dose Route Start Last Admin Trade Name Freq PRN Reason Stop Dose Admin Acetaminophen 1,000 mg 07/28/17 17:25 07/29/17 17:26 Tylenol PO 1,000 mg Q8H PRN PRN Administration PAIN Alendronate Sodium 70 mg 08/03/17 07:00 Fosamax PO Burt@0700 [facility] Amlodipine Besylate 5 mg 07/29/17 06:00 07/29/17 05:40 Norvasc PO 5 mg DAILY [facility] Administration Aspirin 81 mg 07/29/17 08:00 07/29/17 08:47 Ecotrin PO 81 mg DAILY@0800 [facility] Administration Atorvastatin Calcium 40 mg 07/28/17 22:00 07/28/17 21:14 Lipitor PO 40 mg QHS [facility] Administration Bisacodyl 10 mg 07/28/17 13:57 Dulcolax RECTAL DAILY PRN CONSTIPATION Bupropion HCl 150 mg 07/29/17 06:00 07/29/17 05:40 Wellbutrin Xl PO 150 mg DAILY [facility] Administration Carvedilol 25 mg 07/28/17 18:00 07/29/17 17:25 Coreg PO 25 mg BID [facility] Administration Clopidogrel Bisulfate 75 mg 07/29/17 06:00 07/29/17 05:40 Plavix PO 75 mg DAILY [facility] Administration Enoxaparin Sodium 40 mg 07/29/17 06:00 07/29/17 05:40 Lovenox SC 40 mg DAILY@0600 [facility] Administration Gabapentin 300 mg 07/28/17 17:00 07/29/17 17:26 [facility] Administration Insulin Aspart 12 units 07/29/17 07:41 07/29/17 17:26 Novolog Flexpen ([facility]) SC 12 u TIDCM [facility] Administration Insulin Detemir 18 units 07/29/17 18:00 07/29/17 17:26 Levemir ([facility]) SC 18 u BID [facility] Administration Lorazepam 1 mg 07/28/17 13:50 Ativan PO BID PRN PRN ANXIETY Multivitamins 1 tablet 07/29/17 08:00 07/29/17 08:47 Multivitamin PO 1 tablet DAILY@0800 [facility] Administration Oxycodone HCl 7.5 mg 07/28/17 14:34 Oxyir PO TID PRN PAIN Polyethylene Glycol 17 gm 07/29/17 05:54 Miralax PO DAILY PRN Constipation Senna/Docusate Sodium 2 tablet 07/29/17 05:54 Senokot-S, Adela-Colace PO BID PRN PRN Constipation Sodium Bicarbonate 650 mg 07/29/17 06:00 07/29/17 05:40 Sodium Bicarbonate PO 650 mg DAILY [facility] Administration Tuberculin PPD 5 tu 08/05/17 10:00 Tubersol, Aplisol, Ppd ID 08/05/17 10:01 X1 ONE Venlafaxine HCl 150 mg 07/29/17 06:00 07/29/17 05:40 Effexor Xr PO 150 mg DAILY [facility] Administration Problem List (Last Updated 07/16/17 @ 10:14 by Sarah Sifuentes) Depression (Chronic) Anxiety (Chronic) Vital Signs Temp Pulse Resp BP Pulse Ox 98.2 F 89 18 152/70 H 97 07/29/17 15:37 07/29/17 15:37 07/29/17 15:37 07/29/17 15:37 07/29/17 15:37 Oxygen Delivery Method Room Air Weight: 72.291 kg Body Mass Index (BMI) 30.7 Finger Stick Blood Glucose 160 Assessment/Plan: Psychotropic Medications: Unnecessary Medications: Bowel Regimen: - Provider Comments Provider responsibility: Provider responsible to enter orders to implement recommendations Provider Comments to Recommendations by Pharmacy: Agree
[2017-07-29 15:37] VITALS: BP 152/70; PULSE 89; RESP 18; TEMP 36.8; O2SAT 97
[2017-07-29 17:00] LABS: Bedside Glucose 145 mg/dL (70-110)
[2017-07-29] MEDS: Acetaminophen 500 MG Tablet 1000 MG PO (17:26)
[2017-07-29 21:31] LABS: Bedside Glucose 180 mg/dL (70-110)
[2017-07-29] MEDS: Atorvastatin Calcium 40 MG Tablet PO (21:31)
[2017-07-29] MEDS: oxyCODONE 5 MG Tablet 7.5 MG PO (21:34)
[2017-07-29] MEDS: LORazepam 1 MG Tablet PO (21:39)
[2017-07-30 05:35] LABS: Absolute Lymphocyte Count 0.94 X10^3/ul (0.83-4.51); Absolute Neutrophil Count 3.1 X10^3/uL (2.0-7.7); Basophil# 0.05 X10^3/uL; Eosinophil# 0.39 X10^3/uL; Eosinophils% 7.6 % (0-5); Hematocrit 31.5 % (37-47); Hemoglobin 9.8 g/dl (12.0-15.0); Lymphocyte # 0.94 X10^3/ul (4.0); Lymphocyte % 18.4 % (19-41); Mean Corp Hgb Conc 31.1 g/gl (32-36); Mean Corpuscular Hgb 28.1 pg (27.0-32.0); Mean Corpuscular Volume 90.3 fL (81-99); Mean Platelet Vol. 10.6 fl (6.2-12.0); Monocyte# 0.57 X10^3/uL; Monocyte% 11.2 % (0-10); Neutrophil # 3.14 X10^3/uL (2.7-7.7); Neutrophil % 61.4 % (47-70); Platelet Count 182 K/mm3 (150-450); RBC Distribution Width CV 13.9 % (11.6-14.6); Red Blood Count 3.49 M/mm3 (4.2-5.4); White Blood Count 5.1 K/mm3 (4.4-11.0)
[2017-07-30 06:01] LABS: Anion Gap 7 (5-15); BUN 27 mg/dL (7-18); BUN/Creat Ratio 21.4 RATIO (10-20); Calcium,Total 9.4 mg/dL (8.5-10.1); Chloride 106 mmol/L (98-107); Creatinine, Serum 1.26 mg/dL (0.55-1.02); EST Glomerular Filtration Rate 44 mL/min (>60); Est Glom Filt Rate - Afr Amer 53 mL/min (>60); Estimated Creatinine Clearance 28.22 ml/min; Glucose 146 mg/dL (74-106); Sodium Level 139 mmol/L (136-145)
[2017-07-30 06:18] LABS: POSITIVE COUNT NO; POSITIVE DIFFERENTIAL NO; POSITIVE MORPHOLOGY NO
[2017-07-30] MEDS: amLODIPine 5 MG Tablet PO (06:32)
[2017-07-30] MEDS: buPROPion (XL) 150 MG TABLET.XL PO (06:33)
[2017-07-30] MEDS: Carvedilol 25 MG Tablet PO ×2 (06:33→17:10)
[2017-07-30] MEDS: Sodium Bicarbonate 650 MG Tablet PO (06:33)
[2017-07-30] MEDS: Clopidogrel Bisulfate 75 MG Tablet PO (06:33)
[2017-07-30] MEDS: Venlafaxine XR 150 MG Capsule PO (06:33)
[2017-07-30] MEDS: Enoxaparin 40 MG/0.4 ML Syringe SC (06:34)
[2017-07-30 06:36] LABS: Bedside Glucose 136 mg/dL (70-110)
[2017-07-30 06:39] VITALS: BP 140/65; PULSE 81
[2017-07-30] MEDS: Aspirin E.C. 81 MG Tablet PO (08:18)
[2017-07-30] MEDS: Gabapentin 300 MG Capsule PO ×2 (08:18→17:10)
[2017-07-30] MEDS: Multivitamins,Therapeutic Tablet 1 TABLET PO (08:18)
--- NOTE | 2017-07-30 09:39 | NURSING ---
PT WITH LARGE YELLOW LIQUID EMESIS, PT STATES IT CAME ON SUDDENLY AFTER THERAPY SESSION. PT DID TAKE PILLS EARLY THIS AM BEFORE EATING ON EMPTY STOMACH. PT DID EAT MINIWHEATS THIS AM AND STATED SHE HAS NOT HAD THAT CEREAL IN A WHILE. WILL CONTINE TO MONITOR. DIET GINGERALE GIVEN WITH SALTINE CRACKERS. STATES SHE FEELS BETTER.
[2017-07-30 11:50] LABS: Bedside Glucose 85 mg/dL (70-110)
[2017-07-30 15:55] VITALS: BP 143/68; PULSE 95; RESP 18; TEMP 36.4; O2SAT 95
[2017-07-30 17:16] LABS: Bedside Glucose 227 mg/dL (70-110)
[2017-07-30 21:16] LABS: Bedside Glucose 254 mg/dL (70-110)
[2017-07-30] MEDS: LORazepam 1 MG Tablet PO (21:47)
[2017-07-30] MEDS: Atorvastatin Calcium 40 MG Tablet PO (21:48)
[2017-07-31] MEDS: Venlafaxine XR 150 MG Capsule PO (06:25)
[2017-07-31] MEDS: Sodium Bicarbonate 650 MG Tablet PO (06:25)
[2017-07-31] MEDS: Carvedilol 25 MG Tablet PO ×2 (06:25→18:35)
[2017-07-31] MEDS: Clopidogrel Bisulfate 75 MG Tablet PO (06:25)
[2017-07-31] MEDS: amLODIPine 5 MG Tablet PO (06:25)
[2017-07-31] MEDS: buPROPion (XL) 150 MG TABLET.XL PO (06:25)
[2017-07-31] MEDS: Enoxaparin 40 MG/0.4 ML Syringe SC (06:25)
[2017-07-31 06:34] VITALS: BP 137/83; PULSE 83
[2017-07-31 06:51] LABS: Bedside Glucose 223 mg/dL (70-110)
[2017-07-31] MEDS: Aspirin E.C. 81 MG Tablet PO (07:55)
[2017-07-31] MEDS: Multivitamins,Therapeutic Tablet 1 TABLET PO (07:55)
[2017-07-31] MEDS: Iron Polysaccharide Complex 150 MG CAPSULE PO (07:55)
[2017-07-31] MEDS: Gabapentin 300 MG Capsule PO ×2 (07:55→18:35)
[2017-07-31 11:11] LABS: Bedside Glucose 102 mg/dL (70-110)
[2017-07-31] MEDS: Ondansetron ODT 4 MG Tablet PO (12:52)
[2017-07-31 16:00] VITALS: BP 142/67; PULSE 82; RESP 18; TEMP 36.3; O2SAT 92
[2017-07-31 17:41] LABS: Bedside Glucose 269 mg/dL (70-110)
[2017-07-31] MEDS: Acetaminophen 500 MG Tablet 1000 MG PO (20:21)
[2017-07-31] MEDS: Atorvastatin Calcium 40 MG Tablet PO (20:21)
[2017-07-31 21:21] LABS: Bedside Glucose 81 mg/dL (70-110)
[2017-07-31] MEDS: LORazepam 1 MG Tablet PO (22:29)
[2017-08-01 07:06] LABS: Bedside Glucose 96 mg/dL (70-110)
[2017-08-01] MEDS: Sodium Bicarbonate 650 MG Tablet PO (10:09)
[2017-08-01] MEDS: buPROPion (XL) 150 MG TABLET.XL PO (10:09)
[2017-08-01] MEDS: Iron Polysaccharide Complex 150 MG CAPSULE PO (10:09)
[2017-08-01] MEDS: Aspirin E.C. 81 MG Tablet PO (10:10)
[2017-08-01] MEDS: Clopidogrel Bisulfate 75 MG Tablet PO (10:10)
[2017-08-01] MEDS: Gabapentin 300 MG Capsule PO ×2 (10:10→18:10)
[2017-08-01] MEDS: Multivitamins,Therapeutic Tablet 1 TABLET PO (10:10)
[2017-08-01] MEDS: Venlafaxine XR 150 MG Capsule PO (10:10)
[2017-08-01] MEDS: Enoxaparin 40 MG/0.4 ML Syringe SC (10:10)
[2017-08-01] MEDS: Carvedilol 25 MG Tablet PO ×2 (10:10→18:11)
[2017-08-01] MEDS: amLODIPine 5 MG Tablet PO (10:11)
[2017-08-01 11:50] LABS: Bedside Glucose 270 mg/dL (70-110)
--- NOTE | 2017-08-01 13:12 | CASEMGMT ---
Brief interview for mental status (BIMS) and resident mood interview (PHQ-9) completed on this day. BIMS score 15. PHQ-9 score 07/11
--- NOTE | 2017-08-01 13:12 | CASEMGMT ---
Social Work Spoke with resident in room. This social insurance analyst communicating that discharge date has been set for 08/05/17. Resident is agreeable to discharge date and signing NOMNOC. Resident plans to discharge home alone. No further therapy recommendations at this time. Resident plans to continue with services through [facility]. Resident reporting that resident daughter will provide transportation home for resident at time of discharge. Resident reporting to have needed medical equipment already set up within the home. Resident declining for this social insurance analyst to contact resident daughter in regards to discharge plan/date. Resident reporting to be able to contact daughter. Support given. [facility] Proposed discharge date: 08/05/17 PLAN: Discharge home alone with services through [facility]. Alexandra MOROCHO, LEAD RELAY TESTER
--- NOTE | 2017-08-01 14:53 | PCM.DC ---
- Discharge Diagnoses Current Active Problems: Current Active and Chronic Problems (Last Updated 07/16/17 @ 10:14 by Sarah Sifuentes) Depression (Chronic) Anxiety (Chronic) You will use the following diet at home:: No restrictions, Regular Your food should be the consistency of: Regular Your liquids should be the consistency of: Regular/Thin Discharge Activity: Return to Normal Activity, May Shower, Use Walker Weight Bearing Status: Weight bearing as tolerated Call your doctor if you observe: Fever of 101 or Higher, Inability to urinate, Inability to have a bowel movement, Shortness of breath, Chest pain, Uncontrolled pain Allergies/Adverse Reactions: Allergies promethazine HCl [From Phenergan] Allergy (Verified 07/22/17 17:28) seizures cameroonian rice Adverse Reaction (Severe, Uncoded 07/22/17 17:28) Unknown Medications to take at Discharge Atorvastatin Calcium [Lipitor] 40 mg PO QHS 07/09/15 Multivitamin [Daily Multiple Vitamin] 1 tab PO DAILY 07/09/15 Alendronate Sodium 70 mg PO BURT 09/20/16 buPROPion XL [Wellbutrin Xl] 150 mg PO DAILY 09/20/16 Aspirin E.C. [Ecotrin] 81 mg PO DAILY@0800 02/26/17 Clopidogrel Bisulfate [Plavix] 75 mg PO DAILY 02/26/17 Oxycodone HCl/Acetaminophen [Percocet 7.5-325 mg Tablet] 1 tablet PO TID PRN PRN 02/27/17 Insulin Aspart [Novolog Flexpen] 6 units SC TIDCM 07/09/17 Insulin Glargine,Hum.rec.anlog [Toujeo Solostar] 38 units SQ QHS 07/09/17 Venlafaxine XR [Effexor Xr] 150 mg PO DAILY 07/09/17 Sodium Bicarbonate 650 mg PO DAILY 07/23/17 Carvedilol [Coreg (Beta Gilles)] 25 mg PO BID 07/28/17 Gabapentin [Neurontin] 300 mg PO BIDCM 07/28/17 Acetaminophen [Tylenol] 1,000 mg PO Q8H PRN PRN tablet 08/01/17 Amlodipine [Norvasc] 5 mg PO DAILY #30 tab 08/01/17 Iron Polysaccharide Complex [Ferrex 150] 150 mg PO DAILYCM #30 cap 08/01/17 Lorazepam [Ativan] 1 mg PO BID PRN PRN #30 tablet 08/01/17 Ondansetron [Zofran Odt] 4 mg PO Q8H PRN PRN #30 tab 08/01/17 Polyethylene Glycol 3350 [Miralax] 17 gm PO DAILY PRN #30 packet 08/01/17 The following prescriptions were given: Ondansetron [Zofran Odt] 4 mg PO Q8H PRN PRN #30 tab PRN Reason: NAUSEA Amlodipine [Norvasc] 5 mg PO DAILY #30 tab Iron Polysaccharide Complex [Ferrex 150] 150 mg PO DAILYCM #30 cap Lorazepam [Ativan] 1 mg PO BID PRN PRN #30 tablet PRN Reason: Anxiety Polyethylene Glycol 3350 [Miralax] 17 gm PO DAILY PRN #30 packet PRN Reason: Constipation Primary Care Physician: Donald Cline MD [Primary Care Provider] - Please follow up with your Primary Care Physician in: 1 week. Proposed Discharge Date: 08/05/17
--- NOTE | 2017-08-01 14:55 | PCM.DC.SUM ---
Discharge Date and Diagnosis Date of Admission: 07/28/17 Date of Discharge: 08/05/17 - Secondary Discharge Diagnosis Chronic Problems (Last Updated 07/16/17 @ 10:14 by Sarah Sifuentes) Depression (Chronic) Anxiety (Chronic) Atherosclerotic heart disease of [place]iy[place] coronary artery without angina pectoris (Chronic) History of PTCA (Chronic) 01/05/2017 SHEKHAR to mid RCA & POBA to ostial PDA @ [facility] S/P coronary artery stent placement (Chronic) 2006, 2009 & 2010 Hypotension (Chronic) Postural instability (Chronic) Colon carcinoma (Chronic) S/P partial colon resection CAD (coronary artery disease) (Chronic) ptci and stents Diabetes (Chronic) 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) s/p colon resection remote, lung metastases diagnosed 2014, s/p adjuvant chemotherapy, s/p stereotactic XRT [facility], follows [facility] S/P ORIF (open reduction internal fixation) fracture (Chronic) left ankle, 09/14/14, Dr Harvey, [facility] Presence of IVC filter (Chronic) H/O deep venous thrombosis (Chronic) now has an IVC filter Hyperlipidemia (Chronic) Polyneuropathy (Chronic) Pulmonary embolism (Chronic) Hypertension (Chronic) Chronic renal failure, stage 3 (moderate) (Chronic) Anxiety and depression (Chronic) uncontrolled Gallstones (Chronic) GERD (gastroesophageal reflux disease) (Chronic) Hospital Course and Treatment Imaging Results: 07/28/17 13:55 Diet: Calorie Controlled Food consistency:: Regular Liquid Consistency:: Regular/Thin Type of Dietary Supplement:: Glucerna Shake Diet Comments: cardiac diet How many daily calories?: 1800 calorie Labs (Last 48 Hours) 07/30/17 07/30/17 07/31/17 17:09 21:01 06:35 POC Glucose 227 H 254 H 223 H 07/31/17 07/31/17 07/31/17 11:00 17:35 21:14 POC Glucose 102 269 H 81 08/01/17 08/01/17 06:51 11:34 POC Glucose 96 270 H Microbiology 07/30/17 Unknown Stool Stool Occult Blood (JASSI) - Final Operations: None Procedures: None Summary of Care Provided: The patient is a 76 year old Female with below past medical history hospitalized for TIA, complicated by acute kidney injury, hypertensive urgency, urinary tract infection, encephalopathy, admitted to TCU with debility, here for rehabilitation, strengthening, prior to discharge home alone. Discharge home alone with services through [facility]. Discharge Diet: No Restrictions Discharge Activity: Return to Normal Activity, May Shower, Use Walker Weight Bearing Status: Weight bearing as tolerated Call your doctor if you observe: Fever of 101 or Higher, Inability to urinate, Inability to have a bowel movement, Shortness of breath, Chest pain, Uncontrolled pain Home Medications: Medications to take at Discharge Atorvastatin Calcium [Lipitor] 40 mg PO QHS 07/09/15 Multivitamin [Daily Multiple Vitamin] 1 tab PO DAILY 07/09/15 Alendronate Sodium 70 mg PO BURT 09/20/16 buPROPion XL [Wellbutrin Xl] 150 mg PO DAILY 09/20/16 Aspirin E.C. [Ecotrin] 81 mg PO DAILY@0800 02/26/17 Clopidogrel Bisulfate [Plavix] 75 mg PO DAILY 02/26/17 Oxycodone HCl/Acetaminophen [Percocet 7.5-325 mg Tablet] 1 tablet PO TID PRN PRN 02/27/17 Insulin Aspart [Novolog Flexpen] 6 units SC TIDCM 07/09/17 Insulin Glargine,Hum.rec.anlog [Toujeo Solostar] 38 units SQ QHS 07/09/17 Venlafaxine XR [Effexor Xr] 150 mg PO DAILY 07/09/17 Sodium Bicarbonate 650 mg PO DAILY 07/23/17 Carvedilol [Coreg (Beta Gilles)] 25 mg PO BID 07/28/17 Gabapentin [Neurontin] 300 mg PO BIDCM 07/28/17 Acetaminophen [Tylenol] 1,000 mg PO Q8H PRN PRN tablet 08/01/17 Amlodipine [Norvasc] 5 mg PO DAILY #30 tab 08/01/17 Iron Polysaccharide Complex [Ferrex 150] 150 mg PO DAILYCM #30 cap 08/01/17 Lorazepam [Ativan] 1 mg PO BID PRN PRN #30 tablet 08/01/17 Ondansetron [Zofran Odt] 4 mg PO Q8H PRN PRN #30 tab 08/01/17 Polyethylene Glycol 3350 [Miralax] 17 gm PO DAILY PRN #30 packet 08/01/17 Following Prescrptions Were Given to Patient: Ondansetron [Zofran Odt] 4 mg PO Q8H PRN PRN #30 tab PRN Reason: NAUSEA Amlodipine [Norvasc] 5 mg PO DAILY #30 tab Iron Polysaccharide Complex [Ferrex 150] 150 mg PO DAILYCM #30 cap Lorazepam [Ativan] 1 mg PO BID PRN PRN #30 tablet PRN Reason: Anxiety Polyethylene Glycol 3350 [Miralax] 17 gm PO DAILY PRN #30 packet PRN Reason: Constipation Primary Care Physician: Donald Cline MD [Primary Care Provider] - Please follow up with your Primary Care Physician in: 1 week. Disposition: Home Minutes spent on discharge:: 30 Patient Condition:: Good Medical Necessity - Tobacco Use Smoking Status: Never smoker Tobacco Use: Non-smoker Meaningful Use Info Meaningful Use Diagnoses (Choose all that apply): None applicable
[2017-08-01 16:00] VITALS: BP 130/57; PULSE 82; RESP 18; TEMP 36.9; O2SAT 92
[2017-08-01 17:10] LABS: Bedside Glucose 231 mg/dL (70-110)
[2017-08-01 21:15] LABS: Bedside Glucose 200 mg/dL (70-110)
[2017-08-01] MEDS: Atorvastatin Calcium 40 MG Tablet PO (21:43)
[2017-08-01] MEDS: LORazepam 1 MG Tablet PO (23:12)
[2017-08-02 06:41] LABS: Bedside Glucose 171 mg/dL (70-110)
[2017-08-02] MEDS: Gabapentin 300 MG Capsule PO ×2 (08:23→16:43)
[2017-08-02] MEDS: Venlafaxine XR 150 MG Capsule PO (08:23)
[2017-08-02] MEDS: Multivitamins,Therapeutic Tablet 1 TABLET PO (08:23)
[2017-08-02] MEDS: Aspirin E.C. 81 MG Tablet PO (08:23)
[2017-08-02] MEDS: Clopidogrel Bisulfate 75 MG Tablet PO (08:23)
[2017-08-02] MEDS: Sodium Bicarbonate 650 MG Tablet PO (08:23)
[2017-08-02] MEDS: amLODIPine 5 MG Tablet PO (08:23)
[2017-08-02] MEDS: Iron Polysaccharide Complex 150 MG CAPSULE PO (08:23)
[2017-08-02] MEDS: buPROPion (XL) 150 MG TABLET.XL PO (08:23)
[2017-08-02] MEDS: Carvedilol 25 MG Tablet PO ×2 (08:23→16:43)
[2017-08-02] MEDS: Enoxaparin 40 MG/0.4 ML Syringe SC (08:24)
[2017-08-02 11:51] LABS: Bedside Glucose 215 mg/dL (70-110)
[2017-08-02 15:52] VITALS: BP 133/58; PULSE 78; RESP 18; TEMP 36.6; O2SAT 96
[2017-08-02] MEDS: Acetaminophen 500 MG Tablet 1000 MG PO (16:43)
[2017-08-02 17:01] LABS: Bedside Glucose 76 mg/dL (70-110)
--- NOTE | 2017-08-02 17:23 | NURSING ---
Dr. Kahn updated on blood sugar at suppertime, pt denies symptoms of hypoglycemia, N.O. to hold Novolog, pt aware
[2017-08-02 20:55] LABS: Bedside Glucose 222 mg/dL (70-110)
[2017-08-02] MEDS: LORazepam 1 MG Tablet PO (21:39)
[2017-08-02] MEDS: Atorvastatin Calcium 40 MG Tablet PO (21:41)
[2017-08-03] MEDS: Alendronate Sodium 70 MG Tablet PO (06:38)
[2017-08-03 06:56] LABS: Bedside Glucose 118 mg/dL (70-110)
[2017-08-03] MEDS: Carvedilol 25 MG Tablet PO ×2 (08:53→17:22)
[2017-08-03] MEDS: amLODIPine 5 MG Tablet PO (08:53)
[2017-08-03] MEDS: Iron Polysaccharide Complex 150 MG CAPSULE PO (08:53)
[2017-08-03] MEDS: Multivitamins,Therapeutic Tablet 1 TABLET PO (08:53)
[2017-08-03] MEDS: Aspirin E.C. 81 MG Tablet PO (08:53)
[2017-08-03] MEDS: Sodium Bicarbonate 650 MG Tablet PO (08:53)
[2017-08-03] MEDS: Venlafaxine XR 150 MG Capsule PO (08:53)
[2017-08-03] MEDS: buPROPion (XL) 150 MG TABLET.XL PO (08:53)
[2017-08-03] MEDS: Gabapentin 300 MG Capsule PO ×2 (08:53→17:22)
[2017-08-03] MEDS: Clopidogrel Bisulfate 75 MG Tablet PO (08:53)
[2017-08-03] MEDS: Enoxaparin 40 MG/0.4 ML Syringe SC (08:54)
[2017-08-03 09:10] LABS: Bedside Glucose 199 mg/dL (70-110)
[2017-08-03] MEDS: Acetaminophen 500 MG Tablet 1000 MG PO (09:33)
[2017-08-03 10:00] VITALS: PULSE 83; RESP 16
[2017-08-03 11:40] LABS: Bedside Glucose 189 mg/dL (70-110)
[2017-08-03 16:00] VITALS: BP 140/72; PULSE 88; RESP 22; TEMP 36.7; O2SAT 96
[2017-08-03 17:16] LABS: Bedside Glucose 72 mg/dL (70-110)
[2017-08-03] MEDS: Ondansetron ODT 4 MG Tablet PO (17:22)
[2017-08-03] MEDS: LORazepam 1 MG Tablet PO (20:58)
[2017-08-03] MEDS: Atorvastatin Calcium 40 MG Tablet PO (20:59)
[2017-08-03 21:31] LABS: Bedside Glucose 277 mg/dL (70-110)
[2017-08-04 07:01] LABS: Bedside Glucose 204 mg/dL (70-110)
[2017-08-04] MEDS: Clopidogrel Bisulfate 75 MG Tablet PO (08:33)
[2017-08-04] MEDS: Sodium Bicarbonate 650 MG Tablet PO (08:33)
[2017-08-04] MEDS: amLODIPine 5 MG Tablet PO (08:33)
[2017-08-04] MEDS: Carvedilol 25 MG Tablet PO ×2 (08:33→18:08)
[2017-08-04] MEDS: buPROPion (XL) 150 MG TABLET.XL PO (08:33)
[2017-08-04] MEDS: Iron Polysaccharide Complex 150 MG CAPSULE PO (08:33)
[2017-08-04] MEDS: Venlafaxine XR 150 MG Capsule PO (08:33)
[2017-08-04] MEDS: Multivitamins,Therapeutic Tablet 1 TABLET PO (08:33)
[2017-08-04] MEDS: Aspirin E.C. 81 MG Tablet PO (08:34)
[2017-08-04] MEDS: Gabapentin 300 MG Capsule PO ×2 (08:34→18:08)
[2017-08-04] MEDS: Enoxaparin 40 MG/0.4 ML Syringe SC (08:34)
[2017-08-04 11:01] LABS: Bedside Glucose 256 mg/dL (70-110)
--- NOTE | 2017-08-04 15:53 | CASEMGMT ---
Insurance Clinical update faxed along with NOMNOC explaining pt will be d/c tomorrow 08/05/17. Auth [id number] BAILEE Aguilar
--- NOTE | 2017-08-04 15:54 | CASEMGMT ---
Social Work Received phone call from [facility], Home care waiver program at [facility]. Confirming pt d/c date as pt is currently a client of this program. D/C date provided. BAILEE Aguilar
[2017-08-04 16:00] VITALS: BP 118/68; PULSE 82; RESP 18; TEMP 36.6; O2SAT 97
[2017-08-04 17:10] LABS: Bedside Glucose 96 mg/dL (70-110)
--- NOTE | 2017-08-04 18:06 | NURSING ---
Dr. Kahn reviewed blood sugars roxane N.O. for hold Novolog, pt updated.
[2017-08-04] MEDS: Atorvastatin Calcium 40 MG Tablet PO (19:56)
[2017-08-04] MEDS: LORazepam 1 MG Tablet PO (19:56)
[2017-08-04] MEDS: Ondansetron ODT 4 MG Tablet PO (19:57)
[2017-08-04 21:16] LABS: Bedside Glucose 110 mg/dL (70-110)
[2017-08-05 06:45] LABS: Bedside Glucose 163 mg/dL (70-110)
[2017-08-05] MEDS: Clopidogrel Bisulfate 75 MG Tablet PO (08:11)
[2017-08-05] MEDS: Carvedilol 25 MG Tablet PO (08:11)
[2017-08-05] MEDS: Aspirin E.C. 81 MG Tablet PO (08:11)
[2017-08-05] MEDS: amLODIPine 5 MG Tablet PO (08:11)
[2017-08-05] MEDS: Sodium Bicarbonate 650 MG Tablet PO (08:11)
[2017-08-05] MEDS: Gabapentin 300 MG Capsule PO (08:11)
[2017-08-05] MEDS: Iron Polysaccharide Complex 150 MG CAPSULE PO (08:11)
[2017-08-05] MEDS: buPROPion (XL) 150 MG TABLET.XL PO (08:11)
[2017-08-05] MEDS: Multivitamins,Therapeutic Tablet 1 TABLET PO (08:11)
[2017-08-05] MEDS: Venlafaxine XR 150 MG Capsule PO (08:11)
[2017-08-05] MEDS: Enoxaparin 40 MG/0.4 ML Syringe SC (08:12)
[2017-08-05] MEDS: Insulin Lispro 100 UNIT/ML INSULN.PEN 7 UNIT SC ×2 (08:15→11:48)
--- NOTE | 2017-08-05 08:20 | NURSING ---
leads changed on heart monitor this am, pt states she changed battery lastnight at 5p
[2017-08-05] MEDS: Ondansetron ODT 4 MG Tablet PO (10:37)
[2017-08-05] MEDS: LORazepam 1 MG Tablet PO (10:42)
[2017-08-05 10:56] VITALS: BP 143/61; PULSE 77; RESP 16; TEMP 36.7; O2SAT 93
[2017-08-05 11:16] LABS: Bedside Glucose 165 mg/dL (70-110)
--- NOTE | 2017-08-05 16:27 | CASEMGMT ---
Insurance Notified insurance of resident discharge on 08/05/17 to home alone. Auth#[id number] Alexandra MOROCHO, PARK WORKER
--- NOTE | 2017-08-07 13:36 | MDS.RN ---
Information for the mds was obtained from review of the clinical record, interview of resident, staff, and direct observation of residents care
== END 2017-08-05 11:58 | disposition home or self-care (01) | DRG 948 ==
PROVIDERS: Admitting Provider Family Medicine Geriatric Medicine; Family Provider Family Medicine; PCP Family Medicine; Visit Provider Family Medicine Geriatric Medicine
DX: R53.81 Other malaise (principal); E87.2 Acidosis; E78.5 Hyperlipidemia, unspecified; I25.10 Atherosclerotic heart disease of native coronary artery without angina pectoris; F41.9 Anxiety disorder, unspecified; F32.9 Major depressive disorder, single episode, unspecified; E11.42 Type 2 diabetes mellitus with diabetic polyneuropathy; K21.9 Gastro-esophageal reflux disease without esophagitis; E11.22 Type 2 diabetes mellitus with diabetic chronic kidney disease; Z23 Encounter for immunization; I12.9 Hypertensive chronic kidney disease with stage 1 through stage 4 chronic kidney disease, or unspecified chronic kidney disease; N18.3 Chronic kidney disease, stage 3 (moderate); Z86.73 Personal history of transient ischemic attack (TIA), and cerebral infarction without residual deficits; Z85.038 Personal history of other malignant neoplasm of large intestine; Z85.118 Personal history of other malignant neoplasm of bronchus and lung; Z92.21 Personal history of antineoplastic chemotherapy; Z86.718 Personal history of other venous thrombosis and embolism; Z86.711 Personal history of pulmonary embolism; M81.0 Age-related osteoporosis without current pathological fracture
CPT/HCPCS: 36415; 80048; 82274; 82962; 85025; 97110; 97116; 97162; 97166; 97530; 97535; 97802; 90670

== ENCOUNTER → 2017-08-21 11:41 | Outpatient (CLI) | payer MEDICARE, SELFPAY ==
--- NOTE | 2017-08-21 11:41 | DT_ITS ---
This patient was seen during an EMR downtime August 18, 2017 - August 25, 2017. This patient may have a combination of paper and electronic documentation or all paper documentation. All documentation is viewable within the e-chart portion of [facility] for each patient visit.
--- NOTE | 2017-08-21 12:10 | RAD_ITS ---
STUDY: X-RAY CHEST REASON FOR EXAM: Female, 76 years old. History of lung and colon cancer. Dyspnea on exertion which has been increasing over the past 2 months. TECHNIQUE: Frontal and lateral views of the chest. COMPARISON: July 22, 2017 FINDINGS: A left internal jugular catheter is stable with the tip projected into the upper SVC. The lungs are mildly hyperexpanded. There is a 5 cm in diameter right upper lobe mass, unchanged from the prior study. There is a right pleural effusion unchanged from the prior study. There is stable cardiomegaly. Normal mediastinum and rodolfo. Normal visualized pulmonary arteries. Normal visualized aortic arch and descending thoracic aorta. Normal visualized thoracic spine. Normal visualized ribs, clavicles, and shoulders. There is no demonstrated abnormality of the visualized soft tissue structures of the upper abdomen. RAD/Chest PA and Lateral IMPRESSION: Stable appearance of the chest with no new or acute pathology. Electronically Signed: Anirudh Chan MD at 11:28 EDT , Service support ,
[2017-08-26 05:06] LABS: Albumin, Serum 2.8 g/dL (3.2-5.0); BUN 52 mg/dL (7-18); BUN/Creat Ratio 24.6 RATIO (10-20); Calcium,Total 9.4 mg/dL (8.5-10.1); Chloride 105 mmol/L (98-107); Creatinine, Serum 2.11 mg/dL (0.55-1.02); EST Glomerular Filtration Rate 24 mL/min (>60); Est Glom Filt Rate - Afr Amer 29 mL/min (>60); Glucose 183 mg/dL (74-106); Potassium 5.3 mmol/L (3.5-5.1); Sodium Level 135 mmol/L (136-145)
== END ==
PROVIDERS: Family Provider Family Medicine; PCP Family Medicine; Visit Provider Internal Medicine Nephrology
DX: N17.9 Acute kidney failure, unspecified (principal); R06.09 Other forms of dyspnea
CPT/HCPCS: 36415; 71046; 80069

== ENCOUNTER → 2017-09-16 13:03 | Outpatient (CLI) | payer MEDICARE, SELFPAY ==
[2017-09-16 14:08] LABS: Anion Gap 6 (5-15); BUN 26 mg/dL (7-18); BUN/Creat Ratio 14.9 RATIO (10-20); Calcium,Total 9.3 mg/dL (8.5-10.1); Chloride 105 mmol/L (98-107); Creatinine, Serum 1.74 mg/dL (0.55-1.02); EST Glomerular Filtration Rate 30 mL/min (>60); Est Glom Filt Rate - Afr Amer 36 mL/min (>60); Glucose 66 mg/dL (74-106); Potassium 4.7 mmol/L (3.5-5.1); Sodium Level 137 mmol/L (136-145)
== END ==
PROVIDERS: Family Provider Family Medicine; PCP Family Medicine; Visit Provider Internal Medicine Nephrology
DX: N17.9 Acute kidney failure, unspecified (principal); N18.9 Chronic kidney disease, unspecified
CPT/HCPCS: 36415; 80048

== ENCOUNTER 2017-09-19 14:15 | Observation (INO) | payer MEDICARE, SELFPAY ==
[2017-09-19] VITALS (7 sets, daily range): BP systolic 139–174; BP diastolic 84–106; PULSE 90–130; RESP 16–28; TEMP 36.4–36.9; O2SAT 95–99; BMI 24.7; BMI 24.8; BMI 23.3
--- NOTE | 2017-09-19 14:35 | EKG12_ITS ---
Test Reason : TACHY Blood Pressure : / mmHG Vent. Rate : 125 BPM Atrial Rate : 125 BPM P-R Int : 140 ms QRS Dur : 072 ms QT Int : 316 ms P-R-T Axes : 056 -12 079 degrees QTc Int : 456 ms Sinus tachycardia Septal infarct , age undetermined Abnormal ECG Confirmed by MARIO BURROUGHS, JOSIANE ([id number]), editor in chief SANDY SALMERON ([id number]) on 09/22/2017 2:09:56 PM Referred By: Lynette Coreas Confirmed By:JOSIANE MARTIN MD
--- NOTE | 2017-09-19 14:40 | RAD_ITS ---
STUDY: X-RAY CHEST REASON FOR EXAM: Female, 76 years old. Dizziness. Nausea and vomiting. History of lung cancer. TECHNIQUE: Single AP portable view of the chest. COMPARISON: Comparison is made with prior study dated August 21, 2017. FINDINGS: A left-sided portacatheter is in situ. The tip is at the junction of the superior vena cava and left brachiocephalic vein. EKG electrodes are seen. Once again, there is a 3.7 cm x 5 cm mass in the right upper lobe. This is unchanged. There is elevation of the right hemidiaphragm with blunting of the right costophrenic angle. Minimal residual changes persist at the right lung base although this has improved. There is borderline cardiomegaly. There is calcification of the mitral valve annulus. Normal mediastinum and rodolfo. Normal visualized pulmonary arteries. There is atherosclerotic calcification of the aortic arch with tortuosity. There are diffuse degenerative changes of the visualized thoracic spine. Normal visualized ribs, clavicles, and shoulders. There is no demonstrated abnormality of the visualized soft tissue structures of the upper abdomen. RAD/Chest 1 View (Portable) IMPRESSION: Improved aeration of the right lung base with stable blunting of the right costophrenic angle. Stable appearance of the right upper lobe pulmonary mass. Electronically Signed: Vernon Seay MD at 15:07 EDT Tel [phone], Service support ,
[2017-09-19 14:45] LABS: Absolute Lymphocyte Count 1.92 X10^3/ul (0.83-4.51); Absolute Neutrophil Count 11.4 X10^3/uL (2.0-7.7); Basophil# 0.04 X10^3/uL; Basophil% 0.3 % (0-1); Eosinophil# 0.02 X10^3/uL; Eosinophils% 0.1 % (0-5); Hematocrit 42.5 % (37-47); Hemoglobin 14.1 g/dl (12.0-15.0); Lymphocyte # 1.92 X10^3/ul (4.0); Lymphocyte % 13.2 % (19-41); Mean Corp Hgb Conc 33.2 g/gl (32-36); Mean Corpuscular Hgb 27.8 pg (27.0-32.0); Mean Corpuscular Volume 83.8 fL (81-99); Mean Platelet Vol. 10.1 fl (6.2-12.0); Monocyte% 7.6 % (0-10); Neutrophil # 11.41 X10^3/uL (2.7-7.7); Neutrophil % 78.5 % (47-70); Platelet Count 342 K/mm3 (150-450); RBC Distribution Width CV 13.7 % (11.6-14.6); RBC Distribution Width SD 41.7 fl (35.1-43.9); Red Blood Count 5.07 M/mm3 (4.2-5.4); White Blood Count 14.5 K/mm3 (4.4-11.0)
[2017-09-19] MEDS: Ondansetron 4 MG/2 ML Vial IV (14:49)
[2017-09-19 14:50] LABS: POSITIVE COUNT NO; POSITIVE DIFFERENTIAL NO; POSITIVE MORPHOLOGY NO
[2017-09-19] MEDS: 0.9% Normal Saline 1,000 ML 150 ML IV (15:09)
[2017-09-19 15:10] LABS: Bedside Glucose 236 mg/dL (70-110)
[2017-09-19 15:11] LABS: AST(SGOT) 19 U/L (15-37); Alanine Aminotransfer ALT/SGPT 21 U/L (13-56); Albumin, Serum 3.4 g/dL (3.2-5.0); Alkaline Phosphatase 216 U/L (45-117); Anion Gap 13 (5-15); BUN 27 mg/dL (7-18); BUN/Creat Ratio 17.2 RATIO (10-20); Bilirubin, Direct 0.15 mg/dL (0.00-0.30); Calcium,Total 10.2 mg/dL (8.5-10.1); Chloride 96 mmol/L (98-107); Creatinine, Serum 1.57 mg/dL (0.55-1.02); EST Glomerular Filtration Rate 34 mL/min (>60); Est Glom Filt Rate - Afr Amer 41 mL/min (>60); Estimated Creatinine Clearance 28.09 ml/min; Globulin 4.8 g/dL (2.2-4.2); Glucose 248 mg/dL (74-106); Lipase 77 U/L (73-393); Potassium 4.1 mmol/L (3.5-5.1); Protein, Total 8.2 g/dL (6.4-8.2); Sodium Level 133 mmol/L (136-145)
[2017-09-19] MEDS: LORazepam 2 MG/ML Syringe 0.5 MG IV (15:15)
[2017-09-19 15:38] LABS: Lactic Acid 3.3 mmol/L (0.4-2.0)
--- NOTE | 2017-09-19 15:42 | ED.RN ---
LAB CALLED WITH CRITICAL LAB FOR PATIENT, LACTIC ACID WAS 3.3, DR. KEVIN NOTIFIED AT THIS TIME
--- NOTE | 2017-09-19 16:09 | CT_ITS ---
STUDY: CT ABDOMEN AND PELVIS WITHOUT CONTRAST REASON FOR EXAM: Female, 76 years old. Colon cancer with colectomy. History of renal disease. Nausea and vomiting. RADIATION DOSAGE (If Supplied By Facility): CTDIvol = ( 13.42 ) mGy, DLP = ( 660.61 ) mGycm TECHNIQUE: Transaxial images were obtained from the dome of the diaphragm to the symphysis pubis without oral contrast, and without intravenous contrast. Sagittal and coronal images were reconstructed. Individualized dose optimization techniques were used for this CT. COMPARISON: September 20, 2016. FINDINGS: There are dependent changes at both lung bases. There is elevation of the right hemidiaphragm. There is a masslike consolidation of the right lower lobe with opacification of the distal bronchi. This is small right pleural effusion. The heart appears enlarged but otherwise unremarkable. There are coronary artery calcifications. Normal liver. Multiple layering gallstones within the gallbladder. There is no inflammatory change or biliary ductal dilatation. Normal spleen. There is diffuse atrophy of the pancreas. Normal bilateral adrenal glands. The kidneys are normal size cortical thickness. There is minimal stranding of perinephric fat. There is no evidence of hydronephrosis or renal calculi. Normal visualized ureters. There is a type I hiatal hernia. The stomach is otherwise unremarkable. Normal small intestine. There is increased feces in rectosigmoid colon. There is an ileocolonic anastomosis in the right central lower abdomen Normal abdominal aorta. There is an IVC filter in place. Normal retroperitoneum. Normal urinary bladder. Normal vaginal cuff. There is a 2.4 x 2.4 x 2.6 cm mass in the right pelvis thought to be a retained ovary. No left pelvic mass. There is no lymphadenopathy. No free air or free fluid is seen within the peritoneal cavity. Normal abdominal wall. Degenerative changes of the lumbar spine with levoscoliosis. There are remote compression deformities of T12 and L1. CT/Abdomen/Pelvis without Cont IMPRESSION: 1. Persisting consolidation in the right lower lobe unchanged from the prior study. There is a stable associated pleural effusion. 2. Stable gallstones. 3. Stable ileal colonic anastomosis without recurrence or mass. There is no evidence of acute intra-abdominal or pelvic abnormality or major interval change. Electronically Signed: Hardeep Li DO at 16:43 EDT Tel [phone], Service support ,
--- NOTE | 2017-09-19 16:09 | CT_ITS ---
STUDY: CT BRAIN WITHOUT CONTRAST REASON FOR EXAM: Female, 76 years old. Confusion. History of CVA. RADIATION DOSAGE (If Supplied By Facility): CTDIvol = ( 44.99 ) mGy, DLP = ( 745.49 ) mGycm TECHNIQUE: Transaxial CT imaging of the brain was performed without administration of intravenous contrast material. Individualized dose optimization techniques were used for this CT. COMPARISON: CT of the head, July 23, 2017. FINDINGS: Normal soft tissue structures. Normal calvarium. There is mild cerebral atrophy with widening of the extra-axial spaces and ventricular dilatation. There are areas of decreased attenuation within the white matter tracts of the supratentorial brain, consistent with microvascular disease changes. There is a remote lacunar infarct in the left basal ganglia. Normal right basal ganglia and bilateral thalami. Normal brainstem. Normal cerebellum. There is no intracranial hemorrhage. There are no findings of an acute ischemic infarction. Normal visualized paranasal sinuses. CT/Brain/Head without Contrast IMPRESSION: Chronic involutional changes without evidence of acute intracranial or calvarial abnormality. There is no interval change. Electronically Signed: Hardeep Li DO at 16:45 EDT Tel [phone], Service support ,
--- NOTE | 2017-09-19 16:41 | ED.VISSUMM ---
- ER Visit Summary Date of Service: 09/19/17 Chief Complaint: Dizzy, nausea and vomiting History of Present Illness: The patient is a 76 F with nausea and vomiting that started during the night. She has had subjective fever. Past history significant for TIA, reflux disease, hypertension, high cholesterol, chronic renal failure, PE, colon and lung cancer. Patient does have a [employer] filter. Physical Examination: Blood pressure is 139/106, temperature 97.6, heart rate 130, respiratory rate 28, pulse ox 99% on room air. Patient sitting upright in bed. She is very anxious and tachypnea. She does have dry mucous membranes. Heart is tachycardic. Lung sounds are clear but she is tachypneic. Abdomen is soft with upper abdominal tenderness. No guarding or rebound. Hypoactive bowel sounds are noted throughout. Neuro exam reveals the patient is moving all fours. She does have stuttering speech but appears very anxious. Test Results: EKG is sinus tach at 125 with no acute ischemia. Portable chest x-ray shows improved aeration at the right lung base. There is stable appearance to the right upper lobe pulmonary mass. CBC was a white count 14.5 with 70% neutrophils. Chemistry studies significant for sodium 133, glucose 248, creatinine 1.57. LFTs and lipase are grossly unremarkable. Alk phos is mildly elevated at 216. Troponin is negative. Lactate is elevated at 3.3. Serum acetone is negative. Emergency Department Course and Treatment: Patient was given IV fluids and Zofran followed by dose of Ativan at family's request. Daughter was present in the room on repeat examination. She states that her mom has had difficulty speaking since last evening almost as if she is having trouble getting her thoughts out. She is sent for CT scan of her head as well as abdomen and pelvis. CT scan of the head reveals chronic involutional changes. CT abdomen pelvis shows persistent consolidation in the right lower lobe. Stable appearance to gallstones is noted. There is stable colonic anastomosis. Urinalysis was obtained via straight cath. This is positive for nitrites but no leukocyte esterase. This will be sent for urine culture. Patient will be admitted for further care. Treatment Plan: [] Disposition: Admit Impression: 1. Vomiting 2. Elevated lactate 3. Mild expressive aphasia This note was generated with [employer] software. It may contain incorrect words, spelling, and punctuation that were not noted in review of the chart prior to signing ED Disposition - Plan for ED Patient: Chief Complaint: Nausea/Vomiting Referrals: Donald Cline MD [Primary Care Provider] -
--- NOTE | 2017-09-19 16:44 | ED.DCSUM_ITS ---
- ER Visit Summary Date of Service: 09/19/17 Chief Complaint: Dizzy, nausea and vomiting History of Present Illness: The patient is a 76 F with nausea and vomiting that started during the night. She has had subjective fever. Past history significant for TIA, reflux disease, hypertension, high cholesterol , chronic renal failure, PE, colon and lung cancer. Patient does have a [employer] filter. Physical Examination: Blood pressure is 139/106, temperature 97.6, heart rate 130, respiratory rate 28, pulse ox 99% on room air. Patient sitting upright in bed. She is very anxious and tachypnea. She does have dry mucous membranes. Heart is tachycardic. Lung sounds are clear but she is tachypneic. Abdomen is soft with upper abdominal tenderness. No guarding or rebound. Hypoactive bowel sounds are noted throughout. Neuro exam reveals the patient is moving all fours. She does have stuttering speech but appears very anxious. Test Results: EKG is sinus tach at 125 with no acute ischemia. Portable chest x -ray shows improved aeration at the right lung base. There is stable appearance to the right upper lobe pulmonary mass. CBC was a white count 14.5 with 70% neutrophils. Chemistry studies significant for sodium 133, glucose 248 , creatinine 1.57. LFTs and lipase are grossly unremarkable. Alk phos is mildly elevated at 216. Troponin is negative. Lactate is elevated at 3.3. Serum acetone is negative. Emergency Department Course and Treatment: Patient was given IV fluids and Zofran followed by dose of Ativan at family's request. Daughter was present in the room on repeat examination. She states that her mom has had difficulty speaking since last evening almost as if she is having trouble getting her thoughts out. She is sent for CT scan of her head as well as abdomen and pelvis. CT scan of the head reveals chronic involutional changes. CT abdomen pelvis shows persistent consolidation in the right lower lobe. Stable appearance to gallstones is noted. There is stable colonic anastomosis. Urinalysis was obtained via straight cath. This is positive for nitrites but no leukocyte esterase. This will be sent for urine culture. Patient will be admitted for further care. Treatment Plan: [] Disposition: Admit Impression: 1. Vomiting 2. Elevated lactate 3. Mild expressive aphasia This note was generated with [employer] software. It may contain incorrect words, spelling, and punctuation that were not noted in review of the chart prior to signing ED Disposition - Plan for ED Patient: Chief Complaint: Nausea/Vomiting Referrals: Donald Cline MD [Primary Care Provider] -
[2017-09-19 16:47] LABS: Bacteria 0 SEEN /hpf (None Seen); Mucous, Urine 0 SEEN /hpf (<or=2+); Red Blood Cells-Urine 0 SEEN /hpf (0-5); Squamous Epithelial Cells - UA 0 SEEN /hpf (5-10)
[2017-09-19] MEDS: 0.9% Normal Saline 1,000 ML 999 ML IV (16:49)
[2017-09-19 16:52] LABS: Color, Urine Yellow (Yellow); Glucose, Dipstick 250 mg/dl (Normal); Ketone-Dipstick 50 mg/dl (Negative); Leukocyte Esterase-Dipstick Negative /ul (Negative); Nitrite-Dipstick Positive (Negative); Occult Blood-Urine 25 /ul (Negative); Protein-Dipstick 500 mg/dl (Negative); Specific Gravity, Urine 1.015 (1.002-1.030); Urine Bilirubin Dipstick Negative (Negative); Urine Clarity Clear (Clear); Urine Urobilinogen Normal (Normal); Urine pH 6.5 (5.0 - 8.0)
[2017-09-19 17:04] LABS: White Blood Cells 0-5 SEEN /hpf (0-5)
--- NOTE | 2017-09-19 17:37 | PCM.HP.STD ---
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 Comment: s/p colon resection remote, lung metastases diagnosed 2014, s/p adjuvant chemotherapy, s/p stereotactic XRT [facility], follows [facility] (5) H/O deep venous thrombosis Status: Chronic Comment: now has an IVC filter (6) Hyperlipidemia Status: Chronic Qualifiers: (7) Pulmonary embolism Status: Chronic (8) Hypertension Status: Chronic Qualifiers: (9) Chronic renal failure, stage 3 (moderate) Status: Chronic (10) Anxiety and depression Status: Chronic Comment: uncontrolled (11) GERD (gastroesophageal reflux disease) Status: Chronic Qualifiers: History of Present Illness Date of Admission: 09/19/17 Chief Complaint: Dizziness, nausea and vomiting. The patient is a 76 year old F with past medical history as mentioned above presented to the emergency room because of symptoms of nausea, vomiting and dizziness. The patient is poor informant and was not able to provide good pertinent history. She mentioned that she lives with her at home and this morning, she was coming in and out of bed, felt very anxious, short of breath and she started throwing up. She has been having nausea and vomiting since last night. She reported mild vague abdominal pain and not able to provide any details about this pain. She mentioned that she could not get the words out. She does have a history of anxiety and depression and she has been on medication. Back in Jul, 2017, she was admitted with the same complaints including aphasia according to the patient and she had complete workup. It was unremarkable. Time, she denied chest pain, palpitation, syncope or presyncope. She is feeling better, less short of breath. She has history of CAD status post stents and she has been on aspirin, Plavix, statins and beta-blockers. She has history of uncontrolled type 2 diabetes mellitus and she has been on glargine insulin as well as pre-meal NovoLog and her hemoglobin A1c was 9 on July 24, 2017. She has history of stage III chronic kidney disease and his creatinine has been in the range of 1.2-1.7 g/dL, this admission it is 1.57 and it is stable. In the emergency department, patient was afebrile, tachycardic, blood pressure stable, pulse ox is maintained on room air. Routine blood work was remarkable for leukocytosis, sodium of 133, creatinine of 1.57. LFT and lipase were unremarkable. Lactic acid was 3.3. Troponin was negative. EKG revealed sinus tachycardia without evidence of cardiac arrhythmias or acute ischemic changes. Chest x-ray showed no acute findings. CT scan abdomen and pelvis without contrast revealed persistent right lower lobe consolidation unchanged from prior study, no acute findings. CT scan brain showed no acute hemorrhage or infarction. She is being admitted for intractable nausea and vomiting, anxiety, elevated lactic acid and questionable expressive aphasia. Past Medical History Past Medical History (Chronic Problems): Chronic Problems (Last Updated 09/19/17 @ 17:37 by Mitchel Coley MD) History of coronary artery stent placement (Chronic ~01/05/17) 01/05/2017 SHEKHAR to mid RCA & POBA to ostial PDA PCI-Stent 2006, 2009 & 2010 Atherosclerotic heart disease of [place] coronary artery without angina pectoris (Chronic) 01/05/2017 SHEKHAR to mid RCA & POBA to ostial PDA PCI-Stent 2006, 2009 & 2010 Colon carcinoma (Chronic) S/P partial colon resection Diabetes (Chronic) 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) s/p colon resection remote, lung metastases diagnosed 2014, s/p adjuvant chemotherapy, s/p stereotactic XRT [facility], follows [facility] S/P ORIF (open reduction internal fixation) fracture (Chronic) left ankle, 09/14/14, Dr Harvey, [facility] Presence of IVC filter (Chronic) H/O deep venous thrombosis (Chronic) now has an IVC filter Hyperlipidemia (Chronic) Polyneuropathy (Chronic) Pulmonary embolism (Chronic) Hypertension (Chronic) Chronic renal failure, stage 3 (moderate) (Chronic) Anxiety and depression (Chronic) uncontrolled GERD (gastroesophageal reflux disease) (Chronic) Medical History: Medical History (Last Updated 09/19/17 @ 17:37 by Mitchel Coley MD) Atherosclerotic heart disease of [place] coronary artery without angina pectoris (Chronic) I25.10 01/05/2017 SHEKHAR to mid RCA & POBA to ostial PDA PCI-Stent 2006, 2009 & 2010 Tachycardia (Acute) R00.0 Diabetes (Chronic) E11.9 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) s/p colon resection remote, lung metastases diagnosed 2014, s/p adjuvant chemotherapy, s/p stereotactic XRT [facility], follows [facility] Presence of IVC filter (Chronic) Z95.828 Hyperlipidemia (Chronic) E78.5 Polyneuropathy (Chronic) G62.9 Pulmonary embolism (Chronic) I26.99 Hypertension (Chronic) I10 Chronic renal failure, stage 3 (moderate) (Chronic) N18.3 Anxiety and depression (Chronic) F41.8 uncontrolled GERD (gastroesophageal reflux disease) (Chronic) K21.[address] [place] [address] Z95.828 Hypotension (Inactive) I95.9 Recurrent fall (Inactive) Rib fracture (Inactive) S22.39XA Allergies promethazine HCl [From Phenergan] Allergy (Verified 09/03/17 20:10) seizures swazi rice Adverse Reaction (Severe, Uncoded 07/22/17 17:28) Unknown Home Medications: Ambulatory Orders Medication Instructions Recorded Atorvastatin Calcium [Lipitor] 40 mg PO QHS 07/09/15 Multivitamin [Daily Multiple 1 tab PO DAILY 07/09/15 Vitamin] buPROPion XL [Wellbutrin Xl] 150 mg PO DAILY 09/20/16 Aspirin E.C. [Ecotrin] 81 mg PO DAILY@0800 02/26/17 Clopidogrel Bisulfate [Plavix] 75 mg PO DAILY 02/26/17 Oxycodone HCl/Acetaminophen 1 tab PO TID PRN PRN 02/27/17 [Percocet 7.5-325 mg Tablet] Insulin Aspart [Novolog Flexpen] 6 units SC TIDCM 07/09/17 Insulin Glargine,Hum.rec.anlog 38 units SQ QHS 07/09/17 [Toujeo Solostar] Venlafaxine XR [Effexor Xr] 150 mg PO DAILY 07/09/17 Carvedilol [Coreg (Beta Gilles)] 12.5 mg PO BID 07/28/17 Gabapentin [Neurontin] 600 mg PO TIDCM 07/28/17 Acetaminophen [Tylenol] 1,000 mg PO Q8H PRN PRN tab 08/01/17 Amlodipine [Norvasc] 5 mg PO DAILY #30 tab 08/01/17 Lorazepam [Ativan] 1 mg PO BID PRN PRN #30 tab 08/01/17 Ondansetron [Zofran Odt] 4 mg PO Q8H PRN PRN #30 tab 08/01/17 Olanzapine [Zyprexa] 5 mg PO QHS 09/19/17 Surgical History: Surgical History (Last Reviewed 09/05/17 @ 13:57 by Aldo Romero MD) History of coronary artery stent placement (Chronic) Onset Date: ~01/05/17 Z95.5 01/05/2017 SHEKHAR to mid RCA & POBA to ostial PDA PCI-Stent 2006, 2009 & 2010 H/O shoulder surgery (Resolved) Z98.890 H/O: hysterectomy (Resolved) Z90.710 H/O colectomy (Resolved) Z90.49 Surgical History: colectomy, hysterectomy, - - Left ankle ORIF, multiple cardiac stent placement Psychiatric History: Anxiety, Depression [employer] History: No pertinent [employer] history Lives: Alone Smoking Status: Never smoker Alcohol: None Drugs: None - *Family History Maternal Family History: Family History (Last Reviewed 09/05/17 @ 13:57 by Aldo Romero MD) Mother Colon cancer Diabetes Heart disease Father Cancer History Items: Cancer - rectal, - - Stroke in mother Paternal Family History: Family History (Last Reviewed 09/05/17 @ 13:57 by Aldo Romero MD) Mother Colon cancer Diabetes Heart disease Father Cancer History Items: Cancer - lung Review of Systems Constitutional: Reports: Anorexia, Weakness. Denies: Chills, Fever Eyes: Denies: Blurred vision, Double vision, Drainage, Redness HEENT: Denies: Difficulty Hearing, Ear Pain, Eye Pain, Nasal Congestion, Sore Throat Cardiovascular: Denies: Chest Pain, Chest Pressure, Heaviness, Light Headedness, Orthopnea, Paroxysmal Noc. Dyspnea, Syncope Respiratory: Reports: Shortness of Breath. Denies: Cough, Pleuritic Pain, Sputum production, Wheezing Gastrointestinal: Reports: Abdominal Pain, Nausea, Vomiting. Denies: Constipation, Diarrhea Genitourinary: Denies: Dysuria, Frequency, Hematuria Musculoskeletal: Denies: Arm Pain, Back Pain, Foot Pain Skin: Denies: Dryness, Rash Neurological: Reports: Change in Speech. Denies: Balance problems, Double vision, Confusion, Focal weakness, Headaches, Incoordination, Numbness, Tingling Psychiatric: Reports: Anxiety, Depression Endocrine: Denies: Change in Body Habitus, Polydipsia VTE Information - Inpt Only VTE Present on Admission: No VTE Mechan Device Prophylaxis: None VTE Pharm Prophylaxis ordered?: Yes - Physical Exam General: Alert, Oriented x3, Cooperative, - - Anxious, restless. HEENT: Atraumatic, PERRLA, EOMI Oral: No Gingival or Mucosal Lesions/ Ulcerations, Dry Mucosa Neck: Supple, No JVD, Negative Carotid Bruits, Trachea Midline, Thyroid Normal Size and Texture Lungs: Clear to auscultation, No rhonchi, No wheeze, No rales, Diminished Cardiovascular: Regular rate, Regular Rhythm, Normal S1, Normal S2, No murmurs, PMI Normal, Tachycardic Abdomen: Bowel Sounds Present, Soft, Non Tender, Non-Distended, No Hepato-splenomegaly Extremities: No clubbing, No cyanosis, No edema Skin: No rashes, No breakdown Lymphatic: No Cervical, Supraclavicular, or Inguinal Adenopathy Neurological: Cranial nerves II-XII grossly intact, Motor Exam 5/5 strength throughout Psych/Mental Status: Anxious, Alert and oriented to time, place, person, mood and affect Vital Signs Temp Pulse Resp BP Pulse Ox 97.6 F L 120 H 21 H 174/100 H 96 09/19/17 14:18 09/19/17 16:51 09/19/17 16:51 09/19/17 16:51 09/19/17 16:51 Oxygen Delivery Method Room Air Weight: 153 lb 7.068 oz Body Mass Index (BMI) 24.7 Finger Stick Blood Glucose 236 Laboratory Tests Past 24 Hrs 09/19/17 09/19/17 09/19/17 14:27 14:27 14:27 WBC 14.5 H RBC 5.07 Hgb 14.1 Hct 42.5 MCV 83.8 MCH 27.8 MCHC 33.2 RDW 13.7 RDW Differential 41.7 Plt Count 342 MPV 10.1 Immature Gran % (Auto) 0.300 Neut % (Auto) 78.5 H Lymph % (Auto) 13.2 L [place] % (Auto) 7.6 Eos % (Auto) 0.1 Baso % (Auto) 0.3 Absolute Neuts (auto) 11.4 H Absolute Lymphs (auto) 1.92 Total Counted Not Reportable Sodium 133 L Potassium 4.1 Chloride 96 L Carbon Dioxide 24.0 Anion Gap 13 BUN 27 H Creatinine 1.57 H Estim Creat Clear Calc 28.09 Est GFR (MDRD) Af Amer 41 L Est GFR (MDRD) Non-Af 34 L BUN/Creatinine Ratio 17.2 Glucose 248 H Lactic Acid Calcium 10.2 H Total Bilirubin 0.70 Direct Bilirubin 0.15 AST 19 ALT 21 Alkaline Phosphatase 216 H Troponin I < 0.015 Total Protein 8.2 Albumin 3.4 Globulin 4.8 H Lipase 77 Urine Color Urine Clarity Urine pH Ur Specific [place] Urine Protein Urine Glucose (UA) Urine Ketones Urine Occult Blood Urine Nitrite Urine Bilirubin Urine Urobilinogen Ur Leukocyte Esterase Urine RBC Urine WBC Ur Squamous Epith Cells Urine Bacteria Urine Mucus Acetone Level NEGATIVE 09/19/17 09/19/17 14:40 14:46 WBC RBC Hgb Hct MCV MCH MCHC RDW RDW Differential Plt Count MPV Immature Gran % (Auto) Neut % (Auto) Lymph % (Auto) [place] % (Auto) Eos % (Auto) Baso % (Auto) Absolute Neuts (auto) Absolute Lymphs (auto) Total Counted Sodium Potassium Chloride Carbon Dioxide Anion Gap BUN Creatinine Estim Creat Clear Calc Est GFR (MDRD) Af Amer Est GFR (MDRD) Non-Af BUN/Creatinine Ratio Glucose Lactic Acid 3.3 H Calcium Total Bilirubin Direct Bilirubin AST ALT Alkaline Phosphatase Troponin I Total Protein Albumin Globulin Lipase Urine Color Yellow Urine Clarity Clear Urine pH 6.5 Ur Specific [place] 1.015 Urine Protein 500 H Urine Glucose (UA) 250 H Urine Ketones 50 H Urine Occult Blood 25 H Urine Nitrite Positive H Urine Bilirubin Negative Urine Urobilinogen Normal Ur Leukocyte Esterase Negative Urine RBC 0 SEEN Urine WBC 0-5 SEEN Ur Squamous Epith Cells 0 SEEN Urine Bacteria 0 SEEN Urine Mucus 0 SEEN Acetone Level POC Glucose 09/19/17 14:58 POC Glucose 236 H Clinical Impression(s) from Imaging Studies Chest X-Ray 09/19/17 14:40 IMPRESSION: Improved aeration of the right lung base with stable blunting of the right costophrenic angle. Stable appearance of the right upper lobe pulmonary mass. Electronically Signed: Vernon Seay MD at 15:07 EDT Tel [phone], Service support , Abdomen/Pelvis CT 09/19/17 16:09 IMPRESSION: 1. Persisting consolidation in the right lower lobe unchanged from the prior study. There is a stable associated pleural effusion. 2. Stable gallstones. 3. Stable ileal colonic anastomosis without recurrence or mass. There is no evidence of acute intra-abdominal or pelvic abnormality or major interval change. Electronically Signed: Hardeep Li DO at 16:43 EDT Tel [phone], Service support , Brain CT 09/19/17 16:09 IMPRESSION: Chronic involutional changes without evidence of acute intracranial or calvarial abnormality. There is no interval change. Electronically Signed: Hardeep Li DO at 16:45 EDT Tel [phone], Service support , Assessment/Plan All Active Problems (Last Updated 09/19/17 @ 17:37 by Mitchel Coley MD) Atrial arrhythmia (Acute) H/O shoulder surgery (Resolved) H/O: hysterectomy (Resolved) H/O colectomy (Resolved) Generalized weakness (Acute) Fatigue (Acute) Tachycardia (Acute) Near syncope (Acute) Acute kidney injury (Resolved) Acute pyelonephritis (Resolved) Clostridium difficile diarrhea (Resolved) Herpes zoster (Resolved) Recurrent colitis due to Clostridium difficile (Resolved) Urinary tract infection (Resolved) Ileus (Ruled-out) This is a 76 years old female patient presented to the emergency room because of nausea, vomiting, and anxiety, questionable expressive aphasia, found to have significant leukocytosis with elevated lactic acid and she is being admitted for observation. #1 intractable nausea and vomiting: Unclear etiology, could be due to anxiety attack. CT scan brain without acute findings. No evidence of infection. LFT and lipase were unremarkable. Plan: Admit to PCU for observation, cardiac monitoring, IV fluids, IV antiemetics, repeat CBC and BMP tomorrow morning, PT OT evaluation and treatment. #2 anxiety attack: This is based on history of anxiety and depression, patient lives alone, complaining of shortness of breath without any other obvious etiology, has been tachycardic. She did admit that she gets anxiety and panic attacks occasionally. Plan: Continue Ativan as needed, continue Wellbutrin and Zyprexa. #3 lactic acidosis: This is likely because of intractable nausea and vomiting as well as anxiety. No evidence of infection. Chest x-ray without acute findings. Urinalysis showed no clear evidence of acute cystitis. Plan for IV fluids, repeat lactic acid in 3 hours. #4 questionable expressive aphasia: Patient mentioned that she was admitted 2 months ago for the same complaint, during that time. Workup done and was unremarkable. CT scan brain without acute findings. She denied any other symptoms suggestive of stroke. Plan: NIH stroke scale. At this time, I did not see any other indication to do stroke workup again unless she develops new symptoms, then we should do an MRI brain. #5 CAD status post stents: Stable, EKG reviewed, troponin is negative. Continue aspirin, Plavix, statins, Coreg. #6 hypertension: Blood pressure stable, continue Norvasc and Coreg. #7 stage III chronic kidney disease: Admission creatinine is 1.57, stable at baseline. #8 type 2 diabetes mellitus: ADA diet, Accu-Cheks, insulin sliding scale, continue home doses of glargine insulin and NovoLog. Recently, hemoglobin A1c was 9. #9 anxiety/depression: Continue Ativan, Wellbutrin, Zyprexa and Effexor. #10 DVT prophylaxis: Subcu heparin. This note was generated with [employer] dictation software. It may contain incorrect words, spelling, and punctuation that were not noted in checking the note before signing. Code Visit OBSV E&M: 21409 Initial observation care L3
--- NOTE | 2017-09-19 17:42 | NURSING ---
PCU OBS N,V, ANXIETY, QUESTIONABLE EXPRESSIVE APHASIA ASHELFAH
--- NOTE | 2017-09-19 17:45 | HP.PCM_ITS ---
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 Comment: s/p colon resection remote, lung metastases diagnosed 2014, s/p adjuvant chemotherapy, s/p stereotactic XRT [facility], follows [facility] (5) H/O deep venous thrombosis Status: Chronic Comment: now has an IVC filter (6) Hyperlipidemia Status: Chronic Qualifiers: (7) Pulmonary embolism Status: Chronic (8) Hypertension Status: Chronic Qualifiers: (9) Chronic renal failure, stage 3 (moderate) Status: Chronic (10) Anxiety and depression Status: Chronic Comment: uncontrolled (11) GERD (gastroesophageal reflux disease) Status: Chronic Qualifiers: History of Present Illness Date of Admission: 09/19/17 Chief Complaint: Dizziness, nausea and vomiting. The patient is a 76 year old F with past medical history as mentioned above presented to the emergency room because of symptoms of nausea, vomiting and dizziness. The patient is poor informant and was not able to provide good pertinent history. She mentioned that she lives with her at home and this morning, she was coming in and out of bed, felt very anxious, short of breath and she started throwing up. She has been having nausea and vomiting since last night. She reported mild vague abdominal pain and not able to provide any details about this pain. She mentioned that she could not get the words out. She does have a history of anxiety and depression and she has been on medication. Back in Jul, 2017, she was admitted with the same complaints including aphasia according to the patient and she had complete workup. It was unremarkable. Time, she denied chest pain, palpitation, syncope or presyncope. She is feeling better, less short of breath. She has history of CAD status post stents and she has been on aspirin, Plavix, statins and beta-blockers. She has history of uncontrolled type 2 diabetes mellitus and she has been on glargine insulin as well as pre-meal NovoLog and her hemoglobin A1c was 9 on July 24, 2017. She has history of stage III chronic kidney disease and his creatinine has been in the range of 1.2-1.7 g/dL, this admission it is 1.57 and it is stable. In the emergency department, patient was afebrile, tachycardic, blood pressure stable, pulse ox is maintained on room air. Routine blood work was remarkable for leukocytosis, sodium of 133, creatinine of 1.57. LFT and lipase were unremarkable. Lactic acid was 3.3. Troponin was negative. EKG revealed sinus tachycardia without evidence of cardiac arrhythmias or acute ischemic changes. Chest x-ray showed no acute findings. CT scan abdomen and pelvis without contrast revealed persistent right lower lobe consolidation unchanged from prior study, no acute findings. CT scan brain showed no acute hemorrhage or infarction. She is being admitted for intractable nausea and vomiting, anxiety, elevated lactic acid and questionable expressive aphasia. Past Medical History Past Medical History (Chronic Problems): Chronic Problems (Last Updated 09/19/17 @ 17:37 by Mitchel Coley MD) History of coronary artery stent placement (Chronic ~01/05/17) 01/05/2017 SHEKHAR to mid RCA & POBA to ostial PDA PCI-Stent 2006, 2009 & 2010 Atherosclerotic heart disease of [place] coronary artery without angina pectoris (Chronic) 01/05/2017 SHEKHAR to mid RCA & POBA to ostial PDA PCI-Stent 2006, 2009 & 2010 Colon carcinoma (Chronic) S/P partial colon resection Diabetes (Chronic) 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) s/p colon resection remote, lung metastases diagnosed 2014, s/p adjuvant chemotherapy, s/p stereotactic XRT [facility], follows [facility] S/P ORIF (open reduction internal fixation) fracture (Chronic) left ankle, 09/14/14, Dr Harvey, [facility] Presence of IVC filter (Chronic) H/O deep venous thrombosis (Chronic) now has an IVC filter Hyperlipidemia (Chronic) Polyneuropathy (Chronic) Pulmonary embolism (Chronic) Hypertension (Chronic) Chronic renal failure, stage 3 (moderate) (Chronic) Anxiety and depression (Chronic) uncontrolled GERD (gastroesophageal reflux disease) (Chronic) Medical History: Medical History (Last Updated 09/19/17 @ 17:37 by Mitchel Coley MD) Atherosclerotic heart disease of [place] coronary artery without angina pectoris (Chronic) I25.10 01/05/2017 SHEKHAR to mid RCA & POBA to ostial PDA PCI-Stent 2006, 2009 & 2010 Tachycardia (Acute) R00.0 Diabetes (Chronic) E11.9 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) s/p colon resection remote, lung metastases diagnosed 2014, s/p adjuvant chemotherapy, s/p stereotactic XRT [facility], follows [facility] Presence of IVC filter (Chronic) Z95.828 Hyperlipidemia (Chronic) E78.5 Polyneuropathy (Chronic) G62.9 Pulmonary embolism (Chronic) I26.99 Hypertension (Chronic) I10 Chronic renal failure, stage 3 (moderate) (Chronic) N18.3 Anxiety and depression (Chronic) F41.8 uncontrolled GERD (gastroesophageal reflux disease) (Chronic) K21.[address] Z95.828 Hypotension (Inactive) I95.9 Recurrent fall (Inactive) Rib fracture (Inactive) S22.39XA Allergies promethazine HCl [From Phenergan] Allergy (Verified 09/03/17 20:10) seizures indonesian rice Adverse Reaction (Severe, Uncoded 07/22/17 17:28) Unknown Home Medications: Ambulatory Orders Medication Instructions Recorded Atorvastatin Calcium [Lipitor] 40 mg PO QHS 07/09/15 Multivitamin [Daily Multiple 1 tab PO DAILY 07/09/15 Vitamin] buPROPion XL [Wellbutrin Xl] 150 mg PO DAILY 09/20/16 Aspirin E.C. [Ecotrin] 81 mg PO DAILY@0800 02/26/17 Clopidogrel Bisulfate [Plavix] 75 mg PO DAILY 02/26/17 Oxycodone HCl/Acetaminophen 1 tab PO TID PRN PRN 02/27/17 [Percocet 7.5-325 mg Tablet] Insulin Aspart [Novolog Flexpen] 6 units SC TIDCM 07/09/17 Insulin Glargine,Hum.rec.anlog 38 units SQ QHS 07/09/17 [Toujeo Solostar] Venlafaxine XR [Effexor Xr] 150 mg PO DAILY 07/09/17 Carvedilol [Coreg (Beta Gilles)] 12.5 mg PO BID 07/28/17 Gabapentin [Neurontin] 600 mg PO TIDCM 07/28/17 Acetaminophen [Tylenol] 1,000 mg PO Q8H PRN PRN tab 08/01/17 Amlodipine [Norvasc] 5 mg PO DAILY #30 tab 08/01/17 Lorazepam [Ativan] 1 mg PO BID PRN PRN #30 tab 08/01/17 Ondansetron [Zofran Odt] 4 mg PO Q8H PRN PRN #30 tab 08/01/17 Olanzapine [Zyprexa] 5 mg PO QHS 09/19/17 Surgical History: Surgical History (Last Reviewed 09/05/17 @ 13:57 by Aldo Romero MD) History of coronary artery stent placement (Chronic) Onset Date: ~01/05/17 Z95.5 01/05/2017 SHEKHAR to mid RCA & POBA to ostial PDA PCI-Stent 2006, 2009 & 2010 H/O shoulder surgery (Resolved) Z98.890 H/O: hysterectomy (Resolved) Z90.710 H/O colectomy (Resolved) Z90.49 Surgical History: colectomy, hysterectomy, - - Left ankle ORIF, multiple cardiac stent placement Psychiatric History: Anxiety, Depression 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 Denies: Chills, Fever Eyes: Denies: Blurred vision, Double vision, Drainage, Redness HEENT: Denies: Difficulty Hearing, Ear Pain, Eye Pain, Nasal Congestion, Sore Throat Cardiovascular: Denies: Chest Pain, Chest Pressure, Heaviness, Light Headedness , Orthopnea, Paroxysmal Noc. Dyspnea, Syncope Respiratory: Reports: Shortness of Breath. Denies: Cough, Pleuritic Pain, Sputum production, Wheezing Gastrointestinal: Reports: Abdominal Pain, Nausea, Vomiting. Denies: Constipation, Diarrhea Genitourinary: Denies: Dysuria, Frequency, Hematuria Musculoskeletal: Denies: Arm Pain, Back Pain, Foot Pain Skin: Denies: Dryness, Rash Neurological: Reports: Change in Speech. Denies: Balance problems, Double vision, Confusion, Focal weakness, Headaches, Incoordination, Numbness, Tingling Psychiatric: Reports: Anxiety, Depression Endocrine: Denies: Change in Body Habitus, Polydipsia VTE Information - Inpt Only VTE Present on Admission: No VTE Mechan Device Prophylaxis: None VTE Pharm Prophylaxis ordered?: Yes - Physical Exam General: Alert, Oriented x3, Cooperative, - - Anxious, restless. HEENT: Atraumatic, PERRLA, EOMI Oral: No Gingival or Mucosal Lesions/ Ulcerations, Dry Mucosa Neck: Supple, No JVD, Negative Carotid Bruits, Trachea Midline, Thyroid Normal Size and Texture Lungs: Clear to auscultation, No rhonchi, No wheeze, No rales, Diminished Cardiovascular: Regular rate, Regular Rhythm, Normal S1, Normal S2, No murmurs, PMI Normal, Tachycardic Abdomen: Bowel Sounds Present, Soft, Non Tender, Non-Distended, No Hepato- splenomegaly Extremities: No clubbing, No cyanosis, No edema Skin: No rashes, No breakdown Lymphatic: No Cervical, Supraclavicular, or Inguinal Adenopathy Neurological: Cranial nerves II-XII grossly intact, Motor Exam 5/5 strength throughout Psych/Mental Status: Anxious, Alert and oriented to time, place, person, mood and affect Vital Signs Temp Pulse Resp BP Pulse Ox 97.6 F L 120 H 21 H 174/100 H 96 09/19/17 14:18 09/19/17 16:51 09/19/17 16:51 09/19/17 16:51 09/19/17 16:51 Oxygen Delivery Method Room Air Weight: 153 lb 7.068 oz Body Mass Index (BMI) 24.7 Finger Stick Blood Glucose 236 Laboratory Tests Past 24 Hrs 09/19/17 09/19/17 09/19/17 14:27 14:27 14:27 WBC 14.5 H RBC 5.07 Hgb 14.1 Hct 42.5 MCV 83.8 MCH 27.8 MCHC 33.2 RDW 13.7 RDW Differential 41.7 Plt Count 342 MPV 10.1 Immature Gran % (Auto) 0.300 Neut % (Auto) 78.5 H Lymph % (Auto) 13.2 L [place] % (Auto) 7.6 Eos % (Auto) 0.1 Baso % (Auto) 0.3 Absolute Neuts (auto) 11.4 H Absolute Lymphs (auto) 1.92 Total Counted Not Reportable Sodium 133 L Potassium 4.1 Chloride 96 L Carbon Dioxide 24.0 Anion Gap 13 BUN 27 H Creatinine 1.57 H Estim Creat Clear Calc 28.09 Est GFR (MDRD) Af Amer 41 L Est GFR (MDRD) Non-Af 34 L BUN/Creatinine Ratio 17.2 Glucose 248 H Lactic Acid Calcium 10.2 H Total Bilirubin 0.70 Direct Bilirubin 0.15 AST 19 ALT 21 Alkaline Phosphatase 216 H Troponin I < 0.015 Total Protein 8.2 Albumin 3.4 Globulin 4.8 H Lipase 77 Urine Color Urine Clarity Urine pH Ur Specific [place] Urine Protein Urine Glucose (UA) Urine Ketones Urine Occult Blood Urine Nitrite Urine Bilirubin Urine Urobilinogen Ur Leukocyte Esterase Urine RBC Urine WBC Ur Squamous Epith Cells Urine Bacteria Urine Mucus Acetone Level NEGATIVE 09/19/17 09/19/17 14:40 14:46 WBC RBC Hgb Hct MCV MCH MCHC RDW RDW Differential Plt Count MPV Immature Gran % (Auto) Neut % (Auto) Lymph % (Auto) [place] % (Auto) Eos % (Auto) Baso % (Auto) Absolute Neuts (auto) Absolute Lymphs (auto) Total Counted Sodium Potassium Chloride Carbon Dioxide Anion Gap BUN Creatinine Estim Creat Clear Calc Est GFR (MDRD) Af Amer Est GFR (MDRD) Non-Af BUN/Creatinine Ratio Glucose Lactic Acid 3.3 H Calcium Total Bilirubin Direct Bilirubin AST ALT Alkaline Phosphatase Troponin I Total Protein Albumin Globulin Lipase Urine Color Yellow Urine Clarity Clear Urine pH 6.5 Ur Specific [place] 1.015 Urine Protein 500 H Urine Glucose (UA) 250 H Urine Ketones 50 H Urine Occult Blood 25 H Urine Nitrite Positive H Urine Bilirubin Negative Urine Urobilinogen Normal Ur Leukocyte Esterase Negative Urine RBC 0 SEEN Urine WBC 0-5 SEEN Ur Squamous Epith Cells 0 SEEN Urine Bacteria 0 SEEN Urine Mucus 0 SEEN Acetone Level POC Glucose 09/19/17 14:58 POC Glucose 236 H Clinical Impression(s) from Imaging Studies Chest X-Ray 09/19/17 14:40 IMPRESSION: Improved aeration of the right lung base with stable blunting of the right costophrenic angle. Stable appearance of the right upper lobe pulmonary mass. Electronically Signed: Vernon Seay MD at 15:07 EDT Tel [phone], Service support , Abdomen/Pelvis CT 09/19/17 16:09 IMPRESSION: 1. Persisting consolidation in the right lower lobe unchanged from the prior study. There is a stable associated pleural effusion. 2. Stable gallstones. 3. Stable ileal colonic anastomosis without recurrence or mass. There is no evidence of acute intra-abdominal or pelvic abnormality or major interval change. Electronically Signed: Hardeep Li DO at 16:43 EDT Tel [phone], Service support , Brain CT 09/19/17 16:09 IMPRESSION: Chronic involutional changes without evidence of acute intracranial or calvarial abnormality. There is no interval change. Electronically Signed: Hardeep Li DO at 16:45 EDT Tel [phone], Service support , Assessment/Plan All Active Problems (Last Updated 09/19/17 @ 17:37 by Mitchel Coley MD) Atrial arrhythmia (Acute) H/O shoulder surgery (Resolved) H/O: hysterectomy (Resolved) H/O colectomy (Resolved) Generalized weakness (Acute) Fatigue (Acute) Tachycardia (Acute) Near syncope (Acute) Acute kidney injury (Resolved) Acute pyelonephritis (Resolved) Clostridium difficile diarrhea (Resolved) Herpes zoster (Resolved) Recurrent colitis due to Clostridium difficile (Resolved) Urinary tract infection (Resolved) Ileus (Ruled-out) This is a 76 years old female patient presented to the emergency room because of nausea, vomiting, and anxiety, questionable expressive aphasia, found to have significant leukocytosis with elevated lactic acid and she is being admitted for observation. #1 intractable nausea and vomiting: Unclear etiology, could be due to anxiety attack. CT scan brain without acute findings. No evidence of infection. LFT and lipase were unremarkable. Plan: Admit to PCU for observation, cardiac monitoring, IV fluids, IV antiemetics, repeat CBC and BMP tomorrow morning, PT OT evaluation and treatment. #2 anxiety attack: This is based on history of anxiety and depression, patient lives alone, complaining of shortness of breath without any other obvious etiology, has been tachycardic. She did admit that she gets anxiety and panic attacks occasionally. Plan: Continue Ativan as needed, continue Wellbutrin and Zyprexa. #3 lactic acidosis: This is likely because of intractable nausea and vomiting as well as anxiety. No evidence of infection. Chest x-ray without acute findings. Urinalysis showed no clear evidence of acute cystitis. Plan for IV fluids, repeat lactic acid in 3 hours. #4 questionable expressive aphasia: Patient mentioned that she was admitted 2 months ago for the same complaint, during that time. Workup done and was unremarkable. CT scan brain without acute findings. She denied any other symptoms suggestive of stroke. Plan: NIH stroke scale. At this time, I did not see any other indication to do stroke workup again unless she develops new symptoms, then we should do an MRI brain. #5 CAD status post stents: Stable, EKG reviewed, troponin is negative. Continue aspirin, Plavix, statins, Coreg. #6 hypertension: Blood pressure stable, continue Norvasc and Coreg. #7 stage III chronic kidney disease: Admission creatinine is 1.57, stable at baseline. #8 type 2 diabetes mellitus: ADA diet, Accu-Cheks, insulin sliding scale, continue home doses of glargine insulin and NovoLog. Recently, hemoglobin A1c was 9. #9 anxiety/depression: Continue Ativan, Wellbutrin, Zyprexa and Effexor. #10 DVT prophylaxis: Subcu heparin. This note was generated with Thinkature dictation software. It may contain incorrect words, spelling, and punctuation that were not noted in checking the note before signing. Code Visit OBSV E&M: 39762 Initial observation care L3
--- NOTE | 2017-09-19 17:45 | NURSING ---
Karley notified that patient may transfer to PCU.
[2017-09-19 18:43] LABS: Reflex Lactate? Y
[2017-09-19] MEDS: 0.9% Normal Saline 1,000 ML 100 ML IV (19:25)
[2017-09-19 19:45] LABS: Lactic Acid 1.3 mmol/L (0.4-2.0)
[2017-09-19] MEDS: Carvedilol 12.5 MG Tablet PO (21:25)
[2017-09-19] MEDS: Heparin Injection (Vial) 5,000 UNIT/ML VIAL 5000 UNIT SC (21:25)
[2017-09-19] MEDS: OLANZapine 5 MG/TAB TAB.RAPDIS PO (21:25)
[2017-09-19] MEDS: Atorvastatin Calcium 40 MG Tablet PO (21:25)
[2017-09-19] MEDS: Zolpidem Tartrate 5 MG Tablet PO (21:33)
[2017-09-19] MEDS: Insulin Lispro 100 UNIT/ML INSULN.PEN SC (21:42)
[2017-09-19 22:15] LABS: Bedside Glucose 223 mg/dL (70-110)
[2017-09-20] VITALS (13 sets, daily range): BP systolic 131–167; BP diastolic 54–101; PULSE 74–99; RESP 16–18; TEMP 36.6–36.9; O2SAT 95–96
[2017-09-20] MEDS: Heparin Injection (Vial) 5,000 UNIT/ML VIAL 5000 UNIT SC ×3 (05:21→21:01)
[2017-09-20] MEDS: 0.9% Normal Saline 1,000 ML 100 ML IV ×2 (05:21→15:13)
[2017-09-20 06:35] LABS: Absolute Lymphocyte Count 0.93 X10^3/ul (0.83-4.51); Absolute Neutrophil Count 7.3 X10^3/uL (2.0-7.7); Basophil# 0.02 X10^3/uL; Basophil% 0.2 % (0-1); Eosinophil# 0.03 X10^3/uL; Eosinophils% 0.3 % (0-5); Hematocrit 35.4 % (37-47); Hemoglobin 11.4 g/dl (12.0-15.0); Lymphocyte # 0.93 X10^3/ul (4.0); Lymphocyte % 10.3 % (19-41); Mean Corp Hgb Conc 32.2 g/gl (32-36); Mean Corpuscular Hgb 27.9 pg (27.0-32.0); Mean Corpuscular Volume 86.8 fL (81-99); Monocyte# 0.73 X10^3/uL; Neutrophil # 7.33 X10^3/uL (2.7-7.7); Neutrophil % 80.9 % (47-70); Platelet Count 219 K/mm3 (150-450); RBC Distribution Width CV 13.7 % (11.6-14.6); RBC Distribution Width SD 42.1 fl (35.1-43.9); Red Blood Count 4.08 M/mm3 (4.2-5.4); White Blood Count 9.1 K/mm3 (4.4-11.0)
[2017-09-20 06:38] LABS: POSITIVE COUNT NO; POSITIVE DIFFERENTIAL NO; POSITIVE MORPHOLOGY NO
[2017-09-20 07:00] LABS: Bedside Glucose 157 mg/dL (70-110)
[2017-09-20 07:10] LABS: Anion Gap 9 (5-15); BUN 30 mg/dL (7-18); BUN/Creat Ratio 23.3 RATIO (10-20); Calcium,Total 8.6 mg/dL (8.5-10.1); Chloride 105 mmol/L (98-107); Creatinine, Serum 1.29 mg/dL (0.55-1.02); EST Glomerular Filtration Rate 43 mL/min (>60); Est Glom Filt Rate - Afr Amer 51 mL/min (>60); Estimated Creatinine Clearance 35.52 ml/min; Glucose 157 mg/dL (74-106); Sodium Level 139 mmol/L (136-145)
[2017-09-20] MEDS: Aspirin E.C. 81 MG Tablet PO (09:07)
[2017-09-20] MEDS: Carvedilol 12.5 MG Tablet PO ×2 (09:07→21:01)
[2017-09-20] MEDS: Insulin Lispro 100 UNIT/ML INSULN.PEN 6 UNIT SC ×2 (09:07→12:29)
[2017-09-20] MEDS: amLODIPine 5 MG Tablet PO (09:07)
[2017-09-20] MEDS: Clopidogrel Bisulfate 75 MG Tablet PO (09:07)
[2017-09-20] MEDS: Insulin Lispro 100 UNIT/ML INSULN.PEN SC ×3 (09:07→21:02)
[2017-09-20] MEDS: buPROPion (XL) 150 MG TABLET.XL PO (09:07)
[2017-09-20] MEDS: Gabapentin 300 MG Capsule 600 MG PO ×3 (09:07→16:31)
[2017-09-20] MEDS: Venlafaxine XR 150 MG Capsule PO (09:07)
--- NOTE | 2017-09-20 12:15 | PCM.PN.HOSP ---
Subjective: Patient is a 76 year old lady who presented to the emergency department with nausea vomiting and intermittent fever and chills. Patient was found to have leukocytosis as well as elevated lactic acid level however an infectious etiology could not be found. Patient was also found to be in acute renal failure started on fluids and admitted to monitored bed for further management Objective: GENERAL: cooperative HEENT: Clear conjunctiva, NECK; supple, normal thyroid, CHEST: Clear to auscultation bilaterally, HEART: Regular S1 S2, no audible murmurs ABDOMEN: soft, non-tender, normoactive bowel sounds, RECTAL: deferred EXTREMITIES: No edema, GLORY HOLE TENDER: Awake; SKIN: No Rash Vitals/I&O's: Vital Signs Temp Pulse Resp BP Pulse Ox 98.1 F 80 18 167/101 H 95 09/20/17 08:00 09/20/17 11:05 09/20/17 08:00 09/20/17 08:00 09/20/17 11:11 Oxygen Delivery Method Room Air Weight: 67.631 kg Body Mass Index (BMI) 23.3 Intake and Output for Last 24 Hours 09/18/17 09/19/17 09/20/17 23:59 23:59 23:59 Intake Total 1577 / 1577 Balance 1577 / 1577 Laboratory Results 09/19/17 19:02: Lactic Acid 1.3 09/19/17 21:32: POC Glucose 223 H 09/20/17 06:05: WBC 9.1, RBC 4.08 L, Hgb 11.4 L, Hct 35.4 L, MCV 86.8, MCH 27.9, MCHC 32.2, RDW 13.7, RDW Differential 42.1, Plt Count 219, MPV 10.0, Immature Gran % (Auto) 0.300, Neut % (Auto) 80.9 H, Lymph % (Auto) 10.3 L, [place] % (Auto) 8.0, Eos % (Auto) 0.3, Baso % (Auto) 0.2, Absolute Neuts (auto) 7.3, Absolute Lymphs (auto) 0.93, Total Counted Not Reportable 09/20/17 06:05: Sodium 139, Potassium 4.0, Chloride 105, Carbon Dioxide 25.0, Anion Gap 9, BUN 30 H, Creatinine 1.29 H, Estim Creat Clear Calc 35.52, Est GFR (MDRD) Af Amer 51 L, Est GFR (MDRD) Non-Af 43 L, BUN/Creatinine Ratio 23.3 H, Glucose 157 H, Calcium 8.6 09/20/17 06:54: POC Glucose 157 H Current Medications Acetaminophen (Tylenol) 650 mg PO Q6H PRN PRN PRN Reason: Headache, fever, pain Amlodipine Besylate (Norvasc) 5 mg PO DAILY REPLACED BY [facility] Last Admin: 09/20/17 09:07 Dose: 5 mg Aspirin (Ecotrin) 81 mg PO DAILY@0800 REPLACED BY [facility] Last Admin: 09/20/17 09:07 Dose: 81 mg Atorvastatin Calcium (Lipitor) 40 mg PO QHS REPLACED BY [facility] Last Admin: 09/19/17 21:25 Dose: 40 mg Bupropion HCl (Wellbutrin Xl) 150 mg PO DAILY REPLACED BY [facility] Last Admin: 09/20/17 09:07 Dose: 150 mg Carvedilol (Coreg) 12.5 mg PO BID REPLACED BY [facility] Last Admin: 09/20/17 09:07 Dose: 12.5 mg Clopidogrel Bisulfate (Plavix) 75 mg PO DAILY REPLACED BY [facility] Last Admin: 09/20/17 09:07 Dose: 75 mg Gabapentin (Neurontin) 600 mg PO TIDCM REPLACED BY [facility] Last Admin: 09/20/17 09:07 Dose: 600 mg Heparin Sodium (Porcine) (Heparin Na) 5,000 unit SC Q8 REPLACED BY [facility] Last Admin: 09/20/17 05:21 Dose: 5,000 u Sodium Chloride () 1,000 mls @ 100 mls/hr IV .Q10H REPLACED BY [facility] Last Admin: 09/20/17 05:21 Dose: 100 mls/hr Insulin Glargine (Lantus (Bkc)) 38 units SC QHS REPLACED BY [facility] Last Admin: 09/19/17 21:25 Dose: 38 u Insulin Human Lispro (Humalog Kwikpen (Bkc)) 0 unit SC ACHS REPLACED BY [facility] PRN Reason: Protocol Last Admin: 09/20/17 09:07 Dose: 1 u Insulin Human Lispro (Humalog Kwikpen (Bkc)) 6 unit SC TIDCM REPLACED BY [facility] Last Admin: 09/20/17 09:07 Dose: 6 u Lorazepam (Ativan) 1 mg PO BID PRN PRN PRN Reason: ANXIETY Magnesium Hydroxide (Milk Of Magnesia) 30 ml PO DAILY PRN PRN Reason: Constipation Olanzapine (Zyprexa Zydis) 5 mg PO QHS REPLACED BY [facility] Last Admin: 09/19/17 21:25 Dose: 5 mg Ondansetron HCl (Zofran) 4 mg IV Q6H PRN PRN PRN Reason: NAUSEA/VOMITING Oxycodone HCl (Oxyir) 7.5 mg PO TID PRN PRN PRN Reason: PAIN Sodium Chloride () 5 - 30 ml IV UD PRN PRN Reason: SALINE FLUSH Venlafaxine HCl (Effexor Xr) 150 mg PO DAILY REPLACED BY [facility] Last Admin: 09/20/17 09:07 Dose: 150 mg Zolpidem Tartrate (Ambien (Generic)) 5 mg PO QHS PRN PRN PRN Reason: INSOMNIA Last Admin: 09/19/17 21:33 Dose: 5 mg Medical Necessity - Tobacco Use Smoking Status: Never smoker Assessment/Plan All Active Problems (Last Updated 09/19/17 @ 17:37 by Mitchel Coley MD) Atrial arrhythmia (Acute) H/O shoulder surgery (Resolved) H/O: hysterectomy (Resolved) H/O colectomy (Resolved) Generalized weakness (Acute) Fatigue (Acute) Tachycardia (Acute) Near syncope (Acute) Acute kidney injury (Resolved) Acute pyelonephritis (Resolved) Clostridium difficile diarrhea (Resolved) Herpes zoster (Resolved) Recurrent colitis due to Clostridium difficile (Resolved) Urinary tract infection (Resolved) Ileus (Ruled-out) Patient is a 76 year old lady who presented to the emergency department with nausea vomiting and intermittent fever and chills. Patient was found to have leukocytosis as well as elevated lactic acid level however an infectious etiology could not be found. Patient was also found to be in acute renal failure started on fluids and admitted to monitored bed for further management 1. Suspected acute viral syndrome presented with nausea vomiting fever and chills. Patient was noted to have lactic acid level elevation and admission however an infectious etiology could not be found patient managed symptomatically with IV fluids and antinausea medication with some improvement in overall condition 1. CAD with previous stent placement 3. Questionable expressive aphasia this was attributed to anxiety disorder 4. Acute on chronic kidney disease. IV fluids with improvement in her kidney function 5. Chronic kidney disease stage III 6. Diabetes mellitus type 2 with complications including diabetic nephropathy did continue patient insulin regimen 7. History of colon cancer with metastases to the lungs patient is followed by an oncologist at the [facility] 8. Hypertension blood pressure stable 9. History of DVT/PE status post IVC filter placement 10. DVT prophylaxis SC heparin Code Visit OBSV E&M: 67140 Subsequent observation care L3
[2017-09-20 12:35] LABS: Bedside Glucose 185 mg/dL (70-110)
[2017-09-20] MEDS: LORazepam 1 MG Tablet PO (14:53)
[2017-09-20 17:06] LABS: Bedside Glucose 58 mg/dL (70-110)
[2017-09-20 17:06] LABS: Bedside Glucose 101 mg/dL (70-110)
[2017-09-20] MEDS: Atorvastatin Calcium 40 MG Tablet PO (21:01)
[2017-09-20] MEDS: OLANZapine 5 MG/TAB TAB.RAPDIS PO (21:01)
[2017-09-20] MEDS: Zolpidem Tartrate 5 MG Tablet PO (21:10)
[2017-09-20 21:45] LABS: Bedside Glucose 364 mg/dL (70-110)
[2017-09-21] MEDS: 0.9% Normal Saline 1,000 ML 100 ML IV (01:28)
[2017-09-21 03:00] VITALS: PULSE 74
[2017-09-21 04:00] VITALS: BP 138/70; PULSE 88; RESP 15; TEMP 36.8; O2SAT 97
[2017-09-21 06:43] LABS: Hematocrit 30.5 % (37-47); Hemoglobin 9.5 g/dl (12.0-15.0); Mean Corp Hgb Conc 31.1 g/gl (32-36); Mean Corpuscular Hgb 27.4 pg (27.0-32.0); Mean Corpuscular Volume 87.9 fL (81-99); Mean Platelet Vol. 9.8 fl (6.2-12.0); Platelet Count 146 K/mm3 (150-450); RBC Distribution Width CV 13.9 % (11.6-14.6); RBC Distribution Width SD 44.8 fl (35.1-43.9); Red Blood Count 3.47 M/mm3 (4.2-5.4); White Blood Count 5.7 K/mm3 (4.4-11.0)
[2017-09-21] MEDS: Heparin Injection (Vial) 5,000 UNIT/ML VIAL 5000 UNIT SC (06:49)
[2017-09-21 06:53] VITALS: PULSE 73
[2017-09-21 07:01] LABS: Bedside Glucose 252 mg/dL (70-110)
[2017-09-21 07:03] VITALS: O2SAT 97
[2017-09-21 07:03] LABS: Anion Gap 8 (5-15); BUN 37 mg/dL (7-18); BUN/Creat Ratio 27.2 RATIO (10-20); Calcium,Total 7.7 mg/dL (8.5-10.1); Chloride 109 mmol/L (98-107); Creatinine, Serum 1.36 mg/dL (0.55-1.02); EST Glomerular Filtration Rate 40 mL/min (>60); Est Glom Filt Rate - Afr Amer 48 mL/min (>60); Estimated Creatinine Clearance 33.69 ml/min; Glucose 241 mg/dL (74-106); Magnesium 1.8 mg/dL (1.6-2.6); Potassium 4.2 mmol/L (3.5-5.1); Sodium Level 141 mmol/L (136-145)
[2017-09-21 07:04] LABS: Scan Indicated on CBC? Y/N NO
[2017-09-21] MEDS: Insulin Lispro 100 UNIT/ML INSULN.PEN 6 UNIT SC (08:07)
[2017-09-21] MEDS: Insulin Lispro 100 UNIT/ML INSULN.PEN SC (08:07)
[2017-09-21] MEDS: Gabapentin 300 MG Capsule 600 MG PO (08:08)
[2017-09-21] MEDS: Aspirin E.C. 81 MG Tablet PO (08:08)
--- NOTE | 2017-09-21 09:11 | PCM.DC ---
Your food should be the consistency of: Regular Discharge Activity: Return to Normal Activity Allergies/Adverse Reactions: Allergies promethazine HCl [From Phenergan] Allergy (Verified 09/03/17 20:10) seizures pashto rice Adverse Reaction (Severe, Uncoded 07/22/17 17:28) Unknown Medications to take at Discharge Atorvastatin Calcium [Lipitor] 40 mg PO QHS 07/09/15 Multivitamin [Daily Multiple Vitamin] 1 tab PO DAILY 07/09/15 buPROPion XL [Wellbutrin Xl] 150 mg PO DAILY 09/20/16 Aspirin E.C. [Ecotrin] 81 mg PO DAILY@0800 02/26/17 Clopidogrel Bisulfate [Plavix] 75 mg PO DAILY 02/26/17 Oxycodone HCl/Acetaminophen [Percocet 7.5-325 mg Tablet] 1 tab PO TID PRN PRN 02/27/17 Insulin Aspart [Novolog Flexpen] 6 units SC TIDCM 07/09/17 Insulin Glargine,Hum.rec.anlog [Toujeo Solostar] 38 units SQ QHS 07/09/17 Venlafaxine XR [Effexor Xr] 150 mg PO DAILY 07/09/17 Carvedilol [Coreg (Beta Gilles)] 12.5 mg PO BID 07/28/17 Gabapentin [Neurontin] 600 mg PO TIDCM 07/28/17 Acetaminophen [Tylenol] 1,000 mg PO Q8H PRN PRN tab 08/01/17 Amlodipine [Norvasc] 5 mg PO DAILY #30 tab 08/01/17 Lorazepam [Ativan] 1 mg PO BID PRN PRN #30 tab 08/01/17 Ondansetron [Zofran Odt] 4 mg PO Q8H PRN PRN #30 tab 08/01/17 Olanzapine [Zyprexa] 5 mg PO QHS 09/19/17 Primary Care Physician: Donald Cline MD [Primary Care Provider] - Test Results: Test results from this visit will be discussed in further detail at your follow-up appointment, if applicable. Proposed Discharge Date: 09/21/17
--- NOTE | 2017-09-21 09:15 | DCINST_ITS ---
Your food should be the consistency of: Regular Discharge Activity: Return to Normal Activity Allergies/Adverse Reactions: Allergies promethazine HCl [From Phenergan] Allergy (Verified 09/03/17 20:10) seizures khmer rice Adverse Reaction (Severe, Uncoded 07/22/17 17:28) Unknown Medications to take at Discharge Atorvastatin Calcium [Lipitor] 40 mg PO QHS 07/09/15 Multivitamin [Daily Multiple Vitamin] 1 tab PO DAILY 07/09/15 buPROPion XL [Wellbutrin Xl] 150 mg PO DAILY 09/20/16 Aspirin E.C. [Ecotrin] 81 mg PO DAILY@0800 02/26/17 Clopidogrel Bisulfate [Plavix] 75 mg PO DAILY 02/26/17 Oxycodone HCl/Acetaminophen [Percocet 7.5-325 mg Tablet] 1 tab PO TID PRN PRN Insulin Aspart [Novolog Flexpen] 6 units SC TIDCM 07/09/17 Insulin Glargine,Hum.rec.anlog [Toujeo Solostar] 38 units SQ QHS 07/09/17 Venlafaxine XR [Effexor Xr] 150 mg PO DAILY 07/09/17 Carvedilol [Coreg (Beta Gilles)] 12.5 mg PO BID 07/28/17 Gabapentin [Neurontin] 600 mg PO TIDCM 07/28/17 Acetaminophen [Tylenol] 1,000 mg PO Q8H PRN PRN tab 08/01/17 Amlodipine [Norvasc] 5 mg PO DAILY #30 tab 08/01/17 Lorazepam [Ativan] 1 mg PO BID PRN PRN #30 tab 08/01/17 Ondansetron [Zofran Odt] 4 mg PO Q8H PRN PRN #30 tab 08/01/17 Olanzapine [Zyprexa] 5 mg PO QHS 09/19/17 Primary Care Physician: Donald Cline MD [Primary Care Provider] - Test Results: Test results from this visit will be discussed in further detail at your follow- up appointment, if applicable. Proposed Discharge Date: 09/21/17
--- NOTE | 2017-09-21 09:16 | PCM.DC.SUM ---
Discharge Date and Diagnosis Date of Admission: 09/19/17 Date of Discharge: 09/21/17 - Primary Discharge Diagnosis Suspected acute viral syndrome - Secondary Discharge Diagnosis Chronic Problems (Last Updated 09/19/17 @ 17:37 by Mitchel Coley MD) History of coronary artery stent placement (Chronic ~01/05/17) 01/05/2017 SHEKHAR to mid RCA & POBA to ostial PDA PCI-Stent 2006, 2009 & 2010 Atherosclerotic heart disease of [place] coronary artery without angina pectoris (Chronic) 01/05/2017 SHEKHAR to mid RCA & POBA to ostial PDA PCI-Stent 2006, 2009 & 2010 Colon carcinoma (Chronic) S/P partial colon resection Diabetes (Chronic) 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) s/p colon resection remote, lung metastases diagnosed 2014, s/p adjuvant chemotherapy, s/p stereotactic XRT [facility], follows [facility] S/P ORIF (open reduction internal fixation) fracture (Chronic) left ankle, 09/14/14, Dr Harvey, [facility] Presence of IVC filter (Chronic) H/O deep venous thrombosis (Chronic) now has an IVC filter Hyperlipidemia (Chronic) Polyneuropathy (Chronic) Pulmonary embolism (Chronic) Hypertension (Chronic) Chronic renal failure, stage 3 (moderate) (Chronic) Anxiety and depression (Chronic) uncontrolled GERD (gastroesophageal reflux disease) (Chronic) Hospital Course and Treatment Operations: None Summary of Care Provided: Patient is a 76 year old lady who presented to the emergency department with nausea vomiting and intermittent fever and chills. Patient was found to have leukocytosis as well as elevated lactic acid level however an infectious etiology could not be found. Patient was also found to be in acute renal failure started on fluids and admitted to monitored bed for further management 1. Suspected acute viral syndrome presented with nausea vomiting fever and chills. Patient was noted to have lactic acid level elevation and admission however an infectious etiology could not be found patient managed symptomatically with IV fluids and antinausea medication with some improvement in overall condition patient was discharged after 48 hours after cultures have come back negative. 1. CAD with previous stent placement 3. Questionable expressive aphasia this was attributed to anxiety disorder 4. Acute on chronic kidney disease. IV fluids with improvement in her kidney function 5. Chronic kidney disease stage III 6. Diabetes mellitus type 2 with complications including diabetic nephropathy did continue patient insulin regimen 7. History of colon cancer with metastases to the lungs patient is followed by an oncologist at the [facility] 8. Hypertension blood pressure stable 9. History of DVT/PE status post IVC filter placement 10. DVT prophylaxis SC heparin Discharge Activity: Return to Normal Activity Home Medications: Medications to take at Discharge Atorvastatin Calcium [Lipitor] 40 mg PO QHS 07/09/15 Multivitamin [Daily Multiple Vitamin] 1 tab PO DAILY 07/09/15 buPROPion XL [Wellbutrin Xl] 150 mg PO DAILY 09/20/16 Aspirin E.C. [Ecotrin] 81 mg PO DAILY@0800 02/26/17 Clopidogrel Bisulfate [Plavix] 75 mg PO DAILY 02/26/17 Oxycodone HCl/Acetaminophen [Percocet 7.5-325 mg Tablet] 1 tab PO TID PRN PRN 02/27/17 Insulin Aspart [Novolog Flexpen] 6 units SC TIDCM 07/09/17 Insulin Glargine,Hum.rec.anlog [Toujeo Solostar] 38 units SQ QHS 07/09/17 Venlafaxine XR [Effexor Xr] 150 mg PO DAILY 07/09/17 Carvedilol [Coreg (Beta Gilles)] 12.5 mg PO BID 07/28/17 Gabapentin [Neurontin] 600 mg PO TIDCM 07/28/17 Acetaminophen [Tylenol] 1,000 mg PO Q8H PRN PRN tab 08/01/17 Amlodipine [Norvasc] 5 mg PO DAILY #30 tab 08/01/17 Lorazepam [Ativan] 1 mg PO BID PRN PRN #30 tab 08/01/17 Ondansetron [Zofran Odt] 4 mg PO Q8H PRN PRN #30 tab 08/01/17 Olanzapine [Zyprexa] 5 mg PO QHS 09/19/17 Primary Care Physician: Donald Cline MD [Primary Care Provider] - Disposition: Home Minutes spent on discharge:: 35 Patient Condition:: Stable Medical Necessity - Tobacco Use Smoking Status: Never smoker Meaningful Use Info Meaningful Use Diagnoses (Choose all that apply): None applicable Code Visit OBSV E&M: 78809 Observation care discharge
--- NOTE | 2017-09-21 09:19 | DS.PCM_ITS ---
Discharge Date and Diagnosis Date of Admission: 09/19/17 Date of Discharge: 09/21/17 - Primary Discharge Diagnosis Suspected acute viral syndrome - Secondary Discharge Diagnosis Chronic Problems (Last Updated 09/19/17 @ 17:37 by Mitchel Coley MD) History of coronary artery stent placement (Chronic ~01/05/17) 01/05/2017 SHEKHAR to mid RCA & POBA to ostial PDA PCI-Stent 2006, 2009 & 2010 Atherosclerotic heart disease of [place] coronary artery without angina pectoris (Chronic) 01/05/2017 SHEKHAR to mid RCA & POBA to ostial PDA PCI-Stent 2006, 2009 & 2010 Colon carcinoma (Chronic) S/P partial colon resection Diabetes (Chronic) 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 Presence of IVC filter (Chronic) H/O deep venous thrombosis (Chronic) now has an IVC filter Hyperlipidemia (Chronic) Polyneuropathy (Chronic) Pulmonary embolism (Chronic) Hypertension (Chronic) Chronic renal failure, stage 3 (moderate) (Chronic) Anxiety and depression (Chronic) uncontrolled GERD (gastroesophageal reflux disease) (Chronic) Hospital Course and Treatment Operations: None Summary of Care Provided: Patient is a 76 year old lady who presented to the emergency department with nausea vomiting and intermittent fever and chills. Patient was found to have leukocytosis as well as elevated lactic acid level however an infectious etiology could not be found. Patient was also found to be in acute renal failure started on fluids and admitted to monitored bed for further management 1. Suspected acute viral syndrome presented with nausea vomiting fever and chills. Patient was noted to have lactic acid level elevation and admission however an infectious etiology could not be found patient managed symptomatically with IV fluids and antinausea medication with some improvement in overall condition patient was discharged after 48 hours after cultures have come back negative. 1. CAD with previous stent placement 3. Questionable expressive aphasia this was attributed to anxiety disorder 4. Acute on chronic kidney disease. IV fluids with improvement in her kidney function 5. Chronic kidney disease stage III 6. Diabetes mellitus type 2 with complications including diabetic nephropathy did continue patient insulin regimen 7. History of colon cancer with metastases to the lungs patient is followed by an oncologist at the [facility] 8. Hypertension blood pressure stable 9. History of DVT/PE status post IVC filter placement 10. DVT prophylaxis SC heparin Discharge Activity: Return to Normal Activity Home Medications: Medications to take at Discharge Atorvastatin Calcium [Lipitor] 40 mg PO QHS 07/09/15 Multivitamin [Daily Multiple Vitamin] 1 tab PO DAILY 07/09/15 buPROPion XL [Wellbutrin Xl] 150 mg PO DAILY 09/20/16 Aspirin E.C. [Ecotrin] 81 mg PO DAILY@0800 02/26/17 Clopidogrel Bisulfate [Plavix] 75 mg PO DAILY 02/26/17 Oxycodone HCl/Acetaminophen [Percocet 7.5-325 mg Tablet] 1 tab PO TID PRN PRN Insulin Aspart [Novolog Flexpen] 6 units SC TIDCM 07/09/17 Insulin Glargine,Hum.rec.anlog [Toujeo Solostar] 38 units SQ QHS 07/09/17 Venlafaxine XR [Effexor Xr] 150 mg PO DAILY 07/09/17 Carvedilol [Coreg (Beta Gilles)] 12.5 mg PO BID 07/28/17 Gabapentin [Neurontin] 600 mg PO TIDCM 07/28/17 Acetaminophen [Tylenol] 1,000 mg PO Q8H PRN PRN tab 08/01/17 Amlodipine [Norvasc] 5 mg PO DAILY #30 tab 08/01/17 Lorazepam [Ativan] 1 mg PO BID PRN PRN #30 tab 08/01/17 Ondansetron [Zofran Odt] 4 mg PO Q8H PRN PRN #30 tab 08/01/17 Olanzapine [Zyprexa] 5 mg PO QHS 09/19/17 Primary Care Physician: Donald Cline MD [Primary Care Provider] - Disposition: Home Minutes spent on discharge:: 35 Patient Condition:: Stable Medical Necessity - Tobacco Use Smoking Status: Never smoker Meaningful Use Info Meaningful Use Diagnoses (Choose all that apply): None applicable Code Visit OBSV E&M: 70450 Observation care discharge
[2017-09-21 10:00] VITALS: BP 167/64; PULSE 88; RESP 16; TEMP 37; O2SAT 96
[2017-09-21] MEDS: Clopidogrel Bisulfate 75 MG Tablet PO (10:09)
[2017-09-21] MEDS: amLODIPine 5 MG Tablet PO (10:09)
[2017-09-21] MEDS: Venlafaxine XR 150 MG Capsule PO (10:09)
[2017-09-21] MEDS: buPROPion (XL) 150 MG TABLET.XL PO (10:09)
[2017-09-21] MEDS: Carvedilol 12.5 MG Tablet PO (10:10)
== END 2017-09-21 09:13 | disposition home or self-care (01) ==
LOC: ED 17:42 → PCU 17:45
PROVIDERS: Admitting Provider Hospitalist; Emergency Provider Emergency Medicine; Family Provider Family Medicine; PCP Family Medicine; Visit Provider Internal Medicine
DX: R11.2 Nausea with vomiting, unspecified (principal); I25.10 Atherosclerotic heart disease of native coronary artery without angina pectoris; E11.22 Type 2 diabetes mellitus with diabetic chronic kidney disease; N18.3 Chronic kidney disease, stage 3 (moderate); E78.5 Hyperlipidemia, unspecified; F41.9 Anxiety disorder, unspecified; F32.9 Major depressive disorder, single episode, unspecified; K21.9 Gastro-esophageal reflux disease without esophagitis; I12.9 Hypertensive chronic kidney disease with stage 1 through stage 4 chronic kidney disease, or unspecified chronic kidney disease; Z85.038 Personal history of other malignant neoplasm of large intestine; Z85.118 Personal history of other malignant neoplasm of bronchus and lung; Z86.718 Personal history of other venous thrombosis and embolism; Z86.711 Personal history of pulmonary embolism; N17.9 Acute kidney failure, unspecified; Z87.440 Personal history of urinary (tract) infections
CPT/HCPCS: 36415; 70450; 71045; 74176; 80048; 80076; 81001; 82009; 82962; 83605; 83690; 83735; 84484; 85025; 85027; 87086; 93005; 96361; 96372; 96374; 96375; 97162; 97166; 99218; 99285; J7030; J7040; P9612; A4216; G0378; J2405

== ENCOUNTER → 2017-12-04 11:13 | Outpatient (CLI) | payer MEDICARE, SELFPAY ==
--- NOTE | 2017-12-04 11:14 | RAD_ITS ---
STUDY: X-RAY - LEFT ANKLE REASON FOR EXAM: No injury, pain, surgery 3 years ago. TECHNIQUE: 3 view(s) of the ankle. COMPARISON: Radiographs 08/17/2015. FINDINGS: There is osteopenia. There is intact orthopedic hardware of the distal tibia and distal fibula with chronic fracture deformity without interval change. There is a tibiotalar joint effusion. There is a plantar calcaneal enthesophyte. The visualized subtalar, talonavicular, calcaneocuboid and tarsal articulations are normal. There is vascular calcification. RAD/Ankle min 3 Views IMPRESSION: Postoperative changes with healed fracture deformity of the distal tibia and fibula, stable since 2015. Tibiotalar joint effusion. Electronically Signed: Enrique Eisenberg MD at 11:32 EDT Tel , Service support ,
== END ==
PROVIDERS: Family Provider Family Medicine; PCP Family Medicine; Visit Provider Physician Assistant
DX: M25.572 Pain in left ankle and joints of left foot (principal)
CPT/HCPCS: 73610

== ENCOUNTER → 2017-12-12 15:54 | Outpatient (CLI) | payer MEDICARE, SELFPAY ==
[2017-12-12 17:29] LABS: Hematocrit 39.5 % (37-47); Hemoglobin 12.6 g/dl (12.0-15.0); Mean Corp Hgb Conc 31.9 g/gl (32-36); Mean Corpuscular Hgb 28.3 pg (27.0-32.0); Mean Corpuscular Volume 88.6 fL (81-99); Mean Platelet Vol. 9.9 fl (6.2-12.0); Platelet Count 273 K/mm3 (150-450); RBC Distribution Width CV 13.9 % (11.6-14.6); RBC Distribution Width SD 44.4 fl (35.1-43.9); Red Blood Count 4.46 M/mm3 (4.2-5.4); White Blood Count 8.7 K/mm3 (4.4-11.0)
[2017-12-12 17:30] LABS: Scan Indicated on CBC? Y/N NO
[2017-12-12 17:39] LABS: BUN 21 mg/dL (7-18); BUN/Creat Ratio 18.4 RATIO (10-20); Calcium,Total 9.9 mg/dL (8.5-10.1); Chloride 102 mmol/L (98-107); Creatinine, Serum 1.14 mg/dL (0.55-1.02); EST Glomerular Filtration Rate 49 mL/min (>60); Est Glom Filt Rate - Afr Amer 59 mL/min (>60); Glucose 119 mg/dL (74-106); Phosphorus 3.1 mg/dL (2.5-4.9); Potassium 4.2 mmol/L (3.5-5.1); Sodium Level 139 mmol/L (136-145)
[2017-12-12 17:42] LABS: Protein, Urine (Random) 209.6 mg/dL (<11.9); Protein:Creat Ratio 3804 mg/g CRE (0-200)
[2017-12-12 17:42] LABS: PTHIN 96.4 pg/mL (18.4-80.1); Vitamin D,25 Hydroxy 16.3 ng/mL (29.95-100.01)
== END ==
PROVIDERS: Family Provider Family Medicine; PCP Family Medicine; Referring Provider Internal Medicine Nephrology; Visit Provider Internal Medicine Nephrology
DX: N18.3 Chronic kidney disease, stage 3 (moderate) (principal)
CPT/HCPCS: 36415; 80069; 82306; 82570; 83970; 84156; 85027

== ENCOUNTER 2018-04-29 20:34 | Inpatient (IN) | payer MEDICARE, SELFPAY ==
[2018-04-29 20:35] VITALS: BP 76/50; PULSE 99; RESP 18; TEMP 36.3; O2SAT 97; BMI 29.9
[2018-04-29 20:48] VITALS: BP 96/56; PULSE 93; RESP 15; O2SAT 98
[2018-04-29 21:00] VITALS: BP 111/59; PULSE 93; RESP 18; O2SAT 98
--- NOTE | 2018-04-29 21:05 | CT_ITS ---
STUDY: CT BRAIN WITHOUT CONTRAST REASON FOR EXAM: Female, 77 years old. Syncope RADIATION DOSAGE (If Supplied By Facility): CTDIvol = ( 44.99 ) mGy, DLP = ( 745.49 ) mGycm TECHNIQUE: Transaxial CT imaging of the brain was performed without administration of intravenous contrast material. Individualized dose optimization techniques were used for this CT. COMPARISON: Prior study of 09/19/2017 FINDINGS: Normal soft tissue structures. There is hyperostosis frontalis internus. There is asymmetry of the ventricles consistent with an anatomic variant. There are old lacunar infarcts of the left insular lobe and right basal ganglia. There are areas of decreased attenuation within the white matter tracts of the supratentorial brain, consistent with microvascular disease changes. Normal basal ganglia and thalami. Normal brainstem. Normal cerebellum. There is no intracranial hemorrhage. There are no findings of an acute ischemic infarction. Normal visualized paranasal sinuses. CT/Brain/Head without Contrast IMPRESSION: Chronic involutional changes of the brain. 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 Hyperostosis frontalis interna which is of no clinical significance. Findings are stable in the interval. Electronically Signed: Luis Felipe Gonzalez MD at 22:23 EST , Service support ,
--- NOTE | 2018-04-29 21:06 | EKG12_ITS ---
Test Reason : SYNCOPE Blood Pressure : / mmHG Vent. Rate : 099 BPM Atrial Rate : 099 BPM P-R Int : 148 ms QRS Dur : 078 ms QT Int : 360 ms P-R-T Axes : 031 -13 066 degrees QTc Int : 462 ms Normal sinus rhythm Normal ECG Confirmed by MARIO BURROUGHS, JOSIANE ([id number]), medical transcription editor SANDY SALMERON ([id number]) on 05/05/2018 11:17:25 AM Referred By: DALI KEVIN Confirmed By:JOSIANE MARTIN MD
--- NOTE | 2018-04-29 21:08 | ED.VISSUMM ---
- ER Visit Summary Date of Service: 04/29/18 Chief Complaint: Syncope History of Present Illness: The patient is a 77 F presenting after syncopal episode. Patient has had 2 syncopal episodes today. She states she has had dizziness and room spinning. She has not felt well for the past week. She has had nausea and vomiting. She has had decreased appetite. She denies diarrhea or constipation. Denies urinary complaints. Denies chest pain. She has mild shortness of breath with cough. She has chills, no fever. She has history of lung cancer, last radiation 2 weeks ago. Physical Examination: Vitals are stable. Blood pressure 76/50. patient is afebrile. Alert no acute distress. HEENT exam dry mucous membranes Neck is supple. Lungs are diminished bilaterally. Heart is regular rate and rhythm. Abdomen is soft mild diffuse tenderness with no rebound or guarding Extremities are unremarkable. Skin is warm and dry. No focal neurologic deficit. Remainder of exam is unremarkable. Emergency Department Course and Treatment: Patient was given IV fluids. EKG sinus rate of 99 with no acute ischemic changes. Chest x-ray shows right upper lobe mass decreased in size from previous. CT head shows chronic changes. CBC shows white count 11.7. Chemistries show glucose 200, BUN 66, creatinine 2.76, previous creatinine 1.14. Alk phos 145. Lipase is normal. Troponin is negative. Lactic acid is normal. Blood cultures were sent. Influenza is negative. Patient was given IV fluids with improvement of her blood pressure 111/59. Will discuss with hospitalist for admission. Disposition: Admission Impression: ARIEL, dehydration, syncope This note was generated with [employer] dictation software. It may contain incorrect words, spelling, and punctuation that were not noted in review of the chart prior to signing ED Disposition - Plan for ED Patient: Referrals: Donald Cline MD [Primary Care Provider] -
[2018-04-29] MEDS: 0.9% Normal Saline 1,000 ML 1000 ML IV (21:10)
[2018-04-29] MEDS: Ondansetron 4 MG/2 ML Vial IV (21:10)
[2018-04-29 21:23] LABS: Absolute Lymphocyte Count 1.22 X10^3/ul (0.83-4.51); Absolute Neutrophil Count 9.1 X10^3/uL (2.0-7.7); Basophil# 0.03 X10^3/uL; Basophil% 0.3 % (0-1); Eosinophil# 0.09 X10^3/uL; Eosinophils% 0.8 % (0-5); Hematocrit 37.7 % (37-47); Hemoglobin 12.2 g/dl (12.0-15.0); Lymphocyte # 1.22 X10^3/ul (4.0); Lymphocyte % 10.5 % (19-41); Mean Corp Hgb Conc 32.4 g/gl (32-36); Mean Corpuscular Hgb 28.9 pg (27.0-32.0); Mean Corpuscular Volume 89.3 fL (81-99); Mean Platelet Vol. 10.5 fl (6.2-12.0); Monocyte# 1.22 X10^3/uL; Monocyte% 10.5 % (0-10); Neutrophil # 9.05 X10^3/uL (2.7-7.7); Neutrophil % 77.5 % (47-70); Platelet Count 225 K/mm3 (150-450); RBC Distribution Width CV 14.8 % (11.6-14.6); RBC Distribution Width SD 48.5 fl (35.1-43.9); Red Blood Count 4.22 M/mm3 (4.2-5.4); White Blood Count 11.7 K/mm3 (4.4-11.0)
--- NOTE | 2018-04-29 21:25 | RAD_ITS ---
STUDY: X-RAY CHEST REASON FOR EXAM: Female, 77 years old. Syncopal episode, history of lung cancer TECHNIQUE: Single AP portable view of the chest. COMPARISON: Previous study of September 19, 2017 FINDINGS: There is a left-sided MediPort with catheter tip projecting over the junction of the superior vena cava and left brachiocephalic vein. There is a 3.7 x 3.7 cm right upper lobe mass with tail extending to the pleural surface. This mass is slightly decreased in size from the prior study, where it measured 3.7 x 5.0 cm. The right hemidiaphragm is elevated. Heart size is borderline. Normal mediastinum and rodolfo. Normal visualized pulmonary arteries. There are calcified plaques of the aortic arch. Normal visualized thoracic spine. Normal visualized ribs, clavicles, and shoulders. There is no demonstrated abnormality of the visualized soft tissue structures of the upper abdomen. RAD/Chest 1 View (Portable) IMPRESSION: Right upper lobe mass measuring 3.7 x 3.7 cm in diameter with tail extending to the pleural surface, slightly decreased in size from the prior study where it measured 3.7 x 5.0 cm. Borderline heart size. Left-sided MediPort noted. Calcified plaques of the aortic arch. Electronically Signed: Luis Felipe Gonzalez MD at 21:44 EST , Service support ,
[2018-04-29 21:26] LABS: POSITIVE DIFFERENTIAL NO; POSITIVE MORPHOLOGY NO
[2018-04-29 21:27] LABS: POSITIVE COUNT NO
[2018-04-29 21:37] LABS: ALB/GLOB Ratio 0.6 RATIO (0.9-2.4); AST(SGOT) 12 U/L (15-37); Alanine Aminotransfer ALT/SGPT 15 U/L (13-56); Albumin, Serum 2.5 g/dL (3.2-5.0); Alkaline Phosphatase 145 U/L (45-117); BUN 66 mg/dL (7-18); BUN/Creat Ratio 23.9 RATIO (10-20); Calcium,Total 8.7 mg/dL (8.5-10.1); Chloride 105 mmol/L (98-107); Creatinine, Serum 2.76 mg/dL (0.55-1.02); EST Glomerular Filtration Rate 18 mL/min (>60); Est Glom Filt Rate - Afr Amer 21 mL/min (>60); Estimated Creatinine Clearance 12.68 ml/min; Globulin 3.9 g/dL (2.2-4.2); Glucose 200 mg/dL (74-106); Lipase 107 U/L (73-393); Potassium 4.8 mmol/L (3.5-5.1); Protein, Total 6.4 g/dL (6.4-8.2); Sodium Level 137 mmol/L (136-145)
[2018-04-29 21:38] LABS: Anion Gap 13 (5-15)
[2018-04-29 22:33] LABS: Lactic Acid 1.6 mmol/L (0.4-2.0)
[2018-04-29 22:47] VITALS: BP 117/60; PULSE 103; RESP 18; O2SAT 95
--- NOTE | 2018-04-29 22:51 | PCM.HP.STD ---
Problem List (1) ARIEL (acute kidney injury) Status: Acute (2) Viral syndrome Status: Acute (3) Essential (primary) hypertension Status: Chronic (4) Pure hypercholesterolemia Status: Chronic (5) Atherosclerosis of beaver coronary artery of beaver heart without angina pectoris Status: Chronic Comment: 01/05/2017 SHEKHAR to mid RCA & POBA to ostial PDA PCI-Stent 2006, 2009 & 2010 (6) History of coronary artery stent placement Status: Chronic Comment: 01/05/2017 SHEKHAR to mid RCA & POBA to ostial PDA PCI-Stent 2006, 2009 & 2010 (7) Colon carcinoma Status: Chronic Comment: S/P partial colon resection (8) Diabetes Status: Chronic Qualifiers: Diabetes mellitus type: type 2 Diabetes mellitus snf insulin use: with snf use Diabetes mellitus complication status: with unspecified complications Qualified Code(s): E11.8 - Type 2 diabetes mellitus with unspecified complications; Z79.4 - exterminator (current) use of insulin (9) 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 Comment: s/p colon resection remote, lung metastases diagnosed 2014, s/p adjuvant chemotherapy, s/p stereotactic XRT [facility], follows [facility] (10) Presence of IVC filter Status: Chronic (11) H/O deep venous thrombosis Status: Chronic Comment: now has an IVC filter (12) Polyneuropathy Status: Chronic (13) Pulmonary embolism Status: Chronic Qualifiers: Pulmonary embolism type: unspecified Chronicity: unspecified Acute cor pulmonale presence: without acute cor pulmonale Qualified Code(s): I26.99 - Other pulmonary embolism without acute cor pulmonale (14) Chronic renal failure, stage 3 (moderate) Status: Chronic (15) Anxiety and depression Status: Chronic Comment: uncontrolled (16) GERD (gastroesophageal reflux disease) Status: Chronic Qualifiers: Esophagitis presence: esophagitis presence not specified History of Present Illness Date of Admission: 04/29/18 Chief Complaint: Nausea, emesis, lightheadedness, fall The patient is a 77 y/o F w/ PMHx: History of PE/DVT, CAD s/p PCI, HTN, HLD, CKD stage III (baseline Cr 1.3-1.6), Diabetes mellitus type II, Anxiety and Depression, Prior CVA, History of Colon Cancer s/p colectomy w/ chronic loose stools, Lung Cancer with most recent radiation ~ 2 weeks prior to current presentation who presents to the [facility] ED on 04/29/18 with history fo ongoing nausea and emesis over the last 4-5 days with dizziness with associated vertiginous, room spinning complaint and fall with no trauma on day of ED presentation with no associated fevers or chills but noted mild abdominal cramping prompting family to take patient to the emergency room for evaluation. Patient does note that she has had a history of vertigo in the past with benign positional vertigo. Workup in the ED included CBC with WBC 11.7, hemoglobin 12.2, platelet 225 with left shift, CMP with carbon dioxide 19, BUN/Cr 66/2.76, glucose 200, lactic acid 1.6, lipase 107, trop < 0.015, UA w/ SG 1.020, 100 protein, 100 glucose LE 500, WBC 50-100, 1+ bacteria but no urinary symptoms reported per patient, CT brain with chronic involutional changes with old lacunar infarct of the left insular lobe and right basal ganglia, hyperostosis frontalis interna which are stable findings from prior, EKG without evidence of ischemia. ED patient was administered normal saline and Zofran. Upon evaluation patient she noted feeling improved with resolved nausea following Zofran administration in the ED. Past Medical History Past Medical History (Chronic Problems): Chronic Problems (Last Updated 01/05/18 @ 12:57 by Dominick Sánchez NP-C) Essential (primary) hypertension (Chronic) Pure hypercholesterolemia (Chronic) Atherosclerosis of beaver coronary artery of beaver heart without angina pectoris (Chronic) 01/05/2017 SHEKHAR to mid RCA & POBA to ostial PDA PCI-Stent 2006, 2009 & 2010 History of coronary artery stent placement (Chronic ~01/05/17) 01/05/2017 SHEKHAR to mid RCA & POBA to ostial PDA PCI-Stent 2006, 2009 & 2010 Colon carcinoma (Chronic) S/P partial colon resection Diabetes (Chronic) 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) s/p colon resection remote, lung metastases diagnosed 2014, s/p adjuvant chemotherapy, s/p stereotactic XRT [facility], follows [facility] S/P ORIF (open reduction internal fixation) fracture (Chronic) left ankle, 09/14/14, Dr Harvey, [facility] Presence of IVC filter (Chronic) H/O deep venous thrombosis (Chronic) now has an IVC filter Polyneuropathy (Chronic) Pulmonary embolism (Chronic) Chronic renal failure, stage 3 (moderate) (Chronic) Anxiety and depression (Chronic) uncontrolled GERD (gastroesophageal reflux disease) (Chronic) Medical History: Medical History (Last Updated 01/05/18 @ 12:57 by Dominick Sánchez NP-C) Essential (primary) hypertension (Chronic) I10 Pure hypercholesterolemia (Chronic) E78.00 Atherosclerosis of beaver coronary artery of beaver heart without angina pectoris (Chronic) I25.10 01/05/2017 SHEKHAR to mid RCA & POBA to ostial PDA PCI-Stent 2006, 2009 & 2010 Atrial arrhythmia (Acute) I49.8 H/O: hysterectomy (Resolved) Z90.710 Generalized weakness (Acute) R53.1 Fatigue (Acute) R53.83 Tachycardia (Acute) R00.0 Near syncope (Acute) R55 Colon carcinoma (Chronic) C18.9 S/P partial colon resection Diabetes (Chronic) E11.9 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) s/p colon resection remote, lung metastases diagnosed 2014, s/p adjuvant chemotherapy, s/p stereotactic XRT [facility], follows [facility] S/P ORIF (open reduction internal fixation) fracture (Chronic) Z96.7, Z87.81 left ankle, 09/14/14, Dr Harvey, [facility] Presence of IVC filter (Chronic) Z95.828 H/O deep venous thrombosis (Chronic) Z86.718 now has an IVC filter Polyneuropathy (Chronic) G62.9 Pulmonary embolism (Chronic) I26.99 Chronic renal failure, stage 3 (moderate) (Chronic) N18.3 Anxiety and depression (Chronic) F41.8 uncontrolled GERD (gastroesophageal reflux disease) (Chronic) K21.[address] Z95.828 Hypotension (Inactive) I95.9 Recurrent fall (Inactive) Rib fracture (Inactive) S22.39XA Allergies promethazine HCl [From Phenergan] Allergy (Verified 04/29/18 20:43) seizures czech rice Adverse Reaction (Severe, Uncoded 04/29/18 20:43) Unknown Home Medications: Ambulatory Orders Medication Instructions Recorded Atorvastatin Calcium [Lipitor] 40 mg PO QHS 07/09/15 Multivitamin [Daily Multiple 1 tab PO DAILY 07/09/15 Vitamin] buPROPion XL [Wellbutrin Xl] 150 mg PO DAILY 09/20/16 Aspirin E.C. [Ecotrin] 81 mg PO DAILY@0800 02/26/17 Clopidogrel Bisulfate [Plavix] 75 mg PO DAILY 02/26/17 Oxycodone HCl/Acetaminophen 1 tab PO TID PRN PRN 02/27/17 [Percocet 7.5-325 mg Tablet] Insulin Aspart [Novolog Flexpen] 6 units SC TIDCM 07/09/17 Insulin Glargine,Hum.rec.anlog 41 units SQ QHS 07/09/17 [Toujeo Solostar] Venlafaxine XR [Effexor Xr] 150 mg PO DAILY 07/09/17 Carvedilol [Coreg (Beta Gilles)] 25 mg PO BID 07/28/17 Gabapentin [Neurontin] 300 mg PO TIDCM 07/28/17 Amlodipine [Norvasc] 5 mg PO DAILY #30 tab 08/01/17 Lorazepam [Ativan] 1 mg PO BID PRN PRN #30 tab 08/01/17 Ondansetron [Zofran Odt] 4 mg PO Q8H PRN PRN #30 tab 08/01/17 Olanzapine [Zyprexa] 5 mg PO QHS 09/19/17 Surgical History: Surgical History (Last Reviewed 09/05/17 @ 13:57 by Aldo Romero MD) History of coronary artery stent placement (Chronic) Onset Date: ~01/05/17 Z95.5 01/05/2017 SHEKHAR to mid RCA & POBA to ostial PDA PCI-Stent 2006, 2009 & 2010 H/O shoulder surgery (Resolved) Z98.890 H/O colectomy (Resolved) Z90.49 Surgical History: colectomy, hysterectomy, - - Multiple cardiac stent placement, colectomy, bilateral cataract surgery, hysterectomy, left ankle surgery, left wrist surgery. Psychiatric History: Anxiety, Depression NURSE RECEPTIONIST History: No pertinent NURSE RECEPTIONIST history Lives: Alone Smoking Status: Never smoker Tobacco Use: Non-smoker Alcohol: None Drugs: None - *Family History Maternal Family History: Family History (Last Reviewed 09/05/17 @ 13:57 by Aldo Romero MD) Mother Colon cancer Diabetes Heart disease Father Cancer History Items: Cancer - Mother with a history of rectal cancer., - - Mother with a history of rectal cancer and diabetes as well as stroke. Paternal Family History: Family History (Last Reviewed 09/05/17 @ 13:57 by Aldo Romero MD) Mother Colon cancer Diabetes Heart disease Father Cancer History Items: Cancer - Mother with history of lung cancer. Review of Systems Constitutional: Reports: Anorexia, Malaise, Weakness, Fatigue. Denies: Chills, Fever, Weight Change HEENT: Denies: Head Aches, Sinus Congestion, Sinus Drainage Cardiovascular: Reports: Light Headedness, - - Dizziness, Vertigo.. Denies: Chest Pain, Palpitations Respiratory: Denies: Cough, Shortness of breath at rest, Sputum production Gastrointestinal: Reports: Abdominal Pain, Diarrhea, Nausea, Vomiting Genitourinary: Denies: Dysuria Musculoskeletal: Reports: Joint Pain, Muscle pain. Denies: Joint Tenderness Skin: Denies: Rash, Wounds Neurological: Reports: - - Vertigo.. Denies: Focal weakness, Numbness, Tingling Psychiatric: Reports: Anxiety, Depression. Denies: Homicidal Ideations, Suicidal Ideations Hematologic/ Lymphatic: Denies: Easy Bruising, Easy Bleeding VTE Information - Inpt Only VTE Present on Admission: No VTE Mechan Device Prophylaxis: SCD's VTE Pharm Prophylaxis ordered?: Yes Patient Problems: Active and Suspected Problems (Last Updated 01/05/18 @ 12:57 by Dominick Sánchez NP-C) ARIEL (acute kidney injury) (Acute) Viral syndrome (Acute) Subjective: Seated upright in ED bed, notes feeling improved, no acute distress. Objective: Physical Examination: General: awake, alert, oriented x 3 and cooperative, seated upright in the ED bed in no apparent distress, is currently markedly improved following Zofran therapy. Skin: normal color, turgor, no icterus, cyanosis. HEENT: AT/NC, EOMI, PERRLA, dry MM, no carotid bruits or JVD noted. Lungs: CTA bilaterally, moderate effort, mild decrease BL bases, no rales, ronchi or wheezing. Heart: Regular rate and rhythm; no gallop, rub audible. Abdomen: soft, NTTP, ND, only hyperactive BS, no HSM. Extremities: no cyanosis, clubbing, or edema. Neurological: patient awake, alert, oriented x 3; cognitive function intact; pupils equally reactive to light and accomodation; cranial nerves II-XII grossly normal, moving all 4 extremities, no focal deficits, strength moderately to severely globally decreased secondary to acute presentation. Psychiatric: affect appears fatigued, mildly flat no acute evidence of depressive or anxiety feelings. - Physical Exam Vital Signs Temp Pulse Resp BP Pulse Ox 97.4 F L 103 H 18 117/60 95 04/29/18 20:35 04/29/18 22:47 04/29/18 22:47 04/29/18 22:47 04/29/18 22:47 Oxygen Delivery Method Room Air Weight: 158 lb 11.725 oz Body Mass Index (BMI) 29.9 Finger Stick Blood Glucose 236 Microbiology Past 72 Hours 04/29/18 21:20 Influenza Types A,B Direct FA (JASSI) - Final Mucosa - Nose Laboratory Tests Past 24 Hrs 04/29/18 04/29/18 04/29/18 20:45 20:45 21:52 WBC 11.7 H RBC 4.22 Hgb 12.2 Hct 37.7 MCV 89.3 MCH 28.9 MCHC 32.4 RDW 14.8 H RDW Differential 48.5 H Plt Count 225 MPV 10.5 Immature Gran % (Auto) 0.400 Neut % (Auto) 77.5 H Lymph % (Auto) 10.5 L [place] % (Auto) 10.5 H Eos % (Auto) 0.8 Baso % (Auto) 0.3 Absolute Neuts (auto) 9.1 H Absolute Lymphs (auto) 1.22 Total Counted Not Reportable Sodium 137 Potassium 4.8 Chloride 105 Carbon Dioxide 19.0 L Anion Gap 13 BUN 66 H Creatinine 2.76 H Estim Creat Clear Calc 12.68 Est GFR (MDRD) Af Amer 21 L Est GFR (MDRD) Non-Af 18 L BUN/Creatinine Ratio 23.9 H Glucose 200 H Lactic Acid 1.6 Calcium 8.7 Total Bilirubin 0.40 AST 12 L ALT 15 Alkaline Phosphatase 145 H Troponin I < 0.015 Total Protein 6.4 Albumin 2.5 L Globulin 3.9 Albumin/Globulin Ratio 0.6 L Lipase 107 Assessment/Plan All Active Problems (Last Updated 01/05/18 @ 12:57 by Dominick Sánchez, BRYSONC) ARIEL (acute kidney injury) (Acute) Viral syndrome (Acute) Atrial arrhythmia (Acute) H/O shoulder surgery (Resolved) H/O: hysterectomy (Resolved) H/O colectomy (Resolved) Generalized weakness (Acute) Fatigue (Acute) Tachycardia (Acute) Near syncope (Acute) Acute kidney injury (Resolved) Acute pyelonephritis (Resolved) Clostridium difficile diarrhea (Resolved) Herpes zoster (Resolved) Recurrent colitis due to Clostridium difficile (Resolved) Urinary tract infection (Resolved) Ileus (Ruled-out) The patient is a 77 y/o F w/ PMHx: History of PE/DVT, CAD s/p PCI, HTN, HLD, CKD stage III (baseline Cr 1.3-1.6), Diabetes mellitus type II, Anxiety and Depression, Prior CVA, History of Colon Cancer s/p colectomy w/ chronic loose stools, Lung Cancer with most recent radiation ~ 2 weeks prior to current presentation who presents to the [facility] ED on 04/29/18 with history fo ongoing nausea and emesis over the last 4-5 days with dizziness with associated vertiginous, room spinning complaint and fall with no trauma on day of ED presentation with no associated fevers or chills but noted mild abdominal cramping prompting family to take patient to the emergency room for evaluation. (1) Nausea, Emesis secondary to Possible Viral Syndrome w/ Vertiginous Symptoms, possible secondary to #2: Workup in the ED included CBC with WBC 11.7, hemoglobin 12.2, platelet 225 with left shift, CMP with carbon dioxide 19, BUN/Cr 66/2.76, glucose 200, lactic acid 1.6, lipase 107, trop < 0.015, UA w/ SG 1.020, 100 protein, 100 glucose LE 500, WBC 50-100, 1+ bacteria but no urinary symptoms reported per patient, CT brain with chronic involutional changes with old lacunar infarct of the left insular lobe and right basal ganglia, hyperostosis frontalis interna which are stable findings from prior, EKG without evidence of ischemia. Will admit to PCU, place on a monitored bed to assure no acute myocardial infarction with serial cardiac enzymes and EKGs. Will maintain on fall precautions, obtain admission orthostatic and AM orthostatic VS and increase hydration if appropriate, continue treatment with scheduled meclizine, PRN zofran, IVFs. PT/OT consultation to ascertain stability and discharge needs. Respiratory panel pending. UCx requested given UA appearance. (2) Acute kidney injury on CKD stage III: Secondary to GI losses, dehydration. Admission BUN/Cr 66/2.76, prior baseline creatinine noted to be 1.3-1.6. Will hydrate, hold nephrotoxic medications and repeat chemistry in AM. If no improvement would plan FeNa and renal US assessment. (3) Lung Cancer: Unclear type, stage, undergoing radiation therapy, last ~ 2 weeks prior. (4) History Colon CA: Remission, s/p colectomy, chronic loose stools, stable. (5) CAD: s/p PCI, continue home regimen asa, coreg, statin therapies. (6) Hypertension: Continue home regimen including Norvasc, Coreg, PRN hydralazine. (7) Hyperlipidemia: Continue home statin regimen. (8) Diabetes mellitus type II: Continue home insulin regimen, clears w/ ADAT to ADA, accu checks w/ ISS. (9) Anxiety and Depression: Continue home Wellbutrin, Ativan, Zyprexa, Effexor regimen. (10) History of DVT, PE: Continue chemoprophylaxis as noted. (11) DVT Prophylaxis: SCDs, heparin. Code Visit Inpatient E&M: 64979 Init Hosp L3
--- NOTE | 2018-04-29 22:56 | HP.PCM_ITS ---
Problem List (1) ARIEL (acute kidney injury) Status: Acute (2) Viral syndrome Status: Acute (3) Essential (primary) hypertension Status: Chronic (4) Pure hypercholesterolemia Status: Chronic (5) Atherosclerosis of [place] coronary artery of [place] heart without angina pectoris Status: Chronic Comment: 01/05/2017 SHEKHAR to mid RCA & POBA to ostial PDA PCI-Stent 2006, 2009 & 2010 (6) History of coronary artery stent placement Status: Chronic Comment: 01/05/2017 SHEKHAR to mid RCA & POBA to ostial PDA PCI-Stent 2006, 2009 & 2010 (7) Colon carcinoma Status: Chronic Comment: S/P partial colon resection (8) Diabetes Status: Chronic Qualifiers: Diabetes mellitus type: type 2 Diabetes mellitus correction insulin use: with correction use Diabetes mellitus complication status: with unspecified complications Qualified Code(s): E11.8 - Type 2 diabetes mellitus with unspecified complications; Z79.4 - manager intermediate (current) use of insulin (9) 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 Comment: s/p colon resection remote, lung metastases diagnosed 2014, s/p adjuvant chemotherapy, s/p stereotactic XRT [facility], follows [facility] (10) Presence of IVC filter Status: Chronic (11) H/O deep venous thrombosis Status: Chronic Comment: now has an IVC filter (12) Polyneuropathy Status: Chronic (13) Pulmonary embolism Status: Chronic Qualifiers: Pulmonary embolism type: unspecified Chronicity: unspecified Acute cor pulmonale presence: without acute cor pulmonale Qualified Code(s): I26.99 - Other pulmonary embolism without acute cor pulmonale (14) Chronic renal failure, stage 3 (moderate) Status: Chronic (15) Anxiety and depression Status: Chronic Comment: uncontrolled (16) GERD (gastroesophageal reflux disease) Status: Chronic Qualifiers: Esophagitis presence: esophagitis presence not specified History of Present Illness Date of Admission: 04/29/18 Chief Complaint: Nausea, emesis, lightheadedness, fall The patient is a 77 y/o F w/ PMHx: History of PE/DVT, CAD s/p PCI, HTN, HLD, CKD stage III (baseline Cr 1.3-1.6), Diabetes mellitus type II, Anxiety and Depression, Prior CVA, History of Colon Cancer s/p colectomy w/ chronic loose stools, Lung Cancer with most recent radiation ~ 2 weeks prior to current presen tation who presents to the [facility] ED on 04/29/18 with history fo ongoing nausea and emesis over the last 4-5 days with dizziness with associated vertiginous, room spinning complaint and fall with no trauma on day of ED presentation with no associated fevers or chills but noted mild abdominal cramping prompting family to take patient to the emergency room for evaluation. Patient does note that she has had a history of vertigo in the past with benign positional vertigo. Workup in the ED included CBC with WBC 11.7, hemoglobin 12.2, platelet 225 with left shift, CMP with carbon dioxide 19, BUN/Cr 66/2.76, glucose 200, lactic acid 1.6, lipase 107, trop < 0.015, UA w/ SG 1.020, 100 protein, 100 glucose LE 500, WBC 50-100, 1+ bacteria but no urinary symptoms reported per patient, CT brain with chronic involutional changes with old lacunar infarct of the left insular lobe and right basal ganglia, hyperostosis frontalis interna which are stable findings from prior, EKG without evidence of ischemia. ED patient was administered normal saline and Zofran. Upon evaluation patient she noted feeling improved with resolved nausea following Zofran administration in the ED. Past Medical History Past Medical History (Chronic Problems): Chronic Problems (Last Updated 01/05/18 @ 12:57 by Dominick Sánchez NP-C) Essential (primary) hypertension (Chronic) Pure hypercholesterolemia (Chronic) Atherosclerosis of [place] coronary artery of [place] heart without angina pectoris (Chronic) 01/05/2017 SHEKHAR to mid RCA & POBA to ostial PDA PCI-Stent 2006, 2009 & 2010 History of coronary artery stent placement (Chronic ~01/05/17) 01/05/2017 SHEKHAR to mid RCA & POBA to ostial PDA PCI-Stent 2006, 2009 & 2010 Colon carcinoma (Chronic) S/P partial colon resection Diabetes (Chronic) 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) s/p colon resection remote, lung metastases diagnosed 2014, s/p adjuvant chemotherapy, s/p stereotactic XRT [facility], follows [facility] S/P ORIF (open reduction internal fixation) fracture (Chronic) left ankle, 09/14/14, Dr Harvey, [facility] Presence of IVC filter (Chronic) H/O deep venous thrombosis (Chronic) now has an IVC filter Polyneuropathy (Chronic) Pulmonary embolism (Chronic) Chronic renal failure, stage 3 (moderate) (Chronic) Anxiety and depression (Chronic) uncontrolled GERD (gastroesophageal reflux disease) (Chronic) Medical History: Medical History (Last Updated 01/05/18 @ 12:57 by Dominick Sánchez NP-C) Essential (primary) hypertension (Chronic) I10 Pure hypercholesterolemia (Chronic) E78.00 Atherosclerosis of [place] coronary artery of [place] heart without angina pectoris (Chronic) I25.10 01/05/2017 SHEKHAR to mid RCA & POBA to ostial PDA PCI-Stent 2006, 2009 & 2010 Atrial arrhythmia (Acute) I49.8 H/O: hysterectomy (Resolved) Z90.710 Generalized weakness (Acute) R53.1 Fatigue (Acute) R53.83 Tachycardia (Acute) R00.0 Near syncope (Acute) R55 Colon carcinoma (Chronic) C18.9 S/P partial colon resection Diabetes (Chronic) E11.9 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) s/p colon resection remote, lung metastases diagnosed 2014, s/p adjuvant chemotherapy, s/p stereotactic XRT [facility], follows [facility] S/P ORIF (open reduction internal fixation) fracture (Chronic) Z96.7, Z87.81 left ankle, 09/14/14, Dr Harvey, [facility] Presence of IVC filter (Chronic) Z95.828 H/O deep venous thrombosis (Chronic) Z86.718 now has an IVC filter Polyneuropathy (Chronic) G62.9 Pulmonary embolism (Chronic) I26.99 Chronic renal failure, stage 3 (moderate) (Chronic) N18.3 Anxiety and depression (Chronic) F41.8 uncontrolled GERD (gastroesophageal reflux disease) (Chronic) K21.[address] [place] [address] Z95.828 Hypotension (Inactive) I95.9 Recurrent fall (Inactive) Rib fracture (Inactive) S22.39XA Allergies promethazine HCl [From Phenergan] Allergy (Verified 04/29/18 20:43) seizures occitan rice Adverse Reaction (Severe, Uncoded 04/29/18 20:43) Unknown Home Medications: Ambulatory Orders Medication Instructions Recorded Atorvastatin Calcium [Lipitor] 40 mg PO QHS 07/09/15 Multivitamin [Daily Multiple 1 tab PO DAILY 07/09/15 Vitamin] buPROPion XL [Wellbutrin Xl] 150 mg PO DAILY 09/20/16 Aspirin E.C. [Ecotrin] 81 mg PO DAILY@0800 02/26/17 Clopidogrel Bisulfate [Plavix] 75 mg PO DAILY 02/26/17 Oxycodone HCl/Acetaminophen 1 tab PO TID PRN PRN 02/27/17 [Percocet 7.5-325 mg Tablet] Insulin Aspart [Novolog Flexpen] 6 units SC TIDCM 07/09/17 Insulin Glargine,Hum.rec.anlog 41 units SQ QHS 07/09/17 [Toujeo Solostar] Venlafaxine XR [Effexor Xr] 150 mg PO DAILY 07/09/17 Carvedilol [Coreg (Beta Gilles)] 25 mg PO BID 07/28/17 Gabapentin [Neurontin] 300 mg PO TIDCM 07/28/17 Amlodipine [Norvasc] 5 mg PO DAILY #30 tab 08/01/17 Lorazepam [Ativan] 1 mg PO BID PRN PRN #30 tab 08/01/17 Ondansetron [Zofran Odt] 4 mg PO Q8H PRN PRN #30 tab 08/01/17 Olanzapine [Zyprexa] 5 mg PO QHS 09/19/17 Surgical History: Surgical History (Last Reviewed 09/05/17 @ 13:57 by Aldo Romero MD) History of coronary artery stent placement (Chronic) Onset Date: ~01/05/17 Z95.5 01/05/2017 SHEKHAR to mid RCA & POBA to ostial PDA PCI-Stent 2006, 2009 & 2010 H/O shoulder surgery (Resolved) Z98.890 H/O colectomy (Resolved) Z90.49 Surgical History: colectomy, hysterectomy, - - Multiple cardiac stent placement, colectomy, bilateral cataract surgery, hysterectomy, left ankle surgery, left wrist surgery. 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 Paternal Family History: Family History (Last Reviewed 09/05/17 @ 13:57 by Aldo Romero MD) Mother Colon cancer Diabetes Heart disease Father Cancer History Items: Cancer - Mother with history of lung cancer. Review of Systems Constitutional: Reports: Anorexia, Malaise, Weakness, Fatigue. Denies: Chills, Fever, Weight Change HEENT: Denies: Head Aches, Sinus Congestion, Sinus Drainage Cardiovascular: Reports: Light Headedness, - - Dizziness, Vertigo.. Denies: Chest Pain, Palpitations Respiratory: Denies: Cough, Shortness of breath at rest, Sputum production Gastrointestinal: Reports: Abdominal Pain, Diarrhea, Nausea, Vomiting Genitourinary: Denies: Dysuria Musculoskeletal: Reports: Joint Pain, Muscle pain. Denies: Joint Tenderness Skin: Denies: Rash, Wounds Neurological: Reports: - - Vertigo.. Denies: Focal weakness, Numbness, Tingling Psychiatric: Reports: Anxiety, Depression. Denies: Homicidal Ideations, Suicidal Ideations Hematologic/ Lymphatic: Denies: Easy Bruising, Easy Bleeding VTE Information - Inpt Only VTE Present on Admission: No VTE Mechan Device Prophylaxis: SCD's VTE Pharm Prophylaxis ordered?: Yes Patient Problems: Active and Suspected Problems (Last Updated 01/05/18 @ 12:57 by Dominick Sánchez STENCIL MAKER- C) ARIEL (acute kidney injury) (Acute) Viral syndrome (Acute) Subjective: Seated upright in ED bed, notes feeling improved, no acute distress. Objective: Physical Examination: General: awake, alert, oriented x 3 and cooperative, seated upright in the ED bed in no apparent distress, is currently markedly improved following Zofran therapy. Skin: normal color, turgor, no icterus, cyanosis. HEENT: AT/NC, EOMI, PERRLA, dry MM, no carotid bruits or JVD noted. Lungs: CTA bilaterally, moderate effort, mild decrease BL bases, no rales, ronchi or wheezing. Heart: Regular rate and rhythm; no gallop, rub audible. Abdomen: soft, NTTP, ND, only hyperactive BS, no HSM. Extremities: no cyanosis, clubbing, or edema. Neurological: patient awake, alert, oriented x 3; cognitive function intact; pupils equally reactive to light and accomodation; cranial nerves II-XII grossly normal, moving all 4 extremities, no focal deficits, strength moderately to severely globally decreased secondary to acute presentation. Psychiatric: affect appears fatigued, mildly flat no acute evidence of depressive or anxiety feelings. - Physical Exam Vital Signs Temp Pulse Resp BP Pulse Ox 97.4 F L 103 H 18 117/60 95 04/29/18 20:35 04/29/18 22:47 04/29/18 22:47 04/29/18 22:47 04/29/18 22:47 Oxygen Delivery Method Room Air Weight: 158 lb 11.725 oz Body Mass Index (BMI) 29.9 Finger Stick Blood Glucose 236 Microbiology Past 72 Hours 04/29/18 21:20 Influenza Types A,B Direct FA (JASSI) - Final Mucosa - Nose Laboratory Tests Past 24 Hrs 04/29/18 04/29/18 04/29/18 20:45 20:45 21:52 WBC 11.7 H RBC 4.22 Hgb 12.2 Hct 37.7 MCV 89.3 MCH 28.9 MCHC 32.4 RDW 14.8 H RDW Differential 48.5 H Plt Count 225 MPV 10.5 Immature Gran % (Auto) 0.400 Neut % (Auto) 77.5 H Lymph % (Auto) 10.5 L [place] % (Auto) 10.5 H Eos % (Auto) 0.8 Baso % (Auto) 0.3 Absolute Neuts (auto) 9.1 H Absolute Lymphs (auto) 1.22 Total Counted Not Reportable Sodium 137 Potassium 4.8 Chloride 105 Carbon Dioxide 19.0 L Anion Gap 13 BUN 66 H Creatinine 2.76 H Estim Creat Clear Calc 12.68 Est GFR (MDRD) Af Amer 21 L Est GFR (MDRD) Non-Af 18 L BUN/Creatinine Ratio 23.9 H Glucose 200 H Lactic Acid 1.6 Calcium 8.7 Total Bilirubin 0.40 AST 12 L ALT 15 Alkaline Phosphatase 145 H Troponin I < 0.015 Total Protein 6.4 Albumin 2.5 L Globulin 3.9 Albumin/Globulin Ratio 0.6 L Lipase 107 Assessment/Plan All Active Problems (Last Updated 01/05/18 @ 12:57 by YUMI Andersen) ARIEL (acute kidney injury) (Acute) Viral syndrome (Acute) Atrial arrhythmia (Acute) H/O shoulder surgery (Resolved) H/O: hysterectomy (Resolved) H/O colectomy (Resolved) Generalized weakness (Acute) Fatigue (Acute) Tachycardia (Acute) Near syncope (Acute) Acute kidney injury (Resolved) Acute pyelonephritis (Resolved) Clostridium difficile diarrhea (Resolved) Herpes zoster (Resolved) Recurrent colitis due to Clostridium difficile (Resolved) Urinary tract infection (Resolved) Ileus (Ruled-out) The patient is a 77 y/o F w/ PMHx: History of PE/DVT, CAD s/p PCI, HTN, HLD, CKD stage III (baseline Cr 1.3-1.6), Diabetes mellitus type II, Anxiety and Depression, Prior CVA, History of Colon Cancer s/p colectomy w/ chronic loose stools, Lung Cancer with most recent radiation ~ 2 weeks prior to current presentation who presents to the [facility] ED on 04/29/18 with history fo ongoing nausea and emesis over the last 4-5 days with dizziness with associated vertiginous, room spinning complaint and fall with no trauma on day of ED presentation with no associated fevers or chills but noted mild abdominal cramping prompting family to take patient to the emergency room for evaluation. (1) Nausea, Emesis secondary to Possible Viral Syndrome w/ Vertiginous Symptoms, possible secondary to #2: Workup in the ED included CBC with WBC 11.7, hemoglobin 12.2, platelet 225 with left shift, CMP with carbon dioxide 19, BUN/Cr 66/2.76, glucose 200, lactic acid 1.6, lipase 107, trop < 0.015, UA w/ SG 1.020, 100 protein, 100 glucose LE 500, WBC 50-100, 1+ bacteria but no urinary symptoms reported per patient, CT brain with chronic involutional changes with old lacunar infarct of the left insular lobe and right basal ganglia, hyperostosis frontalis interna which are stable findings from prior, EKG without evidence of ischemia. Will admit to PCU, place on a monitored bed to assure no acute myocardial infarction with serial cardiac enzymes and EKGs. Will maintain on fall precautions, obtain admission orthostatic and AM orthostatic VS and increase hydration if appropriate, continue treatment with scheduled meclizine, PRN zofran, IVFs. PT/OT consultation to ascertain stability and discharge needs. Respiratory panel pending. UCx requested given UA appearance. (2) Acute kidney injury on CKD stage III: Secondary to GI losses, dehydration. Admission BUN/Cr 66/2.76, prior baseline creatinine noted to be 1.3-1.6. Will hydrate, hold nephrotoxic medications and repeat chemistry in AM. If no improvement would plan FeNa and renal US assessment. (3) Lung Cancer: Unclear type, stage, undergoing radiation therapy, last ~ 2 weeks prior. (4) History Colon CA: Remission, s/p colectomy, chronic loose stools, stable. (5) CAD: s/p PCI, continue home regimen asa, coreg, statin therapies. (6) Hypertension: Continue home regimen including Norvasc, Coreg, PRN hydralazine. (7) Hyperlipidemia: Continue home statin regimen. (8) Diabetes mellitus type II: Continue home insulin regimen, clears w/ ADAT to ADA, accu checks w/ ISS. (9) Anxiety and Depression: Continue home Wellbutrin, Ativan, Zyprexa, Effexor regimen. (10) History of DVT, PE: Continue chemoprophylaxis as noted. (11) DVT Prophylaxis: SCDs, heparin. Code Visit Inpatient E&M: 07768 Init Hosp L3
[2018-04-29 23:07] VITALS: PULSE 105; RESP 17; O2SAT 96
[2018-04-29] MEDS: 0.9% Normal Saline 1,000 ML 999 ML IV (23:11)
[2018-04-29 23:18] LABS: Mucous, Urine 0 SEEN /hpf (<or=2+); Red Blood Cells-Urine 0 SEEN /hpf (0-5)
[2018-04-29 23:21] LABS: Color, Urine Yellow (Yellow); Glucose, Dipstick 100 mg/dl (Normal); Ketone-Dipstick Negative (Negative); Leukocyte Esterase-Dipstick 500 /ul (Negative); Nitrite-Dipstick Negative (Negative); Occult Blood-Urine 25 /ul (Negative); Protein-Dipstick 100 mg/dl (Negative); Urine Bilirubin Dipstick Negative (Negative); Urine Clarity Cloudy (Clear); Urine Urobilinogen Normal (Normal)
[2018-04-29 23:27] LABS: Hyaline Cast 0-5 SEEN /lpf (0-5)
[2018-04-29 23:34] LABS: Squamous Epithelial Cells - UA 0-5 SEEN /hpf (5-10)
[2018-04-29 23:38] LABS: Fine Granular Cast- Urine 0-5 SEEN /lpf (0-5)
[2018-04-29 23:39] LABS: Bacteria 1+ /hpf (None Seen); Transitional Epithelial - Ur 0-5 SEEN /hpf (0-5); White Blood Cells 50-100 SEEN /hpf (0-5)
[2018-04-30] VITALS (20 sets, daily range): BP systolic 87–148; BP diastolic 49–70; PULSE 76–120; RESP 14–18; TEMP 36.5–36.8; O2SAT 94–99; BMI 28.9
[2018-04-30 01:12] LABS: Magnesium 1.9 mg/dL (1.6-2.6); Phosphorus 4.1 mg/dL (2.5-4.9)
[2018-04-30] MEDS: 0.9% Normal Saline 1,000 ML 125 ML IV ×2 (01:37→11:02)
[2018-04-30] MEDS: Meclizine 12.5 MG Tablet PO ×4 (01:38→23:02)
[2018-04-30 06:56] LABS: Bedside Glucose 134 mg/dL (70-110)
--- NOTE | 2018-04-30 08:21 | PN_ITS ---
Patient Problems: Active and Suspected Problems (Last Updated 01/05/18 @ 12:57 by BRYSON Andersen) ARIEL (acute kidney injury) (Acute) Viral syndrome (Acute) Subjective: The patient is a 77-year-old female with a past medical history of VTE, CAD with PCI, hypertension, hyperlipidemia, benign positional vertigo, stage I diastolic dysfunction, chronic renal failure stage III, diabetes mellitus type 2, anxiety/depression, prior CVA, colon cancer status post colectomy with chronic loose stool and lung cancer with most recent radiation 2 weeks prior to presentation to the emergency room who presented to the emergency room at [facility] on 04/29/2018 complaining of nausea/vomiting/lightheadedness?vertigo for the previous 4-5 days. Vital signs of presentation to the emergency room were temperature 97.4, pulse rate 99, blood pressure 76/50, respiratory rate 18 and she was 97% saturated on room air. White blood cell count was elevated at 11.7 with 77% neutrophils. Hemoglobin was 12.2 and platelets were 225,000. Serum bicarb was low at 19 and the BUN was 66 with a creatinine of 2.76. Creatinine in November 2017 was 1.14. Lactic acid was 1.6 and the glucose was 200. Phosphorus and magnesium were within normal limits. Troponin was less than 0.015. A clean catch urine showed 50-100 WBCs per high- power field with 0-5 hyaline casts and 1+ bacteria. The urine was sent for culture. Rapid influenza was negative. Brain CT showed old lacunar infarcts of the left insular lobe and right basal ganglia with no acute findings. Chest x-ray showed a right upper lobe mass measuring 3.7 x 3.7 cm which is decreased from previous 3.7 X 5 cm. There were no infiltrates. She was admitted to the hospital with acute renal failure on chronic renal failure stage III, dehydration and urinary tract infection. All events the past 24 hours been reviewed. Day #1 Rocephin Afebrile since admission Initially hypotensive with a blood pressure of 76/50 but this has improved with hydration and the current blood pressure is 123/53. Heart rate was as high as 105 but is now 98. Objective: PHYSICAL EXAM: GENERAL: alert, oriented X 3, Cooperative, NAD, pleasant ORAL: Dry mucosa, no mucosal lesions NECK: No JVD, supple, trachea midline LUNGS: CTA, symmetric chest expansion, no rales, no rhonchi, no wheezing HEART: RRR, Normal S1 and S2, no rub, no gallop ABDOMEN: soft, NT, ND, BS present, no guarding with palpation EXTREMITIES: no edema, no cyanosis, no calf tenderness SKIN: No rashes, no breakdown NEUROLOGIC: no focal neurologic deficits PSYCH: appropriate, normal affect, pleasant - Physical Exam Vital Signs Temp Pulse Resp BP Pulse Ox 98.3 F 98 18 123/53 H 95 04/30/18 05:09 04/30/18 05:09 04/30/18 05:09 04/30/18 05:09 04/30/18 05:09 Oxygen Delivery Method Room Air Weight: 153 lb 0.013 oz Body Mass Index (BMI) 28.9 Finger Stick Blood Glucose 236 Orthostatic Vital Signs Start: 04/30/18 00:48 Freq: q24h Status: Active Protocol: Activity Type Activity Date Activity User E-Sign Co-Sign Detail Recorded Client Recorded Date Recorded By Document 04/30/18 00:48 8 [id number] 04/30/18 00:56 [id number] 04/30/18 00:48 Orthostatic Vitals Standing -Blood Pressure (90/60-120/80 mm Hg) 94/54 L -Extremity Use Left Arm -Pulse Rate (60-100 beats/min) 106 H Sitting -Blood Pressure (90/60-120/80 mm Hg) 116/57 L -Extremity Use Left Arm -Pulse Rate (60-100 beats/min) 109 H Lying -Blood Pressure (90/60-120/80 mm Hg) 148/67 H -Extremity Use Left Arm -Pulse Rate (60-100 beats/min) 100 Intake and Output for Last 24 Hours 04/28/18 04/29/18 04/30/18 23:59 23:59 23:59 Intake Total 934 / 934 Balance 934 / 934 Microbiology Past 72 Hours 04/29/18 21:20 Influenza Types A,B Direct FA (JASSI) - Final Mucosa - Nose Laboratory Tests Past 24 Hrs 04/29/18 04/29/18 04/29/18 20:45 20:45 20:45 WBC 11.7 H RBC 4.22 Hgb 12.2 Hct 37.7 MCV 89.3 MCH 28.9 MCHC 32.4 RDW 14.8 H RDW Differential 48.5 H Plt Count 225 MPV 10.5 Immature Gran % (Auto) 0.400 Neut % (Auto) 77.5 H Lymph % (Auto) 10.5 L [place] % (Auto) 10.5 H Eos % (Auto) 0.8 Baso % (Auto) 0.3 Absolute Neuts (auto) 9.1 H Absolute Lymphs (auto) 1.22 Total Counted Not Reportable Sodium 137 Potassium 4.8 Chloride 105 Carbon Dioxide 19.0 L Anion Gap 13 BUN 66 H Creatinine 2.76 H Estim Creat Clear Calc 12.68 Est GFR (MDRD) Af Amer 21 L Est GFR (MDRD) Non-Af 18 L BUN/Creatinine Ratio 23.9 H Glucose 200 H Lactic Acid Calcium 8.7 Phosphorus 4.1 Magnesium 1.9 Total Bilirubin 0.40 AST 12 L ALT 15 Alkaline Phosphatase 145 H Troponin I < 0.015 Total Protein 6.4 Albumin 2.5 L Globulin 3.9 Albumin/Globulin Ratio 0.6 L Lipase 107 Urine Color Urine Clarity Urine pH Ur Specific [place] Urine Protein Urine Glucose (UA) Urine Ketones Urine Occult Blood Urine Nitrite Urine Bilirubin Urine Urobilinogen Ur Leukocyte Esterase Urine RBC Urine WBC Ur Squamous Epith Cells Ur Transition Epith Cell Urine Bacteria Hyaline Casts Fine Granular Casts Urine Mucus 04/29/18 04/29/18 04/30/18 21:52 23:00 05:00 WBC RBC Hgb Hct MCV MCH MCHC RDW RDW Differential Plt Count MPV Immature Gran % (Auto) Neut % (Auto) Lymph % (Auto) [place] % (Auto) Eos % (Auto) Baso % (Auto) Absolute Neuts (auto) Absolute Lymphs (auto) Total Counted Sodium Potassium Chloride Carbon Dioxide Anion Gap BUN Creatinine Estim Creat Clear Calc Est GFR (MDRD) Af Amer Est GFR (MDRD) Non-Af BUN/Creatinine Ratio Glucose Lactic Acid 1.6 Calcium Phosphorus Magnesium Total Bilirubin AST ALT Alkaline Phosphatase Troponin I < 0.015 Total Protein Albumin Globulin Albumin/Globulin Ratio Lipase Urine Color Yellow Urine Clarity Cloudy Urine pH 5.0 Ur Specific [place] 1.020 Urine Protein 100 H Urine Glucose (UA) 100 H Urine Ketones Negative Urine Occult Blood 25 H Urine Nitrite Negative Urine Bilirubin Negative Urine Urobilinogen Normal Ur Leukocyte Esterase 500 H Urine RBC 0 SEEN Urine WBC 50-100 SEEN Ur Squamous Epith Cells 0-5 SEEN Ur Transition Epith Cell 0-5 SEEN Urine Bacteria 1+ Hyaline Casts 0-5 SEEN Fine Granular Casts 0-5 SEEN Urine Mucus 0 SEEN 04/30/18 07:38 WBC RBC Hgb Hct MCV MCH MCHC RDW RDW Differential Plt Count MPV Immature Gran % (Auto) Neut % (Auto) Lymph % (Auto) [place] % (Auto) Eos % (Auto) Baso % (Auto) Absolute Neuts (auto) Absolute Lymphs (auto) Total Counted Sodium Potassium Chloride Carbon Dioxide Anion Gap BUN Creatinine Estim Creat Clear Calc Est GFR (MDRD) Af Amer Est GFR (MDRD) Non-Af BUN/Creatinine Ratio Glucose Lactic Acid Calcium Phosphorus Magnesium Total Bilirubin AST ALT Alkaline Phosphatase Troponin I Pending Total Protein Albumin Globulin Albumin/Globulin Ratio Lipase Urine Color Urine Clarity Urine pH Ur Specific [place] Urine Protein Urine Glucose (UA) Urine Ketones Urine Occult Blood Urine Nitrite Urine Bilirubin Urine Urobilinogen Ur Leukocyte Esterase Urine RBC Urine WBC Ur Squamous Epith Cells Ur Transition Epith Cell Urine Bacteria Hyaline Casts Fine Granular Casts Urine Mucus POC Glucose 04/30/18 06:48 POC Glucose 134 H Medical Necessity - Tobacco Use Smoking Status: Never smoker Tobacco Use: Non-smoker Assessment/Plan All Active Problems (Last Updated 01/05/18 @ 12:57 by Dominick Sánchez NP-C) ARIEL (acute kidney injury) (Acute) Viral syndrome (Acute) Atrial arrhythmia (Acute) H/O shoulder surgery (Resolved) H/O: hysterectomy (Resolved) H/O colectomy (Resolved) Generalized weakness (Acute) Fatigue (Acute) Tachycardia (Acute) Near syncope (Acute) Acute kidney injury (Resolved) Acute pyelonephritis (Resolved) Clostridium difficile diarrhea (Resolved) Herpes zoster (Resolved) Recurrent colitis due to Clostridium difficile (Resolved) Urinary tract infection (Resolved) Ileus (Ruled-out) Impressions 1. Acute on chronic renal failure stage III-secondary to dehydration secondary to intractable nausea/vomiting 2. Orthostatic hypotension 3. Lung cancer-currently being treated with radiation 4. Chronic renal failure stage III 5. History of colon cancer/status post colectomy-in remission 6. Coronary artery disease with history of PCI 7. Hypertension 8. Hyperlipidemia 9. Diabetes mellitus type 2 10. Anxiety/depression 11. Dyspnea on exertion-secondary to deconditioning or anginal equivalent? Continue to hydrate Recheck the lab in the AM Stress test when the dehydration and renal failure has improved Continue her regular cardiac meds PT/OT Code Visit Inpatient E&M: 65838 Subs Hosp L2
[2018-04-30] MEDS: Venlafaxine XR 150 MG Capsule PO (08:41)
[2018-04-30] MEDS: Aspirin E.C. 81 MG Tablet PO (08:41)
[2018-04-30] MEDS: Gabapentin 300 MG Capsule PO ×3 (08:41→16:44)
[2018-04-30] MEDS: Insulin Lispro 100 UNIT/ML INSULN.PEN 6 UNIT SC ×3 (08:41→16:43)
[2018-04-30] MEDS: Heparin Injection (Vial) 5,000 UNIT/ML VIAL 5000 UNIT SC ×2 (08:43→23:03)
[2018-04-30] MEDS: Clopidogrel Bisulfate 75 MG Tablet PO (08:44)
[2018-04-30] MEDS: buPROPion (XL) 150 MG TABLET.XL PO (08:49)
--- NOTE | 2018-04-30 10:53 | CASEMGMT ---
Assessment- SW met with patient, introduced self and role at [facility]. Patient is in agreement with talking to SW. Living situation- Patient lives alone in a 1 story home with no entry steps. PCP: Dr Cline Specialists: Dr Rajput-Psychiatry at [facility] and Dr Warner-Oncology at [facility] Pharmacy: [facility] DME: Shower chair, raised toilet seat, grab bars, lift chair, rollater, and medical alert button ADL's/IADL's: Patient uses her rollater, help with bathing, and cleaning Past SNF/rehab: [facility] Past HH: Yes LW: Yes. She has one on file at [facility] POA: Yes. However, the one we have on file currently is not accurate. She said her new one is not quite finished yet. SW told her to make sure she brings it in once done. Her new Healthcare POA will be her daughter, Leora Linder. Plan: Patient's current plan is to return home. She was at [facility] and was discharged 2 weeks ago. She is active with [facility]. She is also active with [facility]. She has aides from [facility] 2 times a week for 3 hours each time, she has a medical alert button, and she goes to [facility]. Her Tax Services Intern at [facility] is Carlyle Staples. ENRIQUE called [facility] and spoke with Laila on the coverage line letting her know patient is at [facility]. Patient said her medical alert button is broken. ENRIQUE called Carlyle and left her a vm letting her know this information. Maryana GIBSON MSW
[2018-04-30] MEDS: Ceftriaxone 1 GM/50 ML BAG IV (10:58)
[2018-04-30] MEDS: Carvedilol 25 MG Tablet PO ×2 (12:07→23:01)
[2018-04-30] MEDS: Insulin Lispro 100 UNIT/ML INSULN.PEN SC ×2 (12:08→23:02)
[2018-04-30 12:20] LABS: Bedside Glucose 192 mg/dL (70-110)
[2018-04-30 12:29] LABS: Absolute Lymphocyte Count 0.77 X10^3/ul (0.83-4.51); Absolute Neutrophil Count 7.7 X10^3/uL (2.0-7.7); Basophil# 0.03 X10^3/uL; Basophil% 0.3 % (0-1); Eosinophil# 0.07 X10^3/uL; Eosinophils% 0.7 % (0-5); Hematocrit 34.4 % (37-47); Hemoglobin 10.9 g/dl (12.0-15.0); Lymphocyte # 0.77 X10^3/ul (4.0); Lymphocyte % 8.2 % (19-41); Mean Corp Hgb Conc 31.7 g/gl (32-36); Mean Corpuscular Hgb 28.8 pg (27.0-32.0); Mean Corpuscular Volume 90.8 fL (81-99); Mean Platelet Vol. 9.9 fl (6.2-12.0); Monocyte# 0.76 X10^3/uL; Monocyte% 8.1 % (0-10); Neutrophil # 7.68 X10^3/uL (2.7-7.7); Neutrophil % 82.3 % (47-70); Platelet Count 189 K/mm3 (150-450); RBC Distribution Width CV 14.9 % (11.6-14.6); Red Blood Count 3.79 M/mm3 (4.2-5.4); White Blood Count 9.4 K/mm3 (4.4-11.0)
[2018-04-30 12:30] LABS: POSITIVE COUNT NO; POSITIVE DIFFERENTIAL NO; POSITIVE MORPHOLOGY NO
[2018-04-30 12:50] LABS: Hemoglobin A1c 8.4 % (4.2-6.3)
--- NOTE | 2018-04-30 13:00 | CHAPLAIN ---
Type of Pastoral Visit _x__ Initial Visit ___ Follow-up Visit ___ On-call Visit ___ General Patient Visit ___ Spiritual Assessment ___ Family Conference ___ Bereavement ___ Rapid Response ___ Code Blue ___ Other (describe below) Pastoral Care Referral From _x__ Patient ___ Family ___ Nurse ___ Physician ___ Rotary Engine Assembler ___ Butcher Supervisor ___ Other (describe below) Sacrament/Intervention _x__ Active listening ___ Anointing ___ Sikh ___ Bereavement ___ Communion ___ Ros exploration ___ ___ Life review _x__ Prayer ___ Reconciliation ___ Sacrament of Sick _x__ Supportive presence ___ Wedding ___ Other (describe below) Pastoral Comments
[2018-04-30 13:11] LABS: Anion Gap 10 (5-15); BUN 56 mg/dL (7-18); BUN/Creat Ratio 26.3 RATIO (10-20); Calcium,Total 8.1 mg/dL (8.5-10.1); Chloride 111 mmol/L (98-107); Creatinine, Serum 2.13 mg/dL (0.55-1.02); EST Glomerular Filtration Rate 24 mL/min (>60); Est Glom Filt Rate - Afr Amer 29 mL/min (>60); Estimated Creatinine Clearance 16.43 ml/min; Glucose 210 mg/dL (74-106); Potassium 4.2 mmol/L (3.5-5.1); Sodium Level 140 mmol/L (136-145)
[2018-04-30 13:15] LABS: Phosphorus 3.3 mg/dL (2.5-4.9)
[2018-04-30 17:05] LABS: Bedside Glucose 108 mg/dL (70-110)
[2018-04-30] MEDS: OLANZapine 5 MG/TAB TAB.RAPDIS PO (23:02)
[2018-04-30] MEDS: Atorvastatin Calcium 40 MG Tablet PO (23:02)
[2018-05-01] VITALS (11 sets, daily range): BP systolic 93–155; BP diastolic 43–85; PULSE 70–107; RESP 16–18; TEMP 36.6–37.1; O2SAT 94–99
[2018-05-01 00:05] LABS: Bedside Glucose 220 mg/dL (70-110)
[2018-05-01] MEDS: 0.9% Normal Saline 1,000 ML 125 ML IV ×3 (00:30→16:18)
[2018-05-01] MEDS: Meclizine 12.5 MG Tablet PO ×2 (06:43→21:52)
[2018-05-01 07:26] LABS: Bedside Glucose 66 mg/dL (70-110)
[2018-05-01 07:26] LABS: Bedside Glucose 78 mg/dL (70-110)
[2018-05-01] MEDS: Aspirin E.C. 81 MG Tablet PO (08:27)
[2018-05-01] MEDS: Gabapentin 300 MG Capsule PO ×3 (08:27→16:20)
--- NOTE | 2018-05-01 08:27 | PCM.PROGNOTE ---
Patient Problems: Active and Suspected Problems (Last Updated 01/05/18 @ 12:57 by BRYSON AndersenC) ARIEL (acute kidney injury) (Acute) Viral syndrome (Acute) Subjective: All events of the past 24 hours of been reviewed. Afebrile since admission. Tachycardia has resolved and the orthostatics are minimally positive today with an increase in heart rate from 89-107 when going from lying down to standing. She is 94% saturated on room air with a respiratory rate of 16. All labs personally reviewed. Serum bicarb is 17 today but the creatinine is down to 1.36 from 2.76 at admission. Potassium is 4.4. CATRACHO globin A1c is 8.4. Phos and mag are within normal limits. Denies chest pain. Lightheadedness has markedly improved and she denies vertigo. Objective: PHYSICAL EXAM: GENERAL: alert, oriented X 3, Cooperative, NAD, pleasant ORAL: Dry mucosa, no mucosal lesions NECK: No JVD, supple, trachea midline LUNGS: CTA, symmetric chest expansion, no rales, no rhonchi, no wheezing HEART: RRR, Normal S1 and S2, no rub, no gallop ABDOMEN: soft, NT, ND, BS present, no guarding with palpation EXTREMITIES: no edema, no cyanosis, no calf tenderness SKIN: No rashes, no breakdown NEUROLOGIC: no focal neurologic deficits PSYCH: appropriate, normal affect, pleasant - Physical Exam Vital Signs Temp Pulse Resp BP Pulse Ox 97.9 F 89 16 141/81 H 94 05/01/18 03:20 05/01/18 06:43 05/01/18 03:20 05/01/18 06:43 05/01/18 07:54 Oxygen Delivery Method Room Air Weight: 153 lb 0.013 oz Body Mass Index (BMI) 28.9 Finger Stick Blood Glucose 236 Orthostatic Vital Signs Start: 04/30/18 00:48 Freq: q24h Status: Active Protocol: Activity Type Activity Date Activity User E-Sign Co-Sign Detail Recorded Client Recorded Date Recorded By Document 05/01/18 06:43 LFF [id number] 05/01/18 06:54 LFF 05/01/18 06:43 Orthostatic Vitals Standing -Blood Pressure (90/60-120/80 mm Hg) 155/68 H -Extremity Use Right Arm -Pulse Rate (60-100 beats/min) 107 H Sitting -Blood Pressure (90/60-120/80 mm Hg) 150/85 H -Extremity Use Right Arm -Pulse Rate (60-100 beats/min) 96 Lying -Blood Pressure (90/60-120/80 mm Hg) 141/81 H -Extremity Use Right Arm -Pulse Rate (60-100 beats/min) 89 Intake and Output for Last 24 Hours 04/29/18 04/30/18 05/01/18 23:59 23:59 23:59 Intake Total 2936 / 2936 3025 / 3025 Balance 2936 / 2936 3025 / 3025 Microbiology Past 72 Hours 04/29/18 21:20 Respiratory Panel (PCR) - Final Mucosa - Nasopharyngeal 04/29/18 21:20 Influenza Types A,B Direct FA (JASSI) - Final Mucosa - Nose Laboratory Tests Past 24 Hrs 04/30/18 04/30/18 04/30/18 12:10 12:10 12:10 WBC 9.4 RBC 3.79 L Hgb 10.9 L Hct 34.4 L MCV 90.8 MCH 28.8 MCHC 31.7 L RDW 14.9 H RDW Differential 49.0 H Plt Count 189 MPV 9.9 Immature Gran % (Auto) 0.400 Neut % (Auto) 82.3 H Lymph % (Auto) 8.2 L Giles % (Auto) 8.1 Eos % (Auto) 0.7 Baso % (Auto) 0.3 Absolute Neuts (auto) 7.7 Absolute Lymphs (auto) 0.77 L Total Counted Not Reportable Sodium 140 Potassium 4.2 Chloride 111 H Carbon Dioxide 19.0 L Anion Gap 10 BUN 56 H Creatinine 2.13 H Estim Creat Clear Calc 16.43 Est GFR (MDRD) Af Amer 29 L Est GFR (MDRD) Non-Af 24 L BUN/Creatinine Ratio 26.3 H Glucose 210 H Hemoglobin A1c Calcium 8.1 L Phosphorus 3.3 Troponin I < 0.015 04/30/18 12:10 WBC RBC Hgb Hct MCV MCH MCHC RDW RDW Differential Plt Count MPV Immature Gran % (Auto) Neut % (Auto) Lymph % (Auto) Giles % (Auto) Eos % (Auto) Baso % (Auto) Absolute Neuts (auto) Absolute Lymphs (auto) Total Counted Sodium Potassium Chloride Carbon Dioxide Anion Gap BUN Creatinine Estim Creat Clear Calc Est GFR (MDRD) Af Amer Est GFR (MDRD) Non-Af BUN/Creatinine Ratio Glucose Hemoglobin A1c 8.4 H Calcium Phosphorus Troponin I POC Glucose 05/01/18 05/01/18 04/30/18 07:21 06:48 22:59 POC Glucose 78 66 L 220 H 04/30/18 04/30/18 16:34 12:04 POC Glucose 108 192 H Medical Necessity - Tobacco Use Smoking Status: Never smoker Tobacco Use: Non-smoker Assessment/Plan All Active Problems (Last Updated 01/05/18 @ 12:57 by Dominick Sánchez, FINANCIAL DEVELOPER-C) ARIEL (acute kidney injury) (Acute) Viral syndrome (Acute) Atrial arrhythmia (Acute) H/O shoulder surgery (Resolved) H/O: hysterectomy (Resolved) H/O colectomy (Resolved) Generalized weakness (Acute) Fatigue (Acute) Tachycardia (Acute) Near syncope (Acute) Acute kidney injury (Resolved) Acute pyelonephritis (Resolved) Clostridium difficile diarrhea (Resolved) Herpes zoster (Resolved) Recurrent colitis due to Clostridium difficile (Resolved) Urinary tract infection (Resolved) Ileus (Ruled-out) Impressions 1. Acute on chronic renal failure stage III-secondary to dehydration secondary to intractable nausea/vomiting 2. Orthostatic hypotension 3. Lung cancer-currently being treated with radiation 4. Chronic renal failure stage III 5. History of colon cancer/status post colectomy-in remission 6. Coronary artery disease with history of PCI 7. Hypertension 8. Hyperlipidemia 9. Diabetes mellitus type 2 10. Anxiety/depression 11. Dyspnea on exertion-secondary to deconditioning or anginal equivalent? Recheck the lab in the AM Chemical nuclear stress in the AM Orthostatics are negative today-discontinue IV fluids and encouraged good water intake recheck the lab in the AM Awaiting pre-cert from the insurance co for transfer back to the [place] Code Visit Inpatient E&M: [id number] Subs Hosp L2
--- NOTE | 2018-05-01 08:30 | PN_ITS ---
Patient Problems: Active and Suspected Problems (Last Updated 01/05/18 @ 12:57 by BRYSON Andersen C) ARIEL (acute kidney injury) (Acute) Viral syndrome (Acute) Subjective: All events of the past 24 hours of been reviewed. Afebrile since admission. Tachycardia has resolved and the orthostatics are minimally positive today with an increase in heart rate from 89-107 when going from lying down to standing. She is 94% saturated on room air with a respiratory rate of 16. All labs personally reviewed. Serum bicarb is 17 today but the creatinine is down to 1.36 from 2.76 at admission. Potassium is 4.4. CATRACHO globin A1c is 8.4. Phos and mag are within normal limits. Denies chest pain. Lightheadedness has markedly improved and she denies vertigo. Objective: PHYSICAL EXAM: GENERAL: alert, oriented X 3, Cooperative, NAD, pleasant ORAL: Dry mucosa, no mucosal lesions NECK: No JVD, supple, trachea midline LUNGS: CTA, symmetric chest expansion, no rales, no rhonchi, no wheezing HEART: RRR, Normal S1 and S2, no rub, no gallop ABDOMEN: soft, NT, ND, BS present, no guarding with palpation EXTREMITIES: no edema, no cyanosis, no calf tenderness SKIN: No rashes, no breakdown NEUROLOGIC: no focal neurologic deficits PSYCH: appropriate, normal affect, pleasant - Physical Exam Vital Signs Temp Pulse Resp BP Pulse Ox 97.9 F 89 16 141/81 H 94 05/01/18 03:20 05/01/18 06:43 05/01/18 03:20 05/01/18 06:43 05/01/18 07:54 Oxygen Delivery Method Room Air Weight: 153 lb 0.013 oz Body Mass Index (BMI) 28.9 Finger Stick Blood Glucose 236 Orthostatic Vital Signs Start: 04/30/18 00:48 Freq: q24h Status: Active Protocol: Activity Type Activity Date Activity User E-Sign Co-Sign Detail Recorded Client Recorded Date Recorded By Document 05/01/18 06:43 LFF [id number] 05/01/18 06:54 LFF 05/01/18 06:43 Orthostatic Vitals Standing -Blood Pressure (90/60-120/80 mm Hg) 155/68 H -Extremity Use Right Arm -Pulse Rate (60-100 beats/min) 107 H Sitting -Blood Pressure (90/60-120/80 mm Hg) 150/85 H -Extremity Use Right Arm -Pulse Rate (60-100 beats/min) 96 Lying -Blood Pressure (90/60-120/80 mm Hg) 141/81 H -Extremity Use Right Arm -Pulse Rate (60-100 beats/min) 89 Intake and Output for Last 24 Hours 04/29/18 04/30/18 05/01/18 23:59 23:59 23:59 Intake Total 2936 / 2936 3025 / 3025 Balance 2936 / 2936 3025 / 3025 Microbiology Past 72 Hours 04/29/18 21:20 Respiratory Panel (PCR) - Final Mucosa - Nasopharyngeal 04/29/18 21:20 Influenza Types A,B Direct FA (JASSI) - Final Mucosa - Nose Laboratory Tests Past 24 Hrs 04/30/18 04/30/18 04/30/18 12:10 12:10 12:10 WBC 9.4 RBC 3.79 L Hgb 10.9 L Hct 34.4 L MCV 90.8 MCH 28.8 MCHC 31.7 L RDW 14.9 H RDW Differential 49.0 H Plt Count 189 MPV 9.9 Immature Gran % (Auto) 0.400 Neut % (Auto) 82.3 H Lymph % (Auto) 8.2 L [place] % (Auto) 8.1 Eos % (Auto) 0.7 Baso % (Auto) 0.3 Absolute Neuts (auto) 7.7 Absolute Lymphs (auto) 0.77 L Total Counted Not Reportable Sodium 140 Potassium 4.2 Chloride 111 H Carbon Dioxide 19.0 L Anion Gap 10 BUN 56 H Creatinine 2.13 H Estim Creat Clear Calc 16.43 Est GFR (MDRD) Af Amer 29 L Est GFR (MDRD) Non-Af 24 L BUN/Creatinine Ratio 26.3 H Glucose 210 H Hemoglobin A1c Calcium 8.1 L Phosphorus 3.3 Troponin I < 0.015 04/30/18 12:10 WBC RBC Hgb Hct MCV MCH MCHC RDW RDW Differential Plt Count MPV Immature Gran % (Auto) Neut % (Auto) Lymph % (Auto) [place] % (Auto) Eos % (Auto) Baso % (Auto) Absolute Neuts (auto) Absolute Lymphs (auto) Total Counted Sodium Potassium Chloride Carbon Dioxide Anion Gap BUN Creatinine Estim Creat Clear Calc Est GFR (MDRD) Af Amer Est GFR (MDRD) Non-Af BUN/Creatinine Ratio Glucose Hemoglobin A1c 8.4 H Calcium Phosphorus Troponin I POC Glucose 05/01/18 05/01/18 04/30/18 07:21 06:48 22:59 POC Glucose 78 66 L 220 H 04/30/18 04/30/18 16:34 12:04 POC Glucose 108 192 H Medical Necessity - Tobacco Use Smoking Status: Never smoker Tobacco Use: Non-smoker Assessment/Plan All Active Problems (Last Updated 01/05/18 @ 12:57 by Dominick Sánchez, HEAD CHARGER-C) ARIEL (acute kidney injury) (Acute) Viral syndrome (Acute) Atrial arrhythmia (Acute) H/O shoulder surgery (Resolved) H/O: hysterectomy (Resolved) H/O colectomy (Resolved) Generalized weakness (Acute) Fatigue (Acute) Tachycardia (Acute) Near syncope (Acute) Acute kidney injury (Resolved) Acute pyelonephritis (Resolved) Clostridium difficile diarrhea (Resolved) Herpes zoster (Resolved) Recurrent colitis due to Clostridium difficile (Resolved) Urinary tract infection (Resolved) Ileus (Ruled-out) Impressions 1. Acute on chronic renal failure stage III-secondary to dehydration secondary to intractable nausea/vomiting 2. Orthostatic hypotension 3. Lung cancer-currently being treated with radiation 4. Chronic renal failure stage III 5. History of colon cancer/status post colectomy-in remission 6. Coronary artery disease with history of PCI 7. Hypertension 8. Hyperlipidemia 9. Diabetes mellitus type 2 10. Anxiety/depression 11. Dyspnea on exertion-secondary to deconditioning or anginal equivalent? Recheck the lab in the AM Chemical nuclear stress in the AM Orthostatics are negative today-discontinue IV fluids and encouraged good water intake recheck the lab in the AM Awaiting pre-cert from the insurance co for transfer back to the [place] Code Visit Inpatient E&M: [id number] Subs Hosp L2
[2018-05-01 09:33] LABS: Hematocrit 30.4 % (37-47); Hemoglobin 9.5 g/dl (12.0-15.0); Mean Corp Hgb Conc 31.3 g/gl (32-36); Mean Corpuscular Hgb 28.5 pg (27.0-32.0); Mean Corpuscular Volume 91.3 fL (81-99); Mean Platelet Vol. 10.1 fl (6.2-12.0); Platelet Count 134 K/mm3 (150-450); RBC Distribution Width CV 14.8 % (11.6-14.6); RBC Distribution Width SD 49.8 fl (35.1-43.9); Red Blood Count 3.33 M/mm3 (4.2-5.4); White Blood Count 5.6 K/mm3 (4.4-11.0)
[2018-05-01 09:35] LABS: Scan Indicated on CBC? Y/N NO
[2018-05-01 09:52] LABS: ALB/GLOB Ratio 0.7 RATIO (0.9-2.4); AST(SGOT) 20 U/L (15-37); Alanine Aminotransfer ALT/SGPT 19 U/L (13-56); Alkaline Phosphatase 130 U/L (45-117); Anion Gap 7 (5-15); BUN 41 mg/dL (7-18); BUN/Creat Ratio 30.1 RATIO (10-20); Calcium,Total 8.1 mg/dL (8.5-10.1); Chloride 117 mmol/L (98-107); Creatinine, Serum 1.36 mg/dL (0.55-1.02); EST Glomerular Filtration Rate 40 mL/min (>60); Est Glom Filt Rate - Afr Amer 48 mL/min (>60); Estimated Creatinine Clearance 25.73 ml/min; Glucose 118 mg/dL (74-106); Magnesium 1.8 mg/dL (1.6-2.6); Phosphorus 2.9 mg/dL (2.5-4.9); Potassium 4.3 mmol/L (3.5-5.1); Sodium Level 141 mmol/L (136-145)
[2018-05-01] MEDS: amLODIPine 5 MG Tablet PO (10:26)
[2018-05-01] MEDS: Heparin Injection (Vial) 5,000 UNIT/ML VIAL 5000 UNIT SC ×2 (10:26→21:50)
[2018-05-01] MEDS: buPROPion (XL) 150 MG TABLET.XL PO (10:26)
[2018-05-01] MEDS: Ceftriaxone 1 GM/50 ML BAG IV (10:26)
[2018-05-01] MEDS: Venlafaxine XR 150 MG Capsule PO (10:26)
[2018-05-01] MEDS: Carvedilol 25 MG Tablet PO ×2 (10:26→21:56)
[2018-05-01] MEDS: Clopidogrel Bisulfate 75 MG Tablet PO (10:26)
--- NOTE | 2018-05-01 11:25 | CASEMGMT ---
SW received a call from [facility] Tire Beader Maker, Autumn Thompson. They have been trying to get patient to come in to hospital for her follow up appt after discharge from [facility]. However, they have not had any luck. They are really trying to help keep her well and out of the hospital, but are having a hard time getting her to come in for appt. She asked that when patient is discharged [facility] make an appt for patient. She said they could call her to schedule appt. ENRIQUE and [facility] RN CM to follow for d/c planning and this message will be passed along to ebd teacher. Maryana GIBSON MSW
[2018-05-01] MEDS: Insulin Lispro 100 UNIT/ML INSULN.PEN 6 UNIT SC (12:10)
[2018-05-01 12:31] LABS: Bedside Glucose 148 mg/dL (70-110)
--- NOTE | 2018-05-01 15:07 | CASEMGMT ---
ENRIQUE spoke with patient and she agreed she needs to go to a SNF. She will likely go back to [facility]. SW told her we will have to get insurance authorization so she will be here through the weekend. Maryana MORALES
[2018-05-01 16:51] LABS: Bedside Glucose 62 mg/dL (70-110)
[2018-05-01 16:51] LABS: Bedside Glucose 65 mg/dL (70-110)
[2018-05-01 18:26] LABS: Bedside Glucose 105 mg/dL (70-110)
[2018-05-01] MEDS: Insulin Lispro 100 UNIT/ML INSULN.PEN SC (21:48)
[2018-05-01] MEDS: OLANZapine 5 MG/TAB TAB.RAPDIS PO (21:52)
[2018-05-01] MEDS: Atorvastatin Calcium 40 MG Tablet PO (21:52)
[2018-05-01] MEDS: oxyCODONE 5 MG Tablet PO (21:57)
[2018-05-01] MEDS: Acetaminophen 325 MG Tablet 650 MG PO (21:58)
[2018-05-01 22:11] LABS: Bedside Glucose 171 mg/dL (70-110)
[2018-05-02] VITALS (13 sets, daily range): BP systolic 107–194; BP diastolic 45–92; PULSE 70–97; RESP 15–18; TEMP 36.4–37.1; O2SAT 94–100
[2018-05-02] MEDS: 0.9% Normal Saline 1,000 ML 125 ML IV (00:34)
--- NOTE | 2018-05-02 05:55 | EKG12_ITS ---
Test Reason : AM EKG Blood Pressure : / mmHG Vent. Rate : 071 BPM Atrial Rate : 071 BPM P-R Int : 166 ms QRS Dur : 080 ms QT Int : 400 ms P-R-T Axes : 041 001 036 degrees QTc Int : 434 ms Sinus rhythm with occasional Premature ventricular complexes Low voltage QRS Borderline ECG Confirmed by MOMO BURROUGHS, GINA ([id number]), television news video editor SANDY SALMERON ([id number]) on 05/06/2018 10:16:36 AM Referred By: VINCE Confirmed By:GINA BARR MD
[2018-05-02] MEDS: Aspirin E.C. 81 MG Tablet PO (06:06)
[2018-05-02] MEDS: Meclizine 12.5 MG Tablet PO ×3 (06:06→21:38)
[2018-05-02] MEDS: Clopidogrel Bisulfate 75 MG Tablet PO (06:07)
[2018-05-02] MEDS: Gabapentin 300 MG Capsule PO ×3 (06:07→17:11)
[2018-05-02 06:15] LABS: Absolute Lymphocyte Count 0.62 X10^3/ul (0.83-4.51); Absolute Neutrophil Count 2.7 X10^3/uL (2.0-7.7); Basophil# 0.02 X10^3/uL; Basophil% 0.5 % (0-1); Eosinophil# 0.19 X10^3/uL; Eosinophils% 4.7 % (0-5); Hematocrit 28.7 % (37-47); Hemoglobin 8.9 g/dl (12.0-15.0); Lymphocyte # 0.62 X10^3/ul (4.0); Lymphocyte % 15.4 % (19-41); Mean Corpuscular Hgb 28.7 pg (27.0-32.0); Mean Corpuscular Volume 92.6 fL (81-99); Mean Platelet Vol. 10.3 fl (6.2-12.0); Monocyte# 0.44 X10^3/uL; Monocyte% 10.9 % (0-10); Neutrophil # 2.72 X10^3/uL (2.7-7.7); Neutrophil % 67.5 % (47-70); Platelet Count 135 K/mm3 (150-450); RBC Distribution Width CV 14.4 % (11.6-14.6); RBC Distribution Width SD 47.4 fl (35.1-43.9)
[2018-05-02 06:36] LABS: Bedside Glucose 187 mg/dL (70-110)
[2018-05-02 06:36] LABS: POSITIVE COUNT NO; POSITIVE DIFFERENTIAL NO; POSITIVE MORPHOLOGY NO
[2018-05-02 06:41] LABS: Anion Gap 4 (5-15); BUN 28 mg/dL (7-18); Calcium,Total 7.8 mg/dL (8.5-10.1); Chloride 118 mmol/L (98-107); Creatinine, Serum 1.22 mg/dL (0.55-1.02); EST Glomerular Filtration Rate 45 mL/min (>60); Est Glom Filt Rate - Afr Amer 55 mL/min (>60); Estimated Creatinine Clearance 28.68 ml/min; Glucose 195 mg/dL (74-106); Potassium 4.4 mmol/L (3.5-5.1); Sodium Level 141 mmol/L (136-145)
[2018-05-02 06:51] LABS: International Normalized Ratio 1.2
[2018-05-02 06:52] LABS: Partial Thromboplast Time 38.2 Seconds (24.1-36.2)
--- NOTE | 2018-05-02 12:09 | STRESSREP ---
Stress Test Report 77-year-old lady with a history of coronary artery disease. Patient presents with chest pain. Stress protocol: Pharmacologic myocardial perfusion stress test. Stress protocol: Resting EKG demonstrates normal sinus rhythm with a rate of 76 bpm normal intervals are noted resting blood pressure 132/70 mmHg. 0.4 mg of regadenoson was infused per usual protocol followed by rapid intravenous saline flush injection continuous EKG monitoring was performed. The patient maintained sinus rhythm throughout the recording. At rest there were no ST or T wave changes noted suggest abnormal flow reserve at peak infusion no ST or T wave changes were noted suggest abnormal flow reserve. The maximum heart rate attained was 90 bpm which was 63% of maximum predicted heart rate. The final blood pressure 128/66 mmHg. Myocardial perfusion protocol. 11.9 mCi of technetium 99m sestamibi was injected at rest. 0.4 mg of regadenoson was infused per usual protocol. At peak infusion 36.2 mCi of technetium 99m sestamibi was injected stress images were obtained stress and rest images were reconstructed and compared in the short axis vertical long and horizontal long axis. Gated images were also obtained Perfusion SPECT analysis: Review of the stress images demonstrate normal uptake of tracer noted in all areas of the myocardium the resting images similarly demonstrate normal uptake of tracer noted in all areas of the myocardium. No areas of reversibility are noted suggest ischemia no previous infarct is noted. Gated SPECT analysis: The gated ejection fraction is noted to be 76%. Conclusion: Normal pharmacologic myocardial perfusion stress test. Preserved ejection fraction.
[2018-05-02] MEDS: Ondansetron 4 MG/2 ML Vial IV (12:21)
[2018-05-02] MEDS: Ceftriaxone 1 GM/50 ML BAG IV (12:21)
[2018-05-02] MEDS: buPROPion (XL) 150 MG TABLET.XL PO (12:24)
[2018-05-02] MEDS: amLODIPine 5 MG Tablet PO (12:24)
[2018-05-02] MEDS: Carvedilol 25 MG Tablet PO ×2 (12:24→21:38)
[2018-05-02] MEDS: Venlafaxine XR 150 MG Capsule PO (12:25)
[2018-05-02] MEDS: Heparin Injection (Vial) 5,000 UNIT/ML VIAL 5000 UNIT SC ×2 (12:25→21:48)
[2018-05-02 12:36] LABS: Bedside Glucose 141 mg/dL (70-110)
--- NOTE | 2018-05-02 16:40 | PN_ITS ---
Patient Problems: Active and Suspected Problems (Last Updated 01/05/18 @ 12:57 by BRYSON Andersen) ARIEL (acute kidney injury) (Acute) Viral syndrome (Acute) Subjective: Stress test was negative today. Orthostatics are negative today. No lightheadedness and no vertigo NSR on telemetry Doing better with PT Fluids have been discontinued. Objective: PHYSICAL EXAM: GENERAL: alert, oriented X 3, Cooperative, NAD, pleasant ORAL: Dry mucosa, no mucosal lesions NECK: No JVD, supple, trachea midline LUNGS: CTA, symmetric chest expansion, no rales, no rhonchi, no wheezing HEART: RRR, Normal S1 and S2, no rub, no gallop ABDOMEN: soft, NT, ND, BS present, no guarding with palpation EXTREMITIES: no edema, no cyanosis, no calf tenderness SKIN: No rashes, no breakdown NEUROLOGIC: no focal neurologic deficits PSYCH: appropriate, normal affect, pleasant - Physical Exam Vital Signs Temp Pulse Resp BP Pulse Ox 97.8 F 94 15 194/92 H 99 05/02/18 12:18 05/02/18 12:18 05/02/18 12:18 05/02/18 12:18 05/02/18 12:18 Oxygen Delivery Method Room Air Weight: 153 lb 0.013 oz Body Mass Index (BMI) 28.9 Finger Stick Blood Glucose 236 Orthostatic Vital Signs Start: 04/30/18 00:48 Freq: q24h Status: Active Protocol: Activity Type Activity Date Activity User E-Sign Co-Sign Detail Recorded Client Recorded Date Recorded By Document 05/02/18 06:00 [id number] 05/02/18 06:20 [id number] 05/02/18 06:00 Orthostatic Vitals Standing -Blood Pressure (90/60-120/80 mm Hg) 154/71 H -Extremity Use Right Arm -Pulse Rate (60-100 beats/min) 72 Sitting -Blood Pressure (90/60-120/80 mm Hg) 128/70 H -Extremity Use Right Arm -Pulse Rate (60-100 beats/min) 76 Lying -Blood Pressure (90/60-120/80 mm Hg) 126/60 H -Extremity Use Right Arm -Pulse Rate (60-100 beats/min) 72 Intake and Output for Last 24 Hours 02/14/19 02/15/19 02/16/19 23:59 23:59 23:59 Intake Total 2936 / 2936 5751 / 5751 504 / 504 Balance 2936 / 2936 5751 / 5751 504 / 504 Microbiology Past 72 Hours 04/29/18 21:52 Blood Culture - Preliminary Blood Culture (Wb) - Anticubital Right No growth in 48 hours. 04/29/18 21:35 Blood Culture - Preliminary Blood Culture (Wb) - Anticubital Left No growth in 48 hours. 04/29/18 23:00 Urine Culture - Final Urine, Clean Catch Mixed Gram Positive Organisms 04/29/18 21:20 Respiratory Panel (PCR) - Final Mucosa - Nasopharyngeal 04/29/18 21:20 Influenza Types A,B Direct FA (JASSI) - Final Mucosa - Nose Laboratory Tests Past 24 Hrs 05/02/18 05/02/18 05/02/18 05:48 05:48 05:48 WBC 4.0 L RBC 3.10 L Hgb 8.9 L Hct 28.7 L MCV 92.6 MCH 28.7 MCHC 31.0 L RDW 14.4 RDW Differential 47.4 H Plt Count 135 L MPV 10.3 Immature Gran % (Auto) 1.000 H Neut % (Auto) 67.5 Lymph % (Auto) 15.4 L [place] % (Auto) 10.9 H Eos % (Auto) 4.7 Baso % (Auto) 0.5 Absolute Neuts (auto) 2.7 Absolute Lymphs (auto) 0.62 L Total Counted Not Reportable PT 15.0 H INR 1.2 APTT 38.2 H Sodium 141 Potassium 4.4 Chloride 118 H Carbon Dioxide 19.0 L Anion Gap 4 L BUN 28 H Creatinine 1.22 H Estim Creat Clear Calc 28.68 Est GFR (MDRD) Af Amer 55 L Est GFR (MDRD) Non-Af 45 L BUN/Creatinine Ratio 23.0 H Glucose 195 H Calcium 7.8 L POC Glucose 05/02/18 05/02/18 05/01/18 12:27 06:30 21:44 POC Glucose 141 H 187 H 171 H 05/01/18 05/01/18 05/01/18 18:19 16:46 16:14 POC Glucose 105 62 L 65 L Medical Necessity - Tobacco Use Smoking Status: Never smoker Tobacco Use: Non-smoker Assessment/Plan All Active Problems (Last Updated 01/05/18 @ 12:57 by YUMI Andersen) ARIEL (acute kidney injury) (Acute) Viral syndrome (Acute) Atrial arrhythmia (Acute) H/O shoulder surgery (Resolved) H/O: hysterectomy (Resolved) H/O colectomy (Resolved) Generalized weakness (Acute) Fatigue (Acute) Tachycardia (Acute) Near syncope (Acute) Acute kidney injury (Resolved) Acute pyelonephritis (Resolved) Clostridium difficile diarrhea (Resolved) Herpes zoster (Resolved) Recurrent colitis due to Clostridium difficile (Resolved) Urinary tract infection (Resolved) Ileus (Ruled-out) Impressions 1. Acute on chronic renal failure stage III-secondary to dehydration secondary to intractable nausea/vomiting 2. Orthostatic hypotension 3. Lung cancer-currently being treated with radiation 4. Chronic renal failure stage III 5. History of colon cancer/status post colectomy-in remission 6. Coronary artery disease with history of PCI 7. Hypertension 8. Hyperlipidemia 9. Diabetes mellitus type 2 10. Anxiety/depression 11. Dyspnea on exertion-secondary to deconditioning or anginal equivalent? Awaiting the pre-cert from the insurance company no new orders Code Visit Inpatient E&M: [id number] Subs Hosp L2
[2018-05-02] MEDS: Insulin Lispro 100 UNIT/ML INSULN.PEN 6 UNIT SC (17:09)
[2018-05-02] MEDS: Insulin Lispro 100 UNIT/ML INSULN.PEN SC ×2 (17:09→21:46)
[2018-05-02 18:16] LABS: Bedside Glucose 204 mg/dL (70-110)
[2018-05-02] MEDS: Atorvastatin Calcium 40 MG Tablet PO (21:38)
[2018-05-02] MEDS: OLANZapine 5 MG/TAB TAB.RAPDIS PO (21:38)
[2018-05-02] MEDS: Acetaminophen 325 MG Tablet 650 MG PO (21:39)
[2018-05-02] MEDS: oxyCODONE 5 MG Tablet PO (21:39)
[2018-05-02 21:56] LABS: Bedside Glucose 177 mg/dL (70-110)
[2018-05-03] VITALS (13 sets, daily range): BP systolic 109–159; BP diastolic 49–91; PULSE 70–92; RESP 12–18; TEMP 36.4–37.1; O2SAT 93–100
[2018-05-03] MEDS: Meclizine 12.5 MG Tablet PO ×3 (05:28→21:39)
[2018-05-03 06:51] LABS: Bedside Glucose 103 mg/dL (70-110)
[2018-05-03] MEDS: Ceftriaxone 1 GM/50 ML BAG IV (08:57)
[2018-05-03] MEDS: Venlafaxine XR 150 MG Capsule PO (08:57)
[2018-05-03] MEDS: Heparin Injection (Vial) 5,000 UNIT/ML VIAL 5000 UNIT SC ×2 (08:57→21:39)
[2018-05-03] MEDS: amLODIPine 5 MG Tablet PO (08:58)
[2018-05-03] MEDS: 0.9% NaCl Peripheral Flush Adult/Peds IV ×2 (08:58→10:02)
[2018-05-03] MEDS: buPROPion (XL) 150 MG TABLET.XL PO (08:58)
[2018-05-03] MEDS: Clopidogrel Bisulfate 75 MG Tablet PO (08:58)
[2018-05-03] MEDS: Aspirin E.C. 81 MG Tablet PO (08:58)
[2018-05-03] MEDS: Gabapentin 300 MG Capsule PO ×3 (08:59→17:25)
[2018-05-03] MEDS: Carvedilol 25 MG Tablet PO ×2 (09:00→21:39)
[2018-05-03] MEDS: Insulin Lispro 100 UNIT/ML INSULN.PEN 6 UNIT SC ×2 (12:18→17:24)
[2018-05-03] MEDS: Insulin Lispro 100 UNIT/ML INSULN.PEN SC ×2 (12:19→17:24)
[2018-05-03 12:22] LABS: Bedside Glucose 192 mg/dL (70-110)
--- NOTE | 2018-05-03 15:58 | PN_ITS ---
Patient Problems: Active and Suspected Problems (Last Updated 01/05/18 @ 12:57 by BRYSON Andersen C) ARIEL (acute kidney injury) (Acute) Viral syndrome (Acute) Subjective: The patient is a 77-year-old female with a past medical history of VTE, CAD with PCI, hypertension, hyperlipidemia, benign positional vertigo, stage I diastolic dysfunction, chronic renal failure stage III, diabetes mellitus type 2, anxiety/depression, prior CVA, colon cancer status post colectomy with chronic loose stool and lung cancer with most recent radiation 2 weeks prior to presentation to the emergency room who presented to the emergency room at [facility] on 04/29/2018 complaining of nausea/vomiting/lightheadedness?vertigo for the previous 4-5 days. Creatinine at admission was 2.76 with a BUN of 66. Her creatinine in November 2017 was 1.14. She was admitted to the hospital with a diagnosis of acute renal failure secondary to dehydration. She had a stress test on Friday which was negative for ischemia....she has a hx of CAD and has been having FOX which is most likely due to deconditioning. All events the past 24 hours been reviewed. She is afebrile and vital signs are stable. Pulse ox on room air is 97-100%. Oral intake is improving and she has had 660 orally today. She has urinated and had a bowel movement today. Blood sugars are well controlled. Objective: GENERAL: alert, oriented X 3, Cooperative, NAD, pleasant ORAL: Dry mucosa, no mucosal lesions NECK: No JVD, supple, trachea midline LUNGS: CTA, symmetric chest expansion, no rales, no rhonchi, no wheezing HEART: RRR, Normal S1 and S2, no rub, no gallop ABDOMEN: soft, NT, ND, BS present, no guarding with palpation EXTREMITIES: no edema, no cyanosis, no calf tenderness SKIN: No rashes, no breakdown NEUROLOGIC: no focal neurologic deficits PSYCH: appropriate, normal affect, pleasant - Physical Exam Vital Signs Temp Pulse Resp BP Pulse Ox 98.4 F 87 12 123/59 H 100 05/03/18 14:38 05/03/18 14:38 05/03/18 14:38 05/03/18 14:38 05/03/18 14:38 Oxygen Delivery Method Room Air Weight: 153 lb 0.013 oz Body Mass Index (BMI) 28.9 Finger Stick Blood Glucose 236 Orthostatic Vital Signs Start: 04/30/18 00:48 Freq: q24h Status: Active Protocol: Activity Type Activity Date Activity User E-Sign Co-Sign Detail Recorded Client Recorded Date Recorded By Document 05/03/18 05:21 [id number] 05/03/18 05:27 [id number] 05/03/18 05:21 Orthostatic Vitals Standing -Blood Pressure (90/60-120/80 mm Hg) 119/62 -Extremity Use Right Arm -Pulse Rate (60-100 beats/min) 78 Sitting -Blood Pressure (90/60-120/80 mm Hg) 119/91 H -Extremity Use Right Arm -Pulse Rate (60-100 beats/min) 80 Lying -Blood Pressure (90/60-120/80 mm Hg) 109/49 L -Extremity Use Right Arm -Pulse Rate (60-100 beats/min) 82 Intake and Output for Last 24 Hours 05/01/18 05/02/18 05/03/18 23:59 23:59 23:59 Intake Total 5751 / 5751 744 / 744 716 / 716 Balance 5751 / 5751 744 / 744 716 / 716 Microbiology Past 72 Hours 04/29/18 21:52 Blood Culture - Preliminary Blood Culture (Wb) - Anticubital Right No growth in 48 hours. 04/29/18 21:35 Blood Culture - Preliminary Blood Culture (Wb) - Anticubital Left No growth in 48 hours. 04/29/18 23:00 Urine Culture - Final Urine, Clean Catch Mixed Gram Positive Organisms 04/29/18 21:20 Respiratory Panel (PCR) - Final Mucosa - Nasopharyngeal POC Glucose 05/03/18 05/03/18 05/02/18 12:14 06:45 21:42 POC Glucose 192 H 103 177 H 05/02/18 17:06 POC Glucose 204 H Medical Necessity - Tobacco Use Smoking Status: Never smoker Tobacco Use: Non-smoker Assessment/Plan All Active Problems (Last Updated 01/05/18 @ 12:57 by BRYSON AndersenC) ARIEL (acute kidney injury) (Acute) Viral syndrome (Acute) Atrial arrhythmia (Acute) H/O shoulder surgery (Resolved) H/O: hysterectomy (Resolved) H/O colectomy (Resolved) Generalized weakness (Acute) Fatigue (Acute) Tachycardia (Acute) Near syncope (Acute) Acute kidney injury (Resolved) Acute pyelonephritis (Resolved) Clostridium difficile diarrhea (Resolved) Herpes zoster (Resolved) Recurrent colitis due to Clostridium difficile (Resolved) Urinary tract infection (Resolved) Ileus (Ruled-out) Impressions 1. Acute on chronic renal failure stage III-secondary to dehydration secondary to intractable nausea/vomiting 2. Orthostatic hypotension-resolved 3. Lung cancer-currently being treated with radiation-last treatment 2 weeks ago 4. Chronic renal failure stage III 5. History of colon cancer/status post colectomy-in remission 6. Coronary artery disease with history of PCI 7. Hypertension 8. Hyperlipidemia 9. Diabetes mellitus type 2 10. Anxiety/depression 11. Dyspnea on exertion-secondary to deconditioning - stress was negative 12. Pancytopenia Awaiting the pre-cert from the insurance company recheck the lab in the AM Code Visit Inpatient E&M: [id number] [facility] L[facility]
[2018-05-03 17:02] LABS: Bedside Glucose 156 mg/dL (70-110)
[2018-05-03] MEDS: OLANZapine 5 MG/TAB TAB.RAPDIS PO (21:39)
[2018-05-03] MEDS: Atorvastatin Calcium 40 MG Tablet PO (21:39)
[2018-05-03] MEDS: Acetaminophen 325 MG Tablet 650 MG PO (21:45)
[2018-05-03] MEDS: oxyCODONE 5 MG Tablet PO (21:45)
[2018-05-03 21:46] LABS: Bedside Glucose 124 mg/dL (70-110)
[2018-05-04] VITALS (14 sets, daily range): BP systolic 99–168; BP diastolic 53–77; PULSE 66–144; RESP 16–20; TEMP 36.6–37.2; O2SAT 94–99
[2018-05-04] MEDS: Meclizine 12.5 MG Tablet PO ×3 (05:48→21:20)
[2018-05-04 06:46] LABS: Anion Gap 6 (5-15); BUN 15 mg/dL (7-18); BUN/Creat Ratio 14.6 RATIO (10-20); Chloride 116 mmol/L (98-107); Creatinine, Serum 1.03 mg/dL (0.55-1.02); EST Glomerular Filtration Rate 55 mL/min (>60); Est Glom Filt Rate - Afr Amer 67 mL/min (>60); Estimated Creatinine Clearance 33.97 ml/min; Glucose 70 mg/dL (74-106); Magnesium 1.5 mg/dL (1.6-2.6); Phosphorus 2.9 mg/dL (2.5-4.9); Potassium 4.1 mmol/L (3.5-5.1); Sodium Level 143 mmol/L (136-145)
[2018-05-04 07:02] LABS: Hematocrit 30.9 % (37-47); Hemoglobin 10.1 g/dl (12.0-15.0); Mean Corp Hgb Conc 32.7 g/gl (32-36); Mean Corpuscular Hgb 30.1 pg (27.0-32.0); Mean Platelet Vol. 10.6 fl (6.2-12.0); Platelet Count 150 K/mm3 (150-450); RBC Distribution Width CV 14.5 % (11.6-14.6); RBC Distribution Width SD 47.3 fl (35.1-43.9); Red Blood Count 3.36 M/mm3 (4.2-5.4); White Blood Count 5.4 K/mm3 (4.4-11.0)
[2018-05-04 07:05] LABS: Scan Indicated on CBC? Y/N NO
[2018-05-04 07:16] LABS: Bedside Glucose 66 mg/dL (70-110)
[2018-05-04 08:10] LABS: Bedside Glucose 87 mg/dL (70-110)
--- NOTE | 2018-05-04 09:57 | CASEMGMT ---
Per ENRIQUE Mijares, referral needs sent to [facility]. Call placed to facility, voicemail left at extension [phone]. Referral faxed to [phone], confirmation received. Malka Mata LPN Clinical Support
[2018-05-04] MEDS: Carvedilol 25 MG Tablet PO ×2 (10:22→21:20)
[2018-05-04] MEDS: amLODIPine 5 MG Tablet PO (10:22)
[2018-05-04] MEDS: Venlafaxine XR 150 MG Capsule PO (10:22)
[2018-05-04] MEDS: Gabapentin 300 MG Capsule PO ×3 (10:22→16:26)
[2018-05-04] MEDS: Aspirin E.C. 81 MG Tablet PO (10:22)
[2018-05-04] MEDS: Clopidogrel Bisulfate 75 MG Tablet PO (10:22)
[2018-05-04] MEDS: buPROPion (XL) 150 MG TABLET.XL PO (10:22)
[2018-05-04] MEDS: Heparin Injection (Vial) 5,000 UNIT/ML VIAL 5000 UNIT SC ×2 (10:23→21:22)
[2018-05-04] MEDS: 0.9% NaCl Peripheral Flush Adult/Peds IV (10:27)
[2018-05-04] MEDS: Ceftriaxone 1 GM/50 ML BAG IV (10:27)
--- NOTE | 2018-05-04 11:07 | CASEMGMT ---
Spoke to admissions at [facility]. Facility is able to accept patient and submitted for pre-cert with insurance. Shirley Mijares updated. Malka Mata LPN Clinical Support
[2018-05-04 12:01] LABS: Bedside Glucose 152 mg/dL (70-110)
--- NOTE | 2018-05-04 12:44 | PN_ITS ---
Patient Problems: Active and Suspected Problems (Last Updated 01/05/18 @ 12:57 by Dominick Sánchez NP- C) ARIEL (acute kidney injury) (Acute) Viral syndrome (Acute) Subjective: Patient seen and examined. Feels well. Complains of generalized weakness. - Physical Exam General: Alert, Oriented x3, Cooperative HEENT: Atraumatic, PERRLA, EOMI, Normocephalic Neck: Supple, No JVD, Negative Carotid Bruits Lungs: Clear to auscultation, Diminished, - - Occasional expiratory wheeze Cardiovascular: Regular rate, Regular Rhythm, Normal S1, Normal S2, No murmurs Abdomen: Bowel Sounds Present, Soft, Non Tender, Non-Distended Extremities: No clubbing, No cyanosis, No edema, Capillary Refill Less than 3 Seconds Skin: No rashes, No breakdown Musculoskeletal: No Tenderness to Palpation of Joints or Extremities Neurological: Cranial nerves II-XII grossly intact, Neuro grossly intact Psych/Mental Status: Normal Affect, Appropriate Vital Signs Temp Pulse Resp BP Pulse Ox 98.7 F 94 16 161/75 H 98 05/04/18 10:19 05/04/18 10:19 05/04/18 10:19 05/04/18 10:19 05/04/18 10:19 Oxygen Delivery Method Room Air Weight: 153 lb 0.013 oz Body Mass Index (BMI) 28.9 Finger Stick Blood Glucose 236 Orthostatic Vital Signs Start: 04/30/18 00:48 Freq: q24h Status: Active Protocol: Activity Type Activity Date Activity User E-Sign Co-Sign Detail Recorded Client Recorded Date Recorded By Document 05/04/18 05:50 8 [id number] 05/04/18 05:56 8 05/04/18 05:50 Orthostatic Vitals Standing -Blood Pressure (90/60-120/80) 143/64 H -Extremity Use Right Arm -Pulse Rate (60-100) 75 Sitting -Blood Pressure (90/60-120/80) 122/63 H -Extremity Use Right Arm -Pulse Rate (60-100) 76 Lying -Blood Pressure (90/60-120/80) 106/55 L -Extremity Use Right Arm -Pulse Rate (60-100) 78 Intake and Output for Last 24 Hours 05/02/18 05/03/18 05/04/18 23:59 23:59 23:59 Intake Total 744 / 744 956 / 956 240 / 240 Balance 744 / 744 956 / 956 240 / 240 Microbiology Past 72 Hours 04/29/18 21:52 Blood Culture - Preliminary Blood Culture (Wb) - Anticubital Right No growth in 48 hours. 04/29/18 21:35 Blood Culture - Preliminary Blood Culture (Wb) - Anticubital Left No growth in 48 hours. 04/29/18 23:00 Urine Culture - Final Urine, Clean Catch Mixed Gram Positive Organisms Laboratory Tests Past 24 Hrs 05/04/18 05/04/18 06:10 06:10 WBC 5.4 RBC 3.36 L Hgb 10.1 L Hct 30.9 L MCV 92.0 MCH 30.1 MCHC 32.7 RDW 14.5 RDW Differential 47.3 H Plt Count 150 MPV 10.6 Sodium 143 Potassium 4.1 Chloride 116 H Carbon Dioxide 21.0 Anion Gap 6 BUN 15 Creatinine 1.03 H Estim Creat Clear Calc 33.97 Est GFR (MDRD) Af Amer 67 Est GFR (MDRD) Non-Af 55 L BUN/Creatinine Ratio 14.6 Glucose 70 L Calcium 9.0 Phosphorus 2.9 Magnesium 1.5 L POC Glucose 05/04/18 05/04/18 05/04/18 11:54 07:40 07:11 POC Glucose 152 H 87 66 L 05/03/18 05/03/18 21:36 16:56 POC Glucose 124 H 156 H Medical Necessity - Tobacco Use Smoking Status: Never smoker Tobacco Use: Non-smoker Assessment/Plan All Active Problems (Last Updated 01/05/18 @ 12:57 by Dominick Sánchez NP-C) ARIEL (acute kidney injury) (Acute) Viral syndrome (Acute) Atrial arrhythmia (Acute) H/O shoulder surgery (Resolved) H/O: hysterectomy (Resolved) H/O colectomy (Resolved) Generalized weakness (Acute) Fatigue (Acute) Tachycardia (Acute) Near syncope (Acute) Acute kidney injury (Resolved) Acute pyelonephritis (Resolved) Clostridium difficile diarrhea (Resolved) Herpes zoster (Resolved) Recurrent colitis due to Clostridium difficile (Resolved) Urinary tract infection (Resolved) Ileus (Ruled-out) 1. Acute kidney injury on chronic kidney disease stage III-acute kidney injury secondary to dehydration as a result of intractable nausea/vomiting. ARIEL resolved with IV fluids. N/V resolved. Trend BMP. Encourage oral intake. 2. Chest pain/dyspnea on exertion-patient underwent stress test that was negative for ischemia. Gated ejection fraction 76%. Suspect dyspnea on exertion due to deconditioning. Chest pain may be related to ongoing radiation for lung cancer. 3. Lung cancer, currently undergoing radiation with last treatment 2 weeks ago 4. Type 2 diabetes mellitus-hemoglobin A1c 8.4%. Continue home insulin regimen. Accu-Cheks ACHS with SSI. 5. CAD status post PTCA-continue aspirin, statin, Plavix, beta-selma. 6. Hypertension-Continue home carvedilol, amlodipine regimen. 7. History of metastatic colon cancer-status post colectomy, in remission. 8. GERD-not on home regimen. 9. Anxiety/depression-continue home regimen. 10. Hyperlipidemia-continue statin. 11. History of PE status post IVC filter 12. History of TIA-continue aspirin, statin. DVT prophylaxis-heparin subcu Discharge planning: SNF pending pre-cert. This patient was seen by YUMI Berumen under the supervision of Dr. Treviño.
--- NOTE | 2018-05-04 14:07 | CASEMGMT ---
SW spoke with patient and let her know there is a good chance she may get denied. She is fine going home if she is denied. She goes to adult daycare daily so it is hard to have home health. She is gone daily until 330p. SW told her SW will let her know when SW hears from them. Maryana MORALES
--- NOTE | 2018-05-04 14:25 | CASEMGMT ---
Received call back from Suzan, admissions at [facility]. Facility submitted pre-cert for intermediate LOC. Malka Mata LPN Clinical Support
[2018-05-04] MEDS: Insulin Lispro 100 UNIT/ML INSULN.PEN 6 UNIT SC (17:13)
[2018-05-04 18:16] LABS: Bedside Glucose 199 mg/dL (70-110)
[2018-05-04] MEDS: Insulin Lispro 100 UNIT/ML INSULN.PEN SC (21:20)
[2018-05-04 21:21] LABS: Bedside Glucose 174 mg/dL (70-110)
[2018-05-04] MEDS: Atorvastatin Calcium 40 MG Tablet PO (21:21)
[2018-05-04] MEDS: OLANZapine 5 MG/TAB TAB.RAPDIS PO (21:22)
[2018-05-04] MEDS: oxyCODONE 5 MG Tablet PO (21:29)
[2018-05-05] VITALS (7 sets, daily range): BP systolic 107–147; BP diastolic 43–70; PULSE 71–102; RESP 14–16; TEMP 36.6–36.8; O2SAT 97
[2018-05-05] MEDS: Meclizine 12.5 MG Tablet PO ×2 (05:40→13:30)
[2018-05-05 06:52] LABS: Anion Gap 6 (5-15); BUN 14 mg/dL (7-18); BUN/Creat Ratio 13.6 RATIO (10-20); Calcium,Total 8.9 mg/dL (8.5-10.1); Chloride 114 mmol/L (98-107); Creatinine, Serum 1.03 mg/dL (0.55-1.02); EST Glomerular Filtration Rate 55 mL/min (>60); Est Glom Filt Rate - Afr Amer 67 mL/min (>60); Estimated Creatinine Clearance 33.97 ml/min; Glucose 105 mg/dL (74-106); Potassium 4.1 mmol/L (3.5-5.1); Sodium Level 141 mmol/L (136-145)
[2018-05-05 07:16] LABS: Bedside Glucose 96 mg/dL (70-110)
[2018-05-05] MEDS: Aspirin E.C. 81 MG Tablet PO (08:38)
[2018-05-05] MEDS: buPROPion (XL) 150 MG TABLET.XL PO (08:38)
[2018-05-05] MEDS: Gabapentin 300 MG Capsule PO ×2 (08:38→12:11)
[2018-05-05] MEDS: amLODIPine 5 MG Tablet PO (08:38)
[2018-05-05] MEDS: Clopidogrel Bisulfate 75 MG Tablet PO (08:38)
[2018-05-05] MEDS: Carvedilol 25 MG Tablet PO (08:38)
[2018-05-05] MEDS: Venlafaxine XR 150 MG Capsule PO (08:38)
[2018-05-05] MEDS: Heparin Injection (Vial) 5,000 UNIT/ML VIAL 5000 UNIT SC (08:51)
--- NOTE | 2018-05-05 10:33 | PCM.EXTCARCO ---
- Diet 05/02/18 12:31 Diet: Cardiac/Low Cholesterol Food consistency:: Regular Liquid Consistency:: Regular/Thin Type of Dietary Supplement:: Glucerna Shake Is pt able to select menu?: Yes Diet Comments: 1800 - Routine Orders/Code Status Enema Type: Fleetz Enema Frequency: Daily PRN Suppository Type: Dulcolax 10mg Suppository Frequency: Daily PRN Routine Lab Work: CBC, BMP, - - In 3 days and then Q Week. Code Status: Full Code - Suggestions for Active Care Change Position every (hours): 2 Times a day to sit in chair: 3 - Therapies Physical Therapy: Eval and Treat Occupational Therapy: Eval and Treat - Problem/Diagnosis (1) ARIEL (acute kidney injury) Status: Acute Current Visit: Yes (2) Essential (primary) hypertension Status: Chronic Current Visit: No (3) Pure hypercholesterolemia Status: Chronic Current Visit: No (4) Atherosclerosis of [place] coronary artery of [place] heart without angina pectoris Status: Chronic Comment: 01/05/2017 SHEKHAR to mid RCA & POBA to ostial PDA PCI-Stent 2006, 2009 & 2010 Current Visit: No (5) Atrial arrhythmia Status: Chronic Current Visit: No (6) History of coronary artery stent placement Status: Chronic Comment: 01/05/2017 SHEKHAR to mid RCA & POBA to ostial PDA PCI-Stent 2006, 2009 & 2010 Current Visit: No (7) H/O shoulder surgery Status: Resolved Current Visit: No (8) H/O: hysterectomy Status: Resolved Current Visit: No (9) H/O colectomy Status: Resolved Current Visit: No (10) Generalized weakness Status: Acute Current Visit: Yes (11) Colon carcinoma Status: Chronic Comment: S/P partial colon resection Current Visit: No (12) Diabetes Status: Chronic Current Visit: No (13) 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 Comment: s/p colon resection remote, lung metastases diagnosed 2014, s/p adjuvant chemotherapy, s/p stereotactic XRT [facility], follows [facility] Current Visit: No (14) S/P ORIF (open reduction internal fixation) fracture Status: Chronic Comment: left ankle, 09/14/14, Dr Harvey, [facility] Current Visit: No (15) Presence of IVC filter Status: Chronic Current Visit: No (16) H/O deep venous thrombosis Status: Chronic Comment: now has an IVC filter Current Visit: No (17) Polyneuropathy Status: Chronic Current Visit: No (18) Pulmonary embolism Status: Resolved Current Visit: No (19) Chronic renal failure, stage 3 (moderate) Status: Chronic Current Visit: No (20) Anxiety and depression Status: Chronic Comment: uncontrolled Current Visit: No (21) GERD (gastroesophageal reflux disease) Status: Chronic Current Visit: No - Allergies/Procedures Done in Hospital Allergies/Adverse Reactions: Allergies promethazine HCl [From Phenergan] Allergy (Verified 04/29/18 20:43) seizures thai rice Adverse Reaction (Severe, Uncoded 04/29/18 20:43) Unknown Procedures: Nuclear Stress Test - Type of Care/Length of Stay Estimated LOS: Convalescent Care Less Than 30 days Type of Care Needed: Intermediate Rehab Potential: Good Prognosis: Fair - Additional Orders/Day of Discharge H&P will serve as current which was dated: 04/29/18 Day of Discharge: 05/05/18 - Dietary and Speech Recommendations Dietitian Recommendations/Changes: Continue 1800 calorie controlled, caridac diet. Will d/c ONS w/ medpass as it is ordered w/ meals. - Follow Up Care Primary Care Physician: Donald Cline MD [Primary Care Provider] - Please follow up with your Primary Care Physician in: 1 Week Please Follow Up With: Oncology When: As scheduled
--- NOTE | 2018-05-05 10:37 | TREXTCA.CO_ITS ---
- Diet 05/02/18 12:31 Diet: Cardiac/Low Cholesterol Food consistency:: Regular Liquid Consistency:: Regular/Thin Type of Dietary Supplement:: Glucerna Shake Is pt able to select menu?: Yes Diet Comments: 1800 - Routine Orders/Code Status Enema Type: Fleetz Enema Frequency: Daily PRN Suppository Type: Dulcolax 10mg Suppository Frequency: Daily PRN Routine Lab Work: CBC, BMP, - - In 3 days and then Q Week. Code Status: Full Code - Suggestions for Active Care Change Position every (hours): 2 Times a day to sit in chair: 3 - Therapies Physical Therapy: Eval and Treat Occupational Therapy: Eval and Treat - Problem/Diagnosis (1) ARIEL (acute kidney injury) Status: Acute Current Visit: Yes (2) Essential (primary) hypertension Status: Chronic Current Visit: No (3) Pure hypercholesterolemia Status: Chronic Current Visit: No (4) Atherosclerosis of [place] coronary artery of [place] heart without angina pectoris Status: Chronic Comment: 01/05/2017 SHEKHAR to mid RCA & POBA to ostial PDA PCI-Stent 2006, 2009 & 2010 Current Visit: No (5) Atrial arrhythmia Status: Chronic Current Visit: No (6) History of coronary artery stent placement Status: Chronic Comment: 01/05/2017 SHEKHAR to mid RCA & POBA to ostial PDA PCI-Stent 2006, 2009 & 2010 Current Visit: No (7) H/O shoulder surgery Status: Resolved Current Visit: No (8) H/O: hysterectomy Status: Resolved Current Visit: No (9) H/O colectomy Status: Resolved Current Visit: No (10) Generalized weakness Status: Acute Current Visit: Yes (11) Colon carcinoma Status: Chronic Comment: S/P partial colon resection Current Visit: No (12) Diabetes Status: Chronic Current Visit: No (13) 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 Comment: s/p colon resection remote, lung metastases diagnosed 2014, s/p adjuvant chemotherapy, s/p stereotactic XRT [facility], follows [facility] Current Visit: No (14) S/P ORIF (open reduction internal fixation) fracture Status: Chronic Comment: left ankle, 09/14/14, Dr Harvey, [facility] Current Visit: No (15) Presence of IVC filter Status: Chronic Current Visit: No (16) H/O deep venous thrombosis Status: Chronic Comment: now has an IVC filter Current Visit: No (17) Polyneuropathy Status: Chronic Current Visit: No (18) Pulmonary embolism Status: Resolved Current Visit: No (19) Chronic renal failure, stage 3 (moderate) Status: Chronic Current Visit: No (20) Anxiety and depression Status: Chronic Comment: uncontrolled Current Visit: No (21) GERD (gastroesophageal reflux disease) Status: Chronic Current Visit: No - Allergies/Procedures Done in Hospital Allergies/Adverse Reactions: Allergies promethazine HCl [From Phenergan] Allergy (Verified 04/29/18 20:43) seizures korean rice Adverse Reaction (Severe, Uncoded 04/29/18 20:43) Unknown Procedures: Nuclear Stress Test - Type of Care/Length of Stay Estimated LOS: Convalescent Care Less Than 30 days Type of Care Needed: Intermediate Rehab Potential: Good Prognosis: Fair - Additional Orders/Day of Discharge H&P will serve as current which was dated: 04/29/18 Day of Discharge: 05/05/18 - Dietary and Speech Recommendations Dietitian Recommendations/Changes: Continue 1800 calorie controlled, caridac diet. Will d/c ONS w/ medpass as it is ordered w/ meals. - Follow Up Care Primary Care Physician: Donald Cline MD [Primary Care Provider] - Please follow up with your Primary Care Physician in: 1 Week Please Follow Up With: Oncology When: As scheduled
--- NOTE | 2018-05-05 10:42 | CASEMGMT ---
Received voicemail from Suzan at [facility]. Pre-cert obtained for patient to d/c today to SNF. Phone number for admissions [phone]. Fax number for d/c information is [phone]. Phone number for nurse to nurse report is [phone]. ENRIQUE Mijares notified that pre-cert was obtained. Malka Mata LPN Clinical Support
--- NOTE | 2018-05-05 10:43 | PCM.DC.SUM ---
Discharge Date and Diagnosis Date of Admission: 04/29/18 Date of Discharge: 05/05/18 - Primary Discharge Diagnosis Active and Suspected Problems (Last Updated 01/05/18 @ 12:57 by YUMI Andersen) 1. Acute kidney injury on chronic kidney disease stage III 2. Dyspnea on exertion due to deconditioning 3. Lung cancer, currently undergoing radiation 4. Type 2 diabetes mellitus 5. CAD status post PTCA 6. Hypertension 7. History of metastatic colon cancer 8. GERD 9. Anxiety/depression 10. Hyperlipidemia 11. History of PE status post IVC filter 12. History of TIA 13. UTI ruled out - Secondary Discharge Diagnosis Chronic Problems (Last Updated 01/05/18 @ 12:57 by YUMI Andersen) Essential (primary) hypertension (Chronic) Pure hypercholesterolemia (Chronic) Atherosclerosis of [place] coronary artery of [place] heart without angina pectoris (Chronic) 01/05/2017 SHEKHAR to mid RCA & POBA to ostial PDA PCI-Stent 2006, 2009 & 2010 Atrial arrhythmia (Chronic) History of coronary artery stent placement (Chronic ~01/05/17) 01/05/2017 SHEKHAR to mid RCA & POBA to ostial PDA PCI-Stent 2006, 2009 & 2010 Colon carcinoma (Chronic) S/P partial colon resection Diabetes (Chronic) 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) s/p colon resection remote, lung metastases diagnosed 2014, s/p adjuvant chemotherapy, s/p stereotactic XRT [facility], follows [facility] S/P ORIF (open reduction internal fixation) fracture (Chronic) left ankle, 09/14/14, Dr Harvey, [facility] Presence of IVC filter (Chronic) H/O deep venous thrombosis (Chronic) now has an IVC filter Polyneuropathy (Chronic) Chronic renal failure, stage 3 (moderate) (Chronic) Anxiety and depression (Chronic) uncontrolled GERD (gastroesophageal reflux disease) (Chronic) Hospital Course and Treatment Imaging Results: Diagnostic Data Brain CT 04/29/18 21:05 IMPRESSION: Chronic involutional changes of the brain. 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 Hyperostosis frontalis interna which is of no clinical significance. Findings are stable in the interval. Electronically Signed: Luis Felipe Gonzalez MD at 22:23 EST , Service support , Chest X-Ray 04/29/18 21:25 IMPRESSION: Right upper lobe mass measuring 3.7 x 3.7 cm in diameter with tail extending to the pleural surface, slightly decreased in size from the prior study where it measured 3.7 x 5.0 cm. Borderline heart size. Left-sided MediPort noted. Calcified plaques of the aortic arch. Electronically Signed: Luis Felipe Gonzalez MD at 21:44 EST , Service support , Operations: None Procedures: Stress test Summary of Care Provided: The patient is a 77 year old F admitted 04/29/18 due to nausea, emesis, lightheadedness and fall. 1. Acute kidney injury on chronic kidney disease stage III-acute kidney injury secondary to dehydration as a result of intractable nausea/vomiting. ARIEL resolved with IV fluids. N/V resolved. Encourage oral intake. Repeat BMP weekly. Follow-up with primary care physician in 1 week. 2. Chest pain/dyspnea on exertion-patient underwent stress test that was negative for ischemia. Gated ejection fraction 76%. Suspect dyspnea on exertion due to deconditioning. Chest pain may be related to ongoing radiation for lung cancer. Follow up with oncology as scheduled. 3. Lung cancer, currently undergoing radiation with last treatment 2 weeks ago 4. Type 2 diabetes mellitus-hemoglobin A1c 8.4%. Continue home insulin regimen. 5. CAD status post PTCA-continue aspirin, statin, Plavix, beta-gilles. 6. Hypertension-Continue home carvedilol, amlodipine regimen. 7. History of metastatic colon cancer-status post colectomy, in remission. 8. GERD-not on home regimen. 9. Anxiety/depression-continue home regimen. 10. Hyperlipidemia-continue statin. 11. History of PE status post IVC filter 12. History of TIA-continue aspirin, statin. 13. Acute cystitis suspected initially and patient was treated with IV Rocephin however culture showed mixed contaminants- UTI RULED OUT General: Alert, Oriented x3, Cooperative HEENT: Atraumatic, PERRLA, EOMI, Normocephalic Neck: Supple, No JVD, Negative Carotid Bruits Lungs: Clear to auscultation, Diminished Cardiovascular: Regular rate, Regular Rhythm, Normal S1, Normal S2, No murmurs Abdomen: Bowel Sounds Present, Soft, Non Tender, Non-Distended Extremities: No clubbing, No cyanosis, No edema, Capillary Refill Less than 3 Seconds Skin: No rashes, No breakdown Musculoskeletal: No Tenderness to Palpation of Joints or Extremities Neurological: Cranial nerves II-XII grossly intact, Neuro grossly intact Psych/Mental Status: Normal Affect, Appropriate Patient seen and examined prior to discharge. Physical assessment as noted above. Patient is stable for discharge with follow up recommendations as noted above. This patient was seen by YUMI Berumen under the supervision of Dr. Treviño. - Physical Exam Vital Signs Temp Pulse Resp BP Pulse Ox 97.8 F 96 14 147/70 H 97 05/05/18 08:23 05/05/18 08:23 05/05/18 08:23 05/05/18 08:23 05/05/18 08:23 Oxygen Delivery Method Room Air Weight: 153 lb 0.013 oz Body Mass Index (BMI) 28.9 Finger Stick Blood Glucose 236 Orthostatic Vital Signs Start: 04/30/18 00:48 Freq: q24h Status: Active Protocol: Activity Type Activity Date Activity User E-Sign Co-Sign Detail Recorded Client Recorded Date Recorded By Document 05/05/18 05:41 [facility] [place] [id number] 05/05/18 05:54 [facility] [place] 05/05/18 05:41 Orthostatic Vitals Standing -Blood Pressure (90/60-120/80) 107/56 L -Extremity Use Right Arm -Pulse Rate (60-100) 102 H Sitting -Blood Pressure (90/60-120/80) 131/55 H -Extremity Use Right Arm -Pulse Rate (60-100) 82 Lying -Blood Pressure (90/60-120/80) 147/57 H -Extremity Use Right Arm -Pulse Rate (60-100) 79 Intake and Output for Last 24 Hours 05/03/18 05/04/18 05/05/18 23:59 23:59 23:59 Intake Total 956 / 956 800 / 800 0 / 0 Balance 956 / 956 800 / 800 0 / 0 Microbiology Past 72 Hours 04/29/18 21:35 Blood Culture - Final Blood Culture (Wb) - Anticubital Left No growth in 5 days. 04/29/18 21:52 Blood Culture - Preliminary Blood Culture (Wb) - Anticubital Right No growth in 48 hours. Laboratory Tests Past 24 Hrs 05/05/18 05:50 Sodium 141 Potassium 4.1 Chloride 114 H Carbon Dioxide 21.0 Anion Gap 6 BUN 14 Creatinine 1.03 H Estim Creat Clear Calc 33.97 Est GFR (MDRD) Af Amer 67 Est GFR (MDRD) Non-Af 55 L BUN/Creatinine Ratio 13.6 Glucose 105 Calcium 8.9 POC Glucose 05/05/18 05/04/18 05/04/18 07:03 21:12 16:20 POC Glucose 96 174 H 199 H 05/04/18 11:54 POC Glucose 152 H Home Medications: Medications to take at Discharge Atorvastatin Calcium [Lipitor] 40 mg PO QHS 07/09/15 Multivitamin [Daily Multiple Vitamin] 1 tab PO DAILY 07/09/15 buPROPion XL [Wellbutrin Xl] 150 mg PO DAILY 09/20/16 Aspirin E.C. [Ecotrin] 81 mg PO DAILY@0800 02/26/17 Clopidogrel Bisulfate [Plavix] 75 mg PO DAILY 02/26/17 Oxycodone HCl/Acetaminophen [Percocet 7.5-325 mg Tablet] 1 tab PO TID PRN PRN 02/27/17 Insulin Aspart [Novolog Flexpen] 6 units SC TIDCM 07/09/17 Insulin Glargine,Hum.rec.anlog [Toujeo Solostar] 41 units SQ QHS 07/09/17 Venlafaxine XR [Effexor Xr] 150 mg PO DAILY 07/09/17 Carvedilol [Coreg (Beta Gilles)] 25 mg PO BID 07/28/17 Gabapentin [Neurontin] 300 mg PO TIDCM 07/28/17 Amlodipine [Norvasc] 5 mg PO DAILY #30 tab 08/01/17 Lorazepam [Ativan] 1 mg PO BID PRN PRN #30 tab 08/01/17 Ondansetron [Zofran Odt] 4 mg PO Q8H PRN PRN #30 tab 08/01/17 Olanzapine [Zyprexa] 5 mg PO QHS 09/19/17 Primary Care Physician: Donald Cline MD [Primary Care Provider] - Please follow up with your Primary Care Physician in: 1 Week Please Follow Up With: Oncology When: As scheduled Disposition: Nursing Home facility Minutes spent on discharge:: 35 Patient Condition:: Stable Medical Necessity - Tobacco Use Smoking Status: Never smoker Tobacco Use: Non-smoker Meaningful Use Info Meaningful Use Diagnoses (Choose all that apply): None applicable
--- NOTE | 2018-05-05 10:57 | DS.PCM_ITS ---
Discharge Date and Diagnosis Date of Admission: 04/29/18 Date of Discharge: 05/05/18 - Primary Discharge Diagnosis Active and Suspected Problems (Last Updated 01/05/18 @ 12:57 by BRYSON Andersen) 1. Acute kidney injury on chronic kidney disease stage III 2. Dyspnea on exertion due to deconditioning 3. Lung cancer, currently undergoing radiation 4. Type 2 diabetes mellitus 5. CAD status post PTCA 6. Hypertension 7. History of metastatic colon cancer 8. GERD 9. Anxiety/depression 10. Hyperlipidemia 11. History of PE status post IVC filter 12. History of TIA 13. UTI ruled out - Secondary Discharge Diagnosis Chronic Problems (Last Updated 01/05/18 @ 12:57 by YUMI Andersen) Essential (primary) hypertension (Chronic) Pure hypercholesterolemia (Chronic) Atherosclerosis of [place] coronary artery of [place] heart without angina pectoris (Chronic) 01/05/2017 SHEKHAR to mid RCA & POBA to ostial PDA PCI-Stent 2006, 2009 & 2010 Atrial arrhythmia (Chronic) History of coronary artery stent placement (Chronic ~01/05/17) 01/05/2017 SHEKHAR to mid RCA & POBA to ostial PDA PCI-Stent 2006, 2009 & 2010 Colon carcinoma (Chronic) S/P partial colon resection Diabetes (Chronic) 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) s/p colon resection remote, lung metastases diagnosed 2014, s/p adjuvant chemotherapy, s/p stereotactic XRT [facility], follows [facility] S/P ORIF (open reduction internal fixation) fracture (Chronic) left ankle, 09/14/14, Dr Harvey, [facility] Presence of IVC filter (Chronic) H/O deep venous thrombosis (Chronic) now has an IVC filter Polyneuropathy (Chronic) Chronic renal failure, stage 3 (moderate) (Chronic) Anxiety and depression (Chronic) uncontrolled GERD (gastroesophageal reflux disease) (Chronic) Hospital Course and Treatment Imaging Results: Diagnostic Data Brain CT 04/29/18 21:05 IMPRESSION: Chronic involutional changes of the brain. 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 Hyperostosis frontalis interna which is of no clinical significance. Findings are stable in the interval. Electronically Signed: Luis Felipe Gonzalez MD at 22:23 EST , Service support , Chest X-Ray 04/29/18 21:25 IMPRESSION: Right upper lobe mass measuring 3.7 x 3.7 cm in diameter with tail extending to the pleural surface, slightly decreased in size from the prior study where it measured 3.7 x 5.0 cm. Borderline heart size. Left-sided MediPort noted. Calcified plaques of the aortic arch. Electronically Signed: Luis Felipe Gonzalez MD at 21:44 EST , Service support , Operations: None Procedures: Stress test Summary of Care Provided: The patient is a 77 year old F admitted 04/29/18 due to nausea, emesis, lightheadedness and fall. 1. Acute kidney injury on chronic kidney disease stage III-acute kidney injury secondary to dehydration as a result of intractable nausea/vomiting. ARIEL resolved with IV fluids. N/V resolved. Encourage oral intake. Repeat BMP weekly . Follow-up with primary care physician in 1 week. 2. Chest pain/dyspnea on exertion-patient underwent stress test that was negative for ischemia. Gated ejection fraction 76%. Suspect dyspnea on exertion due to deconditioning. Chest pain may be related to ongoing radiation for lung cancer. Follow up with oncology as scheduled. 3. Lung cancer, currently undergoing radiation with last treatment 2 weeks ago 4. Type 2 diabetes mellitus-hemoglobin A1c 8.4%. Continue home insulin regimen. 5. CAD status post PTCA-continue aspirin, statin, Plavix, beta-gilles. 6. Hypertension-Continue home carvedilol, amlodipine regimen. 7. History of metastatic colon cancer-status post colectomy, in remission. 8. GERD-not on home regimen. 9. Anxiety/depression-continue home regimen. 10. Hyperlipidemia-continue statin. 11. History of PE status post IVC filter 12. History of TIA-continue aspirin, statin. 13. Acute cystitis suspected initially and patient was treated with IV Rocephin however culture showed mixed contaminants- UTI RULED OUT General: Alert, Oriented x3, Cooperative HEENT: Atraumatic, PERRLA, EOMI, Normocephalic Neck: Supple, No JVD, Negative Carotid Bruits Lungs: Clear to auscultation, Diminished Cardiovascular: Regular rate, Regular Rhythm, Normal S1, Normal S2, No murmurs Abdomen: Bowel Sounds Present, Soft, Non Tender, Non-Distended Extremities: No clubbing, No cyanosis, No edema, Capillary Refill Less than 3 Seconds Skin: No rashes, No breakdown Musculoskeletal: No Tenderness to Palpation of Joints or Extremities Neurological: Cranial nerves II-XII grossly intact, Neuro grossly intact Psych/Mental Status: Normal Affect, Appropriate Patient seen and examined prior to discharge. Physical assessment as noted above. Patient is stable for discharge with follow up recommendations as noted above. This patient was seen by YUMI Berumen under the supervision of Dr. Treviño. - Physical Exam Vital Signs Temp Pulse Resp BP Pulse Ox 97.8 F 96 14 147/70 H 97 05/05/18 08:23 05/05/18 08:23 05/05/18 08:23 05/05/18 08:23 05/05/18 08:23 Oxygen Delivery Method Room Air Weight: 153 lb 0.013 oz Body Mass Index (BMI) 28.9 Finger Stick Blood Glucose 236 Orthostatic Vital Signs Start: 04/30/18 00:48 Freq: q24h Status: Active Protocol: Activity Type Activity Date Activity User E-Sign Co-Sign Detail Recorded Client Recorded Date Recorded By Document 05/05/18 05:41 [facility] [place] [id number] 05/05/18 05:54 [facility] [place] 05/05/18 05:41 Orthostatic Vitals Standing -Blood Pressure (90/60-120/80) 107/56 L -Extremity Use Right Arm -Pulse Rate (60-100) 102 H Sitting -Blood Pressure (90/60-120/80) 131/55 H -Extremity Use Right Arm -Pulse Rate (60-100) 82 Lying -Blood Pressure (90/60-120/80) 147/57 H -Extremity Use Right Arm -Pulse Rate (60-100) 79 Intake and Output for Last 24 Hours 05/03/18 05/04/18 05/05/18 23:59 23:59 23:59 Intake Total 956 / 956 800 / 800 0 / 0 Balance 956 / 956 800 / 800 0 / 0 Microbiology Past 72 Hours 04/29/18 21:35 Blood Culture - Final Blood Culture (Wb) - Anticubital Left No growth in 5 days. 04/29/18 21:52 Blood Culture - Preliminary Blood Culture (Wb) - Anticubital Right No growth in 48 hours. Laboratory Tests Past 24 Hrs 05/05/18 05:50 Sodium 141 Potassium 4.1 Chloride 114 H Carbon Dioxide 21.0 Anion Gap 6 BUN 14 Creatinine 1.03 H Estim Creat Clear Calc 33.97 Est GFR (MDRD) Af Amer 67 Est GFR (MDRD) Non-Af 55 L BUN/Creatinine Ratio 13.6 Glucose 105 Calcium 8.9 POC Glucose 05/05/18 05/04/18 05/04/18 07:03 21:12 16:20 POC Glucose 96 174 H 199 H 05/04/18 11:54 POC Glucose 152 H Home Medications: Medications to take at Discharge Atorvastatin Calcium [Lipitor] 40 mg PO QHS 07/09/15 Multivitamin [Daily Multiple Vitamin] 1 tab PO DAILY 07/09/15 buPROPion XL [Wellbutrin Xl] 150 mg PO DAILY 09/20/16 Aspirin E.C. [Ecotrin] 81 mg PO DAILY@0800 02/26/17 Clopidogrel Bisulfate [Plavix] 75 mg PO DAILY 02/26/17 Oxycodone HCl/Acetaminophen [Percocet 7.5-325 mg Tablet] 1 tab PO TID PRN PRN 02/27/17 Insulin Aspart [Novolog Flexpen] 6 units SC TIDCM 07/09/17 Insulin Glargine,Hum.rec.anlog [Toujeo Solostar] 41 units SQ QHS 07/09/17 Venlafaxine XR [Effexor Xr] 150 mg PO DAILY 07/09/17 Carvedilol [Coreg (Beta Gilles)] 25 mg PO BID 07/28/17 Gabapentin [Neurontin] 300 mg PO TIDCM 07/28/17 Amlodipine [Norvasc] 5 mg PO DAILY #30 tab 08/01/17 Lorazepam [Ativan] 1 mg PO BID PRN PRN #30 tab 08/01/17 Ondansetron [Zofran Odt] 4 mg PO Q8H PRN PRN #30 tab 08/01/17 Olanzapine [Zyprexa] 5 mg PO QHS 09/19/17 Primary Care Physician: Donald Cline MD [Primary Care Provider] - Please follow up with your Primary Care Physician in: 1 Week Please Follow Up With: Oncology When: As scheduled Disposition: [facility] facility Minutes spent on discharge:: 35 Patient Condition:: Stable Medical Necessity - Tobacco Use Smoking Status: Never smoker Tobacco Use: Non-smoker Meaningful Use Info Meaningful Use Diagnoses (Choose all that apply): None applicable
--- NOTE | 2018-05-05 11:27 | PHA.DC.MR ---
Pharmacy Service has performed discharge medication reconciliation for this patient upon transfer to [facility]. The patient's discharge medication list was reviewed for discrepancies and discrepancies were resolved. Home Medications Atorvastatin Calcium [Lipitor] 40 mg PO QHS 07/09/15 Multivitamin [Daily Multiple Vitamin] 1 tab PO DAILY 07/09/15 buPROPion XL [Wellbutrin Xl] 150 mg PO DAILY 09/20/16 Aspirin E.C. [Ecotrin] 81 mg PO DAILY@0800 02/26/17 Clopidogrel Bisulfate [Plavix] 75 mg PO DAILY 02/26/17 Oxycodone HCl/Acetaminophen [Percocet 7.5-325 mg Tablet] 1 tab PO TID PRN PRN 02/27/17 Insulin Aspart [Novolog Flexpen] 6 units SC TIDCM 07/09/17 Insulin Glargine,Hum.rec.anlog [Toujeo Solostar] 41 units SQ QHS 07/09/17 Venlafaxine XR [Effexor Xr] 150 mg PO DAILY 07/09/17 Carvedilol [Coreg (Beta Gilles)] 25 mg PO BID 07/28/17 Gabapentin [Neurontin] 300 mg PO TIDCM 07/28/17 Amlodipine [Norvasc] 5 mg PO DAILY #30 tab 08/01/17 Lorazepam [Ativan] 1 mg PO BID PRN PRN #30 tab 08/01/17 Ondansetron [Zofran Odt] 4 mg PO Q8H PRN PRN #30 tab 08/01/17 Olanzapine [Zyprexa] 5 mg PO QHS 09/19/17
--- NOTE | 2018-05-05 11:31 | CASEMGMT ---
Patient was approved to go to [facility]. Faxed orders to [facility]. Completed convalescent on [facility]. Called [facility] and arranged for patient to get picked up at [facility] via [facility]. ENRIQUE notified RN, patient, her daughter, executive secretary social welfare, and Suzan Morse at [facility]. ENRIQUE called Carlyle from [facility] and left her a voice mail letting her know about discharge. Plan: d/c to [facility] under skilled level of care on a convalescent stay. [facility] transported her via [facility].
[2018-05-05 11:46] LABS: Bedside Glucose 198 mg/dL (70-110)
[2018-05-05] MEDS: Insulin Lispro 100 UNIT/ML INSULN.PEN 6 UNIT SC (12:10)
--- NOTE | 2018-05-05 13:55 | NURSING ---
report called to Jennyfer blackwell [facility] at this time
== END 2018-05-05 14:45 | disposition skilled nursing facility (03) | DRG 683 ==
LOC: ED 21:20 → PCU 23:15
PROVIDERS: Internal Medicine; Nurse Practitioner Family; Admitting Provider Family Medicine; Emergency Provider Emergency Medicine; Family Provider Family Medicine; PCP Family Medicine; Visit Provider Internal Medicine
DX: N17.9 Acute kidney failure, unspecified (principal); C78.01 Secondary malignant neoplasm of right lung; E86.0 Dehydration; I25.10 Atherosclerotic heart disease of native coronary artery without angina pectoris; I12.9 Hypertensive chronic kidney disease with stage 1 through stage 4 chronic kidney disease, or unspecified chronic kidney disease; E11.22 Type 2 diabetes mellitus with diabetic chronic kidney disease; N18.3 Chronic kidney disease, stage 3 (moderate); E78.5 Hyperlipidemia, unspecified; F41.9 Anxiety disorder, unspecified; R11.2 Nausea with vomiting, unspecified; I95.1 Orthostatic hypotension; K21.9 Gastro-esophageal reflux disease without esophagitis; F32.9 Major depressive disorder, single episode, unspecified; Z86.711 Personal history of pulmonary embolism; Z92.3 Personal history of irradiation; Z90.49 Acquired absence of other specified parts of digestive tract; Z95.5 Presence of coronary angioplasty implant and graft; Z86.718 Personal history of other venous thrombosis and embolism; Z85.038 Personal history of other malignant neoplasm of large intestine; Z86.73 Personal history of transient ischemic attack (TIA), and cerebral infarction without residual deficits; Z79.4 Long term (current) use of insulin; Z79.82 Long term (current) use of aspirin; Z95.828 Presence of other vascular implants and grafts
CPT/HCPCS: 36415; 70450; 71045; 78452; 80048; 80053; 81001; 82962; 83036; 83605; 83690; 83735; 84100; 84484; 85025; 85027; 85610; 85730; 87040; 87086; 87088; 87633; 87804; 93005; 93017; 97110; 97116; 97162; 97166; 97530; 97535; 97802; 99285; A9500; J7030; J7040; A4216; J2405; J2785

== ENCOUNTER 2018-05-10 15:15 | Observation (INO) | payer MEDICARE, SELFPAY ==
[2018-04-30 00:20] VITALS: BMI 28.9
[2018-05-10 15:16] VITALS: BP 119/57; PULSE 79; RESP 16; TEMP 36.8; O2SAT 93; BMI 31.8
--- NOTE | 2018-05-10 15:33 | EKG12_ITS ---
Test Reason : Blood Pressure : / mmHG Vent. Rate : 077 BPM Atrial Rate : 077 BPM P-R Int : 146 ms QRS Dur : 082 ms QT Int : 360 ms P-R-T Axes : 019 -16 036 degrees QTc Int : 407 ms Normal sinus rhythm Normal ECG Confirmed by MARIO BURROUGHS, JOSIANE ([id number]), content editor ELIZABET DAVISON ([id number] on 05/12/2018 4:35:40 PM Referred By: PATY/ANASTACIO Confirmed By:JOSIANE MARTIN MD
--- NOTE | 2018-05-10 15:34 | CT_ITS ---
STUDY: CT PELVIS WITHOUT CONTRAST REASON FOR EXAM: Female, 77 years old. Follow-up [facility] today, left groin pain RADIATION DOSAGE (If Supplied By Facility): CTDIvol = ( 16.66 ) mGy, DLP = ( 524.15 ) mGycm TECHNIQUE: Transaxial imaging of the pelvis was performed without oral contrast, and without intravenous administration of contrast material. Individualized dose optimization techniques were used for this CT. COMPARISON: Abdomen/pelvis CT from 09/19/2017 FINDINGS: Motta catheter decompresses the urinary bladder. Normal visualized small intestine. There is a surgical anastomosis of the sigmoid colon. There is no pelvic fluid. There is no pelvic mass lesion or lymphadenopathy. There is diffuse atherosclerotic calcification of the pelvic arteries with elongation and tortuosity. Normal abdominal wall. There are degenerative changes of the visualized lumbar spine with canal stenosis at L4-L5. Grade 1 spondylolisthesis of L5-S1 demonstrated. The sacrum is grossly intact. The bilateral sacroiliac joints and pubic symphysis are normally aligned. The bilateral hips are normally aligned. There is a comminuted fracture of the left acetabulum with approximately 4.6 mm of displacement. The fracture extends into the superior pubic ramus. The fracture also extends superiorly to involve the base of the left iliac crest/ileum (axial image 43). The visualized left femur is intact without evidence of fracture. CT/Pelvis without IV Contrast IMPRESSION: 1. Left acetabulum fracture with extension into the superior ramus and base of the left ilium/iliac crest. 2. Normally aligned bilateral hips. 3. Additional chronic changes, as above. Electronically Signed: Karsten Marshall MD at 17:20 EST , Service support ,
--- NOTE | 2018-05-10 15:36 | ED.VISSUMM ---
- ER Visit Summary Date of Service: 05/10/18 Chief Complaint: Fall History of Present Illness: The patient is a 77 F who presents with left hip pain that began after a fall today. Patient states she went to the bathroom and when she turned around she became dizzy and fell. Patient denies any loss of consciousness. Patient states her pain is sharp and is worse with any movement or ambulating. Patient states her pain gets better with rest. Patient denies any chest pain or palpitations. Patient denies any paresthesias or weakness. Patient had an outpatient x-ray done at the facility which shows a nondisplaced left acetabular fracture. CT scan was recommended. Physical Examination: Vital signs are stable. Patient is afebrile. Patient is in no acute distress. Oral mucosa is pink and moist. Heart was regular rate and rhythm. Lungs are clear and equal bilateral. Abdomen is soft and nontender. Musculoskeletal exam reveals tenderness of the left hip. There is no deformity noted. Range of motion was limited all motions of the left hip secondary to pain. Sensation was intact to light touch bilaterally. Strength is 5/5 bilaterally. The remaining physical exam is within normal limits. Test Results: CT scan of the pelvis was obtained. There is a nondisplaced fracture of the acetabulum. EKG showed a normal sinus rhythm with a rate of 77. There are no acute ST or T wave changes. Basic metabolic profile showed an elevated creatinine 1.58. This was increased compared to previous results. Potassium was elevated at 6.2. CBC showed a mild anemia with a hemoglobin 9.6 and hematocrit 31.0. White blood cell count was 11.1. Urinalysis was normal. Chest x-ray does not show any acute cardiopulmonary process. Emergency Department Course and Treatment: Patient was given IV calcium, insulin, glucose for the hyperkalemia. Case was discussed with the hospitalist. He will admit the patient for observation. Patient and family understood and were agreeable with the plan. All questions were answered. Disposition: Admit to hospital Impression: 1. Syncope 2. Left acetabular fracture This note was generated with [employer] software. It may contain incorrect words, spelling, and punctuation that were not noted in review of the chart prior to signing ED Disposition - Plan for ED Patient: Disposition: Acute Care Hospital [facility] Diagnosis: Syncope, Closed left acetabular fracture Referrals: Donald Cline MD [Primary Care Provider] -
--- NOTE | 2018-05-10 15:40 | ED.DCSUM_ITS ---
- ER Visit Summary Date of Service: 05/10/18 Chief Complaint: Fall History of Present Illness: The patient is a 77 F who presents with left hip pain that began after a fall today. Patient states she went to the bathroom and when she turned around she became dizzy and fell. Patient denies any loss of consciousness. Patient states her pain is sharp and is worse with any movement or ambulating. Patient states her pain gets better with rest. Patient denies any chest pain or palpitations. Patient denies any paresthesias or weakness. Patient had an outpatient x-ray done at the facility which shows a nondisplaced left acetabular fracture. CT scan was recommended. Physical Examination: Vital signs are stable. Patient is afebrile. Patient is in no acute distress. Oral mucosa is pink and moist. Heart was regular rate and rhythm. Lungs are clear and equal bilateral. Abdomen is soft and nontender. Musculoskeletal exam reveals tenderness of the left hip. There is no deformity noted. Range of motion was limited all motions of the left hip secondary to pain. Sensation was intact to light touch bilaterally. Strength is 5/5 bilaterally. The remaining physical exam is within normal limits. Test Results: CT scan of the pelvis was obtained. There is a nondisplaced fracture of the acetabulum. EKG showed a normal sinus rhythm with a rate of 77. There are no acute ST or T wave changes. Basic metabolic profile showed an elevated creatinine 1.58. This was increased compared to previous results. Potassium was elevated at 6.2. CBC showed a mild anemia with a hemoglobin 9.6 and hematocrit 31.0. White blood cell count was 11.1. Urinalysis was normal. Chest x-ray does not show any acute cardiopulmonary process. Emergency Department Course and Treatment: Patient was given IV calcium, insulin , glucose for the hyperkalemia. Case was discussed with the hospitalist. He will admit the patient for observation. Patient and family understood and were agreeable with the plan. All questions were answered. Disposition: Admit to hospital Impression: 1. Syncope 2. Left acetabular fracture This note was generated with [employer] software. It may contain incorrect words, spelling, and punctuation that were not noted in review of the chart prior to signing ED Disposition - Plan for ED Patient: Disposition: Acute Care Hospital [facility] Diagnosis: Syncope, Closed left acetabular fracture Referrals: Donald Cline MD [Primary Care Provider] -
--- NOTE | 2018-05-10 15:49 | RAD_ITS ---
STUDY: X-RAY CHEST REASON FOR EXAM: Female, 77 years old. Fall, history of hypertension and lung cancer TECHNIQUE: AP COMPARISON: 04/29/2018 FINDINGS: Left jugular central venous catheter is stable with the tip at the junction of the left brachiocephalic vein and SVC. Mass in the right upper lobe is grossly similar with elevation of the right hemidiaphragm. No airspace consolidation is seen. Normal size heart. Normal mediastinum and rodolfo. Normal visualized pulmonary arteries. There is atherosclerotic calcification of the aortic arch with tortuosity. No acute bony process. There is no demonstrated abnormality of the visualized soft tissue structures of the upper abdomen. RAD/Chest 1 View (Portable) IMPRESSION: 1. Stable, nonacute x-ray examination of the chest. 2. Right upper lobe mass. Electronically Signed: Karsten Marshall MD at 16:41 EST , Service support ,
[2018-05-10] MEDS: Morphine 4 MG/ML Syringe IV (16:02)
[2018-05-10 16:19] VITALS: BP 104/69; PULSE 77; RESP 15; O2SAT 94
[2018-05-10 16:19] LABS: Bacteria 0 SEEN /hpf (None Seen); Mucous, Urine 0 SEEN /hpf (<or=2+); Red Blood Cells-Urine 0 SEEN /hpf (0-5); Squamous Epithelial Cells - UA 0 SEEN /hpf (5-10); White Blood Cells 0 SEEN /hpf (0-5)
[2018-05-10 16:24] LABS: Color, Urine Yellow (Yellow); Glucose, Dipstick Normal (Normal); Ketone-Dipstick Negative (Negative); Leukocyte Esterase-Dipstick Negative /ul (Negative); Nitrite-Dipstick Negative (Negative); Occult Blood-Urine Negative /ul (Negative); Protein-Dipstick 30 mg/dl (Negative); Urine Bilirubin Dipstick Negative (Negative); Urine Clarity Clear (Clear); Urine Urobilinogen Normal (Normal)
[2018-05-10 16:26] LABS: Absolute Lymphocyte Count 0.66 X10^3/ul (0.83-4.51); Absolute Neutrophil Count 9.4 X10^3/uL (2.0-7.7); Basophil# 0.02 X10^3/uL; Basophil% 0.2 % (0-1); Eosinophil# 0.21 X10^3/uL; Eosinophils% 1.9 % (0-5); Hemoglobin 9.6 g/dl (12.0-15.0); Lymphocyte # 0.66 X10^3/ul (4.0); Lymphocyte % 5.9 % (19-41); Mean Corpuscular Volume 93.7 fL (81-99); Mean Platelet Vol. 10.4 fl (6.2-12.0); Monocyte# 0.78 X10^3/uL; Neutrophil % 84.6 % (47-70); Platelet Count 156 K/mm3 (150-450); RBC Distribution Width CV 14.9 % (11.6-14.6); RBC Distribution Width SD 48.8 fl (35.1-43.9); Red Blood Count 3.31 M/mm3 (4.2-5.4); White Blood Count 11.1 K/mm3 (4.4-11.0)
[2018-05-10 16:33] LABS: POSITIVE COUNT NO; POSITIVE DIFFERENTIAL NO; POSITIVE MORPHOLOGY NO
[2018-05-10 16:44] LABS: Anion Gap 8 (5-15); BUN 28 mg/dL (7-18); BUN/Creat Ratio 17.7 RATIO (10-20); Calcium,Total 8.7 mg/dL (8.5-10.1); Chloride 109 mmol/L (98-107); Creatinine, Serum 1.58 mg/dL (0.55-1.02); EST Glomerular Filtration Rate 34 mL/min (>60); Est Glom Filt Rate - Afr Amer 41 mL/min (>60); Estimated Creatinine Clearance 22.14 ml/min; Glucose 258 mg/dL (74-106); Potassium 6.2 mmol/L (3.5-5.1); Sodium Level 135 mmol/L (136-145)
--- NOTE | 2018-05-10 16:46 | ED.RN ---
dR. Cardoso AWARE OF K 6.2
[2018-05-10] MEDS: Calcium Gluconate 1 GM/10 ML Vial IV (17:53)
[2018-05-10] MEDS: Sodium Polystyrene Sulfonate 15 GM/60 ML UDC 30 GM PO (18:00)
[2018-05-10] MEDS: Dextrose 50%-Water 25 GM/50 ML DISP.SYRIN IV (18:00)
[2018-05-10 18:06] VITALS: BP 109/56; PULSE 90; RESP 17; O2SAT 94
--- NOTE | 2018-05-10 19:18 | PCM.HP.STD ---
Problem List (1) Syncope Status: Acute (2) Closed left acetabular fracture Status: Acute (3) ARIEL (acute kidney injury) Status: Acute (4) Essential (primary) hypertension Status: Chronic History of Present Illness Date of Admission: 05/10/18 Chief Complaint: Syncope with hip pain The patient is a 77 year old F with PMH as below who presents from home after having another episode of syncope. She states that she has had increasing diarrhea over the last several days, she does have chronic diarrhea, and this morning she got up and went to use the bathroom and after she used the bathroom she got up to put on her robe and the next thing she knew she was very dizzy and she fell against the door. She did not hit her head but states that on the way down she did not feel like she broke her hip. She presented to the ER and had a CT of her pelvis, which was positive for left acetabular fracture with extension to the superior ramus and base of the left iliac crest. Her vital signs are stable, and her labs were remarkable for an elevated creatinine to 1.58 as well as an elevated potassium to 6.2, EKG does not show any changes from the elevated potassium. Past Medical History Past Medical History (Chronic Problems): Chronic Problems (Last Updated 05/05/18 @ 10:43 by YUMI Berumen) Essential (primary) hypertension (Chronic) Pure hypercholesterolemia (Chronic) Atherosclerosis of [place] coronary artery of [place] heart without angina pectoris (Chronic) 01/05/2017 SHEKHAR to mid RCA & POBA to ostial PDA PCI-Stent 2006, 2009 & 2010 Atrial arrhythmia (Chronic) History of coronary artery stent placement (Chronic ~01/05/17) 01/05/2017 SHEKHAR to mid RCA & POBA to ostial PDA PCI-Stent 2006, 2009 & 2010 Colon carcinoma (Chronic) S/P partial colon resection Diabetes (Chronic) 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) s/p colon resection remote, lung metastases diagnosed 2014, s/p adjuvant chemotherapy, s/p stereotactic XRT [facility], follows [facility] S/P ORIF (open reduction internal fixation) fracture (Chronic) left ankle, 09/14/14, Dr Harvey, [facility] Presence of IVC filter (Chronic) H/O deep venous thrombosis (Chronic) now has an IVC filter Polyneuropathy (Chronic) Chronic renal failure, stage 3 (moderate) (Chronic) Anxiety and depression (Chronic) uncontrolled GERD (gastroesophageal reflux disease) (Chronic) Medical History: Medical History (Last Updated 05/05/18 @ 10:43 by YUMI Berumen) Essential (primary) hypertension (Chronic) I10 Pure hypercholesterolemia (Chronic) E78.00 Atherosclerosis of [place] coronary artery of [place] heart without angina pectoris (Chronic) I25.10 01/05/2017 SHEKHAR to mid RCA & POBA to ostial PDA PCI-Stent 2006, 2009 & 2010 Atrial arrhythmia (Chronic) I49.8 H/O: hysterectomy (Resolved) Z90.710 Generalized weakness (Acute) R53.1 Colon carcinoma (Chronic) C18.9 S/P partial colon resection Diabetes (Chronic) E11.9 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) s/p colon resection remote, lung metastases diagnosed 2014, s/p adjuvant chemotherapy, s/p stereotactic XRT [facility], follows [facility] S/P ORIF (open reduction internal fixation) fracture (Chronic) Z96.7, Z87.81 left ankle, 09/14/14, Dr Harvey, [facility] Presence of IVC filter (Chronic) Z95.828 H/O deep venous thrombosis (Chronic) Z86.718 now has an IVC filter Polyneuropathy (Chronic) G62.9 Chronic renal failure, stage 3 (moderate) (Chronic) N18.3 Anxiety and depression (Chronic) F41.8 uncontrolled GERD (gastroesophageal reflux disease) (Chronic) K21.[address] [place] [address] Z95.828 Pulmonary embolism (Resolved) I26.99 Hypotension (Inactive) I95.9 Recurrent fall (Inactive) Rib fracture (Inactive) S22.39XA Allergies promethazine HCl [From Phenergan] Allergy (Verified 05/10/18 15:17) seizures pakistani rice Adverse Reaction (Severe, Uncoded 05/10/18 15:17) Unknown Home Medications: Ambulatory Orders Medication Instructions Recorded Atorvastatin Calcium [Lipitor] 40 mg PO QHS 07/09/15 Multivitamin [Daily Multiple 1 tab PO DAILY 07/09/15 Vitamin] buPROPion XL [Wellbutrin Xl] 150 mg PO DAILY 09/20/16 Aspirin E.C. [Ecotrin] 81 mg PO DAILY@0800 02/26/17 Clopidogrel Bisulfate [Plavix] 75 mg PO DAILY 02/26/17 Oxycodone HCl/Acetaminophen 1 tab PO TID PRN PRN 02/27/17 [Percocet 7.5-325 mg Tablet] Insulin Glargine,Hum.rec.anlog 41 units SQ QHS 07/09/17 [Toudanisha Solostar] Venlafaxine XR [Effexor Xr] 150 mg PO DAILY 07/09/17 Carvedilol [Coreg (Beta Gilles)] 25 mg PO BID 07/28/17 Gabapentin [Neurontin] 300 mg PO TIDCM 07/28/17 Amlodipine [Norvasc] 5 mg PO DAILY #30 tab 08/01/17 Lorazepam [Ativan] 1 mg PO BID PRN PRN #30 tab 08/01/17 Ondansetron [Zofran Odt] 4 mg PO Q8H PRN PRN #30 tab 08/01/17 Olanzapine [Zyprexa] 5 mg PO QHS 09/19/17 Alendronate Sodium [Fosamax] 70 mg PO BURT 05/10/18 Celecoxib [Celebrex] 200 mg PO DAILY 05/10/18 Insulin Lispro [Humalog] 0 unit SQ TID 05/10/18 Nystatin Powder [Mycostatin Powder] 1 applic TOPICAL TID 05/10/18 Surgical History: Surgical History (Last Reviewed 09/05/17 @ 13:57 by Aldo Romero MD) History of coronary artery stent placement (Chronic) Onset Date: ~01/05/17 Z95.5 01/05/2017 SHEKHAR to mid RCA & POBA to ostial PDA PCI-Stent 2006, 2009 & 2010 H/O shoulder surgery (Resolved) Z98.890 H/O colectomy (Resolved) Z90.49 Surgical History: colectomy, hysterectomy, - - Multiple cardiac stent placement, colectomy, bilateral cataract surgery, hysterectomy, left ankle surgery, left wrist surgery. Psychiatric History: Anxiety, Depression PEDIATRIC GENETICIST History: No pertinent PEDIATRIC GENETICIST history Smoking Status: Never smoker - *Family History Maternal Family History: Family History (Last Reviewed 09/05/17 @ 13:57 by Aldo Romero MD) Mother Colon cancer Diabetes Heart disease Father Cancer History Items: Cancer - Mother with a history of rectal cancer., - - Mother with a history of rectal cancer and diabetes as well as stroke. Paternal Family History: Family History (Last Reviewed 09/05/17 @ 13:57 by Aldo Romero MD) Mother Colon cancer Diabetes Heart disease Father Cancer History Items: Cancer - Mother with history of lung cancer. Review of Systems Constitutional: Denies: Chills, Fever, Weight Change HEENT: Denies: Head Aches, Sinus Congestion, Sinus Drainage Cardiovascular: Denies: Chest Pain, Palpitations Respiratory: Denies: Cough, Shortness of breath at rest, Sputum production Gastrointestinal: Denies: Abdominal Pain, Nausea, Vomiting Genitourinary: Denies: Dysuria Musculoskeletal: Reports: - - Hip pain. Denies: Joint Pain, Joint Tenderness Skin: Denies: Rash, Wounds Neurological: Denies: Numbness, Tingling, Focal weakness Psychiatric: Denies: Anxiety, Depression Hematologic/ Lymphatic: Denies: Easy Bruising, Easy Bleeding VTE Information - Inpt Only VTE Present on Admission: No Patient Problems: Active and Suspected Problems (Last Updated 05/05/18 @ 10:43 by Malka Robledo NP-C) Syncope (Acute) Closed left acetabular fracture (Acute) - Physical Exam General: Alert, Oriented x3, Cooperative, No apparent distress HEENT: Atraumatic, PERRLA, EOMI, Normocephalic Oral: Moist Mucosa Neck: Supple, No JVD, Trachea Midline Lungs: Clear to auscultation, Normal air movement, No rhonchi, No wheeze, No rales, Diminished Cardiovascular: Regular rate, Regular Rhythm, Normal S1 Abdomen: Soft, Non Tender, Non-Distended, No Hepato-splenomegaly Extremities: No edema, Capillary Refill Less than 3 Seconds Skin: No rashes, No breakdown Musculoskeletal: Tenderness - With left lower extremity elevation Neurological: Neuro grossly intact, Sensory exam intact to light touch and pain Psych/Mental Status: Normal Affect, Appropriate Vital Signs Temp Pulse Resp BP Pulse Ox 98.3 F 90 17 109/56 L 94 05/10/18 15:16 05/10/18 18:06 05/10/18 18:06 05/10/18 18:06 05/10/18 18:06 Oxygen Delivery Method Room Air Weight: 168 lb 10.458 oz Body Mass Index (BMI) 31.8 Finger Stick Blood Glucose 236 Laboratory Tests Past 24 Hrs 05/10/18 05/10/18 05/10/18 16:00 16:00 16:00 WBC 11.1 H RBC 3.31 L Hgb 9.6 L Hct 31.0 L MCV 93.7 MCH 29.0 MCHC 31.0 L RDW 14.9 H RDW Differential 48.8 H Plt Count 156 MPV 10.4 Immature Gran % (Auto) 0.400 Neut % (Auto) 84.6 H Lymph % (Auto) 5.9 L [place] % (Auto) 7.0 Eos % (Auto) 1.9 Baso % (Auto) 0.2 Absolute Neuts (auto) 9.4 H Absolute Lymphs (auto) 0.66 L Total Counted Not Reportable Sodium 135 L Potassium 6.2 H* Chloride 109 H Carbon Dioxide 18.0 L Anion Gap 8 BUN 28 H Creatinine 1.58 H Estim Creat Clear Calc 22.14 Est GFR (MDRD) Af Amer 41 L Est GFR (MDRD) Non-Af 34 L BUN/Creatinine Ratio 17.7 Glucose 258 H Calcium 8.7 Urine Color Yellow Urine Clarity Clear Urine pH 5.0 Ur Specific [place] 1.010 Urine Protein 30 H Urine Glucose (UA) Normal Urine Ketones Negative Urine Occult Blood Negative Urine Nitrite Negative Urine Bilirubin Negative Urine Urobilinogen Normal Ur Leukocyte Esterase Negative Urine RBC 0 SEEN Urine WBC 0 SEEN Ur Squamous Epith Cells 0 SEEN Urine Bacteria 0 SEEN Urine Mucus 0 SEEN Assessment/Plan All Active Problems (Last Updated 05/05/18 @ 10:43 by Malka Robledo NP-C) Syncope (Acute) Closed left acetabular fracture (Acute) ARIEL (acute kidney injury) (Acute) H/O shoulder surgery (Resolved) H/O: hysterectomy (Resolved) H/O colectomy (Resolved) Generalized weakness (Acute) Acute kidney injury (Resolved) Acute pyelonephritis (Resolved) Clostridium difficile diarrhea (Resolved) Herpes zoster (Resolved) Pulmonary embolism (Resolved) Recurrent colitis due to Clostridium difficile (Resolved) Urinary tract infection (Resolved) Ileus (Ruled-out) 1. Vasovagal syncope resulting in a left acetabular fracture/osteoporosis -This fracture is likely nonoperative, can consult orthopedics in the morning for recommendations -She was recently admitted for syncope and had a workup that included a stress test which was negative -We will not perform any further syncopal workup as this is likely vasovagal secondary to her chronic diarrhea, and her dehydration -Continue with her home Percocet -She can continue on her weekly Fosamax dose 2. Acute kidney injury secondary to dehydration -On discharge she was with a creatinine of 1.03, currently 1.58 -She does appear to have quite the variation in her renal function likely has some component of chronic kidney disease -Continue with IV fluids 3. HTN/HLD/CAD status post stent -Everything appears to be stable, can continue with her home medications of Norvasc, Lipitor, aspirin, Coreg, Plavix 4. IDDM 2 -Can resume home insulin regimen -Accu-Cheks and sliding scale insulin for coverage 5. Anxiety/depression -Stable -Continue with Effexor and Wellbutrin DVT: Lovenox/SCDs Code Visit OBSV E&M: 47114 Initial observation care L3
--- NOTE | 2018-05-10 19:22 | HP.PCM_ITS ---
Problem List (1) Syncope Status: Acute (2) Closed left acetabular fracture Status: Acute (3) ARIEL (acute kidney injury) Status: Acute (4) Essential (primary) hypertension Status: Chronic History of Present Illness Date of Admission: 05/10/18 Chief Complaint: Syncope with hip pain The patient is a 77 year old F with PMH as below who presents from home after having another episode of syncope. She states that she has had increasing diarrhea over the last several days, she does have chronic diarrhea, and this morning she got up and went to use the bathroom and after she used the bathroom she got up to put on her robe and the next thing she knew she was very dizzy and she fell against the door. She did not hit her head but states that on the way down she did not feel like she broke her hip. She presented to the ER and had a CT of her pelvis, which was positive for left acetabular fracture with extension to the superior ramus and base of the left iliac crest. Her vital signs are stable, and her labs were remarkable for an elevated creatinine to 1.58 as well as an elevated potassium to 6.2, EKG does not show any changes from the elevated potassium. Past Medical History Past Medical History (Chronic Problems): Chronic Problems (Last Updated 05/05/18 @ 10:43 by YUMI Berumen) Essential (primary) hypertension (Chronic) Pure hypercholesterolemia (Chronic) Atherosclerosis of [place] coronary artery of [place] heart without angina pectoris (Chronic) 01/05/2017 SHEKHAR to mid RCA & POBA to ostial PDA PCI-Stent 2006, 2009 & 2010 Atrial arrhythmia (Chronic) History of coronary artery stent placement (Chronic ~01/05/17) 01/05/2017 SHEKHAR to mid RCA & POBA to ostial PDA PCI-Stent 2006, 2009 & 2010 Colon carcinoma (Chronic) S/P partial colon resection Diabetes (Chronic) 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) s/p colon resection remote, lung metastases diagnosed 2014, s/p adjuvant chemotherapy, s/p stereotactic XRT [facility], follows [facility] S/P ORIF (open reduction internal fixation) fracture (Chronic) left ankle, 09/14/14, Dr Harvey, [facility] Presence of IVC filter (Chronic) H/O deep venous thrombosis (Chronic) now has an IVC filter Polyneuropathy (Chronic) Chronic renal failure, stage 3 (moderate) (Chronic) Anxiety and depression (Chronic) uncontrolled GERD (gastroesophageal reflux disease) (Chronic) Medical History: Medical History (Last Updated 05/05/18 @ 10:43 by YUMI Berumen) Essential (primary) hypertension (Chronic) I10 Pure hypercholesterolemia (Chronic) E78.00 Atherosclerosis of [place] coronary artery of [place] heart without angina pectoris (Chronic) I25.10 01/05/2017 SHEKHAR to mid RCA & POBA to ostial PDA PCI-Stent 2006, 2009 & 2010 Atrial arrhythmia (Chronic) I49.8 H/O: hysterectomy (Resolved) Z90.710 Generalized weakness (Acute) R53.1 Colon carcinoma (Chronic) C18.9 S/P partial colon resection Diabetes (Chronic) E11.9 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) s/p colon resection remote, lung metastases diagnosed 2014, s/p adjuvant chemotherapy, s/p stereotactic XRT [facility], follows [facility] S/P ORIF (open reduction internal fixation) fracture (Chronic) Z96.7, Z87.81 left ankle, 09/14/14, Dr Harvey, [facility] Presence of IVC filter (Chronic) Z95.828 H/O deep venous thrombosis (Chronic) Z86.718 now has an IVC filter Polyneuropathy (Chronic) G62.9 Chronic renal failure, stage 3 (moderate) (Chronic) N18.3 Anxiety and depression (Chronic) F41.8 uncontrolled GERD (gastroesophageal reflux disease) (Chronic) K21.9 [place] filter in place Z95.828 Pulmonary embolism (Resolved) I26.99 Hypotension (Inactive) I95.9 Recurrent fall (Inactive) Rib fracture (Inactive) S22.39XA Allergies promethazine HCl [From Phenergan] Allergy (Verified 05/10/18 15:17) seizures palestinian rice Adverse Reaction (Severe, Uncoded 05/10/18 15:17) Unknown Home Medications: Ambulatory Orders Medication Instructions Recorded Atorvastatin Calcium [Lipitor] 40 mg PO QHS 07/09/15 Multivitamin [Daily Multiple 1 tab PO DAILY 07/09/15 Vitamin] buPROPion XL [Wellbutrin Xl] 150 mg PO DAILY 09/20/16 Aspirin E.C. [Ecotrin] 81 mg PO DAILY@0800 02/26/17 Clopidogrel Bisulfate [Plavix] 75 mg PO DAILY 02/26/17 Oxycodone HCl/Acetaminophen 1 tab PO TID PRN PRN 02/27/17 [Percocet 7.5-325 mg Tablet] Insulin Glargine,Hum.rec.anlog 41 units SQ QHS 07/09/17 [Toudanisha Solostar] Venlafaxine XR [Effexor Xr] 150 mg PO DAILY 07/09/17 Carvedilol [Coreg (Beta Gilles)] 25 mg PO BID 07/28/17 Gabapentin [Neurontin] 300 mg PO TIDCM 07/28/17 Amlodipine [Norvasc] 5 mg PO DAILY #30 tab 08/01/17 Lorazepam [Ativan] 1 mg PO BID PRN PRN #30 tab 08/01/17 Ondansetron [Zofran Odt] 4 mg PO Q8H PRN PRN #30 tab 08/01/17 Olanzapine [Zyprexa] 5 mg PO QHS 09/19/17 Alendronate Sodium [Fosamax] 70 mg PO BURT 05/10/18 Celecoxib [Celebrex] 200 mg PO DAILY 05/10/18 Insulin Lispro [Humalog] 0 unit SQ TID 05/10/18 Nystatin Powder [Mycostatin Powder] 1 applic TOPICAL TID 05/10/18 Surgical History: Surgical History (Last Reviewed 09/05/17 @ 13:57 by Aldo Romero MD) History of coronary artery stent placement (Chronic) Onset Date: ~01/05/17 Z95.5 01/05/2017 SHEKHAR to mid RCA & POBA to ostial PDA PCI-Stent 2006, 2009 & 2010 H/O shoulder surgery (Resolved) Z98.890 H/O colectomy (Resolved) Z90.49 Surgical History: colectomy, hysterectomy, - - Multiple cardiac stent placement, colectomy, bilateral cataract surgery, hysterectomy, left ankle surgery, left wrist surgery. 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 Paternal Family History: Family History (Last Reviewed 09/05/17 @ 13:57 by Aldo Romero MD) Mother Colon cancer Diabetes Heart disease Father Cancer History Items: Cancer - Mother with history of lung cancer. Review of Systems Constitutional: Denies: Chills, Fever, Weight Change HEENT: Denies: Head Aches, Sinus Congestion, Sinus Drainage Cardiovascular: Denies: Chest Pain, Palpitations Respiratory: Denies: Cough, Shortness of breath at rest, Sputum production Gastrointestinal: Denies: Abdominal Pain, Nausea, Vomiting Genitourinary: Denies: Dysuria Musculoskeletal: Reports: - - Hip pain. Denies: Joint Pain, Joint Tenderness Skin: Denies: Rash, Wounds Neurological: Denies: Numbness, Tingling, Focal weakness Psychiatric: Denies: Anxiety, Depression Hematologic/ Lymphatic: Denies: Easy Bruising, Easy Bleeding VTE Information - Inpt Only VTE Present on Admission: No Patient Problems: Active and Suspected Problems (Last Updated 05/05/18 @ 10:43 by Malka Robledo NP-C) Syncope (Acute) Closed left acetabular fracture (Acute) - Physical Exam General: Alert, Oriented x3, Cooperative, No apparent distress HEENT: Atraumatic, PERRLA, EOMI, Normocephalic Oral: Moist Mucosa Neck: Supple, No JVD, Trachea Midline Lungs: Clear to auscultation, Normal air movement, No rhonchi, No wheeze, No rales, Diminished Cardiovascular: Regular rate, Regular Rhythm, Normal S1 Abdomen: Soft, Non Tender, Non-Distended, No Hepato-splenomegaly Extremities: No edema, Capillary Refill Less than 3 Seconds Skin: No rashes, No breakdown Musculoskeletal: Tenderness - With left lower extremity elevation Neurological: Neuro grossly intact, Sensory exam intact to light touch and pain Psych/Mental Status: Normal Affect, Appropriate Vital Signs Temp Pulse Resp BP Pulse Ox 98.3 F 90 17 109/56 L 94 05/10/18 15:16 05/10/18 18:06 05/10/18 18:06 05/10/18 18:06 05/10/18 18:06 Oxygen Delivery Method Room Air Weight: 168 lb 10.458 oz Body Mass Index (BMI) 31.8 Finger Stick Blood Glucose 236 Laboratory Tests Past 24 Hrs 05/10/18 05/10/18 05/10/18 16:00 16:00 16:00 WBC 11.1 H RBC 3.31 L Hgb 9.6 L Hct 31.0 L MCV 93.7 MCH 29.0 MCHC 31.0 L RDW 14.9 H RDW Differential 48.8 H Plt Count 156 MPV 10.4 Immature Gran % (Auto) 0.400 Neut % (Auto) 84.6 H Lymph % (Auto) 5.9 L [place] % (Auto) 7.0 Eos % (Auto) 1.9 Baso % (Auto) 0.2 Absolute Neuts (auto) 9.4 H Absolute Lymphs (auto) 0.66 L Total Counted Not Reportable Sodium 135 L Potassium 6.2 H* Chloride 109 H Carbon Dioxide 18.0 L Anion Gap 8 BUN 28 H Creatinine 1.58 H Estim Creat Clear Calc 22.14 Est GFR (MDRD) Af Amer 41 L Est GFR (MDRD) Non-Af 34 L BUN/Creatinine Ratio 17.7 Glucose 258 H Calcium 8.7 Urine Color Yellow Urine Clarity Clear Urine pH 5.0 Ur Specific [place] 1.010 Urine Protein 30 H Urine Glucose (UA) Normal Urine Ketones Negative Urine Occult Blood Negative Urine Nitrite Negative Urine Bilirubin Negative Urine Urobilinogen Normal Ur Leukocyte Esterase Negative Urine RBC 0 SEEN Urine WBC 0 SEEN Ur Squamous Epith Cells 0 SEEN Urine Bacteria 0 SEEN Urine Mucus 0 SEEN Assessment/Plan All Active Problems (Last Updated 05/05/18 @ 10:43 by Malka Robledo NP-C) Syncope (Acute) Closed left acetabular fracture (Acute) ARIEL (acute kidney injury) (Acute) H/O shoulder surgery (Resolved) H/O: hysterectomy (Resolved) H/O colectomy (Resolved) Generalized weakness (Acute) Acute kidney injury (Resolved) Acute pyelonephritis (Resolved) Clostridium difficile diarrhea (Resolved) Herpes zoster (Resolved) Pulmonary embolism (Resolved) Recurrent colitis due to Clostridium difficile (Resolved) Urinary tract infection (Resolved) Ileus (Ruled-out) 1. Vasovagal syncope resulting in a left acetabular fracture/osteoporosis -This fracture is likely nonoperative, can consult orthopedics in the morning for recommendations -She was recently admitted for syncope and had a workup that included a stress test which was negative -We will not perform any further syncopal workup as this is likely vasovagal secondary to her chronic diarrhea, and her dehydration -Continue with her home Percocet -She can continue on her weekly Fosamax dose 2. Acute kidney injury secondary to dehydration -On discharge she was with a creatinine of 1.03, currently 1.58 -She does appear to have quite the variation in her renal function likely has some component of chronic kidney disease -Continue with IV fluids 3. HTN/HLD/CAD status post stent -Everything appears to be stable, can continue with her home medications of Norvasc, Lipitor, aspirin, Coreg, Plavix 4. IDDM 2 -Can resume home insulin regimen -Accu-Cheks and sliding scale insulin for coverage 5. Anxiety/depression -Stable -Continue with Effexor and Wellbutrin DVT: Lovenox/SCDs Code Visit OBSV E&M: [id number] Initial observation care L3
[2018-05-10 19:50] VITALS: BMI 29.2; BMI 29.3
[2018-05-10 19:54] VITALS: BP 145/62; PULSE 88; RESP 18; TEMP 36.6; O2SAT 94
[2018-05-10] MEDS: Nystatin Powder 15gm Bottle 1 APPLIC TOPICAL (20:14)
[2018-05-10] MEDS: 0.9% Normal Saline 1,000 ML 100 ML IV (20:14)
[2018-05-10] MEDS: Carvedilol 25 MG Tablet PO (20:15)
[2018-05-10] MEDS: Atorvastatin Calcium 40 MG Tablet PO (20:15)
[2018-05-10] MEDS: OLANZapine 5 MG/TAB TAB.RAPDIS PO (20:15)
[2018-05-10] MEDS: oxyCODONE 5 MG Tablet 7.5 MG PO (20:20)
--- NOTE | 2018-05-10 20:21 | NURSING ---
Pt requesting PM meds now as she normally takes them at 1800.
[2018-05-10 20:25] LABS: Bedside Glucose 156 mg/dL (70-110)
[2018-05-11 02:00] VITALS: BP 148/69; PULSE 106; RESP 16; TEMP 37.1; O2SAT 98
[2018-05-11] MEDS: LORazepam 1 MG Tablet PO (02:14)
[2018-05-11] MEDS: oxyCODONE 5 MG Tablet 7.5 MG PO ×2 (05:27→09:51)
[2018-05-11] MEDS: Nystatin Powder 15gm Bottle 1 APPLIC TOPICAL (05:28)
[2018-05-11] MEDS: 0.9% Normal Saline 1,000 ML 100 ML IV (05:29)
[2018-05-11 06:14] LABS: Anion Gap 9 (5-15); BUN 20 mg/dL (7-18); BUN/Creat Ratio 15.6 RATIO (10-20); Chloride 114 mmol/L (98-107); Creatinine, Serum 1.28 mg/dL (0.55-1.02); EST Glomerular Filtration Rate 43 mL/min (>60); Est Glom Filt Rate - Afr Amer 52 mL/min (>60); Estimated Creatinine Clearance 28.65 ml/min; Glucose 147 mg/dL (74-106); Potassium 4.7 mmol/L (3.5-5.1); Sodium Level 140 mmol/L (136-145)
[2018-05-11 06:20] LABS: Absolute Lymphocyte Count 0.48 X10^3/ul (0.83-4.51); Absolute Neutrophil Count 7.3 X10^3/uL (2.0-7.7); Basophil# 0.03 X10^3/uL; Basophil% 0.3 % (0-1); Eosinophils% 3.4 % (0-5); Hemoglobin 10.5 g/dl (12.0-15.0); Lymphocyte # 0.48 X10^3/ul (4.0); Lymphocyte % 5.4 % (19-41); Mean Corp Hgb Conc 31.8 g/gl (32-36); Mean Corpuscular Hgb 29.8 pg (27.0-32.0); Mean Corpuscular Volume 93.8 fL (81-99); Mean Platelet Vol. 10.5 fl (6.2-12.0); Monocyte# 0.64 X10^3/uL; Monocyte% 7.3 % (0-10); Neutrophil # 7.33 X10^3/uL (2.7-7.7); Neutrophil % 83.1 % (47-70); Platelet Count 159 K/mm3 (150-450); RBC Distribution Width CV 14.9 % (11.6-14.6); RBC Distribution Width SD 48.9 fl (35.1-43.9); Red Blood Count 3.52 M/mm3 (4.2-5.4); White Blood Count 8.8 K/mm3 (4.4-11.0)
[2018-05-11 06:23] LABS: Differential Indicated SCAN CRITERIA MET; POSITIVE COUNT NO; POSITIVE DIFFERENTIAL YES; POSITIVE MORPHOLOGY NO
[2018-05-11 07:54] VITALS: BP 175/88; PULSE 112; RESP 20; TEMP 36.8; O2SAT 94
[2018-05-11 08:00] VITALS: PULSE 112; O2SAT 94
[2018-05-11] MEDS: Enoxaparin 30 MG/0.3 ML Syringe SC (08:50)
[2018-05-11] MEDS: Gabapentin 300 MG Capsule PO ×2 (08:51→11:13)
[2018-05-11] MEDS: Aspirin E.C. 81 MG Tablet PO (08:51)
[2018-05-11] MEDS: Carvedilol 25 MG Tablet PO (08:52)
[2018-05-11] MEDS: amLODIPine 5 MG Tablet PO (08:52)
[2018-05-11] MEDS: Celecoxib 200 MG Capsule PO (08:52)
[2018-05-11] MEDS: Venlafaxine XR 150 MG Capsule PO (08:52)
[2018-05-11] MEDS: Clopidogrel Bisulfate 75 MG Tablet PO (08:52)
[2018-05-11] MEDS: buPROPion (XL) 150 MG TABLET.XL PO (08:53)
--- NOTE | 2018-05-11 09:03 | PCM.PN.HOSP ---
Patient Problems: Active and Suspected Problems (Last Updated 05/05/18 @ 10:43 by YUMI Berumen) Syncope (Acute) Closed left acetabular fracture (Acute) Subjective: Patient is a 77 year old lady resident at an COUNTS INCLUDE 234 BEDS AT THE [facility] who presented following a fall imaging studies on admission demonstrated Left acetabulum fracture with extension into the superior ramus and base of the left ilium/iliac crest. Admitted to regular nursing floor for symptomatic management Objective: GENERAL: cooperative HEENT: Atraumatic; EYES; Anicteric, Normal Conjunctiva NECK; supple, normal thyroid, RESPIRATORY: Diminished to auscultation bilaterally, CARDIOVASCULAR: Regular S1 S2, GI: soft, non-tender, normoactive bowel sounds, : No Renal angle tenderness; EXTREMITIES: No edema, no clubbing, no cyanosis. NEURO: Awake; no lateralizing signs. SKIN: No Rash PSYCH; Normal affect Vitals/I&O's: Vital Signs Temp Pulse Resp BP Pulse Ox 98.2 F 112 H 20 H 175/88 H 94 05/11/18 07:54 05/11/18 07:54 05/11/18 07:54 05/11/18 07:54 05/11/18 07:54 Oxygen Delivery Method Room Air Weight: 72.7 kg Body Mass Index (BMI) 29.2 Finger Stick Blood Glucose 236 Intake and Output for Last 24 Hours 05/09/18 05/10/18 05/11/18 23:59 23:59 23:59 Intake Total 464 / 464 623 / 623 Output Total 255 / 255 1100 / 1100 Balance 209 / 209 -477 / -477 Laboratory Results 05/10/18 16:00: WBC 11.1 H, RBC 3.31 L, Hgb 9.6 L, Hct 31.0 L, MCV 93.7, MCH 29.0, MCHC 31.0 L, RDW 14.9 H, RDW Differential 48.8 H, Plt Count 156, MPV 10.4, Immature Gran % (Auto) 0.400, Neut % (Auto) 84.6 H, Lymph % (Auto) 5.9 L, [place] % (Auto) 7.0, Eos % (Auto) 1.9, Baso % (Auto) 0.2, Absolute Neuts (auto) 9.4 H, Absolute Lymphs (auto) 0.66 L, Total Counted Not Reportable 05/10/18 16:00: Sodium 135 L, Potassium 6.2 H*, Chloride 109 H, Carbon Dioxide 18.0 L, Anion Gap 8, BUN 28 H, Creatinine 1.58 H, Estim Creat Clear Calc 22.14, Est GFR (MDRD) Af Amer 41 L, Est GFR (MDRD) Non-Af 34 L, BUN/Creatinine Ratio 17.7, Glucose 258 H, Calcium 8.7 05/10/18 16:00: Urine Color Yellow, Urine Clarity Clear, Urine pH 5.0, Ur Specific [place] 1.010, Urine Protein 30 H, Urine Glucose (UA) Normal, Urine Ketones Negative, Urine Occult Blood Negative, Urine Nitrite Negative, Urine Bilirubin Negative, Urine Urobilinogen Normal, Ur Leukocyte Esterase Negative, Urine RBC 0 SEEN, Urine WBC 0 SEEN, Ur Squamous Epith Cells 0 SEEN, Urine Bacteria 0 SEEN, Urine Mucus 0 SEEN 05/10/18 20:12: POC Glucose 156 H 05/11/18 05:42: Sodium 140, Potassium 4.7, Chloride 114 H, Carbon Dioxide 17.0 L, Anion Gap 9, BUN 20 H, Creatinine 1.28 H, Estim Creat Clear Calc 28.65, Est GFR (MDRD) Af Amer 52 L, Est GFR (MDRD) Non-Af 43 L, BUN/Creatinine Ratio 15.6, Glucose 147 H, Calcium 9.0 05/11/18 05:42: WBC 8.8, RBC 3.52 L, Hgb 10.5 L, Hct 33.0 L, MCV 93.8, MCH 29.8, MCHC 31.8 L, RDW 14.9 H, RDW Differential 48.9 H, Plt Count 159, MPV 10.5, Immature Gran % (Auto) 0.500, Neut % (Auto) 83.1 H, Lymph % (Auto) 5.4 L, [place] % (Auto) 7.3, Eos % (Auto) 3.4, Baso % (Auto) 0.3, Absolute Neuts (auto) 7.3, Absolute Lymphs (auto) 0.48 L, Total Counted Not Reportable Current Medications Amlodipine Besylate (Norvasc) 5 mg PO DAILY [facility] Last Admin: 05/11/18 08:52 Dose: 5 mg Aspirin (Ecotrin) 81 mg PO DAILY@0800 [facility] Last Admin: 05/11/18 08:51 Dose: 81 mg Atorvastatin Calcium (Lipitor) 40 mg PO QHS [facility] Last Admin: 05/10/18 20:15 Dose: 40 mg Bupropion HCl (Wellbutrin Xl) 150 mg PO DAILY [facility] Last Admin: 05/11/18 08:53 Dose: 150 mg Carvedilol (Coreg) 25 mg PO BID [facility] Last Admin: 05/11/18 08:52 Dose: 25 mg [facility] Admin: 05/11/18 08:52 Dose: 200 mg Clopidogrel Bisulfate (Plavix) 75 mg PO DAILY [facility] Last Admin: 05/11/18 08:52 Dose: 75 mg Enoxaparin Sodium (Lovenox) 30 mg SC DAILY@1000 [facility] Last Admin: 05/11/18 08:50 Dose: 30 mg Gabapentin (Neurontin) 300 mg PO TIDCM [facility] Last Admin: 05/11/18 08:51 Dose: 300 mg Sodium Chloride () 1,000 mls @ 100 mls/hr IV .Q10H [facility] Last Admin: 05/11/18 05:29 Dose: 100 mls/hr Insulin Glargine (Lantus (Bkc)) 41 units SC QHS [facility] Last Admin: 05/10/18 20:16 Dose: 41 u Lorazepam (Ativan) 1 mg PO BID PRN PRN PRN Reason: ANXIETY Last Admin: 05/11/18 02:14 Dose: 1 mg Magnesium Hydroxide (Milk Of Magnesia) 30 ml PO DAILY PRN PRN PRN Reason: Constipation Nystatin (Mycostatin Powder) 1 applic TOPICAL TID [facility]; Protocol Last Admin: 05/11/18 05:28 Dose: 1 applicatio Olanzapine (Zyprexa Zydis) 5 mg PO QHS [facility] Last Admin: 05/10/18 20:15 Dose: 5 mg Ondansetron HCl (Zofran Odt) 4 mg PO Q8H PRN PRN PRN Reason: NAUSEA Sodium Chloride () 5 - 15 ml IV UD PRN PRN Reason: SALINE FLUSH Venlafaxine HCl (Effexor Xr) 150 mg PO DAILY [facility] Last Admin: 05/11/18 08:52 Dose: 150 mg Medical Necessity - Tobacco Use Smoking Status: Never smoker Assessment/Plan All Active Problems (Last Updated 05/05/18 @ 10:43 by Malka Robledo NP-C) Syncope (Acute) Closed left acetabular fracture (Acute) ARIEL (acute kidney injury) (Acute) H/O shoulder surgery (Resolved) H/O: hysterectomy (Resolved) H/O colectomy (Resolved) Generalized weakness (Acute) Acute kidney injury (Resolved) Acute pyelonephritis (Resolved) Clostridium difficile diarrhea (Resolved) Herpes zoster (Resolved) Pulmonary embolism (Resolved) Recurrent colitis due to Clostridium difficile (Resolved) Urinary tract infection (Resolved) Ileus (Ruled-out) Patient is a 77 year old lady resident at an COUNTS INCLUDE 234 BEDS AT THE [facility] who presented following a fall imaging studies on admission demonstrated Left acetabulum fracture with extension into the superior ramus and base of the left ilium/iliac crest. Admitted to regular nursing floor for symptomatic management 1. Acute mechanical fall; imaging studies on admission demonstrated Left acetabulum fracture with extension into the superior ramus and base of the left ilium/iliac crest. Admitted to regular nursing floor for symptomatic management addition to PT OT eval and health social work professor to assist with discharge planning 2. CAD with previous stent placement 3. Chronic kidney disease stage III 4. Diabetes mellitus type 2 with complications including diabetic nephropathy did continue patient insulin regimen 5. History of colon cancer with metastases to the lungs patient is followed by an oncologist at the [facility] 6. Hypertension blood pressure stable 7. History of DVT/PE status post IVC filter placement 8. DVT prophylaxis SC enoxaparin Active Medications Acetaminophen (Tylenol) 650 mg PO Q4H PRN PRN PRN Reason: PAIN Last Admin: 05/11/18 09:50 Dose: 650 mg Amlodipine Besylate (Norvasc) 5 mg PO DAILY [facility] Last Admin: 05/11/18 08:52 Dose: 5 mg Aspirin (Ecotrin) 81 mg PO DAILY@0800 [facility] Last Admin: 05/11/18 08:51 Dose: 81 mg Atorvastatin Calcium (Lipitor) 40 mg PO QHS [facility] Last Admin: 05/10/18 20:15 Dose: 40 mg Bupropion HCl (Wellbutrin Xl) 150 mg PO DAILY [facility] Last Admin: 05/11/18 08:53 Dose: 150 mg Carvedilol (Coreg) 25 mg PO BID [facility] Last Admin: 05/11/18 08:52 Dose: 25 mg [facility] ([facility]x) [facility] Last Admin: 05/11/18 08:52 Dose: 200 mg Clopidogrel Bisulfate (Plavix) 75 mg PO DAILY [facility] Last Admin: 05/11/18 08:52 Dose: 75 mg Dextrose (D50w Syringe) 0 gm IV X1 PRN; Protocol PRN Reason: Hypoglycemia Enoxaparin Sodium (Lovenox) 30 mg SC DAILY@1000 [facility] Last Admin: 05/11/18 08:50 Dose: 30 mg Gabapentin (Neurontin) 300 mg PO TIDCM [facility] Last Admin: 05/11/18 11:13 Dose: 300 mg Glucagon () 1 mg IM .X1 PRN PRN Reason: Hypoglycemia Sodium Chloride () 1,000 mls @ 100 mls/hr IV .Q10H [facility] Last Admin: 05/11/18 05:29 Dose: 100 mls/hr Insulin Glargine (Lantus (Bkc)) 41 units SC QHS [facility] Last Admin: 05/10/18 20:16 Dose: 41 u Insulin Human Lispro (Humalog Kwikpen (Bk)) 0 unit SQ ACHS [facility]; Protocol Lorazepam (Ativan) 1 mg PO BID PRN PRN PRN Reason: ANXIETY Last Admin: 05/11/18 02:14 Dose: 1 mg Magnesium Hydroxide (Milk Of Magnesia) 30 ml PO DAILY PRN PRN PRN Reason: Constipation Multivitamins (Multivitamin) 1 tablet PO DAILY@1200 [facility] Nystatin (Mycostatin Powder) 1 applic TOPICAL TID [facility]; Protocol Last Admin: 05/11/18 05:28 Dose: 1 applicatio Olanzapine (Zyprexa Zydis) 5 mg PO QHS [facility] Last Admin: 05/10/18 20:15 Dose: 5 mg Ondansetron HCl (Zofran Odt) 4 mg PO Q8H PRN PRN PRN Reason: NAUSEA Oxycodone HCl (Oxyir) 7.5 mg PO Q4H PRN PRN PRN Reason: PAIN Last Admin: 05/11/18 09:51 Dose: 7.5 mg Sodium Chloride () 5 - 15 ml IV UD PRN PRN Reason: SALINE FLUSH Venlafaxine HCl (Effexor Xr) 150 mg PO DAILY [facility] Last Admin: 05/11/18 08:52 Dose: 150 mg Clinical Impression(s) from Imaging Studies Pelvis CT 05/10/18 15:34 IMPRESSION: 1. Left acetabulum fracture with extension into the superior ramus and base of the left ilium/iliac crest. 2. Normally aligned bilateral hips. 3. Additional chronic changes, as above. Electronically Signed: Karsten Marshall MD at 17:20 EST , Service support , Chest X-Ray 05/10/18 15:49 IMPRESSION: 1. Stable, nonacute x-ray examination of the chest. 2. Right upper lobe mass. Electronically Signed: Karsten Marshall MD at 16:41 EST , Service support , Code Visit OBSV E&M: [id number] Subsequent observation care L3
[2018-05-11] MEDS: Acetaminophen 325 MG Tablet 650 MG PO (09:50)
--- NOTE | 2018-05-11 10:18 | CASEMGMT ---
Social Work Note RN updated this worker that pt is from [facility]. Pt was recently at [facility] and went to [facility] skilled. ENRIQUE received call from Lissy TRIVEDI at [facility]. ENRIQUE informed Lissy that pt is still in observation status. Lissy states that pt is skilled at [facility] and if pt is able to return to [facility] by 2:00pm today then pre-cert won't be needed again. ENRIQUE informed Lissy that this worker has to speak to pt to confirm discharge plans and to physician to determine when pt is able to discharge. Lissy provided direct number [phone]. Physician updated. ENRIQUE met with pt to confirm discharge plans. Pt is alert and orientated x3. Pt confirms that she is from [facility] skilled and her plan is to return there at discharge. SW asked pt if she would like this worker to call any of her family members. Pt states that her daughter knows that she is here and if her daughter knows then everyone knows. Pt denied wanting this worker to call any other family members. Plan: Return to [facility]. If pt stays today, pt will need new pre-cert. Pat Lancaster CONTRACTOR GENERAL ENGINEERING, PSYCHIATRIC CNS
[2018-05-11 11:01] VITALS: BP 131/70; PULSE 86; RESP 20; TEMP 36.7; O2SAT 96
[2018-05-11 11:20] LABS: Bedside Glucose 185 mg/dL (70-110)
[2018-05-11] MEDS: Insulin Lispro 100 UNIT/ML INSULN.PEN SQ (11:30)
[2018-05-11] MEDS: Multivitamins,Therapeutic Tablet 1 TABLET PO (11:31)
--- NOTE | 2018-05-11 12:02 | TREXTCAR_ITS ---
- Diet 05/10/18 19:35 Diet: Regular Diet Food consistency:: Regular Liquid Consistency:: Regular/Thin Type of Dietary Supplement:: Glucerna Shake - Allergies/Procedures Done in Hospital Allergies/Adverse Reactions: Allergies promethazine HCl [From Phenergan] Allergy (Verified 05/10/18 15:17) seizures persian rice Adverse Reaction (Severe, Uncoded 05/10/18 15:17) Unknown - Type of Care/Length of Stay Estimated LOS: Convalescent Care Less Than 30 days Type of Care Needed: Skilled Rehab Potential: Good Prognosis: Good - Additional Orders/Day of Discharge Day of Discharge: 05/11/18 - Follow Up Care Primary Care Physician: Donald Cline MD [Primary Care Provider] - Please follow up with your Primary Care Physician in: IN 1-2 WEEKS
--- NOTE | 2018-05-11 12:03 | PCM.DC.SUM ---
Discharge Date and Diagnosis - Problem List Patient Problems: Active and Suspected Problems (Last Updated 05/05/18 @ 10:43 by YUMI Berumen) Syncope (Acute) Closed left acetabular fracture (Acute) Date of Admission: 05/10/18 Date of Discharge: 05/11/18 - Primary Discharge Diagnosis Active and Suspected Problems (Last Updated 05/05/18 @ 10:43 by YUMI Berumen) Syncope (Acute) Closed left acetabular fracture (Acute) - Secondary Discharge Diagnosis Chronic Problems (Last Updated 05/05/18 @ 10:43 by YUMI Berumen) Essential (primary) hypertension (Chronic) Pure hypercholesterolemia (Chronic) Atherosclerosis of [place] coronary artery of [place] heart without angina pectoris (Chronic) 01/05/2017 SHEKHAR to mid RCA & POBA to ostial PDA PCI-Stent 2006, 2009 & 2010 Atrial arrhythmia (Chronic) History of coronary artery stent placement (Chronic ~01/05/17) 01/05/2017 SHEKHAR to mid RCA & POBA to ostial PDA PCI-Stent 2006, 2009 & 2010 Colon carcinoma (Chronic) S/P partial colon resection Diabetes (Chronic) 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) s/p colon resection remote, lung metastases diagnosed 2014, s/p adjuvant chemotherapy, s/p stereotactic XRT [facility], follows [facility] S/P ORIF (open reduction internal fixation) fracture (Chronic) left ankle, 09/14/14, Dr Harvey, [facility] Presence of IVC filter (Chronic) H/O deep venous thrombosis (Chronic) now has an IVC filter Polyneuropathy (Chronic) Chronic renal failure, stage 3 (moderate) (Chronic) Anxiety and depression (Chronic) uncontrolled GERD (gastroesophageal reflux disease) (Chronic) Hospital Course and Treatment Imaging Results: Clinical Impression(s) from Imaging Studies Pelvis CT 05/10/18 15:34 IMPRESSION: 1. Left acetabulum fracture with extension into the superior ramus and base of the left ilium/iliac crest. 2. Normally aligned bilateral hips. 3. Additional chronic changes, as above. Electronically Signed: Karsten Marshall MD at 17:20 EST , Service support , Chest X-Ray 05/10/18 15:49 IMPRESSION: 1. Stable, nonacute x-ray examination of the chest. 2. Right upper lobe mass. Electronically Signed: Karsten Marshall MD at 16:41 EST , Service support , Operations: None Summary of Care Provided: Patient is a 77 year old lady resident at an [facility] who presented following a fall imaging studies on admission demonstrated Left acetabulum fracture with extension into the superior ramus and base of the left ilium/iliac crest. Admitted to regular nursing floor for symptomatic management 1. Acute mechanical fall; imaging studies on admission demonstrated Left acetabulum fracture with extension into the superior ramus and base of the left ilium/iliac crest. Admitted to regular nursing floor for symptomatic management addition to PT OT eval and protective services social worker to assist with discharge planning 2. CAD with previous stent placement 3. Chronic kidney disease stage III 4. Diabetes mellitus type 2 with complications including diabetic nephropathy did continue patient insulin regimen 5. History of colon cancer with metastases to the lungs patient is followed by an oncologist at the [facility] 6. Hypertension blood pressure stable 7. History of DVT/PE status post IVC filter placement 8. DVT prophylaxis SC enoxaparin Patient Problems: Active and Suspected Problems (Last Updated 05/05/18 @ 10:43 by YUMI Berumen) Syncope (Acute) Closed left acetabular fracture (Acute) Objective: GENERAL: cooperative HEENT: Atraumatic; EYES; Anicteric, Normal Conjunctiva NECK; supple, normal thyroid, RESPIRATORY: Diminished to auscultation bilaterally, CARDIOVASCULAR: Regular S1 S2, GI: soft, non-tender, normoactive bowel sounds, : No Renal angle tenderness; EXTREMITIES: No edema, no clubbing, no cyanosis. NEURO: Awake; no lateralizing signs. SKIN: No Rash - Physical Exam Vital Signs Temp Pulse Resp BP Pulse Ox 98.1 F 86 20 H 131/70 H 96 05/11/18 11:01 05/11/18 11:01 05/11/18 11:01 05/11/18 11:01 05/11/18 11:01 Oxygen Delivery Method Room Air Weight: 72.7 kg Body Mass Index (BMI) 29.2 Finger Stick Blood Glucose 236 Intake and Output for Last 24 Hours 05/09/18 05/10/18 05/11/18 23:59 23:59 23:59 Intake Total 464 / 464 1557 / 1557 Output Total 255 / 255 1525 / 1525 Balance 209 / 209 32 / 32 Laboratory Tests Past 24 Hrs 05/10/18 05/10/18 05/10/18 16:00 16:00 16:00 WBC 11.1 H RBC 3.31 L Hgb 9.6 L Hct 31.0 L MCV 93.7 MCH 29.0 MCHC 31.0 L RDW 14.9 H RDW Differential 48.8 H Plt Count 156 MPV 10.4 Immature Gran % (Auto) 0.400 Neut % (Auto) 84.6 H Lymph % (Auto) 5.9 L [place] % (Auto) 7.0 Eos % (Auto) 1.9 Baso % (Auto) 0.2 Absolute Neuts (auto) 9.4 H Absolute Lymphs (auto) 0.66 L Total Counted Not Reportable Sodium 135 L Potassium 6.2 H* Chloride 109 H Carbon Dioxide 18.0 L Anion Gap 8 BUN 28 H Creatinine 1.58 H Estim Creat Clear Calc 22.14 Est GFR (MDRD) Af Amer 41 L Est GFR (MDRD) Non-Af 34 L BUN/Creatinine Ratio 17.7 Glucose 258 H Calcium 8.7 Urine Color Yellow Urine Clarity Clear Urine pH 5.0 Ur Specific [place] 1.010 Urine Protein 30 H Urine Glucose (UA) Normal Urine Ketones Negative Urine Occult Blood Negative Urine Nitrite Negative Urine Bilirubin Negative Urine Urobilinogen Normal Ur Leukocyte Esterase Negative Urine RBC 0 SEEN Urine WBC 0 SEEN Ur Squamous Epith Cells 0 SEEN Urine Bacteria 0 SEEN Urine Mucus 0 SEEN 05/11/18 05/11/18 05:42 05:42 WBC 8.8 RBC 3.52 L Hgb 10.5 L Hct 33.0 L MCV 93.8 MCH 29.8 MCHC 31.8 L RDW 14.9 H RDW Differential 48.9 H Plt Count 159 MPV 10.5 Immature Gran % (Auto) 0.500 Neut % (Auto) 83.1 H Lymph % (Auto) 5.4 L [place] % (Auto) 7.3 Eos % (Auto) 3.4 Baso % (Auto) 0.3 Absolute Neuts (auto) 7.3 Absolute Lymphs (auto) 0.48 L Total Counted Not Reportable Sodium 140 Potassium 4.7 Chloride 114 H Carbon Dioxide 17.0 L Anion Gap 9 BUN 20 H Creatinine 1.28 H Estim Creat Clear Calc 28.65 Est GFR (MDRD) Af Amer 52 L Est GFR (MDRD) Non-Af 43 L BUN/Creatinine Ratio 15.6 Glucose 147 H Calcium 9.0 Urine Color Urine Clarity Urine pH Ur Specific [place] Urine Protein Urine Glucose (UA) Urine Ketones Urine Occult Blood Urine Nitrite Urine Bilirubin Urine Urobilinogen Ur Leukocyte Esterase Urine RBC Urine WBC Ur Squamous Epith Cells Urine Bacteria Urine Mucus POC Glucose 05/11/18 05/10/18 11:09 20:12 POC Glucose 185 H 156 H Discharge Diet: 1800 Calorie Control Diet Home Medications: Medications to take at Discharge Atorvastatin Calcium [Lipitor] 40 mg PO QHS 07/09/15 Multivitamin [Daily Multiple Vitamin] 1 tab PO DAILY 07/09/15 buPROPion XL [Wellbutrin Xl] 150 mg PO DAILY 09/20/16 Aspirin E.C. [Ecotrin] 81 mg PO DAILY@0800 02/26/17 Clopidogrel Bisulfate [Plavix] 75 mg PO DAILY 02/26/17 Insulin Glargine,Hum.rec.anlog [Toujeo Solostar] 41 units SQ QHS 07/09/17 Venlafaxine XR [Effexor Xr] 150 mg PO DAILY 07/09/17 Carvedilol [Coreg (Beta Gilles)] 25 mg PO BID 07/28/17 Gabapentin [Neurontin] 300 mg PO TIDCM 07/28/17 Amlodipine [Norvasc] 5 mg PO DAILY #30 tab 08/01/17 Lorazepam [Ativan] 1 mg PO BID PRN PRN #30 tab 08/01/17 Ondansetron [Zofran Odt] 4 mg PO Q8H PRN PRN #30 tab 08/01/17 Olanzapine [Zyprexa] 5 mg PO QHS 09/19/17 Alendronate Sodium [Fosamax] 70 mg PO BURT 05/10/18 Celecoxib [Celebrex] 200 mg PO DAILY 05/10/18 Insulin Lispro [Humalog] 0 unit SQ TID 05/10/18 Nystatin Powder [Mycostatin Powder] 1 applic TOPICAL TID 05/10/18 Lorazepam [Ativan] 1 mg PO BID PRN PRN #14 tab 05/11/18 Oxycodone HCl/Acetaminophen [Percocet 7.5-325 mg Tablet] 1 tab PO TID PRN PRN 5 Days #20 tab 05/11/18 Following Prescrptions Were Given to Patient: Lorazepam [Ativan] 1 mg PO BID PRN PRN #14 tab PRN Reason: ANXIETY Oxycodone HCl/Acetaminophen [Percocet 7.5-325 mg Tablet] 1 tab PO TID PRN PRN 5 Days #20 tab PRN Reason: Pain Primary Care Physician: Donald Cline MD [Primary Care Provider] - Please follow up with your Primary Care Physician in: IN 1-2 WEEKS Disposition: [facility] facility Minutes spent on discharge:: 35 Patient Condition:: Stable Medical Necessity - Tobacco Use Smoking Status: Never smoker Meaningful Use Info Meaningful Use Diagnoses (Choose all that apply): None applicable Code Visit OBSV E&M: 30185 Observation care discharge
--- NOTE | 2018-05-11 12:30 | CASEMGMT ---
Addendum entered by Pat Lancaster 05/11/18 14:25: ENRIQUE placed a call to pt's FAROOQ Deal at [facility] and updated her on pt's admission and discharge to [facility] today. Original Note: Social Work Note Physician is discharging pt today. SW faxed discharge paperwork to [facility] including transfer to extended care facility, signed medication list and any scripts. Originals in SNF folder and copy on pt's chart. SW updated pt on discharge to [facility] today and that pt will need to be at [facility] by 2:00pm today. Pt called her daughter Swati and handed this worker her phone to talk to her daughter. ENRIQUE updated Swati that pt is being discharged back to [facility] today and asked about transportation. Swati states she would like transportation to be arranged for pt, pt is agreeable to transportation being arranged. ENRIQUE asked RN how pt is able to be transported. RN states pt is able to be transported by wheelchair van. ENRIQUE called both [facility] and both are unable to transport pt by 2:00pm. ENRIQUE placed a call to Lissy at [facility]. Lissy confirms that pt has to be back at [facility] (in facility) by 2:00pm. ENRIQUE asked Lissy about [facility] transporting pt, Lissy states she will ask. ENRIQUE discussed transportation with RN who states pt has pain when moving and max assist of 2 for transfers and bed mobility and would benefit from being transported by cot. ENRIQUE placed a call to [facility] and set up transportation for 12:45pm via cot. Transportation form on SNF folder and copy on pt's chart. [facility] is not needed to be completed as pt is from skilled at [facility] and is returning skilled at [facility]. SW in to update pt on transportation coming to get pt. Pt placed a call to her daughter Swati and updated her that transportation is on their way to transport pt. Pt's grandson Darius entered the room. Pt gave this worker permission to update Darius. SW informed Darius that pt is being discharged back to [facility] skilled today and [facility] is on their way to [facility] to transport pt. RN updated on transportation. ENRIQUE placed a call to Lissy at [facility] and updated her that discharge paperwork is faxed and [facility] is on their way to [facility] to transport pt. Plan: Pt to discharge to [facility] skilled today with [facility] transporting via cot at 12:45pm Pat MORALES, BAILEE
--- NOTE | 2018-05-11 12:55 | NURSING ---
report given to Ruel ALEJANDRE at [facility] for discharge.
== END 2018-05-11 12:58 | disposition skilled nursing facility (03) ==
LOC: ED 18:25 → MS3 18:38
PROVIDERS: Admitting Provider Family Medicine; Emergency Provider Emergency Medicine; Family Provider Family Medicine; PCP Family Medicine; Visit Provider Internal Medicine
DX: S32.492A Other specified fracture of left acetabulum, initial encounter for closed fracture (principal); W19.XXXA Unspecified fall, initial encounter; Y93.89 Activity, other specified; Y92.002 Bathroom of unspecified non-institutional (private) residence as the place of occurrence of the external cause; E87.5 Hyperkalemia; R55 Syncope and collapse; N17.9 Acute kidney failure, unspecified; E78.00 Pure hypercholesterolemia, unspecified; I25.10 Atherosclerotic heart disease of native coronary artery without angina pectoris; K21.9 Gastro-esophageal reflux disease without esophagitis; E11.22 Type 2 diabetes mellitus with diabetic chronic kidney disease; I12.9 Hypertensive chronic kidney disease with stage 1 through stage 4 chronic kidney disease, or unspecified chronic kidney disease; N18.3 Chronic kidney disease, stage 3 (moderate); Z95.5 Presence of coronary angioplasty implant and graft; Z85.038 Personal history of other malignant neoplasm of large intestine; E11.42 Type 2 diabetes mellitus with diabetic polyneuropathy; Z79.4 Long term (current) use of insulin; Z79.899 Other long term (current) drug therapy; Z79.02 Long term (current) use of antithrombotics/antiplatelets; Z79.82 Long term (current) use of aspirin; F41.9 Anxiety disorder, unspecified; F32.9 Major depressive disorder, single episode, unspecified; Z86.718 Personal history of other venous thrombosis and embolism; Z86.711 Personal history of pulmonary embolism; C78.02 Secondary malignant neoplasm of left lung; C78.01 Secondary malignant neoplasm of right lung
CPT/HCPCS: 36415; 51702; 71045; 72192; 80048; 81001; 82962; 85025; 93005; 96361; 96372; 96374; 96375; 97162; 97166; 99218; 99284; J7030; A4216; G0378; J0610